=== PATIENT | male | born 1955 | race Caucasian/White ===

== ENCOUNTER 2025-01-10 00:39 | Emergency (ER) | payer MEDICARE, MEDICAID ==
[~2025-01-10] VITALS: Ht 162.6 cm; Wt 63.6 kg
[~2025-01-10 00:39] MED LIST: BACL10TA PO; FAMO-12 PO; FURO20TA4 PO; GABA-1250 PO; HYDR-4792 PO; LISI-275 PO; MIRT1TAB38 PO; MORP30TA5 PO; PANT40T PO
--- NOTE | 2025-01-10 00:47 | ED.PDOC ---
GI ASSESSMENT HPI Comments HPI: Poor Historian. 69-year-old male brought in by ambulance from home for evaluation of 4 hour history of intermittent epigastric pain nonradiating without any nausea or vomiting or diarrhea. Denies any particular alleviating or precipitating factors. Pre-hospital course vital signs were stable. Patient is on morphine Dilaudid and gabapentin. 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 EARS: Denies acute: tinnitus, hearing loss, ear discharge, ear pain, THROAT: Denies acute: sore throat, swelling, difficulty swallowing , pain with swallowing, change in voice. NECK: Denies acute: neck pain, neck swelling, stiff neck. HEART: Denies acute : chest pain, palpitations, LUNGS: Denies acute: SOB, wheezing, cough, hemoptysis ABDOMEN: Denies acute: abdominal pain, Nausea, Vomiting, diarrhea, melena , hematemesis, hematochezia SKIN: Denies acute: rash, redness, lesions, itchiness. EXTREMITIES: Denies acute: calf pain, numbness, tingling, weakness, denies pain in extremity. Denies acute: Low back pain. Neuro: Denies acute: focal neurological deficit, motor or sensory focal neurological deficit, tremors, seizure like activity, confusion, dizziness, change in mental status, loss of bowel or bladder function, cauda equina like symptoms. : Denies acute: dysuria, hematuria, flank pain, increase in urinary frequency. PSYCH: Denies acute: hallucination, suicidal ideation, homicidal ideation. PHYSICAL EXAM: General: no acute distress, awake and alert. Head: normocephalic, atraumatic. Neck: supple, trachea is midline, no swelling. Throat: Normal phonation. Eyes:, no erythema, no purulent discharge, no proptosis, no icterus. Heart: regular rate, regular rhythm, no significant murmur appreciated. Lungs: no apparent respiratory distress, Able to speak in full sentences. No wheezing, no rhonchi, no crackles. No stridors Clear to auscultation bilaterally. Abdomen: Epigastric tender to palpation, non distended, soft, no guarding, no rebound, + bowel sounds. Neuro: Awake, Alert, oriented to name, self, situation, follows commands GCS=15. Speech is normal. Skin: no petechia, no purpura, no cyanosis, non-pale, not jaundice. Lower extremities: --trace bilateral - Pitting edema no deformity, no focal swelling, no calf TTP. Makes eye contact. moves all four extremities. Face: no apparent facial droop. ED COURSE: Time Seen by MD: 00:42 Reviewed Notes: Nurses Notes, Allergies Allergies: Coded Allergies: NO KNOWN ALLERGIES (Unverified , 01/10/25) Information Source: Patient, Emergency Med Personnel Was a procedure done? Was a procedure done?: No GI differential Dx Differential Diagnosis: Other (DDX include but not limited to diverticulitis, colitis, gastroenteritis, acute abdomen, SBO, enteritis, constipation, volvulus, appendicitis, Gallbladder disease, choledocolithiasis, ascending cholangitis, pancreatitis, intraAbdominal mass/neoplasm, hepatitis, UTI, pylonephritis, kidney stone, aneurysm, dissection, Inflammatory bowel disease, gastroparesis, ischemic bowel.) X-Ray, Labs, Meds, VS Vital Signs Date Time Temp Pulse Resp B/P (MAP) Pulse Ox O2 Delivery O2 Flow Rate FiO2 01/10/25 02:57 20 100 Nasal Cannula* 3 32 01/10/25 01:24 81 18 99 Nasal Cannula* 2 28 01/10/25 01:24 98.6 81 18 167/74 (105) 99 98.6 01/10/25 00:54 72 01/10/25 00:47 98.6 74 16 177/60 (99) 97 Lab Test 01/10/25 02:05 01/10/25 01:15 Range/Units Troponin I High Sensitivity Pending 6 </=54 ng/L White Blood Count 10.3 4.4-10.8 10^3/uL Red Blood Count 4.51 4.5-5.90 10^6/uL Hemoglobin 13.2 L 13.5-17.5 g/dL Hematocrit 38.1 L 41.0-53.0 % Mean Corpuscular Volume 84.5 80.0-100.0 fL Mean Corpuscular Hemoglobin 29.1 28.0-32.0 pg Mean Corpuscular Hemoglobin Concent 34.5 32.0-36.0 g/dL Red Cell Distribution Width 13.8 11.8-14.3 % Platelet Count 309 140-450 10^3/uL Mean Platelet Volume 6.7 L 6.9-10.8 fL Neutrophils (%) (Auto) 78.2 37.0-80.0 % Lymphocytes (%) (Auto) 14.5 10.0-50.0 % Monocytes (%) (Auto) 5.8 0.0-12.0 % Eosinophils (%) (Auto) 0.9 0.0-7.0 % Basophils (%) (Auto) 0.6 0.0-2.0 % Neutrophils # (Auto) 8.0 1.6-8.6 10 ^3/uL Lymphocytes # (Auto) 1.5 0.4-5.4 10 ^3/uL Monocytes # (Auto) 0.6 0-1.3 10 ^3/uL Eosinophils # (Auto) 0.1 0-0.8 10 ^3/uL Basophils # (Auto) 0.1 0-0.2 10 ^3/uL Nucleated Red Blood Cells 0.0 % Sodium Level 135 L 136-145 mmol/L Potassium Level 4.3 3.5-5.1 mmol/L Chloride Level 99 98-107 mmol/L Carbon Dioxide Level 29 20-31 mmol/L Anion Gap 7 5-15 Blood Urea Nitrogen 11 9-23 mg/dL Creatinine 0.76 0.700-1.30 mg/dL Glomerular Filtration Rate Calc 96 >90 mL/min BUN/Creatinine Ratio 14.5 10.0-20.0 Serum Glucose 97 74-106 mg/dL Lactic Acid Level 0.7 0.4-2.0 mmol/L Calcium Level 11.0 H 8.7-10.4 mg/dL Total Bilirubin 0.5 0.2-1.0 mg/dL Aspartate Amino Transferase (AST) 10 L 13-40 U/L Alanine Aminotransferase (ALT) 10 7-40 U/L Alkaline Phosphatase 96 46-116 U/L B-Type Natriuretic Peptide 27.50 0-100 pg/mL Total Protein 7.2 5.7-8.2 g/dL Albumin 4.9 H 3.2-4.8 g/dL Lipase 37 12-53 U/L Current Medications Medications (Trade) Dose Ordered Sig/Kush Route Start Time Stop Time Status Last Admin Albuterol (Ventolin Medneb) 2.5 mg ONCE ONCE NEB 01/10/25 02:45 01/10/25 02:46 DC 01/10/25 02:57 Ipratropium [place] (Atrovent Medneb) 1 mg ONCE ONCE NEB 01/10/25 02:45 01/10/25 02:46 DC 01/10/25 02:57 [place] [id number] Ph: [phone] DIAGNOSTIC IMAGING Diagnostic Imaging Report : [id number] Signed PATIENT: LYNNE STERLING ACCT: [id number] UNIT: [id number] : 1955 LOC: ER ROOM / BED: / AGE / SEX: 69 / M ADM STATUS: REG ER SERVICE 0044 ORDERING PHYSICIAN: FLOYD ORTIZ DO PROCEDURE(s): ABPL - CT AB PEL WO CON-NO ORAL OR IV REASON: abd pain ORDER NUMBER(s): [id number], ACCESSION NUMBER(s): [id number] Exam: CT CT AB PEL WO CON-NO ORAL OR IV History: abd pain Comparison Study: None Technique: Multidetector spiral CT of the abdomen was performed from lung bases to pubic symphysis. Imaging was performed without IV contrast. Axial, coronal and sagittal multiplanar reformats were obtained from the axial data set by the technologist. Radiation Dose : 1. Abdomen/Pelvis: CTDIvol 15.3 mGy, DLP 900 mGy*cm. Findings: Evaluation of solid organs is limited due to lack of intravenous contrast use. Lung Bases: No acute or significant lung base finding. Normal heart size. No pleural or pericardial effusion. Liver: The liver is normal in size. No focal lesions. Gallbladder and Biliary Tree: Unremarkable Spleen: Unremarkable Pancreas: The pancreas is grossly normal in appearance. Adrenal Glands: Unremarkable Kidneys: Kidneys are grossly normal without calculi or hydronephrosis. Bladder: Collapsed with the suprapubic catheter.. Bowel: The stomach is grossly normal in appearance. Small bowel and colon are normal in caliber and distribution. The appendix is not visualized; however, no secondary findings of acute appendicitis identified. Ascites: Absent Lymphadenopathy: No mesenteric, retroperitoneal or periportal lymphadenopathy. Abdominal Wall and Mesentery: Unremarkable. Vasculature: Advanced atherosclerotic vascular calcifications in the abdominal aorta and its major branches. Pelvic Organs: Unremarkable Musculoskeletal: Posterior spinal fixation in the lower lumbar spine. Intact hardware. IMPRESSION: 1. No acute abdominal or pelvic findings. Radiation optimization: All CT scans at this facility use at least one of these dose optimization techniques: automated exposure control mA and/or kV adjustment per patient size (includes targeted exams where dose is matched to clinical indication) or iterative reconstruction. ATED BY: TAMIKA RIDLEY MD DICTATED DATE/TIME: 01/10/25225 SIGNED BY: TAMIKA RIDLEY MD SIGNED DATE/TIME: 01/10/25225 CC: Time of 1ST Reevaluation: 02:39 Reevaluation 1ST: Improved Time of 2ND Reevaluation: 03:14 (Patient no acute distress. Patient already has morphine and Dilaudid at home.) Patient Education/Counseling: Diagnosis, Treatment Family Education/Counseling: Other Comments Patient presented with the above HPI.---epigastric abdominal pain---workup was initiated. patient was found with the above mentioned diagnosis. the following medications were ordered: please refer to order lists of meds and tests obtained by myself Dr. Ortiz. Patient ED course and VS have been stabilized. Patient has been reassessed in the ED and remained in a stable condition. Pertinent incidental findings were discussed with the patient and/or family. Patient/family voices understanding and is agreeable with plan. Patient has been observed in the ED adequate length of time to insure improvement/stability. Escalation of care considered: Consideration of escalation to observation or admission Patient was DISCHARGED home in a stable condition. All the reports of any imaging studies that were ordered by myself were reviewed by myself. Departure 1 Departure Time of Disposition: 02:38 Impression: Primary Impression: Epigastric abdominal pain Disposition: 01 HOME / SELF CARE / HOMELESS Condition: Stable Additional Instructions: Additional discharge instructions: You MUST follow-up with your primary care/family doctor in 1 to 2 days. If you are unable to see your primary care/family doctor, please return to our emergency room for re-assessment and re-evaluation in 1 to 2 days. Return to the emergency room here in our facility or to the nearest ER [facility] if your symptoms change or worsen. CONSULTATIONS: you MUST Follow-up for consultation as soon as possible with: -gastroenterology in 1-2 days. Please call for appointment. You MUST call the consultants office yourself to make an appointment. You may need to arrange that through your insurance and/or your primary/family doctor. If you are unable to see the information services consultant in 1 to 2 days, you must return to our emergency room (or any other ER of your choice) for re-assessment and re- evaluation. Adequate fluid hydration. Avoid fatty greasy spicy food. Avoid caffeinated products. Avoid NSAIDs. Below is a copy of your radiological report for follow up: [place] [address] Ph: [phone] DIAGNOSTIC IMAGING Diagnostic Imaging Report : [id number] Signed PATIENT: LYNNE STERLING ACCT: [id number] UNIT: [id number] : 1955 LOC: ER ROOM / BED: / AGE / SEX: 69 / M ADM STATUS: REG ER SERVICE 0044 ORDERING PHYSICIAN: FLOYD ORTIZ DO PROCEDURE(s): ABPL - CT AB PEL WO CON-NO ORAL OR IV REASON: abd pain ORDER NUMBER(s): [id number], ACCESSION NUMBER(s): [id number] Exam: CT CT AB PEL WO CON-NO ORAL OR IV History: abd pain Comparison Study: None Technique: Multidetector spiral CT of the abdomen was performed from lung bases to pubic symphysis. Imaging was performed without IV contrast. Axial, coronal and sagittal multiplanar reformats were obtained from the axial data set by the technologist. Radiation Dose : 1. Abdomen/Pelvis: CTDIvol 15.3 mGy, DLP 900 mGy*cm. Findings: Evaluation of solid organs is limited due to lack of intravenous contrast use. Lung Bases: No acute or significant lung base finding. Normal heart size. No pleural or pericardial effusion. Liver: The liver is normal in size. No focal lesions. Gallbladder and Biliary Tree: Unremarkable Spleen: Unremarkable Pancreas: The pancreas is grossly normal in appearance. Adrenal Glands: Unremarkable Kidneys: Kidneys are grossly normal without calculi or hydronephrosis. Bladder: Collapsed with the suprapubic catheter.. Bowel: The stomach is grossly normal in appearance. Small bowel and colon are normal in caliber and distribution. The appendix is not visualized; however, no secondary findings of acute appendicitis identified. Ascites: Absent Lymphadenopathy: No mesenteric, retroperitoneal or periportal lymphadenopathy. Abdominal Wall and Mesentery: Unremarkable. Vasculature: Advanced atherosclerotic vascular calcifications in the abdominal aorta and its major branches. Pelvic Organs: Unremarkable Musculoskeletal: Posterior spinal fixation in the lower lumbar spine. Intact hardware. IMPRESSION: 1. No acute abdominal or pelvic findings. Radiation optimization: All CT scans at this facility use at least one of these dose optimization techniques: automated exposure control mA and/or kV adjustment per patient size (includes targeted exams where dose is matched to clinical indication) or iterative reconstruction. ATED BY: TAMIKA RIDLEY MD DICTATED DATE/TIME: 01/10/25225 SIGNED BY: TAMIKA RIDLEY MD SIGNED DATE/TIME: 01/10/25225 CC: Discharged With: Self Critical Care Note Critical Care Time?: No Heart Score Heart Score: Heart Score Response (Comments) Value History N/A 0 EKG N/A 0 Age N/A 0 Risk Factors N/A 0 Troponin N/A 0 Total 0 FLOYD ORTIZ DO Jan 10, 2025 00:47
[2025-01-10 01:24] VITALS: PULSE 81; RESP 18; TEMP 98.6; O2SAT 99
[2025-01-10 01:55] LABS: Basophils # (auto) 0.1 10 ^3/uL (0-0.2); Basophils % (auto) 0.6 % (0.0-2.0); Eosinophils # (auto) 0.1 10 ^3/uL (0-0.8); Eosinophils % (auto) 0.9 % (0.0-7.0); Hematocrit 38.1 % (41.0-53.0); Hemoglobin 13.2 g/dL (13.5-17.5); Lymphocytes # (auto) 1.5 10 ^3/uL (0.4-5.4); Lymphocytes % (auto) 14.5 % (10.0-50.0); Mean Corpuscular Hemoglobin 29.1 pg (28.0-32.0); Mean Corpuscular Hgb Conc. 34.5 g/dL (32.0-36.0); Mean Corpuscular Volume 84.5 fL (80.0-100.0); Monocytes # (auto) 0.6 10 ^3/uL (0-1.3); Monocytes % (auto) 5.8 % (0.0-12.0); Neutrophils % (auto) 78.2 % (37.0-80.0); Platelet Count (auto) 309 10^3/uL (140-450); Red Blood Cells 4.51 10^6/uL (4.5-5.90); Red Cell Distribution Width 13.8 % (11.8-14.3); White Blood Cell 10.3 10^3/uL (4.4-10.8)
[2025-01-10 02:00] LABS: Alanine Aminotransferase 10 U/L (7-40); Alkaline Phosphatase 96 U/L (46-116); Carbon Dioxide 29 mmol/L (20-31); Chloride 99 mmol/L (98-107); Glucose 97 mg/dL (74-106); Lipase 37 U/L (12-53); Potassium 4.3 mmol/L (3.5-5.1)
[2025-01-10 02:01] LABS: Anion Gap 7 (5-15); BUN/Creatinine Ratio 14.5 (10.0-20.0); Bilirubin, Total 0.5 mg/dL (0.2-1.0); Blood Urea Nitrogen 11 mg/dL (9-23); Total Protein 7.2 g/dL (5.7-8.2)
[2025-01-10 02:06] LABS: Albumin 4.9 g/dL (3.2-4.8); Aspartate Aminotransferase 10 U/L (13-40); Sodium 135 mmol/L (136-145)
--- NOTE | 2025-01-10 02:17 | DVH ---
CHEST RADIOGRAPH Indication: epig pain Technique: Single frontal view of the chest was obtained COMPARISON: None FINDINGS: Lines and Tubes: None Lungs: Fibrosis in upper lobe with background emphysematous changes. No acute airspace disease. Pleura: No effusion. No pneumothorax. Cardiomediastinal contours: Heart size is in the upper limit of normal. Bones: Left ribs chronic deformitites. IMPRESSION: 1. No acute disease.
--- NOTE | 2025-01-10 02:29 | DVH ---
Exam: CT CT AB PEL WO CON-NO ORAL OR IV History: abd pain Comparison Study: None Technique: Multidetector spiral CT of the abdomen was performed from lung bases to pubic symphysis. Imaging was performed without IV contrast. Axial, coronal and sagittal multiplanar reformats were ob tained from the axial data set by the technologist. Radiation Dose : 1. Abdomen/Pelvis: CTDIvol 15.3 mGy, DLP 900 mGy*cm. Findings: Evaluation of solid organs is limited due to lack of intravenous contrast use. Lung Bases: No acute or significant lung base finding. Normal heart size. No pleural or pericardial effusion. Liver: The liver is normal in size. No focal lesions. Gallbladder and Biliary Tree: Unremarkable Spleen: Unremarkable Pancreas: The pancreas is grossly normal in appearance. Adrenal Glands: Unremarkable Kidneys: Kidneys are grossly normal without calculi or hydronephrosis. Bladder: Collapsed with the suprapubic catheter.. Bowel: The stomach is grossly normal in appearance. Small bowel and colon are normal in caliber and d istribution. The appendix is not visualized; however, no secondary findings of acute appendicitis id entified. Ascites: Absent Lymphadenopathy: No mesenteric, retroperitoneal or periportal lymphadenopathy. Abdominal Wall and Mesentery: Unremarkable. Vasculature: Advanced atherosclerotic vascular calcifications in the abdominal aorta and its major br anches. Pelvic Organs: Unremarkable Musculoskeletal: Posterior spinal fixation in the lower lumbar spine. Intact hardware. IMPRESSION: 1. No acute abdominal or pelvic findings. Radiation optimization: All CT scans at this facility use at least one of these dose optimization vladimir hniques: automated exposure control mA and/or kV adjustment per patient size (includes targeted exam s where dose is matched to clinical indication) or iterative reconstruction.
[2025-01-10] MEDS: IPRATROPIUM BROM 0.5 MG/2.5ML INH SOL NEB ONE (02:57)
[2025-01-10] MEDS: ALBUTEROL SULF 2.5 MG/0.5ML(0.5%) NEB SOLN NEB ONE (02:57)
[2025-01-10 04:00] VITALS: BP 158/80; PULSE 18; RESP 85; O2SAT 99
--- NOTE | 2025-01-10 07:18 | ECG ---
[facility] Test Date: 2025-01-10 Test Time: 00:54:58 Pat Name: LYNNE STERLING Department: ED Room: Gender: M [employer]: : 1955 Requested By: FLOYD DOUGLAS Order Number: [id number] Reading MD: Ross Stephens Measurements Intervals [place] Rate: 72 P: 76 HI: 187 QRS: 52 QRSD: 88 T: 42 QT: 390 QTc: 427 Interpretive Statements Sinus rhythm Probable anteroseptal infarct, old Electronically Signed On 01-11-2025 18:45:01 PST by Ross Stephens Please click the below link to view image of tracing.
[2025-01-10] MEDS ORDERED: TAMS0.4C39 PO (08:46)
[2025-01-10] MEDS ORDERED: OXYB5TAB14 PO (08:46)
[2025-01-10] MEDS ORDERED: LACT10SO3 PO (08:46)
[2025-01-10] MEDS ORDERED: PHEN-1044 (08:46)
[2025-01-10] MEDS ORDERED: DICY10CA PO (08:46)
[2025-01-10] MEDS ORDERED: LORA-1121 PO (23:32)
[2025-01-11] MEDS ORDERED: LORA-1123 PO (03:07)
== END 2025-01-10 04:40 | disposition home or self-care (01) ==
LOC: ER 00:39 → EDBD 00:39 → ER 04:40
DX: R10.13 Epigastric pain (principal); I10 Essential (primary) hypertension; G89.29 Other chronic pain; M54.50 Low back pain, unspecified; J44.9 Chronic obstructive pulmonary disease, unspecified
CPT/HCPCS: 36415; 71045; 74176; 80053; 83605; 83690; 83880; 84484; 85025; 93005; 94640

== ENCOUNTER 2025-01-10 07:01 | Inpatient (IN) | payer MEDICARE, MEDICAID ==
[~2025-01-10] VITALS: Ht 160 cm; Wt 80.7 kg
--- NOTE | 2025-01-10 07:56 | ED.PDOC ---
GI ASSESSMENT HPI Comments 69-year-old male presents with a chief complaint of abdominal pain x onset last night. Patient was just discharged from this ER after being evaluated for the same chief complaint and his blood work/imaging studies were all unremarkable. Patient did not want to be discharged back to [facility] and decided to check back in immediately after being discharged this morning. Patient states that his abdomen pain is now worse and is burning. No other symptoms or modifying factors present at this time. Chief Complaint: Abdominal Pain Time Seen by MD: 07:31 Reviewed Notes: Medications, Allergies Allergies: Coded Allergies: Acetaminophen (Verified Allergy, Mild, RASH, 01/10/25) Home Meds Reported Medications Dicyclomine Hcl (BENTYL CAPSULE) 10 Mg Cp, 1 01/10/25 Oxybutynin Chloride (Oxybutynin Chloride) 5 Mg Tab, 1 DAILY 01/10/25 Tamsulosin Hcl (Tamsulosin Hcl) 0.4 Mg Cap 01/10/25 Lactulose (Lactulose) 10 Gm/15 Ml Becki, ML PO 01/10/25 Furosemide (Furosemide) 20 Mg Tab, 1 DAILY 01/10/25 Mirtazapine (Mirtazapine Oral Disintegrating Tablet) 15 Mg Tab, 1 01/10/25 Gabapentin (Gabapentin) 300 Mg Cap 01/10/25 Famotidine (Famotidine) 20 Mg Tab, 1 DAILY 01/10/25 Lisinopril (Lisinopril) 5 Mg Tab, 1 DAILY 01/10/25 Phenazopyridine HCl (Phenazopyridine Hydrochlo) 100 Mg Tab 01/10/25 Pantoprazole Sodium Sesquihydr (Pantoprazole Sodium) 40 Mg Tab, 1 DAILY 01/10/25 Baclofen (Baclofen) 10 Mg Tab, 1 01/10/25 Information Source: Patient Mode of Arrival: Ambulatory Timing: Hours Duration: Since onset Prehospital treatment: None Quality: Burning Vomitus: None Stool: Normal Severity: Moderate Recent: None Recent Hx of: None Pain Location: Epigastric Associated sign and symptoms: Abdominal Pain Past Medical History PAST MEDICAL HISTORY: Pt Confused Surgical History: Pt Confused Family History Family History: Reviewed,noncontributory to illness Social History Smoker: Non-Smoker Alcohol: Denies ETOH Use Drugs: Denies Drug Use Lives In: [facility] Constitutional: denies: chills, diaphoresis, fatigue, fever, malaise, sweats, weakness, others EENTM: denies: blurred vision, double vision, ear bleeding, ear discharge, ear drainage, ear pain, ear ringing, eye pain, eye redness, hearing loss, mouth pain, mouth swelling, nasal discharge, nose bleeding, nose congestion, nose pain, photophobia, tearing, throat pain, throat swelling, voice changes, others Respiratory: denies: cough, hemoptysis, orthopnea, SOB at rest, shortness of breath, SOB with excertion, stridor, wheezing, others Cardiovascular: denies: chest pain, dizzy spells, diaphoresis, Dyspnea on exertion, edema, irregular heart beat, left arm pain, lightheadedness, palpitations, PND, syncope, others Gastrointestinal: reports: abdominal pain; denies: abdomen distended, blood streaked bowels, constipated, diarrhea, dysphagia, difficulty swallowing, hematemesis, melena, nausea, poor appetite, poor fluid intake, rectal bleeding, rectal pain, vomiting, others Genitourinary: denies: burning, dysuria, flank pain, frequency, hematuria, incontinence, penile discharge, penile sore, pain, testicle pain, testicle swelling, urgency, others Neurological: denies: dizziness, fainting, headache, left sided numbness, left sided weakness, numbness, paresthesia, pre-existing deficit, right sided numbness, right sided weakness, seizure, speech problems, tingling, tremors, weakness, others Musculoskeletal: denies: back pain, gout, joint pain, joint swelling, muscle pain, muscle stiffness, neck pain, others Integumetry: denies: bruises, change in color, change in hair/nails, dryness, laceration, lesions, lumps, rash, wounds, others Allergic/Immunocompromised: denies: Difficulty Healing, Frequent Infections, Hives, Itching, others Hematologic/Lymphatic: denies: anemia, blood clots, easy bleeding, easy bruising, swollen glands, others Endocrine: denies: excessive hunger, excessive sweating, excessive thirst, excessive urination, flushing, intolerance to cold, intolerance to heat, unexplained weight gain, unexplained weight loss, others Psychiatric: denies: anxiety, bipolar disorder, depression, hopeless, panic disorder, schizophrenia, sleepless, suicidal, others All Other Systems: Reviewed and Negative Physical Exam General Appearance: No Apparent Distress, Normal HEENT: Normal ENT Inspection, Pharynx Normal, TMs Normal Neck: Full Range of Motion, Non-Tender, Normal, Normal Inspection Respiratory: Chest Non-Tender, Lungs Clear, No Accessory Muscle Use, No Respiratory Distress, Normal Breath Sounds, Other (ON NASAL CANNULA) Cardiovascular: No Edema, No JVD, No Murmur, No Gallop, Normal Peripheral Pulses, Regular Rate/Rhythm Breast Exam: Deferred Gastrointestinal: Diffuse, No Organomegaly, No Pulsatile Mass, Normal Bowel Sounds, Soft, Tenderness Genitalia: Other (PEMBERTON CATHETER IN PLACE) Pelvic: Deferred Rectal: Deferred Extremities: No calf tenderness, Normal capillary refill, Normal inspection, Normal range of motion, Non-tender, No pedal edema Musculoskeletal : Apperance: Normal Neurologic: Alert, psychological anthropologist II-XII nml as Tested, No Motor Deficits, Normal Affect, Normal Mood, No Sensory Deficits Cerebellar Function: Normal Reflexes: Normal Skin: Dry, Normal Color, Warm Lymphatic: No Adenopathy Was a procedure done? Was a procedure done?: No GI differential Dx Differential Diagnosis: Bowel Obstruction, Constipation, Gastritis/PUD, Pancreatitis, UTI X-Ray, Labs, Meds, VS Vital Signs Date Time Temp Pulse Resp B/P (MAP) Pulse Ox O2 Delivery O2 Flow Rate FiO2 01/10/25 08:05 98.6 88 22 144/59 (87) 95 98.6 01/10/25 07:52 62 01/10/25 07:20 98.1 76 20 167/84 (111) 92 Current Medications Medications (Trade) Dose Ordered Sig/Kush Route Start Time Stop Time Status Last Admin Lidocaine HCl (Xylocaine 2% Viscous) 5 ml ONCE ONCE MT 01/10/25 07:45 01/10/25 07:46 DC 01/10/25 08:18 Al Hydrox/Mg Hydrox/Simethicone (Maalox Plus) 30 ml ONCE ONCE PO 01/10/25 07:45 01/10/25 07:46 DC 01/10/25 08:18 Belladonna Alkaloids/ Phenobarbital ( Elixir) 5 ml ONCE ONCE PO 01/10/25 07:45 01/10/25 07:46 DC 01/10/25 08:19 69-year-old male presents here with continued abdominal pain. Patient was seen here yesterday by Dr. Ortiz discharged from the ER. However soon after being discharged, patient continued to not feel well and he readmitted himself into the emergency department. At this time I have evaluated the patient. He states he is having epigastric discomfort and diarrhea, and also dysphagia. I reviewed the labs that were done by Dr. Ortiz yesterday. Labs were within normal limits. CT scan of the abdomen and pelvis was also done with no evidence of acute pathology. At this time I have given him a GI cocktail in the ER. Chest x-ray has been done which is unremarkable. At this time hospitalist team has been contacted for further evaluation. Time of 1ST Reevaluation: 08:01 Reevaluation 1ST: Unchanged Patient Education/Counseling: Diagnosis, Treatment, Prognosis Family Education/Counseling: Diagnosis, Treatment, Prognosis Departure 1 Departure Time of Disposition: 09:31 Impression: Primary Impression: Epigastric abdominal pain Additional Impression: Dysphagia Qualified Codes: R13.10 - Dysphagia, unspecified Disposition: ADMITTED INPATIENT Admit to: Med Surg Condition: Fair Critical Care Note Critical Care Time?: No Stability Stability form required: No Heart Score Heart Score: Heart Score Response (Comments) Value History N/A 0 EKG N/A 0 Age N/A 0 Risk Factors N/A 0 Troponin N/A 0 Total 0 I personally scribed for ADARSH WOOD MD ([email or web address]) on 01/10/25 at 07:56. Electronically submitted by Marc Armendariz ([email or web address]). I personally scribed for ADARSH WOOD MD ([email or web address]) on 01/10/25 at 09:20. Electronically submitted by Marc Armendariz ([email or web address]). ADARSH WOOD MD Jan 10, 2025 07:56
[2025-01-10] MEDS: LIDOCAINE VISCOUS 2% 15ML UD MT ONE (08:18)
[2025-01-10] MEDS: MAALOX PLUS or MAALOX 30 ML PO ONE (08:18)
[2025-01-10] MEDS: DONNATAL 5ml ORAL Elix (BELLADONNA ALK-PHENOBARB) PO ONE (08:19)
--- NOTE | 2025-01-10 08:20 | DVH ---
EXAM: XY CHEST PORTABLE HISTORY: DYSPNEA COMPARISON: XY CHEST PORTABLE on DOS: 01/10/25 TECHNIQUE: Portable supine AP view of the chest was performed. FINDINGS: There is mild elevation of the right hemidiaphragm. There is biapical pleural thickening. No pneumoth orax, consolidative infiltrates, or pulmonary edema. There is improved interstitial infiltrate in the right lung compared with the earlier chest x-ray. The heart is borderline enlarged. IMPRESSION: 1. Improved right lung interstitial opacities. 2. Mildly elevated right hemidiaphragm and borderline cardiomegaly.
[2025-01-10 08:30] VITALS: PULSE 88; RESP 22; O2SAT 95
[2025-01-10] MEDS ORDERED: OXYB5TAB14 PO (08:46)
[2025-01-10] MEDS ORDERED: PHEN-1044 (08:46)
[2025-01-10] MEDS ORDERED: DICY10CA PO (08:46)
[2025-01-10] MEDS ORDERED: TAMS0.4C39 PO (08:46)
[2025-01-10] MEDS ORDERED: LACT10SO3 PO (08:46)
--- NOTE | 2025-01-10 09:09 | DVHHP2 ---
History of Present Illness Reason for Visit: abdominal pain History of Present Illness Refugio Holt is a 69-year-old male with past medical history of hypertension, COPD, [place]'s disease, emphysema, and multiple low back surgeries who presents to the ED with abdominal pain x1 day. Patient states the pain is 10/10 constant and sharp in nature. He states that there are no aggravating or relieving factors. He reports that he is from for most sniff. He was just here earlier this morning was discharged was in the lobby and stated that he had worsening abdominal pain. Patient reports that he is continuously on oxygen on 2 L nasal cannula. Patient uses a Rollator with ambulation. Patient denies any chest pain, shortness of breath, fever, chills, lightheadedness, weakness, dizziness, nausea, vomiting, and diarrhea. Cardiovascular: HTN Pulmonary: COPD, Other (Emphysema) Past Medical History Pal[place]'s disease Past Surgical History: Other (Multiple low back surgeries) Family History: Other (Dad with atherosclerosis) Smoke: Quit ALCOHOL: none (Quit drinking) Drugs: None Lives: Shelter Domestic Violence: Neg Review of Systems Gastrointestinal: Abdominal Pain Allergies: Coded Allergies: Acetaminophen (Verified Allergy, Mild, RASH, 01/10/25) Medications Current Medications Medications Dose Ordered Sig/Kush Route Start Time Stop Time Status Last Admin Dose Admin Ondansetron HCl 4 mg Q4HP PRN IV 01/10/25 08:45 UNV Morphine Sulfate 2 mg Q4HPRN PRN IV 01/10/25 08:45 UNV Ceftriaxone Sodium 50 ml @ 100 mls/hr DAILY@09 IV 01/10/25 09:00 UNV Azithromycin 250 ml @ 125 mls/hr DAILY IV 01/10/25 10:00 UNV Exam Vital Signs Vital Signs Date Time Temp Pulse Resp B/P (MAP) Pulse Ox O2 Delivery O2 Flow Rate FiO2 01/10/25 08:05 98.6 88 22 144/59 (87) 95 98.6 General Appearance: Alert, Oriented X3, Cooperative HEENT: Atraumatic, PERRLA, EOMI Respiratory: Normal air movement Cardiovascular: Normal S1, Normal S2, No murmurs Abdominal: Soft, No hepatospenomegaly, No masses Extremities: No clubbing, No cyanosis, Normal pulses Skin: No significant lesion Neuro: Normal speech, Sensation intact Psych/Mental Status: Mental status NL, Mood NL Labs/Xrays EXAM: XY CHEST PORTABLE HISTORY: DYSPNEA COMPARISON: XY CHEST PORTABLE on DOS: 01/10/25 TECHNIQUE: Portable supine AP view of the chest was performed. FINDINGS: There is mild elevation of the right hemidiaphragm. There is biapical pleural thickening. No pneumothorax, consolidative infiltrates, or pulmonary edema. There is improved interstitial infiltrate in the right lung compared with the earlier chest x-ray. The heart is borderline enlarged. IMPRESSION: 1. Improved right lung interstitial opacities. 2. Mildly elevated right hemidiaphragm and borderline cardiomegaly. Exam: CT CT AB PEL WO CON-NO ORAL OR IV History: abd pain Comparison Study: None Technique: Multidetector spiral CT of the abdomen was performed from lung bases to pubic symphysis. Imaging was performed without IV contrast. Axial, coronal and sagittal multiplanar reformats were obtained from the axial data set by the technologist. Radiation Dose : 1. Abdomen/Pelvis: CTDIvol 15.3 mGy, DLP 900 mGy*cm. Findings: Evaluation of solid organs is limited due to lack of intravenous contrast use. Lung Bases: No acute or significant lung base finding. Normal heart size. No pleural or pericardial effusion. Liver: The liver is normal in size. No focal lesions. Gallbladder and Biliary Tree: Unremarkable Spleen: Unremarkable Pancreas: The pancreas is grossly normal in appearance. Adrenal Glands: Unremarkable Kidneys: Kidneys are grossly normal without calculi or hydronephrosis. Bladder: Collapsed with the suprapubic catheter.. Bowel: The stomach is grossly normal in appearance. Small bowel and colon are normal in caliber and distribution. The appendix is not visualized; however, no secondary findings of acute appendicitis identified. Ascites: Absent Lymphadenopathy: No mesenteric, retroperitoneal or periportal lymphadenopathy. Abdominal Wall and Mesentery: Unremarkable. Vasculature: Advanced atherosclerotic vascular calcifications in the abdominal aorta and its major branches. Pelvic Organs: Unremarkable Musculoskeletal: Posterior spinal fixation in the lower lumbar spine. Intact hardware. IMPRESSION: 1. No acute abdominal or pelvic findings. Assessment/Plan Assessment/Plan Assessment Intractable abdominal pain Cardiomegaly Interstitial opacities probable pneumonia History of hypertension History of COPD History of [place]'s disease History of emphysema Oxygen dependence History of multiple low back surgeries Plan Admit to med surge Antiemetics Pain management IV antibiotics-ceftriaxone plus azithromycin Continue home medications P.r.n. respiratory treatments Supplementary oxygen Chest x-ray noted EKG Labs Lipase CT abdomen pelvis noted Diet Plan discussed with: Patient My Orders Orders - JUJU WOODARD Procedure Category Date Status Time Complete Blood Count LAB 01/10/25 Logged 08:31 Comprehensive LAB 01/10/25 Logged Metabolic Panel 08:31 Lipase LAB 01/10/25 Logged 08:31 Admit ADMIT 01/10/25 Transmitted 08:32 Allergies EVETTE 01/10/25 In Process 08:32 Code Status CODE 01/10/25 Transmitted 08:32 Ondansetron Hcl PHA 01/10/25 Logged (Zofran) 08:45 Complete Blood Count LAB 01/11/25 Verified 04:00 Comprehensive LAB 01/11/25 Verified Metabolic Panel 04:00 Clear Liq Diet DIET 01/10/25 Transmitted Breakfast Morphine Sulfate PHA 01/10/25 Logged Injection 08:45 Ceftriaxone 1gm/50ml PHA 01/10/25 Logged D5w (Rocephin) 09:00 Azithromycin 500mg/ PHA 01/10/25 Logged 250ml (Zithromax 50 10:00 Date of Service: Jan 10, 2025 Billing Provider: JUJU WOODARD Common Visit Codes: [id number] INP/OBS CARE (HIGH) JUJU WOODARD Jan 10, 2025 09:09
[2025-01-10] MEDS: ONDANSETRON HCL 4 MG/2 ML VIAL IV PRN (09:37)
[2025-01-10] MEDS: cefTRIAXone 1GM/50ML D5W 50 ML IV SCH (09:37)
[2025-01-10] MEDS: MORPHINE SULFATE INJ 2 MG/ml SYRG IV PRN (09:39)
[2025-01-10 09:47] LABS: Basophils # (auto) 0.1 10 ^3/uL (0-0.2); Basophils % (auto) 0.6 % (0.0-2.0); Eosinophils # (auto) 0 10 ^3/uL (0-0.8); Eosinophils % (auto) 0.6 % (0.0-7.0); Hematocrit 40.6 % (41.0-53.0); Hemoglobin 13.6 g/dL (13.5-17.5); Lymphocytes # (auto) 1.2 10 ^3/uL (0.4-5.4); Lymphocytes % (auto) 15.2 % (10.0-50.0); Mean Corpuscular Hemoglobin 28.3 pg (28.0-32.0); Mean Corpuscular Hgb Conc. 33.5 g/dL (32.0-36.0); Mean Corpuscular Volume 84.6 fL (80.0-100.0); Monocytes # (auto) 0.4 10 ^3/uL (0-1.3); Monocytes % (auto) 5.3 % (0.0-12.0); Neutrophils # (auto) 6.3 10 ^3/uL (1.6-8.6); Neutrophils % (auto) 78.3 % (37.0-80.0); Nucleated Red Blood Cells % 0.2 %; Platelet Count (auto) 336 10^3/uL (140-450); Red Cell Distribution Width 13.9 % (11.8-14.3)
[2025-01-10 09:50] LABS: Alkaline Phosphatase 102 U/L (46-116); Anion Gap 8 (5-15); BUN/Creatinine Ratio 12.5 (10.0-20.0); Bilirubin, Total 0.6 mg/dL (0.2-1.0); Blood Urea Nitrogen 10 mg/dL (9-23); Carbon Dioxide 28 mmol/L (20-31); Chloride 99 mmol/L (98-107); Glucose 92 mg/dL (74-106); Potassium 4.5 mmol/L (3.5-5.1); Total Protein 7.2 g/dL (5.7-8.2)
[2025-01-10 10:10] LABS: Alanine Aminotransferase < 9 U/L (7-40); Albumin 4.9 g/dL (3.2-4.8); Aspartate Aminotransferase 12 U/L (13-40); Calcium 10.7 mg/dL (8.7-10.4); Sodium 135 mmol/L (136-145)
[2025-01-10 10:29] LABS: Lipase 36 U/L (12-53)
[2025-01-10] MEDS: AZITHROMYCIN 500MG/ 250ML 250 ML IV SCH (11:19)
[2025-01-10] MEDS: HYDROMORPHONE HCL 1 MG/ML INJ IV PRN (15:55)
--- NOTE | 2025-01-10 18:20 | ECG ---
[facility] Test Date: 2025-01-10 Test Time: 07:52:34 Pat Name: LYNNE STERLIGN Department: ER Room: 0279 Gender: M [employer]: ER : [id number] Requested By: ADARSH WOOD Order Number: [id number] Reading MD: Ross Stephens Measurements Intervals [place] Rate: 62 P: 28 GA: 162 QRS: 24 QRSD: 78 T: 38 QT: 400 QTc: 407 Interpretive Statements Sinus rhythm Abnormal R-wave progression, early transition Electronically Signed On 01-11-2025 18:45:15 PST by Ross Stephens Please click the below link to view image of tracing.
[2025-01-10 19:52] VITALS: PULSE 98; RESP 20; O2SAT 99
[2025-01-10 21:00] VITALS: BP 158/70; PULSE 84; RESP 20; TEMP 97.7; O2SAT 99
[2025-01-10] MEDS ORDERED: LORA-1121 PO (23:32)
[2025-01-10 23:53] VITALS: BP 158/70; PULSE 84; RESP 20; TEMP 97.7; O2SAT 2; O2SAT 99
[2025-01-11] VITALS (10 sets, daily range): BP systolic 136–168; BP diastolic 56–78; PULSE 66–103; RESP 17–21; TEMP 97.2–98.8; O2SAT 2–100
[2025-01-11] MEDS: MELATONIN 5 MG TAB PO PRN (00:14)
[2025-01-11] MEDS: LORazepam 0.5 MG TAB PO PRN (02:21)
[2025-01-11] MEDS ORDERED: LORA-1123 PO (03:07)
[2025-01-11 08:01] LABS: Basophils # (auto) 0 10 ^3/uL (0-0.2); Basophils % (auto) 0.2 % (0.0-2.0); Eosinophils # (auto) 0 10 ^3/uL (0-0.8); Hematocrit 42.7 % (41.0-53.0); Mean Corpuscular Hemoglobin 27.8 pg (28.0-32.0); Mean Corpuscular Hgb Conc. 32.7 g/dL (32.0-36.0); Monocytes # (auto) 0.4 10 ^3/uL (0-1.3); Monocytes % (auto) 3.5 % (0.0-12.0); Neutrophils # (auto) 9.1 10 ^3/uL (1.6-8.6); Neutrophils % (auto) 86.3 % (37.0-80.0); Nucleated Red Blood Cells % 0.2 %; Platelet Count (auto) 370 10^3/uL (140-450); Red Blood Cells 5.02 10^6/uL (4.5-5.90); White Blood Cell 10.5 10^3/uL (4.4-10.8)
[2025-01-11 08:32] LABS: Alkaline Phosphatase 98 U/L (46-116); Anion Gap 11 (5-15); Aspartate Aminotransferase 13 U/L (13-40); BUN/Creatinine Ratio 11.3 (10.0-20.0); Blood Urea Nitrogen 9 mg/dL (9-23); Carbon Dioxide 24 mmol/L (20-31); Potassium 4.3 mmol/L (3.5-5.1)
[2025-01-11 08:33] LABS: Bilirubin, Total 0.6 mg/dL (0.2-1.0)
[2025-01-11 08:37] LABS: Alanine Aminotransferase < 9 U/L (7-40); Albumin 4.8 g/dL (3.2-4.8); Calcium 10.9 mg/dL (8.7-10.4); Chloride 97 mmol/L (98-107); Glucose 73 mg/dL (74-106); Sodium 132 mmol/L (136-145)
[2025-01-11] MEDS: LACTATED RINGER'S 1,000 ML IV SCH (12:30)
--- NOTE | 2025-01-11 12:38 | DVHPN2 ---
Reviewed: Care Plan, H&P, Labs, Medications, Previous Orders, Radiology Changes from previous H/P or p: No Changes Gastrointestinal: Abdominal Pain Objective Vitals Vital Signs Date Time Temp Pulse Resp B/P (MAP) Pulse Ox O2 Delivery O2 Flow Rate FiO2 01/11/25 12:16 98.5 68 17 143/56 (85) 99 98.5 01/10/25 23:53 Nasal Cannula* 1 24 Intake/Output Intake and Output 01/11/25 07:00 Intake Total 0 ml Output Total 400 ml Balance -400 ml Intake Oral 0 ml Output Urine Total 400 ml Medications Current Medications Medications Dose Ordered Sig/Kush Route Start Time Stop Time Status Last Admin Dose Admin Ondansetron HCl 4 mg Q4HP PRN IV 01/10/25 08:45 01/11/25 10:59 4 MG Ceftriaxone Sodium 50 ml @ 100 mls/hr DAILY@09 IV 01/10/25 09:00 01/11/25 10:59 100 MLS/HR Azithromycin 250 ml @ 125 mls/hr DAILY IV 01/10/25 10:00 01/10/25 11:19 125 MLS/HR Hydromorphone HCl 0.5 mg Q6HPRN PRN IV 01/10/25 15:30 01/11/25 10:58 0.5 MG Melatonin 5 mg HS PRN PO 01/10/25 23:45 01/11/25 00:14 5 MG Lorazepam 1 mg Q8HP PRN PO 01/11/25 02:15 01/11/25 02:21 1 MG Laboratory Results Laboratory Tests 01/11/25 05:42 Chemistry Test 01/11/25 05:42 Albumin 4.8 g/dL (3.2-4.8) Calcium Level 10.9 mg/dL (8.7-10.4) H Total Protein 7.0 g/dL (5.7-8.2) LFT Test 01/11/25 05:42 Alanine Aminotransferase (ALT) < 9 U/L (7-40) Alkaline Phosphatase 98 U/L (46-116) Aspartate Amino Transferase (AST) 13 U/L (13-40) Total Bilirubin 0.6 mg/dL (0.2-1.0) Labs and/or images reviewed: Labs reviewed by me, Image(s) reviewed by me Assessment/Plan Assessment/Plan Intractable abdominal pain : Lipase normal: CT abdomen pelvis without contrast ordered Cardiomegaly Interstitial opacities probable pneumonia Rocephin azithromycin History of hypertension History of COPD History of [place]'s disease : Resume home medications hydrocortisone 10 mg p.o. daily History of emphysema Acute dehydration: IV fluids LR 125 per hour Oxygen dependence History of multiple low back surgeries Narcotic addiction Ordered rapid flu test Kaila test [facility] Plan discussed with: Patient My Orders Orders - ELENA PALOMARES MD Procedure Category Date Status Time Ct Ab Pel Wo Con-No CT 01/11/25 Transmitted Oral Or Iv 12:27 Date of Service: Jan 11, 2025 Billing Provider: ELENA PALOMARES MD Common Visit Codes: [id number] CARE 30-74 MIN ELENA PALOMARES MD Jan 11, 2025 12:38
[2025-01-11] MEDS: HYDROCORTISONE 10 MG TAB PO ONE (15:40)
[2025-01-11] MEDS: TAMSULOSIN HYDROCHLORIDE 0.4 MG CAP PO SCH (15:40)
[2025-01-11] MEDS: MAALOX PLUS or MAALOX 30 ML PO ONE (17:37)
[2025-01-11] MEDS: PANTOPRAZOLE 40 MG/10 ML VIAL INJ IV SCH (20:58)
[2025-01-11] MEDS: MAALOX PLUS or MAALOX 30 ML PO PRN (20:58)
[2025-01-11] MEDS: OXYBUTYNIN CHL 5 MG TAB PO SCH (20:58)
[2025-01-11] MEDS: ALBUTEROL SULF 2.5 MG/0.5ML(0.5%) NEB SOLN NEB PRN (22:01)
[2025-01-11 22:11] LABS: Rapid Influenza A Negative (Negative); Rapid Influenza B Negative (Negative)
[2025-01-11 22:12] LABS: COVID19 ANTIGEN SOFIA FIA NEGATIVE (NEGATIVE)
[2025-01-12] VITALS (10 sets, daily range): BP systolic 107–172; BP diastolic 56–96; PULSE 61–81; RESP 18–19; TEMP 97.6–98.8; O2SAT 96–99
[2025-01-12] MEDS: HYDROCORTISONE 10 MG TAB PO SCH (11:06)
--- NOTE | 2025-01-12 11:56 | DVHPN2 ---
Reviewed: Care Plan, H&P, Labs, Medications, Previous Orders, Radiology Changes from previous H/P or p: No Changes Gastrointestinal: Abdominal Pain Objective Vitals Vital Signs Date Time Temp Pulse Resp B/P (MAP) Pulse Ox O2 Delivery O2 Flow Rate FiO2 01/12/25 09:35 97 Nasal Cannula* 2 28 01/12/25 09:00 98.1 81 18 107/56 (73) 98.1 Intake/Output Intake and Output 01/12/25 07:00 Intake Total 350 ml Output Total 1000 ml Balance -650 ml Intake Oral 350 ml Output Urine Total 1000 ml # Bowel Movements 7 Medications Current Medications Medications Dose Ordered Sig/Kush Route Start Time Stop Time Status Last Admin Dose Admin Ondansetron HCl 4 mg Q4HP PRN IV 01/10/25 08:45 01/11/25 10:59 4 MG Ceftriaxone Sodium 50 ml @ 100 mls/hr DAILY@09 IV 01/10/25 09:00 01/12/25 10:21 100 MLS/HR Azithromycin 250 ml @ 125 mls/hr DAILY IV 01/10/25 10:00 01/12/25 11:05 125 MLS/HR Hydromorphone HCl 0.5 mg Q6HPRN PRN IV 01/10/25 15:30 01/12/25 06:47 0.5 MG Melatonin 5 mg HS PRN PO 01/10/25 23:45 01/11/25 21:07 5 MG Lorazepam 1 mg Q8HP PRN PO 01/11/25 02:15 01/12/25 10:18 1 MG Lactated Ringer's 1,000 ml @ 125 mls/hr Q8H IV 01/11/25 12:30 01/11/25 20:30 125 MLS/HR Tamsulosin HCl 0.4 mg QPM PO 01/11/25 18:00 01/11/25 15:40 0.4 MG Oxybutynin Chloride 5 mg Q12HR PO 01/11/25 22:00 01/12/25 10:19 5 MG Pantoprazole Sodium 40 mg BID IV 01/11/25 22:00 01/12/25 10:21 40 MG Hydrocortisone 10 mg DAILY PO 01/12/25 10:00 01/12/25 11:06 10 MG Al Hydrox/Mg Hydrox/Simethicone 30 ml Q8HP PRN PO 01/11/25 15:30 01/11/25 20:58 30 ML Albuterol 2.5 mg Q6HPRN PRN NEB 01/11/25 21:45 01/11/25 22:01 2.5 MG Laboratory Results Laboratory Tests 01/11/25 05:42 Labs and/or images reviewed: Labs reviewed by me, Image(s) reviewed by me Assessment/Plan Assessment/Plan Intractable abdominal pain : Lipase normal: CT abdomen pelvis without contrast ordered Cardiomegaly Interstitial opacities probable pneumonia Rocephin azithromycin Acute diarrhea: C diff studies pending, Imodium p.r.n. History of hypertension History of COPD History of [place]'s disease : Resume home medications hydrocortisone 10 mg p.o. daily History of emphysema Acute dehydration: IV fluids LR 125 per hour Use of home oxygen Chronic back pain: Dilaudid 2 mg p.o. q.4 hours which is his home medication History of multiple low back surgeries Narcotic addiction Flu Test negative COVID test negative [facility] Plan discussed with: Patient My Orders Orders - ELENA PALOMARES MD Procedure Category Date Status Time Lactated Ringer's PHA 01/11/25 In Process 12:30 Tamsulosin PHA 01/11/25 In Process Hydrochloride (Flomax) 18:00 Blood Culture EVANGELINA 01/11/25 In Process 12:28 Urine Bacterial EVANGELINA 01/11/25 Logged Culture 12:28 Urinalysis LAB 01/11/25 Logged 12:35 Oxybutynin Chloride PHA 01/11/25 In Process Tablet (Ditropan Tab 22:00 Pantoprazole PHA 01/11/25 In Process (Protonix) 22:00 Hydrocortisone Tablet PHA 01/12/25 In Process (Cortef Tablet) 10:00 Alum & Mag PHA 01/11/25 In Process Hydrox-Simethicone 15:30 C-Diff: Collect Next EVETTE 01/12/25 In Process Specimen 04:30 Ct Ab Pel Wo Con-No CT 01/12/25 Taken Oral Or Iv 07:00 Clostridium Difficile EVANGELINA 01/12/25 In Process Toxin 09:59 Date of Service: Jan 12, 2025 Billing Provider: ELENA PALOMARES MD Common Visit Codes: [id number] INP/OBS CARE(HIGH) ELENA PALOMARES MD Jan 12, 2025 11:56
[2025-01-12] MEDS ORDERED: LOPERAMIDE HCL 2 MG CAP/TAB PO PRN (12:00)
--- NOTE | 2025-01-12 12:00 | DVH ---
Procedure: CT CT AB PEL WO CON-NO ORAL OR IV 01/12/2025 09:25 AM Indication: Abdominal pain Comparison Study: CT CT AB PEL WO CON-NO ORAL OR IV on DOS: 01/10/25 Technique: Axial images were obtained and reformatted in coronal and sagittal planes. All CT scans at this medical facility are performed using dose modulation techniques as appropriate to a performed e xam including the following: Automated exposure control was utilized; adjustment of the MA and/or KV according to patient size; and use of iterative reconstruction technique. CT Dose: CTDI volume is 12. 03 mGy. Dose-length product is 617.57 mGy*cm FINDINGS: Lower Chest: Severe bibasilar emphysematous changes are noted. The heart is normal in size. Coronar y artery calcification. Hepatobiliary: Unremarkable. Spleen: Unremarkable. Pancreas: Unremarkable. Adrenal Glands: Unremarkable. tract: The kidneys are normal in size bilaterally without hydronephrosis . Several subcentimeter nonobstructing calculi are seen in both kidneys. Bladder is decompressed by a suprapubic catheter and cannot be adequately assessed. GI tract: The stomach is grossly normal in appearance. No evidence of small bowel obstruction. The la rge bowel is unremarkable. The appendix is not visualized. No inflammatory change is noted in the rig ht lower quadrant. Lymphatics: No mesenteric, retroperitoneal or periportal lymphadenopathy. Vasculature: The abdominal aorta is normal in caliber. Diffuse calcified plaque formation is noted. Pelvic Organs: Prostate is moderately enlarged. Bones/soft tissues: Postoperative changes of the lumbar spine with laminectomy and bilateral transped icular screw fixation at L3- S1 levels. A neurostimulator device is seen in the right posterior abdom inal wall with a lead extending to thoracic spinal canal. Other: None. IMPRESSION: 1. No CT evidence of acute abnormality in the abdomen and pelvis. 2. A suprapubic catheter is in place. 3. Several subcentimeter nonobstructing bilateral renal calculi. 4. Extensive postoperative changes of the lumbar spine.Diffuse 5. Atherosclerotic disease. 6. Severe emphysema.
[2025-01-12] MEDS: LOPERAMIDE HCL 2 MG CAP/TAB PO ONE (13:22)
[2025-01-12] MEDS: HYDROmorphone HCL 2 MG TAB PO PRN (13:25)
[2025-01-13] VITALS (8 sets, daily range): BP systolic 150–160; BP diastolic 72–81; PULSE 61–86; RESP 16–18; TEMP 97.6–98.5; O2SAT 94–99
--- NOTE | 2025-01-13 09:07 | DVHPN2 ---
Reviewed: Care Plan, H&P, Labs, Medications, Previous Orders, Radiology Changes from previous H/P or p: No Changes Gastrointestinal: Abdominal Pain Objective Vitals Vital Signs Date Time Temp Pulse Resp B/P (MAP) Pulse Ox O2 Delivery O2 Flow Rate FiO2 01/13/25 08:43 98.0 67 16 154/81 (105) 97 98.0 01/12/25 20:00 Nasal Cannula* 2 28 Intake/Output Intake and Output 01/13/25 07:00 Intake Total 2602 ml Output Total 500 ml Balance 2102 ml Intake Oral 600 ml IV Total 2002 ml Output Urine Total 500 ml # Bowel Movements 3 Medications Current Medications Medications Dose Ordered Sig/Kush Route Start Time Stop Time Status Last Admin Dose Admin Ondansetron HCl 4 mg Q4HP PRN IV 01/10/25 08:45 01/11/25 10:59 4 MG Ceftriaxone Sodium 50 ml @ 100 mls/hr DAILY@09 IV 01/10/25 09:00 01/13/25 08:19 100 MLS/HR Azithromycin 250 ml @ 125 mls/hr DAILY IV 01/10/25 10:00 01/12/25 11:05 125 MLS/HR Melatonin 5 mg HS PRN PO 01/10/25 23:45 01/11/25 21:07 5 MG Lorazepam 1 mg Q8HP PRN PO 01/11/25 02:15 01/13/25 05:11 1 MG Lactated Ringer's 1,000 ml @ 125 mls/hr Q8H IV 01/11/25 12:30 01/11/25 20:30 125 MLS/HR Tamsulosin HCl 0.4 mg QPM PO 01/11/25 18:00 01/12/25 17:54 0.4 MG Oxybutynin Chloride 5 mg Q12HR PO 01/11/25 22:00 01/12/25 20:36 5 MG Pantoprazole Sodium 40 mg BID IV 01/11/25 22:00 01/12/25 22:26 40 MG Hydrocortisone 10 mg DAILY PO 01/12/25 10:00 01/12/25 11:06 10 MG Al Hydrox/Mg Hydrox/Simethicone 30 ml Q8HP PRN PO 01/11/25 15:30 01/11/25 20:58 30 ML Albuterol 2.5 mg Q6HPRN PRN NEB 01/11/25 21:45 01/11/25 22:01 2.5 MG Loperamide HCl 2 mg UD PRN PO 01/12/25 12:00 Hydromorphone HCl 2 mg Q4HP PRN PO 01/12/25 12:00 01/13/25 08:20 2 MG Lidocaine 1 patch DAILY TOP 01/13/25 10:00 Laboratory Results Laboratory Tests 01/11/25 05:42 Microbiology Microbiology Date/Time Source Procedure Growth Status 01/11/25 20:00 Nose MRSA Screen - Final Complete Labs and/or images reviewed: Labs reviewed by me, Image(s) reviewed by me Assessment/Plan Assessment/Plan Intractable abdominal pain : Lipase normal: CT abdomen pelvis without contrast negative for any acute pathology Cardiomegaly Bilateral nonobstructing renal calculi: Urology consult for Interstitial opacities probable pneumonia Rocephin azithromycin Acute diarrhea: C diff studies pending, Imodium p.r.n. History of hypertension History of COPD History of [place]'s disease : Resume home medications hydrocortisone 10 mg p.o. daily History of emphysema Acute dehydration: IV fluids LR 125 per hour Use of home oxygen Chronic back pain : Dilaudid 2 mg p.o. q.4 hours which is his home medication History of multiple low back surgeries Narcotic addiction Flu Test negative COVID test negative [facility] Plan discussed with: Patient My Orders Orders - ELENA PALOMARES MD Procedure Category Date Status Time Clostridium Difficile EVANGELINA 01/12/25 In Process Toxin 09:59 Loperamide Capsule PHA 01/12/25 In Process (Imodium Capsule) 12:00 Hydromorphone Tablet PHA 01/12/25 In Process (Dilaudid Tablet) 12:00 Apply Barrier Cream EVETTE 01/12/25 In Process 11:07 Lidocaine 5% Topical PHA 01/13/25 In Process Patch (Lidoderm 5% 10:00 Date of Service: Jan 13, 2025 Billing Provider: ELENA PALOMARES MD Common Visit Codes: [id number] INP/OBS CARE(HIGH) ELENA PALOMARES MD Jan 13, 2025 09:07
--- NOTE | 2025-01-13 09:34 | DVHINCON2 ---
Date of service: Jan 13, 2025 Referring Physician Heide Palomares Reason for Consultation Bilateral nephrolithiasis History of Present Illness 69-year-old male with urological history of having a suprapubic catheter placed over a year ago by [facility] urology service for enlarged prostate. He has also had multiple back surgery and may have neurogenic bladder component. He is admitted for abdominal pain and CT scan scan shows tiny punctate bilateral nephrolithiasis and intervention is not indicated at this time. His past medical history includes hypertension, COPD, [place]'s disease, emphysema, and multiple low back surgeries who presents to the ED with abdominal pain x1 day. Patient states the pain is 10/10 constant and sharp in nature. He states that there are no aggravating or relieving factors. He reports that he is from for most sniff. He was just here earlier this morning was discharged was in the lobby and stated that he had worsening abdominal pain. Patient reports that he is continuously on oxygen on 2 L nasal cannula. Patient uses a Rollator with ambulation. Patient denies any chest pain, shortness of breath, fever, chills, lightheadedness, weakness, dizziness, nausea, vomiting, and diarrhea. Past Medical History Cardiovascular: HTN Pulmonary: COPD, Other (Emphysema) Past Medical History [place]'s disease Past Surgical History Other (Multiple low back surgeries) Suprapubic catheter placement Family History: Vitor disease G8 MOTHER FH: back pain G8 FATHER Allergies: Coded Allergies: Acetaminophen (Verified Allergy, Mild, RASH, 01/10/25) Home Meds Reported Medications Hydrocortisone Base (Hydrocortisone) 10 Mg Tab, 1 TAB PO DAILY for 30 Days, #30 01/12/25 Morphine Sulfate (Morphine Sulfate Cr) 30 Mg Tab, 1 TAB PO TID for 30 Days, #90 01/12/25 Lorazepam (Lorazepam) 1 Mg Tab, 1 TAB PO QHSP PRN for FOR INSOMNIA, #90 TAB 01/11/25 Dicyclomine Hcl (BENTYL CAPSULE) 10 Mg Cp, 1 CAP PO Q6HR PRN for 14 Days, #56 01/10/25 Oxybutynin Chloride (Oxybutynin Chloride) 5 Mg Tab, 1 TAB PO DAILY for 14 Days, #14 01/10/25 Tamsulosin Hcl (Tamsulosin Hcl) 0.4 Mg Cap, 1 CAP PO DAILY for 30 Days, #30 01/10/25 Furosemide (Furosemide) 20 Mg Tab, 1 TAB PO DAILY for 30 Days, #30 01/10/25 Mirtazapine (Mirtazapine Oral Disintegrating Tablet) 15 Mg Tab, 1 TAB PO QPM for 30 Days, #30 01/10/25 Gabapentin (Gabapentin) 300 Mg Cap, 1 CAP PO BID for 30 Days, #60 01/10/25 Famotidine (Famotidine) 20 Mg Tab, 1 TAB PO DAILY for 30 Days, #30 01/10/25 Lisinopril (Lisinopril) 5 Mg Tab, 1 TAB PO DAILY for 30 Days, #30 01/10/25 Pantoprazole Sodium Sesquihydr (Pantoprazole Sodium) 40 Mg Tab, 1 TAB PO DAILY for 30 Days, #30 01/10/25 Baclofen (Baclofen) 10 Mg Tab, 1 TAB PO TID for 30 Days, #90 01/10/25 Discontinued Reported Medications Lorazepam (ATIVAN TABLET) 0.5 Mg Tb, 1 TAB PO QHSP PRN for ANXIETY, #30 TAB 01/10/25 Current Medications Current Medications Medications (Trade) Dose Ordered Sig/Kush Route PRN Reason Start Time Stop Time Status Last Admin Hydrocortisone (Cortef Tablet) 10 mg DAILY PO 01/12/25 10:00 01/12/25 11:06 Loperamide HCl (Imodium Capsule) 2 mg UD PRN PO FOR DIARRHEA 01/12/25 12:00 Hydromorphone HCl (Dilaudid Tablet) 2 mg Q4HP PRN PO SEVERE PAIN (7-10 PAIN SCALE) 01/12/25 12:00 01/13/25 08:20 Lidocaine (Lidoderm 5% Topical Patch) 1 patch DAILY TOP 01/13/25 10:00 Review of Systems Gastrointestinal: Abdominal Pain Allergies: Coded Allergies: Acetaminophen (Verified Allergy, Mild, RASH, 01/10/25) Medications Current Medications Medications Dose Ordered Sig/Kush Route Start Time Stop Time Status Last Admin Dose Admin Ondansetron HCl 4 mg Q4HP PRN IV 01/10/25 08:45 UNV Morphine Sulfate 2 mg Q4HPRN PRN IV 01/10/25 08:45 UNV Ceftriaxone Sodium 50 ml @ 100 mls/hr DAILY@09 IV 01/10/25 09:00 UNV Azithromycin 250 ml @ 125 mls/hr DAILY IV 01/10/25 10:00 UNV Vital Signs Vital Signs Date Time Temp Pulse Resp B/P (MAP) Pulse Ox O2 Delivery O2 Flow Rate FiO2 01/13/25 08:43 98.0 67 16 154/81 (105) 97 98.0 01/12/25 20:00 Nasal Cannula* 2 28 Physical Exam Date Time Temp Pulse Resp B/P (MAP) Pulse Ox O2 Delivery O2 Flow Rate FiO2 01/10/25 08:05 98.6 88 22 144/59 (87) 95 98.6 General Appearance: Alert, Oriented X3, Cooperative HEENT: Atraumatic, PERRLA, EOMI Respiratory: Normal air movement Cardiovascular: Normal S1, Normal S2, No murmurs Abdominal: Soft, No hepatospenomegaly, No masses Extremities: No clubbing, No cyanosis, Normal pulses Skin: No significant lesion Neuro: Normal speech, Sensation intact Psych/Mental Status: Mental status NL, Mood NL Labs/Diagnostic Data Labs Test 01/11/25 20:00 01/11/25 05:42 01/10/25 09:17 Range/Units Influenza Type A Antigen Negative Negative Influenza Type B Antigen Negative Negative SARS-CoV-2 Antigen (Rapid) Negative NEGATIVE White Blood Count 10.5 # 4.4-10.8 10^3/uL Red Blood Count 5.02 4.5-5.90 10^6/uL Hemoglobin 14.0 13.5-17.5 g/dL Hematocrit 42.7 41.0-53.0 % Mean Corpuscular Volume 85.0 80.0-100.0 fL Mean Corpuscular Hemoglobin 27.8 L 28.0-32.0 pg Mean Corpuscular Hemoglobin Concent 32.7 32.0-36.0 g/dL Red Cell Distribution Width 14.0 11.8-14.3 % Platelet Count 370 140-450 10^3/uL Mean Platelet Volume 7.1 6.9-10.8 fL Neutrophils (%) (Auto) 86.3 H 37.0-80.0 % Lymphocytes (%) (Auto) 10.0 10.0-50.0 % Monocytes (%) (Auto) 3.5 0.0-12.0 % Eosinophils (%) (Auto) 0.0 0.0-7.0 % Basophils (%) (Auto) 0.2 0.0-2.0 % Neutrophils # (Auto) 9.1 H 1.6-8.6 10 ^3/uL Lymphocytes # (Auto) 1.0 0.4-5.4 10 ^3/uL Monocytes # (Auto) 0.4 0-1.3 10 ^3/uL Eosinophils # (Auto) 0 0-0.8 10 ^3/uL Basophils # (Auto) 0 0-0.2 10 ^3/uL Nucleated Red Blood Cells 0.2 % Sodium Level 132 L 136-145 mmol/L Potassium Level 4.3 3.5-5.1 mmol/L Chloride Level 97 L 98-107 mmol/L Carbon Dioxide Level 24 20-31 mmol/L Anion Gap 11 5-15 Blood Urea Nitrogen 9 9-23 mg/dL Creatinine 0.80 0.700-1.30 mg/dL Glomerular Filtration Rate Calc 95 >90 mL/min BUN/Creatinine Ratio 11.3 10.0-20.0 Serum Glucose 73 L 74-106 mg/dL Calcium Level 10.9 H 8.7-10.4 mg/dL Total Bilirubin 0.6 0.2-1.0 mg/dL Aspartate Amino Transferase (AST) 13 13-40 U/L Alanine Aminotransferase (ALT) < 9 7-40 U/L Alkaline Phosphatase 98 46-116 U/L Total Protein 7.0 5.7-8.2 g/dL Albumin 4.8 3.2-4.8 g/dL Lipase 36 12-53 U/L Microbiology Date/Time Source Procedure Growth Status 01/11/25 20:00 PATIENT: LYNNE STERLING RACCT: [id number]: [id number] : 1955LOC: [facility] / BED: [address] [place] [address] AGE / SEX: 69 / MADM [facility] ORDERING PHYSICIAN: ELENA PALOMARES MD PROCEDURE(s): ABPL - CT AB PEL WO CON-NO ORAL OR IV REASON: Abdominal pain ORDER NUMBER(s): [id number], ACCESSION NUMBER(s): [id number] Procedure: CT CT AB PEL WO CON-NO ORAL OR IV 01/12/2025 09:25 AM Indication: Abdominal pain Comparison Study: CT CT AB PEL WO CON-NO ORAL OR IV on DOS: 01/10/25 Technique: Axial images were obtained and reformatted in coronal and sagittal planes. All CT scans at this medical facility are performed using dose modulation techniques as appropriate to a performed exam including the following: Automated exposure control was utilized; adjustment of the MA and/or KV according to patient size; and use of iterative reconstruction technique. CT Dose: CTDI volume is 12.03 mGy. Dose-length product is 617.57 mGy*cm FINDINGS: Lower Chest: Severe bibasilar emphysematous changes are noted. The heart is normal in size. Coronary artery calcification. Hepatobiliary: Unremarkable. Spleen: Unremarkable. Pancreas: Unremarkable. Adrenal Glands: Unremarkable. tract: The kidneys are normal in size bilaterally without hydronephrosis . Several subcentimeter nonobstructing calculi are seen in both kidneys. Bladder is decompressed by a suprapubic catheter and cannot be adequately assessed. GI tract: The stomach is grossly normal in appearance. No evidence of small bowel obstruction. The large bowel is unremarkable. The appendix is not visualized. No inflammatory change is noted in the right lower quadrant. Lymphatics: No mesenteric, retroperitoneal or periportal lymphadenopathy. Vasculature: The abdominal aorta is normal in caliber. Diffuse calcified plaque formation is noted. Pelvic Organs: Prostate is moderately enlarged. Bones/soft tissues: Postoperative changes of the lumbar spine with laminectomy and bilateral transpedicular screw fixation at L3- S1 levels. A neurostimulator device is seen in the right posterior abdominal wall with a lead extending to thoracic spinal canal. Other: None. IMPRESSION: 1. No CT evidence of acute abnormality in the abdomen and pelvis. 2. A suprapubic catheter is in place. 3. Several subcentimeter nonobstructing bilateral renal calculi. 4. Extensive postoperative changes of the lumbar spine.Diffuse 5. Atherosclerotic disease. 6. Severe emphysema. ATED BY: MAGDALENA ESTEVES MD DICTATED DATE/TIME: 01/12/25 1158 SIGNED BY: MAGDALENA ESTEVES MD SIGNED DATE/TIME: 01/12/25 115 CC: Nose MRSA Screen - Final Complete Assessment Bilateral nonobstructing renal stones SPT NGB versus BPH Plan/Recommendation Bilateral nephrolithiasis are tiny and does not need intervention with lithotripsy at this time Outpatient follow up with his urologist at [facility] recommended Plan discussed with: Patient, Other FRAN BILLINGS MD Jan 13, 2025 09:34
[2025-01-13] MEDS: LIDOCAINE 5% TOPICAL PATCH TOP SCH (11:08)
--- NOTE | 2025-01-13 12:55 | DVHOP2 ---
Operative Report - 2 Report Details Date: 01/13/25 Preop Diagnosis: BPH Urinary retention/NGB Suprapubic catheter, in situ Bilateral renal stones Postop Diagnosis: same Surgeon: Fran Billings Anesthesiologist: None Anesthesia: Local Consent: The patient was informed of the risks and benefits of the procedure. These include but are not limited to complications of anesthesia, postoperative infection, incomplete relief of symptoms, recurrence of symptoms, damage to blood vessels, nerves and tendons, deep venous thrombosis, pulmonary embolism and possible need for repeat surgery in the future. Findings: Cystoscopic findings c/w enlarged prostate with obstructive uropathy. He is a candidate for TURP in my opinion. Urodynamics should be done to confirm detrusor function Indications for Surgery: Patient has SPT placed by [facility] over one year ago. It is changed q 4-6 weeks at [facility]. It is due for exchange. He also wants to know if there are other options of management of his BPH so that he may be able to void normally per urethra. Name of Procedure Performed Cystoscopy Exchange of suprapubic catheter Procedure Details Procedure Details: Patient cosented for the procedure to be done at his bedside. With the patient placed in supine position, area of genitalia and suprapubic area were prepped with betadine solution. Flexible cystoscope was used to access the urethra and bladder. No urethral strictures were encountered. Prostatic urethra was obstructing from bilobar obstruction. No significant median lobe was noted. Bladder was evaluated. No stones or tumors seen. The current 16F SPT was removed and new 18F cathter was placed and confirmed on cystoscopy. Cystoscope was removed. Patient tolerated the procedure well. Specimen: None Condition Good Disposition FRAN BILLINGS MD Jan 13, 2025 12:55
[2025-01-14] VITALS (10 sets, daily range): BP systolic 93–143; BP diastolic 57–65; PULSE 61–96; RESP 17–20; TEMP 97.9–98.3; O2SAT 91–99
--- NOTE | 2025-01-14 09:23 | DVHPN2 ---
Reviewed: Care Plan, H&P, Labs, Medications, Previous Orders, Radiology Changes from previous H/P or p: No Changes Gastrointestinal: Abdominal Pain Objective Vitals Vital Signs Date Time Temp Pulse Resp B/P (MAP) Pulse Ox O2 Delivery O2 Flow Rate FiO2 01/14/25 06:27 98 Nasal Cannula 1.0 01/14/25 06:27 24 01/14/25 05:00 98.0 77 19 143/65 (91) 98.0 Intake/Output Intake and Output 01/14/25 07:00 Intake Total 1250 ml Output Total 700 ml Balance 550 ml Intake Oral 1200 ml IV Total 50 ml Output Urine Total 700 ml # Voids 2 # Bowel Movements 1 Medications Current Medications Medications Dose Ordered Sig/Kush Route Start Time Stop Time Status Last Admin Dose Admin Ondansetron HCl 4 mg Q4HP PRN IV 01/10/25 08:45 01/11/25 10:59 4 MG Ceftriaxone Sodium 50 ml @ 100 mls/hr DAILY@09 IV 01/10/25 09:00 01/13/25 08:19 100 MLS/HR Azithromycin 250 ml @ 125 mls/hr DAILY IV 01/10/25 10:00 01/12/25 11:05 125 MLS/HR Melatonin 5 mg HS PRN PO 01/10/25 23:45 01/14/25 00:11 5 MG Lorazepam 1 mg Q8HP PRN PO 01/11/25 02:15 01/13/25 20:15 1 MG Lactated Ringer's 1,000 ml @ 125 mls/hr Q8H IV 01/11/25 12:30 01/11/25 20:30 125 MLS/HR Tamsulosin HCl 0.4 mg QPM PO 01/11/25 18:00 01/13/25 17:39 0.4 MG Oxybutynin Chloride 5 mg Q12HR PO 01/11/25 22:00 01/13/25 21:01 5 MG Pantoprazole Sodium 40 mg BID IV 01/11/25 22:00 01/13/25 21:01 40 MG Hydrocortisone 10 mg DAILY PO 01/12/25 10:00 01/13/25 11:09 10 MG Al Hydrox/Mg Hydrox/Simethicone 30 ml Q8HP PRN PO 01/11/25 15:30 01/11/25 20:58 30 ML Albuterol 2.5 mg Q6HPRN PRN NEB 01/11/25 21:45 01/13/25 13:27 2.5 MG Loperamide HCl 2 mg UD PRN PO 01/12/25 12:00 Hydromorphone HCl 2 mg Q4HP PRN PO 01/12/25 12:00 01/14/25 06:01 2 MG Lidocaine 1 patch DAILY TOP 01/13/25 10:00 01/13/25 11:08 1 PATCH Laboratory Results Laboratory Tests 01/11/25 05:42 Microbiology Microbiology Date/Time Source Procedure Growth Status 01/12/25 10:47 Blood Blood Culture - Preliminary NO GROWTH AFTER 24 HOURS OF INCUBATION. Resulted 01/12/25 04:30 Stool Clostridium difficile Toxin Assay - Final Complete 01/11/25 20:00 Nose MRSA Screen - Final Complete Labs and/or images reviewed: Labs reviewed by me, Image(s) reviewed by me Assessment/Plan Assessment/Plan Intractable abdominal pain : Lipase normal: CT abdomen pelvis without contrast negative for any acute pathology Cardiomegaly Bilateral nonobstructing small renal calculi: Urology consult for , advised outpatient follow up Interstitial opacities probable pneumonia Rocephin azithromycin Acute diarrhea: C diff negative Imodium p.r.n. hypertension COPD Home oxygen use BPH Status post suprapubic catheter for last two years, exchanged by Dr. 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 daily History of emphysema Acute dehydration: IV fluids LR 125 per hour Use of home oxygen Chronic back pain : Dilaudid 2 mg p.o. q.4 hours which is his home medication History of multiple low back surgeries Narcotic addiction Flu Test negative COVID test negative [facility] therapy ordered Plan discussed with: Patient My Orders Orders - ELENA PALOMARES MD Procedure Category Date Status Time * Urology Consult CONS 01/13/25 Transmitted 09:07 Soft Diet DIET 01/13/25 Transmitted Breakfast * Fingerprint Expert CONS 01/13/25 Transmitted Consult Pt Request For Service PT 01/14/25 Verified 08:54 Date of Service: Jan 14, 2025 Billing Provider: ELENA PALOMARES MD Common Visit Codes: [id number] INP/OBS CARE(HIGH) ELENA PALOMARES MD Jan 14, 2025 09:23
--- NOTE | 2025-01-14 16:46 | DVHPN2 ---
Progress Note - Dictate Date Seen: Jan 14, 2025 Has the PT tested + for MRSA If YES, has PT been informed?: No Medical Necessity Reason Pt with a Central, PICC or Fol: No The following are medically ne: [place] Catheter Medical Necessity Reason Patient has a suprapubic catheter for urinary retention Bedside cystoscopy showed BPH Subjective Patient may be a candidate for UroLift prostate implant versus TURP. Discussion with the patient was performed. He is agreeable to proceed "as long as it is done early in the morning". vital signs Vital Sign Date Time Temp Pulse Resp B/P (MAP) Pulse Ox O2 Delivery O2 Flow Rate FiO2 01/14/25 13:00 97.9 74 18 120/64 (82) 91 97.9 01/14/25 10:18 Nasal Cannula 1.0 01/14/25 10:18 24 Total Intake and Output 01/13/25 01/13/25 01/14/25 15:00 23:00 07:00 Intake Total 50 ml 1000 ml 200 ml Output Total 100 ml 600 ml Balance 50 ml 900 ml -400 ml medications Current Medications Medications Dose Ordered Sig/Kush Route Start Time Stop Time Status Last Admin Dose Admin Ondansetron HCl 4 mg Q4HP PRN IV 01/10/25 08:45 01/14/25 09:34 4 MG Ceftriaxone Sodium 50 ml @ 100 mls/hr DAILY@09 IV 01/10/25 09:00 01/14/25 09:34 100 MLS/HR Azithromycin 250 ml @ 125 mls/hr DAILY IV 01/10/25 10:00 01/14/25 11:40 125 MLS/HR Melatonin 5 mg HS PRN PO 01/10/25 23:45 01/14/25 00:11 5 MG Lorazepam 1 mg Q8HP PRN PO 01/11/25 02:15 01/14/25 16:04 1 MG Lactated Ringer's 1,000 ml @ 125 mls/hr Q8H IV 01/11/25 12:30 01/11/25 20:30 125 MLS/HR Tamsulosin HCl 0.4 mg QPM PO 01/11/25 18:00 01/13/25 17:39 0.4 MG Oxybutynin Chloride 5 mg Q12HR PO 01/11/25 22:00 01/14/25 09:34 5 MG Pantoprazole Sodium 40 mg BID IV 01/11/25 22:00 01/14/25 09:34 40 MG Hydrocortisone 10 mg DAILY PO 01/12/25 10:00 01/14/25 09:34 10 MG Al Hydrox/Mg Hydrox/Simethicone 30 ml Q8HP PRN PO 01/11/25 15:30 01/11/25 20:58 30 ML Albuterol 2.5 mg Q6HPRN PRN NEB 01/11/25 21:45 01/14/25 10:18 2.5 MG Loperamide HCl 2 mg UD PRN PO 01/12/25 12:00 Hydromorphone HCl 2 mg Q4HP PRN PO 01/12/25 12:00 01/14/25 14:14 2 MG Lidocaine 1 patch DAILY TOP 01/13/25 10:00 01/14/25 09:34 1 PATCH objective No acute distress SP tube draining well laboratory and microbiology Laboratory Tests 01/11/25 05:42 Test 01/11/25 05:42 Range/Units Serum Glucose 73 L 74-106 mg/dL Problem List Urinary retention BPH Assessment/Plan Transurethral resection of the prostate gland versus UroLift prostatic implants placement Dietary Evaluation Review Comments: [place] likes and dislike when a mechnical soft diet is feasible. Expected Outcomes/Goals: Improved PO intake, meet 75% of his needs Plan discussed with: Patient, Other FRAN BILLINGS MD Jan 14, 2025 16:46
[2025-01-15] VITALS (12 sets, daily range): BP systolic 120–151; BP diastolic 61–87; PULSE 77–96; RESP 15–20; TEMP 98.3–98.6; O2SAT 94–97
[2025-01-15] MEDS ORDERED: PROPOFOL 10 MG/ML 20 ML IV ONE ×2 (07:15→09:17)
[2025-01-15] MEDS ORDERED: GLYCOPYRROLATE 0.2 MG/ML 1ML VIAL ONE (07:15)
[2025-01-15] MEDS ORDERED: LIDOCAINE 2% (LOCAL ANESTH.) PF 5ml SDV ONE (07:15)
[2025-01-15] MEDS ORDERED: ONDANSETRON HCL 4 MG/2 ML VIAL ONE (07:15)
[2025-01-15] MEDS ORDERED: DexAMETHasone SOD PHOS 10MG/1ML VIAL INJ ONE (07:15)
[2025-01-15] MEDS ORDERED: KETOROLAC TROMETH 30 MG/ML 1ML VIAL ONE (07:15)
[2025-01-15] MEDS ORDERED: MIDAZOLAM HCL 2MG/2ML 2ml VIAL (1mg/ml) ONE (08:22)
--- NOTE | 2025-01-15 09:43 | DVHNC2 ---
Procedure - 01/15/2025 Fran Varma M.D. OPERATIVE REPORT Pre-op. Diagnosis:1.BPH with Obstruction2.SPT in situPost-op. Diagnosis:1.Same as pre-op diagnosis Operation:1.Urolift - Prostate Implant Anesthesia:Desmond Arteaga CRNA Indications:Patient suffers from obstructive voiding dysfunction. Treatment options were discussed including ongoing therapy with pharmaceutical such as alpha blocking agents (Flomax/UroXatral/Rapaflow), or Prostate shrinking agents (proscar/Avodart); In-office prostate therapies (TUMT/Indigo Laser/TUNA); or Outpatient procedures such as Green light laser photovapor ization/Enucleation/TURP) as well urolift. Corresponding advantages and disadvantages were also discussed. Questions were addressed.Complication include but nt limited to infection, bleeding, damage to the surrounding structures, ejaculatory dysfunction, erectile dysfunction, need for secondary procedures were discussed. Informed consent was obtained. Details of Procedure:Patient was brought to the operating room. After administration of anesthesia, he was placed in the lithotomy position. The area of genitalia was prepped and draped in standard surgical and sterile fashion. The 20 F access sheath was introduced into the bladder under direct vision. Bladder was emptied and the Urolift device was introduced. Five implants were permanently placed at the 10 a& 2 O'clock positions near the bladder neck and apical tissue to lift the kissing lateral lobes out of the way and to create a channel in the prostatic urethra and the urethral bladder neck opening. The implants were delivered through a needle that comes out of the Urolift delivery device and into the prostate. There was an area of bleeding on bladder neck and using the Button electrode, cauterization and hemostasis was obtained. Temporary 18 F palafox catheter was placed since he underwent spinal anesthesia. SPT was plugged. Patient tolerated the procedure well. He was awaken and taken to RR in stable condition. All instrument counts were correct at the end of the procedure. Specimens:NoneComplications:NoneFindings:Notes: Procedure Codes:1.62875 CYSTOURETHRO W/IMPLANT.2.06704 CYSTOURETHRO W/ADDL IMPLANT. Units: 4.00. ign off status: FRAN Medina MD 6, 2025 09:43
[2025-01-15] MEDS ORDERED: ePHEDrine SULFATE 50 MG/ML AMP IV PRN (09:45)
[2025-01-15] MEDS ORDERED: fentaNYL CITRATE 100 MCG/2 ML VL IV PRN (09:45)
[2025-01-15] MEDS ORDERED: ONDANSETRON HCL 4 MG/2 ML VIAL IV PRN (09:45)
[2025-01-15] MEDS ORDERED: HYDROmorphone HCL 2 MG/ML VL/or syr IV PRN (09:45)
[2025-01-15] MEDS ORDERED: NALOXONE HCL 0.4 MG/ML VIAL IV PRN (09:45)
[2025-01-15] MEDS ORDERED: FLUMAZENIL 0.1 MG/ML INJ 10ML MDV IV PRN (09:45)
[2025-01-15] MEDS ORDERED: hydrALAZINE HCL 20 MG/ML VL IV PRN (09:45)
--- NOTE | 2025-01-15 09:59 | DVHPN2 ---
Reviewed: Care Plan, H&P, Labs, Medications, Previous Orders, Radiology Changes from previous H/P or p: No Changes Gastrointestinal: Abdominal Pain Objective Vitals Vital Signs Date Time Temp Pulse Resp B/P (MAP) Pulse Ox O2 Delivery O2 Flow Rate FiO2 01/15/25 09:00 98.3 77 20 127/72 (90) 94 98.3 01/15/25 08:05 Nasal Cannula* 2 28 Intake/Output Intake and Output 01/15/25 07:00 Intake Total 650 ml Output Total 1900 ml Balance -1250 ml Intake Oral 600 ml IV Total 50 ml Output Urine Total 1900 ml Medications Current Medications Medications Dose Ordered Sig/Kush Route Start Time Stop Time Status Last Admin Dose Admin Ondansetron HCl 4 mg Q4HP PRN IV 01/10/25 08:45 01/14/25 09:34 4 MG Ceftriaxone Sodium 50 ml @ 100 mls/hr DAILY@09 IV 01/10/25 09:00 01/14/25 09:34 100 MLS/HR Azithromycin 250 ml @ 125 mls/hr DAILY IV 01/10/25 10:00 01/14/25 11:40 125 MLS/HR Melatonin 5 mg HS PRN PO 01/10/25 23:45 01/14/25 22:39 5 MG Lorazepam 1 mg Q8HP PRN PO 01/11/25 02:15 01/15/25 00:42 1 MG Lactated Ringer's 1,000 ml @ 125 mls/hr Q8H IV 01/11/25 12:30 01/15/25 05:48 125 MLS/HR Tamsulosin HCl 0.4 mg QPM PO 01/11/25 18:00 01/14/25 18:36 0.4 MG Oxybutynin Chloride 5 mg Q12HR PO 01/11/25 22:00 01/14/25 22:28 5 MG Pantoprazole Sodium 40 mg BID IV 01/11/25 22:00 01/14/25 22:27 40 MG Hydrocortisone 10 mg DAILY PO 01/12/25 10:00 01/14/25 09:34 10 MG Al Hydrox/Mg Hydrox/Simethicone 30 ml Q8HP PRN PO 01/11/25 15:30 01/11/25 20:58 30 ML Albuterol 2.5 mg Q6HPRN PRN NEB 01/11/25 21:45 01/14/25 20:55 2.5 MG Loperamide HCl 2 mg UD PRN PO 01/12/25 12:00 Hydromorphone HCl 2 mg Q4HP PRN PO 01/12/25 12:00 01/15/25 05:38 2 MG Lidocaine 1 patch DAILY TOP 01/13/25 10:00 01/14/25 09:34 1 PATCH Ondansetron HCl 4 mg ONCE PRN IV 01/15/25 09:45 01/15/25 09:46 UNV Naloxone HCl 0.4 mg Q10M PRN IV 01/15/25 09:45 01/15/25 10:06 UNV Flumazenil 0.2 mg ONCE PRN IV 01/15/25 09:45 01/15/25 09:46 UNV Hydralazine HCl 5 mg Q10M PRN IV 01/15/25 09:45 01/15/25 10:36 UNV Ephedrine Sulfate 10 mg Q10M PRN IV 01/15/25 09:45 01/15/25 10:26 UNV Fentanyl Citrate 25 mcg Q1HP PRN IV 01/15/25 09:45 01/15/25 09:46 UNV Hydromorphone HCl 0.5 mg Q10M PRN IV 01/15/25 09:45 01/15/25 10:26 UNV Laboratory Results Laboratory Tests 01/11/25 05:42 Microbiology Microbiology Date/Time Source Procedure Growth Status 01/12/25 10:47 Blood Blood Culture - Preliminary NO GROWTH AFTER 48 HOURS OF INCUBATION. Resulted 01/12/25 04:30 Stool Clostridium difficile Toxin Assay - Final Complete 01/11/25 20:00 Nose MRSA Screen - Final Complete Labs and/or images reviewed: Labs reviewed by me, Image(s) reviewed by me Assessment/Plan Assessment/Plan Intractable abdominal pain : Lipase normal: CT abdomen pelvis without contrast negative for any acute pathology Cardiomegaly Bilateral nonobstructing small renal calculi: Urology consult for , advised outpatient follow up Interstitial opacities probable pneumonia Rocephin azithromycin Acute diarrhea: C diff negative Imodium p.r.n. hypertension COPD Home oxygen use BPH: Patient getting surgery today by Status post suprapubic catheter for last two years, exchanged by Dr. Varma for new one on 01-13-25 History of [place]'s disease : Resume home medications hydrocortisone 10 mg p.o. daily History of emphysema Acute dehydration: IV fluids LR 125 per hour Use of home oxygen Chronic back pain : Dilaudid 2 mg p.o. q.4 hours which is his home medication History of multiple low back surgeries Narcotic addiction Flu Test negative COVID test negative [facility] therapy ordered Plan discussed with: Patient Date of Service: Jan 15, 2025 Billing Provider: ELENA PALOMARES MD Common Visit Codes: [id number] INP/OBS CARE(HIGH) ELENA PALOMARES MD Jan 15, 2025 09:59
[2025-01-15] MEDS: CIPROFLOXACIN 400MG/200ML 200 ML IV ONE (11:11)
[2025-01-16] VITALS (10 sets, daily range): BP systolic 150–180; BP diastolic 58–95; PULSE 65–89; RESP 16–20; TEMP 97.8–99.2; O2SAT 93–98
--- NOTE | 2025-01-16 09:19 | DVHPN2 ---
Reviewed: Care Plan, H&P, Labs, Medications, Previous Orders, Radiology Changes from previous H/P or p: No Changes Gastrointestinal: Abdominal Pain Objective Vitals Vital Signs Date Time Temp Pulse Resp B/P (MAP) Pulse Ox O2 Delivery O2 Flow Rate FiO2 01/16/25 07:30 87 16 93 Nasal Cannula* 2 28 01/16/25 05:00 98.0 180/95 (123) 98.0 Intake/Output Intake and Output 01/16/25 07:00 Intake Total 3430 ml Output Total 2600 ml Balance 830 ml Intake Oral 2030 ml IV Total 1400 ml Output Urine Total 2600 ml # Bowel Movements 1 Medications Current Medications Medications Dose Ordered Sig/Kush Route Start Time Stop Time Status Last Admin Dose Admin Ondansetron HCl 4 mg Q4HP PRN IV 01/10/25 08:45 01/14/25 09:34 4 MG Ceftriaxone Sodium 50 ml @ 100 mls/hr DAILY@09 IV 01/10/25 09:00 01/16/25 08:33 100 MLS/HR Azithromycin 250 ml @ 125 mls/hr DAILY IV 01/10/25 10:00 01/15/25 12:52 125 MLS/HR Melatonin 5 mg HS PRN PO 01/10/25 23:45 01/14/25 22:39 5 MG Lorazepam 1 mg Q8HP PRN PO 01/11/25 02:15 01/15/25 19:51 1 MG Lactated Ringer's 1,000 ml @ 125 mls/hr Q8H IV 01/11/25 12:30 01/16/25 04:30 125 MLS/HR Tamsulosin HCl 0.4 mg QPM PO 01/11/25 18:00 01/15/25 17:40 0.4 MG Oxybutynin Chloride 5 mg Q12HR PO 01/11/25 22:00 01/15/25 22:06 5 MG Pantoprazole Sodium 40 mg BID IV 01/11/25 22:00 01/15/25 22:07 40 MG Hydrocortisone 10 mg DAILY PO 01/12/25 10:00 01/15/25 12:52 10 MG Al Hydrox/Mg Hydrox/Simethicone 30 ml Q8HP PRN PO 01/11/25 15:30 01/15/25 22:07 30 ML Albuterol 2.5 mg Q6HPRN PRN NEB 01/11/25 21:45 01/16/25 00:44 2.5 MG Loperamide HCl 2 mg UD PRN PO 01/12/25 12:00 Hydromorphone HCl 2 mg Q4HP PRN PO 01/12/25 12:00 01/16/25 06:44 2 MG Lidocaine 1 patch DAILY TOP 01/13/25 10:00 01/15/25 11:11 1 PATCH Laboratory Results Laboratory Tests 01/11/25 05:42 Microbiology Microbiology Date/Time Source Procedure Growth Status 01/12/25 10:47 Blood Blood Culture - Preliminary NO GROWTH AFTER 72 HOURS OF INCUBATION. Resulted 01/12/25 04:30 Stool Clostridium difficile Toxin Assay - Final Complete 01/11/25 20:00 Nose MRSA Screen - Final Complete Labs and/or images reviewed: Labs reviewed by me, Image(s) reviewed by me Assessment/Plan Assessment/Plan Intractable abdominal pain : Lipase normal: CT abdomen pelvis without contrast negative for any acute pathology Cardiomegaly Bilateral nonobstructing small renal calculi: Urology consult for , advised outpatient follow up Interstitial opacities probable pneumonia Rocephin azithromycin Acute diarrhea: C diff negative Imodium p.r.n. hypertension COPD Home oxygen use Status post Urolift - Prostate Implant by Dr Varma on 01-15-25 Status post suprapubic catheter for last two years, exchanged by Dr. Varma for new one on 01-13-25 History of [place]'s disease : Resume home medications hydrocortisone 10 mg p.o. daily History of emphysema Acute dehydration: IV fluids LR 125 per hour Use of home oxygen Chronic back pain : Dilaudid 2 mg p.o. q.4 hours which is his home medication History of multiple low back surgeries Narcotic addiction Flu Test negative COVID test negative [facility] ordered Plan discussed with: Patient Date of Service: Jan 16, 2025 Billing Provider: ELENA PALOMARES MD Common Visit Codes: [id number] INP/OBS CARE(HIGH) ELENA PALOMARES MD Jan 16, 2025 09:19
[2025-01-16] MEDS ORDERED: KETAMINE 50mg/ML 10ml Vial (500mg/10ml) IV ONE (14:03)
[2025-01-17] VITALS (16 sets, daily range): BP systolic 131–169; BP diastolic 58–89; PULSE 73–88; RESP 16–20; TEMP 97.7–98.6; O2SAT 91–99
--- NOTE | 2025-01-17 10:58 | DVHPN2 ---
Reviewed: Care Plan, H&P, Labs, Medications, Previous Orders, Radiology Changes from previous H/P or p: No Changes Gastrointestinal: Abdominal Pain Objective Vitals Vital Signs Date Time Temp Pulse Resp B/P (MAP) Pulse Ox O2 Delivery O2 Flow Rate FiO2 01/17/25 09:21 94 Nasal Cannula* 2 28 01/17/25 09:20 77 20 01/17/25 06:37 143/64 (90) 01/17/25 05:00 97.8 97.8 Intake/Output Intake and Output 01/17/25 07:00 Intake Total 2540 ml Output Total 525 ml Balance 2015 ml Intake Oral 1040 ml IV Total 1500 ml Output Urine Total 525 ml # Voids 3 Medications Current Medications Medications Dose Ordered Sig/Kush Route Start Time Stop Time Status Last Admin Dose Admin Ondansetron HCl 4 mg Q4HP PRN IV 01/10/25 08:45 01/14/25 09:34 4 MG Ceftriaxone Sodium 50 ml @ 100 mls/hr DAILY@09 IV 01/10/25 09:00 01/17/25 08:35 100 MLS/HR Azithromycin 250 ml @ 125 mls/hr DAILY IV 01/10/25 10:00 01/17/25 10:00 125 MLS/HR Melatonin 5 mg HS PRN PO 01/10/25 23:45 01/14/25 22:39 5 MG Lorazepam 1 mg Q8HP PRN PO 01/11/25 02:15 01/17/25 03:35 1 MG Lactated Ringer's 1,000 ml @ 125 mls/hr Q8H IV 01/11/25 12:30 01/16/25 12:16 125 MLS/HR Tamsulosin HCl 0.4 mg QPM PO 01/11/25 18:00 01/15/25 17:40 0.4 MG Oxybutynin Chloride 5 mg Q12HR PO 01/11/25 22:00 01/17/25 10:32 5 MG Pantoprazole Sodium 40 mg BID IV 01/11/25 22:00 01/17/25 10:00 40 MG Hydrocortisone 10 mg DAILY PO 01/12/25 10:00 01/17/25 10:32 10 MG Al Hydrox/Mg Hydrox/Simethicone 30 ml Q8HP PRN PO 01/11/25 15:30 01/17/25 06:43 30 ML Albuterol 2.5 mg Q6HPRN PRN NEB 01/11/25 21:45 01/17/25 09:19 2.5 MG Loperamide HCl 2 mg UD PRN PO 01/12/25 12:00 Hydromorphone HCl 2 mg Q4HP PRN PO 01/12/25 12:00 01/17/25 06:37 2 MG Lidocaine 1 patch DAILY TOP 01/13/25 10:00 01/17/25 10:32 1 PATCH Laboratory Results Laboratory Tests 01/11/25 05:42 Microbiology Microbiology Date/Time Source Procedure Growth Status 01/12/25 10:47 Blood Blood Culture - Preliminary NO GROWTH AFTER 72 HOURS OF INCUBATION. Resulted 01/12/25 04:30 Stool Clostridium difficile Toxin Assay - Final Complete 01/11/25 20:00 Nose MRSA Screen - Final Complete Labs and/or images reviewed: Labs reviewed by me, Image(s) reviewed by me Assessment/Plan Assessment/Plan Intractable abdominal pain : Lipase normal: CT abdomen pelvis without contrast negative for any acute pathology Cardiomegaly Bilateral nonobstructing small renal calculi: Urology consult for , advised outpatient follow up Interstitial opacities probable pneumonia Rocephin azithromycin Acute diarrhea: C diff negative Imodium p.r.n. hypertension COPD Home oxygen use Status post Urolift - Prostate Implant by Dr Varma on 01-15-25 Status post suprapubic catheter for last two years, exchanged by Dr. 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 daily History of emphysema Acute dehydration: IV fluids LR 125 per hour Use of home oxygen Chronic back pain : Dilaudid 2 mg p.o. q.4 hours which is his home medication History of multiple low back surgeries Narcotic addiction Flu Test negative COVID test negative [facility] therapy ordered [place] catheter was removed on 01/16/2025 by Urology Patient is complaining of incontinence of the urine and requesting Samay[place] to be put back, consult Dr. Varma/Dr. Sanders Plan discussed with: Patient Date of Service: Jan 17, 2025 Billing Provider: ELENA PALOMARES MD Common Visit Codes: [id number] INP/OBS CARE(HIGH) ELENA PALOMARES MD Jan 17, 2025 10:58
[2025-01-17] MEDS: cloNIDine HCL 0.1 MG TAB PO PRN (13:51)
[2025-01-18] VITALS (14 sets, daily range): BP systolic 104–140; BP diastolic 48–69; PULSE 60–106; RESP 16–19; TEMP 97.4–98.4; O2SAT 94–100
[2025-01-18] MEDS: DOCUSATE SOD 100 MG CAP PO ONE (03:41)
[2025-01-18] MEDS: LORazepam 2MG/ML-1ML VIAL IV ONE (04:53)
[2025-01-18 06:44] LABS: Basophils # (auto) 0.1 10 ^3/uL (0-0.2); Basophils % (auto) 0.8 % (0.0-2.0); Eosinophils # (auto) 0.2 10 ^3/uL (0-0.8); Eosinophils % (auto) 2.8 % (0.0-7.0); Hematocrit 36.5 % (41.0-53.0); Hemoglobin 12.9 g/dL (13.5-17.5); Lymphocytes # (auto) 2.9 10 ^3/uL (0.4-5.4); Lymphocytes % (auto) 34.2 % (10.0-50.0); Mean Corpuscular Hemoglobin 29.3 pg (28.0-32.0); Mean Corpuscular Hgb Conc. 35.4 g/dL (32.0-36.0); Mean Corpuscular Volume 82.9 fL (80.0-100.0); Monocytes # (auto) 0.9 10 ^3/uL (0-1.3); Monocytes % (auto) 10.1 % (0.0-12.0); Neutrophils # (auto) 4.4 10 ^3/uL (1.6-8.6); Neutrophils % (auto) 52.1 % (37.0-80.0); Platelet Count (auto) 333 10^3/uL (140-450); Red Blood Cells 4.41 10^6/uL (4.5-5.90); Red Cell Distribution Width 13.9 % (11.8-14.3); White Blood Cell 8.5 10^3/uL (4.4-10.8)
[2025-01-18 06:59] LABS: Calcium 10.2 mg/dL (8.7-10.4); Potassium 3.8 mmol/L (3.5-5.1)
[2025-01-18 07:00] LABS: Anion Gap 11 (5-15); Carbon Dioxide 27 mmol/L (20-31)
[2025-01-18 07:05] LABS: BUN/Creatinine Ratio 7.2 (10.0-20.0); Glucose 77 mg/dL (74-106)
[2025-01-18 07:13] LABS: Blood Urea Nitrogen 5 mg/dL (9-23); Chloride 94 mmol/L (98-107); Sodium 132 mmol/L (136-145)
[2025-01-18] MEDS: DOCUSATE SOD 100 MG CAP PO SCH (08:06)
[2025-01-18] MEDS ORDERED: DOCUSATE SOD 100 MG CAP PO SCH (10:00)
--- NOTE | 2025-01-18 11:38 | DVHINCON2 ---
Date of Service if different f: Jan 18, 2025 Consultation ([facility]) Consulting Physician: ROSALINA HU MD Progress: Somewhat better Labs Laboratory Tests Test 01/10/25 09:17 01/11/25 05:42 01/11/25 20:00 01/18/25 04:40 Lipase 36 U/L (12-53) Total Bilirubin 0.6 mg/dL (0.2-1.0) Aspartate Amino Transf (AST/SGOT) 13 U/L (13-40) Alanine Aminotransferase (ALT/SGPT) < 9 U/L (7-40) Alkaline Phosphatase 98 U/L (46-116) Total Protein 7.0 g/dL (5.7-8.2) Albumin 4.8 g/dL (3.2-4.8) Influenza Type A Antigen Negative (Negative) Influenza Type B Antigen Negative (Negative) SARS-CoV-2 Antigen (Rapid) Negative (NEGATIVE) White Blood Count 8.5 10^3/uL (4.4-10.8) Red Blood Count 4.41 10^6/uL (4.5-5.90) Hemoglobin 12.9 g/dL (13.5-17.5) Hematocrit 36.5 % (41.0-53.0) Mean Corpuscular Volume 82.9 fL (80.0-100.0) Mean Corpuscular Hemoglobin 29.3 pg (28.0-32.0) Mean Corpuscular Hemoglobin Concent 35.4 g/dL (32.0-36.0) Red Cell Distribution Width 13.9 % (11.8-14.3) Platelet Count 333 10^3/uL (140-450) Mean Platelet Volume 6.7 fL (6.9-10.8) Neutrophils (%) (Auto) 52.1 % (37.0-80.0) Lymphocytes (%) (Auto) 34.2 % (10.0-50.0) Monocytes (%) (Auto) 10.1 % (0.0-12.0) Eosinophils (%) (Auto) 2.8 % (0.0-7.0) Basophils (%) (Auto) 0.8 % (0.0-2.0) Neutrophils # (Auto) 4.4 10 ^3/uL (1.6-8.6) Lymphocytes # (Auto) 2.9 10 ^3/uL (0.4-5.4) Monocytes # (Auto) 0.9 10 ^3/uL (0-1.3) Eosinophils # (Auto) 0.2 10 ^3/uL (0-0.8) Basophils # (Auto) 0.1 10 ^3/uL (0-0.2) Nucleated Red Blood Cells 0.0 % Sodium Level 132 mmol/L (136-145) Potassium Level 3.8 mmol/L (3.5-5.1) Chloride Level 94 mmol/L (98-107) Carbon Dioxide Level 27 mmol/L (20-31) Anion Gap 11 (5-15) Blood Urea Nitrogen 5 mg/dL (9-23) Creatinine 0.69 mg/dL (0.700-1.30) Glomerular Filtration Rate Calc 99 mL/min (>90) BUN/Creatinine Ratio 7.2 (10.0-20.0) Serum Glucose 77 mg/dL (74-106) Calcium Level 10.2 mg/dL (8.7-10.4) Microbiology Date/Time Source Procedure Growth Status 01/12/25 10:47 Blood Blood Culture - Final NO GROWTH AFTER 5 DAYS OF INCUBATION. Complete 01/12/25 04:30 Stool Clostridium difficile Toxin Assay - Final Complete 01/11/25 20:00 Nose MRSA Screen - Final Complete Appetite: Fair Side effects of medications: No Appearance: Stated age Psychomotor activity: WNL Behavioral: Cooperative Eye contact: Appropriate Speech: WNL Affect: Mood Congruent Mood: Dysphoric, Anxious Thought processes: Linear/Goal-directed Thought content: WNL Suicidal ideations: Absent Homicidal ideations: Absent Orientation: Person, Place, Time, Situation Memory intact: Recent Intellect: Average Abstractability: WNL Concentration: Adequate Attention: Adequate Judgement: WNL Insight: Good Vitals Vital Signs Date Time Temp Pulse Resp B/P (MAP) Pulse Ox O2 Delivery O2 Flow Rate FiO2 01/18/25 10:33 82 18 97 01/18/25 10:24 Nasal Cannula 2.0 01/18/25 10:24 28 01/18/25 08:54 98.1 128/55 (79) 98.1 Current medications Current Medications Medications Dose Ordered Sig/Kush Route Start Time Stop Time Status Last Admin Dose Admin Ondansetron HCl 4 mg Q4HP PRN IV 01/10/25 08:45 01/18/25 03:41 4 MG Ceftriaxone Sodium 50 ml @ 100 mls/hr DAILY@09 IV 01/10/25 09:00 01/18/25 08:05 100 MLS/HR Azithromycin 250 ml @ 125 mls/hr DAILY IV 01/10/25 10:00 01/18/25 09:44 125 MLS/HR Melatonin 5 mg HS PRN PO 01/10/25 23:45 01/17/25 20:53 5 MG Lorazepam 1 mg Q8HP PRN PO 01/11/25 02:15 01/18/25 10:48 1 MG Lactated Ringer's 1,000 ml @ 125 mls/hr Q8H IV 01/11/25 12:30 01/17/25 20:54 125 MLS/HR Tamsulosin HCl 0.4 mg QPM PO 01/11/25 18:00 01/15/25 17:40 0.4 MG Oxybutynin Chloride 5 mg Q12HR PO 01/11/25 22:00 01/18/25 08:06 5 MG Pantoprazole Sodium 40 mg BID IV 01/11/25 22:00 01/18/25 08:06 40 MG Hydrocortisone 10 mg DAILY PO 01/12/25 10:00 01/18/25 08:06 10 MG Al Hydrox/Mg Hydrox/Simethicone 30 ml Q8HP PRN PO 01/11/25 15:30 01/17/25 06:43 30 ML Albuterol 2.5 mg Q6HPRN PRN NEB 01/11/25 21:45 01/18/25 10:23 2.5 MG Loperamide HCl 2 mg UD PRN PO 01/12/25 12:00 Hydromorphone HCl 2 mg Q4HP PRN PO 01/12/25 12:00 01/18/25 09:38 2 MG Lidocaine 1 patch DAILY TOP 01/13/25 10:00 01/18/25 09:39 1 PATCH Clonidine HCl 0.2 mg Q6HP PRN PO 01/17/25 11:30 01/17/25 13:51 0.2 MG Docusate Sodium 100 mg BID PO 01/18/25 10:00 01/18/25 08:06 100 MG Treatment plan discussed: With staff Medication adjusted: No Labs ordered: No Psychotherapy provided: No Type: Voluntary Diagnosis: MDD R Moderate. Plan : Case discussed in detail with Dr. Bliss who says he is aware that the pt is missing some home meds but these were non-essential when the pt admitted for other medical problems that took precedence for treatment so that pt could be stable enough to [facility] Dr. Bliss reviewed that the hydrocortisone was continued from the very beginning. It was suggested that there may be an opportunity for better communication to the patient about which meds are being given/held by nursing at the time meds are given. In this case Dr. Bliss agreed to resume the remeron 15 mg qhs with a single dose given now per patient request (pt feels anxious and notes that a single dose can help calm him down), and gabapentin 300 mg BID. The pt is not suicidal, he made a single statement alluding to feeling a certain way in the past when his depression and anxiety were getting worse which is not how he feels right now per se. He was trying to make a point. There appear to be no safety concerns related to harm to self or others in the case of this patient currently. History of Present Illness Reason for Consult : suicidal thoughts. HPI : Pt is admitted for multiple medical problems which are nearing resolution. Apparently the pt made a suicidal statement to a nurse in the morning which led to initiation of a psychiatry consult. Pt says that he hasn't been getting his mirtazipine, hydrocortisone, gabapentin and stool softener. Pt says he cannot sleep without the remeron, has been taking it for years. 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 Pt is upset that his home meds were stopped unceremoniously, without any warning or explanation and not restarted. Pt is upset because he has not been able to sleep and is afraid he is going to get sick without his meds. Pt says that sometimes when he feels depressed he wants to shoot himself. But he has never attempted suicide and doesn't want to. He is anabaptism and it's against his religious. He would never do that. Pt was admittedly making this statement for dramatic effect. Pt denies HI, or AVH. and Denies any SI either. Past Psychiatric History : Sees the doctor at the nursing facility who gives him the mirtazipine. Does now know her name. Denies any psychiatric hospitalization. Substance use: Denies. Past Medical History : Multiple complex medical issues, several back surgeries, gabby's disease, neuropathy so unable to live by himself. Social History : [facility]. Assessment/Diagnosis/Plan Reviewed: Consults, Care Plan, Labs, Medications ROSALINA HU MD Jan 18, 2025 11:38
--- NOTE | 2025-01-18 12:33 | DVHPN2 ---
Reviewed: Care Plan, H&P, Labs, Medications, Previous Orders, Radiology Changes from previous H/P or p: No Changes Gastrointestinal: Abdominal Pain Objective Vitals Vital Signs Date Time Temp Pulse Resp B/P (MAP) Pulse Ox O2 Delivery O2 Flow Rate FiO2 01/18/25 10:33 82 18 97 01/18/25 10:24 Nasal Cannula 2.0 01/18/25 10:24 28 01/18/25 08:54 98.1 128/55 (79) 98.1 Intake/Output Intake and Output 01/18/25 07:00 Intake Total 2350 ml Output Total 750 ml Balance 1600 ml Intake Oral 1400 ml IV Total 950 ml Output Urine Total 750 ml # Voids 4 # Bowel Movements 2 Medications Current Medications Medications Dose Ordered Sig/Kush Route Start Time Stop Time Status Last Admin Dose Admin Ondansetron HCl 4 mg Q4HP PRN IV 01/10/25 08:45 01/18/25 03:41 4 MG Ceftriaxone Sodium 50 ml @ 100 mls/hr DAILY@09 IV 01/10/25 09:00 01/18/25 08:05 100 MLS/HR Azithromycin 250 ml @ 125 mls/hr DAILY IV 01/10/25 10:00 01/18/25 09:44 125 MLS/HR Melatonin 5 mg HS PRN PO 01/10/25 23:45 01/17/25 20:53 5 MG Lorazepam 1 mg Q8HP PRN PO 01/11/25 02:15 01/18/25 10:48 1 MG Lactated Ringer's 1,000 ml @ 125 mls/hr Q8H IV 01/11/25 12:30 01/17/25 20:54 125 MLS/HR Tamsulosin HCl 0.4 mg QPM PO 01/11/25 18:00 01/15/25 17:40 0.4 MG Oxybutynin Chloride 5 mg Q12HR PO 01/11/25 22:00 01/18/25 08:06 5 MG Pantoprazole Sodium 40 mg BID IV 01/11/25 22:00 01/18/25 08:06 40 MG Hydrocortisone 10 mg DAILY PO 01/12/25 10:00 01/18/25 08:06 10 MG Al Hydrox/Mg Hydrox/Simethicone 30 ml Q8HP PRN PO 01/11/25 15:30 01/17/25 06:43 30 ML Albuterol 2.5 mg Q6HPRN PRN NEB 01/11/25 21:45 01/18/25 10:23 2.5 MG Loperamide HCl 2 mg UD PRN PO 01/12/25 12:00 Hydromorphone HCl 2 mg Q4HP PRN PO 01/12/25 12:00 01/18/25 09:38 2 MG Lidocaine 1 patch DAILY TOP 01/13/25 10:00 01/18/25 09:39 1 PATCH Clonidine HCl 0.2 mg Q6HP PRN PO 01/17/25 11:30 01/17/25 13:51 0.2 MG Docusate Sodium 100 mg BID PO 01/18/25 10:00 01/18/25 08:06 100 MG Mirtazapine 15 mg HS PO 01/19/25 22:00 Gabapentin 300 mg BID PO 01/18/25 22:00 Laboratory Results Laboratory Tests 01/18/25 04:40 Chemistry Test 01/18/25 04:40 Calcium Level 10.2 mg/dL (8.7-10.4) Microbiology Microbiology Date/Time Source Procedure Growth Status 01/12/25 10:47 Blood Blood Culture - Final NO GROWTH AFTER 5 DAYS OF INCUBATION. Complete 01/12/25 04:30 Stool Clostridium difficile Toxin Assay - Final Complete 01/11/25 20:00 Nose MRSA Screen - Final Complete Labs and/or images reviewed: Labs reviewed by me, Image(s) reviewed by me Assessment/Plan Assessment/Plan Intractable abdominal pain : Lipase normal: CT abdomen pelvis without contrast negative for any acute pathology Cardiomegaly Bilateral nonobstructing small renal calculi: Urology consult for , advised outpatient follow up Interstitial opacities probable pneumonia Rocephin azithromycin Acute diarrhea: C diff negative Imodium p.r.n. hypertension COPD Home oxygen use Possible suicide ideation: Tele psych consult by Dr. Parekh who advised the patient is not suicidal and advised to start back on Remeron and gabapentin Status post Urolift - Prostate Implant by Dr Varma on 01-15-25 Status post suprapubic catheter for last two years, exchanged by Dr. Varma for new one on 01-13-25 History of [place]'s disease : Resume home medications hydrocortisone 10 mg p.o. daily History of emphysema Acute dehydration: IV fluids LR 125 per hour Use of home oxygen Chronic back pain : Dilaudid 2 mg p.o. q.4 hours which is his home medication History of multiple low back surgeries Narcotic addiction Flu Test negative COVID test negative [facility] Physical therapy ordered [place] catheter was removed on 01/16/2025 by Urology Patient has [place]ay[place] back in place Plan discussed with: Patient My Orders Orders - ELENA PALOMARES MD Procedure Category Date Status Time Mirtazapine Tablet PHA 01/19/25 In Process (Remeron Tablet) 22:00 Gabapentin Capsule PHA 01/18/25 In Process (Neurontin Capsule) 22:00 Gabapentin Capsule PHA 01/18/25 In Process (Neurontin Capsule) 12:30 Date of Service: Jan 18, 2025 Billing Provider: ELENA PALOMARES MD Common Visit Codes: [id number] INP/OBS CARE(HIGH) ELENA PALOMARES MD Jan 18, 2025 12:33
[2025-01-18] MEDS: GABAPENTIN 300 MG CAP PO ONE (12:43)
[2025-01-18] MEDS: MIRTAZAPINE 30 MG TAB PO ONE (12:44)
[2025-01-18] MEDS: GABAPENTIN 300 MG CAP PO SCH (20:43)
[2025-01-19] VITALS (10 sets, daily range): BP systolic 121–141; BP diastolic 54–83; PULSE 73–103; RESP 17–20; TEMP 97.7–98.5; O2SAT 95–100
--- NOTE | 2025-01-19 11:58 | DVHPN2 ---
Reviewed: Care Plan, H&P, Labs, Medications, Previous Orders, Radiology Changes from previous H/P or p: No Changes Gastrointestinal: Abdominal Pain Objective Vitals Vital Signs Date Time Temp Pulse Resp B/P (MAP) Pulse Ox O2 Delivery O2 Flow Rate FiO2 01/19/25 10:00 96 Nasal Cannula 2.0 01/19/25 10:00 28 01/19/25 09:49 98.4 103 19 121/61 (81) 98.4 Intake/Output Intake and Output 01/19/25 07:00 Intake Total 2635 ml Output Total 1900 ml Balance 735 ml Intake Oral 1460 ml IV Total 1175 ml Output Urine Total 1900 ml Medications Current Medications Medications Dose Ordered Sig/Kush Route Start Time Stop Time Status Last Admin Dose Admin Ondansetron HCl 4 mg Q4HP PRN IV 01/10/25 08:45 01/19/25 10:38 4 MG Ceftriaxone Sodium 50 ml @ 100 mls/hr DAILY@09 IV 01/10/25 09:00 01/19/25 10:10 100 MLS/HR Azithromycin 250 ml @ 125 mls/hr DAILY IV 01/10/25 10:00 01/19/25 10:11 125 MLS/HR Melatonin 5 mg HS PRN PO 01/10/25 23:45 01/18/25 20:42 5 MG Lorazepam 1 mg Q8HP PRN PO 01/11/25 02:15 01/18/25 20:42 1 MG Lactated Ringer's 1,000 ml @ 125 mls/hr Q8H IV 01/11/25 12:30 01/18/25 19:01 125 MLS/HR Tamsulosin HCl 0.4 mg QPM PO 01/11/25 18:00 01/18/25 17:05 0.4 MG Oxybutynin Chloride 5 mg Q12HR PO 01/11/25 22:00 01/19/25 10:10 5 MG Pantoprazole Sodium 40 mg BID IV 01/11/25 22:00 01/19/25 10:10 40 MG Hydrocortisone 10 mg DAILY PO 01/12/25 10:00 01/19/25 10:10 10 MG Al Hydrox/Mg Hydrox/Simethicone 30 ml Q8HP PRN PO 01/11/25 15:30 01/19/25 06:28 30 ML Albuterol 2.5 mg Q6HPRN PRN NEB 01/11/25 21:45 01/18/25 18:50 2.5 MG Loperamide HCl 2 mg UD PRN PO 01/12/25 12:00 Hydromorphone HCl 2 mg Q4HP PRN PO 01/12/25 12:00 01/19/25 10:39 2 MG Lidocaine 1 patch DAILY TOP 01/13/25 10:00 01/19/25 10:11 1 PATCH Clonidine HCl 0.2 mg Q6HP PRN PO 01/17/25 11:30 01/17/25 13:51 0.2 MG Docusate Sodium 100 mg BID PO 01/18/25 10:00 01/19/25 10:10 100 MG Mirtazapine 15 mg HS PO 01/19/25 22:00 Gabapentin 300 mg BID PO 01/18/25 22:00 01/19/25 10:10 300 MG Laboratory Results Laboratory Tests 01/18/25 04:40 Microbiology Microbiology Date/Time Source Procedure Growth Status 01/12/25 10:47 Blood Blood Culture - Final NO GROWTH AFTER 5 DAYS OF INCUBATION. Complete 01/12/25 04:30 Stool Clostridium difficile Toxin Assay - Final Complete 01/11/25 20:00 Nose MRSA Screen - Final Complete Labs and/or images reviewed: Labs reviewed by me, Image(s) reviewed by me Assessment/Plan Assessment/Plan Intractable abdominal pain : Lipase normal: CT abdomen pelvis without contrast negative for any acute pathology Cardiomegaly Bilateral nonobstructing small renal calculi: Urology consult for , advised outpatient follow up Interstitial opacities probable pneumonia Rocephin azithromycin Acute diarrhea: C diff negative Imodium p.r.n. hypertension COPD Home oxygen use Possible suicide ideation: Tele psych consult by Dr. Parekh who advised the patient is not suicidal and advised to start back on Remeron and gabapentin Status post Urolift - Prostate Implant by Dr Varma on 01-15-25 Status post suprapubic catheter for last two years, exchanged by Dr. 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 daily History of emphysema Acute dehydration: IV fluids LR 125 per hour Use of home oxygen Chronic back pain : Dilaudid 2 mg p.o. q.4 hours which is his home medication History of multiple low back surgeries Narcotic addiction Flu Test negative COVID test negative [facility] Physical therapy ordered [place] catheter was removed on 01/16/2025 by Urology Patient has [place] back in place Plan discussed with: Patient My Orders Orders - ELENA PALOMAERS MD Procedure Category Date Status Time Gabapentin Capsule PHA 01/18/25 In Process (Neurontin Capsule) 22:00 Date of Service: Jan 19, 2025 Billing Provider: ELENA PALOMARES MD Common Visit Codes: [id number] INP/OBS CARE(HIGH) ELENA PALOMARES MD Jan 19, 2025 11:58
[2025-01-19] MEDS: MIRTAZAPINE 30 MG TAB PO SCH (21:37)
[2025-01-20] VITALS (13 sets, daily range): BP systolic 131–152; BP diastolic 55–86; PULSE 72–102; RESP 18–23; TEMP 97.7–98.1; O2SAT 94–99
--- NOTE | 2025-01-20 12:59 | DVHPN2 ---
Reviewed: Care Plan, H&P, Labs, Medications, Previous Orders, Radiology Changes from previous H/P or p: No Changes Gastrointestinal: Abdominal Pain Objective Vitals Vital Signs Date Time Temp Pulse Resp B/P (MAP) Pulse Ox O2 Delivery O2 Flow Rate FiO2 01/20/25 11:34 84 152/71 (98) 98 01/20/25 08:38 18 01/20/25 08:36 Nasal Cannula* 2 28 01/20/25 05:00 97.7 97.7 Intake/Output Intake and Output 01/20/25 07:00 Intake Total 2150 ml Output Total 2350 ml Balance -200 ml Intake Oral 1600 ml IV Total 550 ml Output Urine Total 2350 ml # Bowel Movements 2 Medications Current Medications Medications Dose Ordered Sig/Kush Route Start Time Stop Time Status Last Admin Dose Admin Ondansetron HCl 4 mg Q4HP PRN IV 01/10/25 08:45 01/20/25 05:33 4 MG Ceftriaxone Sodium 50 ml @ 100 mls/hr DAILY@09 IV 01/10/25 09:00 01/20/25 09:04 100 MLS/HR Azithromycin 250 ml @ 125 mls/hr DAILY IV 01/10/25 10:00 01/20/25 09:05 125 MLS/HR Melatonin 5 mg HS PRN PO 01/10/25 23:45 01/18/25 20:42 5 MG Lorazepam 1 mg Q8HP PRN PO 01/11/25 02:15 01/20/25 09:31 1 MG Lactated Ringer's 1,000 ml @ 125 mls/hr Q8H IV 01/11/25 12:30 01/20/25 09:09 125 MLS/HR Tamsulosin HCl 0.4 mg QPM PO 01/11/25 18:00 01/19/25 17:41 0.4 MG Oxybutynin Chloride 5 mg Q12HR PO 01/11/25 22:00 01/20/25 09:06 5 MG Pantoprazole Sodium 40 mg BID IV 01/11/25 22:00 01/20/25 09:05 40 MG Hydrocortisone 10 mg DAILY PO 01/12/25 10:00 01/20/25 09:06 10 MG Al Hydrox/Mg Hydrox/Simethicone 30 ml Q8HP PRN PO 01/11/25 15:30 01/19/25 06:28 30 ML Albuterol 2.5 mg Q6HPRN PRN NEB 01/11/25 21:45 01/20/25 08:31 2.5 MG Loperamide HCl 2 mg UD PRN PO 01/12/25 12:00 Hydromorphone HCl 2 mg Q4HP PRN PO 01/12/25 12:00 01/20/25 11:32 2 MG Lidocaine 1 patch DAILY TOP 01/13/25 10:00 01/20/25 09:08 1 PATCH Clonidine HCl 0.2 mg Q6HP PRN PO 01/17/25 11:30 01/17/25 13:51 0.2 MG Docusate Sodium 100 mg BID PO 01/18/25 10:00 01/20/25 09:06 100 MG Mirtazapine 15 mg HS PO 01/19/25 22:00 01/19/25 21:37 15 MG Gabapentin 300 mg BID PO 01/18/25 22:00 01/19/25 21:37 300 MG Laboratory Results Laboratory Tests 01/18/25 04:40 Microbiology Microbiology Date/Time Source Procedure Growth Status 01/12/25 10:47 Blood Blood Culture - Final NO GROWTH AFTER 5 DAYS OF INCUBATION. Complete 01/12/25 04:30 Stool Clostridium difficile Toxin Assay - Final Complete 01/11/25 20:00 Nose MRSA Screen - Final Complete Labs and/or images reviewed: Labs reviewed by me, Image(s) reviewed by me Assessment/Plan Assessment/Plan Intractable abdominal pain : Lipase normal: CT abdomen pelvis without contrast negative for any acute pathology Cardiomegaly Bilateral nonobstructing small renal calculi: Urology consult for , advised outpatient follow up Interstitial opacities probable pneumonia Rocephin azithromycin Acute diarrhea: C diff negative Imodium p.r.n. hypertension COPD Home oxygen use Possible suicide ideation: Tele psych consult by Dr. Parekh who advised the patient is not suicidal and advised to start back on Remeron and gabapentin Status post Urolift - Prostate Implant by Dr Varma on 01-15-25 continue [place] Status post suprapubic catheter for last two years, exchanged by Dr. Varma for new one on 01-13-25 History of [place]'s disease : Resume home medications hydrocortisone 10 mg p.o. daily History of emphysema Acute dehydration: IV fluids LR 125 per hour Use of home oxygen Chronic back pain : Dilaudid 2 mg p.o. q.4 hours which is his home medication History of multiple low back surgeries Narcotic addiction Flu Test negative COVID test negative [facility] Physical therapy ordered Patient has Samayoa back in place Discussed about the discharge plan with the patient in the presence of forensic social worker Stephanie Saleem at bedside We will order pulmonology consult for patient's pneumonia and urology consult for Dr. Varma to re-evaluate as the patient is complaining of incontinence after prostate surgery. Plan discussed with: Patient Date of Service: Jan 20, 2025 Billing Provider: ELENA PALOMARES MD Common Visit Codes: [id number] INP/OBS CARE(HIGH) ELENA PALOMARES MD Jan 20, 2025 12:59
--- NOTE | 2025-01-20 14:55 | DVHPN2 ---
Progress Note - Dictate Date Seen: Jan 20, 2025 Has the PT tested + for MRSA If YES, has PT been informed?: No Medical Necessity Reason Pt with a Central, PICC or Fol: No The following are medically ne: [place] Catheter Medical Necessity Reason Status post UroLift prostate implantation on 2024 Subjective Patient underwent UroLift prostatic implantation on 01/15/2025 with good surgical results. Postoperatively patient was experiencing significant urinary incontinence and requested a [place] catheter to be placed. Currently his suprapubic catheter is plugged. He is considering removal of the suprapubic tube and maintaining a [place] catheter instead. vital signs Vital Sign Date Time Temp Pulse Resp B/P (MAP) Pulse Ox O2 Delivery O2 Flow Rate FiO2 01/20/25 13:00 98.1 73 20 131/55 (80) 98.1 01/20/25 11:34 98 01/20/25 08:36 Nasal Cannula* 2 28 Total Intake and Output 01/19/25 01/19/25 01/20/25 15:00 23:00 07:00 Intake Total 300 ml 1175 ml 675 ml Output Total 700 ml 1650 ml Balance 300 ml 475 ml -975 ml medications Current Medications Medications Dose Ordered Sig/Kush Route Start Time Stop Time Status Last Admin Dose Admin Ondansetron HCl 4 mg Q4HP PRN IV 01/10/25 08:45 01/20/25 05:33 4 MG Ceftriaxone Sodium 50 ml @ 100 mls/hr DAILY@09 IV 01/10/25 09:00 01/20/25 09:04 100 MLS/HR Azithromycin 250 ml @ 125 mls/hr DAILY IV 01/10/25 10:00 01/20/25 09:05 125 MLS/HR Melatonin 5 mg HS PRN PO 01/10/25 23:45 01/18/25 20:42 5 MG Lorazepam 1 mg Q8HP PRN PO 01/11/25 02:15 01/20/25 09:31 1 MG Lactated Ringer's 1,000 ml @ 125 mls/hr Q8H IV 01/11/25 12:30 01/20/25 09:09 125 MLS/HR Tamsulosin HCl 0.4 mg QPM PO 01/11/25 18:00 01/19/25 17:41 0.4 MG Oxybutynin Chloride 5 mg Q12HR PO 01/11/25 22:00 01/20/25 09:06 5 MG Pantoprazole Sodium 40 mg BID IV 01/11/25 22:00 01/20/25 09:05 40 MG Hydrocortisone 10 mg DAILY PO 01/12/25 10:00 01/20/25 09:06 10 MG Al Hydrox/Mg Hydrox/Simethicone 30 ml Q8HP PRN PO 01/11/25 15:30 01/19/25 06:28 30 ML Albuterol 2.5 mg Q6HPRN PRN NEB 01/11/25 21:45 01/20/25 08:31 2.5 MG Loperamide HCl 2 mg UD PRN PO 01/12/25 12:00 Hydromorphone HCl 2 mg Q4HP PRN PO 01/12/25 12:00 01/20/25 11:32 2 MG Lidocaine 1 patch DAILY TOP 01/13/25 10:00 01/20/25 09:08 1 PATCH Clonidine HCl 0.2 mg Q6HP PRN PO 01/17/25 11:30 01/17/25 13:51 0.2 MG Docusate Sodium 100 mg BID PO 01/18/25 10:00 01/20/25 09:06 100 MG Mirtazapine 15 mg HS PO 01/19/25 22:00 01/19/25 21:37 15 MG Gabapentin 300 mg BID PO 01/18/25 22:00 01/19/25 21:37 300 MG objective No acute distress Samayoa catheter in place and draining well laboratory and microbiology Laboratory Tests 01/18/25 04:40 Test 01/18/25 04:40 Range/Units Serum Glucose 77 74-106 mg/dL Problem List Urinary retention-resolved BPH-treated with UroLift Assessment/Plan Patient wishes to have an indwelling Samay[place] catheter for now. The suprapubic catheter will be maintained by plug. He will follow up in Urology Clinic for further management as outpatient Dietary Evaluation Review Comments: [place] likes and dislike when a mechnical soft diet is feasible. Expected Outcomes/Goals: Improved PO intake, meet 75% of his needs Plan discussed with: Patient, Other Total Time (mins): 15 FRAN BILLINGS MD Jan 20, 2025 14:55
--- NOTE | 2025-01-20 22:11 | DVHINCON2 ---
Date of service: Jan 20, 2025 Referring Physician Joaquin Bliss MD Reason for Consultation Acute on chronic hypoxic respiratory failure, COPD, emphysema, interstitial pneumonia, CILD. History of Present Illness A 69-year-old man with past medical history of COPD, emphysema, hypertension, Vitor's disease, and multiple low back surgeries who presented to ED on 01/10/25 with c/o abdominal pain x1 day. Patient described pain as 10/10, constant, and sharp in nature with no aggravating or relieving factors. Patient was seen here earlier on the morning of presentation and was discharged, returned with worsening abdominal pain. Of note, pt had suprapubic catheter placed over a ye ar ago by [facility] for enlarged prostate. Patient reported being on continuous oxygen, 2 L nasal cannula. He denied chest pain, SOB, fever, chills, lightheadedness, weakness, N/V/D or other acute complaints. Pt uses a Rollator with ambulation. He was admitted for further care, underwent cystoscopy with exchange of suprapubic catheter and Urolift Implant during hospitalization. Pulmonary consultation is requested for evaluation and management of acute on chronic hypoxic respiratory failure, COPD, emphysema, interstitial pneumonia and CILD. Review of Systems: 14-point review of systems negative unless otherwise noted above. Past Medical History: Hypertension, COPD, [place]'s disease, emphysema. Past Surgical History: Multiple low back surgeries Suprapubic catheter placed over a year ago by [facility] for enlarged prostate. Medications: Reviewed. Allergies: Acetaminophen. Family History: Mother with Vitor disease. Dad with atherosclerosis. Social History: Former smoker, quit. Prior drinker, quit. No illicit drug use. Family History: [place] disease G8 MOTHER FH: back pain G8 FATHER Allergies: Coded Allergies: Acetaminophen (Verified Allergy, Mild, RASH, 01/10/25) Home Meds Reported Medications Hydrocortisone Base (Hydrocortisone) 10 Mg Tab, 1 TAB PO DAILY for 30 Days, #30 01/12/25 Morphine Sulfate (Morphine Sulfate Cr) 30 Mg Tab, 1 TAB PO TID for 30 Days, #90 01/12/25 Lorazepam (Lorazepam) 1 Mg Tab, 1 TAB PO QHSP PRN for FOR INSOMNIA, #90 TAB 01/11/25 Dicyclomine Hcl (BENTYL CAPSULE) 10 Mg Cp, 1 CAP PO Q6HR PRN for 14 Days, #56 01/10/25 Oxybutynin Chloride (Oxybutynin Chloride) 5 Mg Tab, 1 TAB PO DAILY for 14 Days, #14 01/10/25 Tamsulosin Hcl (Tamsulosin Hcl) 0.4 Mg Cap, 1 CAP PO DAILY for 30 Days, #30 01/10/25 Furosemide (Furosemide) 20 Mg Tab, 1 TAB PO DAILY for 30 Days, #30 01/10/25 Mirtazapine (Mirtazapine Oral Disintegrating Tablet) 15 Mg Tab, 1 TAB PO QPM for 30 Days, #30 01/10/25 Gabapentin (Gabapentin) 300 Mg Cap, 1 CAP PO BID for 30 Days, #60 01/10/25 Famotidine (Famotidine) 20 Mg Tab, 1 TAB PO DAILY for 30 Days, #30 01/10/25 Lisinopril (Lisinopril) 5 Mg Tab, 1 TAB PO DAILY for 30 Days, #30 01/10/25 Pantoprazole Sodium Sesquihydr (Pantoprazole Sodium) 40 Mg Tab, 1 TAB PO DAILY for 30 Days, #30 01/10/25 Baclofen (Baclofen) 10 Mg Tab, 1 TAB PO TID for 30 Days, #90 01/10/25 Vital Signs Vital Signs Date Time Temp Pulse Resp B/P (MAP) Pulse Ox O2 Delivery O2 Flow Rate FiO2 01/20/25 17:00 84 20 137/86 (103) 98 01/20/25 13:00 98.1 98.1 01/20/25 10:00 Nasal Cannula 2.0 01/20/25 10:00 28 Physical Exam Gen.: Patient lying in bed in no apparent distress. On supplemental oxygen. Head: Normocephalic, atraumatic. Eyes: EOMI/PERRLA. Ears: Normal hearing. Normal anatomy. Neck/trachea: Trachea midline, supple. Nose: Normal external anatomy. Mouth: Moist mucous membranes. Chest: Decreased air entry bilaterally. No wheezing or rhonchi. Cardiovascular: Positive S1, positive S2. Regular rate and rhythm. Abdomen: Positive bowel sounds in all 4 quadrants. Soft, non-tender, non- distended. : Deferred. Rectal: Deferred. Skin: Warm, dry. Intact. Extremities: 2+ radial pulses bilaterally. No lower extremity edema. Neuro: Awake, alert, oriented x3. No gross motor or sensory deficits. Cranial nerves II through XII intact. Gait not assessed. Labs/Diagnostic Data Labs Test 01/18/25 04:40 01/11/25 20:00 01/11/25 05:42 01/10/25 09:17 Range/Units White Blood Count 8.5 4.4-10.8 10^3/uL Red Blood Count 4.41 L 4.5-5.90 10^6/uL Hemoglobin 12.9 L 13.5-17.5 g/dL Hematocrit 36.5 #L 41.0-53.0 % Mean Corpuscular Volume 82.9 80.0-100.0 fL Mean Corpuscular Hemoglobin 29.3 28.0-32.0 pg Mean Corpuscular Hemoglobin Concent 35.4 32.0-36.0 g/dL Red Cell Distribution Width 13.9 11.8-14.3 % Platelet Count 333 140-450 10^3/uL Mean Platelet Volume 6.7 L 6.9-10.8 fL Neutrophils (%) (Auto) 52.1 37.0-80.0 % Lymphocytes (%) (Auto) 34.2 10.0-50.0 % Monocytes (%) (Auto) 10.1 0.0-12.0 % Eosinophils (%) (Auto) 2.8 0.0-7.0 % Basophils (%) (Auto) 0.8 0.0-2.0 % Neutrophils # (Auto) 4.4 1.6-8.6 10 ^3/uL Lymphocytes # (Auto) 2.9 0.4-5.4 10 ^3/uL Monocytes # (Auto) 0.9 0-1.3 10 ^3/uL Eosinophils # (Auto) 0.2 0-0.8 10 ^3/uL Basophils # (Auto) 0.1 0-0.2 10 ^3/uL Nucleated Red Blood Cells 0.0 % Sodium Level 132 L 136-145 mmol/L Potassium Level 3.8 3.5-5.1 mmol/L Chloride Level 94 L 98-107 mmol/L Carbon Dioxide Level 27 20-31 mmol/L Anion Gap 11 5-15 Blood Urea Nitrogen 5 L 9-23 mg/dL Creatinine 0.69 L 0.700-1.30 mg/dL Glomerular Filtration Rate Calc 99 >90 mL/min BUN/Creatinine Ratio 7.2 L 10.0-20.0 Serum Glucose 77 74-106 mg/dL Calcium Level 10.2 8.7-10.4 mg/dL Influenza Type A Antigen Negative Negative Influenza Type B Antigen Negative Negative SARS-CoV-2 Antigen (Rapid) Negative NEGATIVE Total Bilirubin 0.6 0.2-1.0 mg/dL Aspartate Amino Transferase (AST) 13 13-40 U/L Alanine Aminotransferase (ALT) < 9 7-40 U/L Alkaline Phosphatase 98 46-116 U/L Total Protein 7.0 5.7-8.2 g/dL Albumin 4.8 3.2-4.8 g/dL Lipase 36 12-53 U/L Microbiology Date/Time Source Procedure Growth Status 01/12/25 10:47 Blood Blood Culture - Final NO GROWTH AFTER 5 DAYS OF INCUBATION. Complete 01/12/25 04:30 Stool Clostridium difficile Toxin Assay - Final Complete 01/11/25 20:00 Nose MRSA Screen - Final Complete Assessment Impression: Acute on chronic hypoxic respiratory failure Dependence on supplemental oxygen Chronic obstructive pulmonary disease Emphysema, severe Interstitial pneumonia Chronic interstitial lung disease Hx of nicotine dependence Plan: Supplemental oxygen 2 LPM NC Titrate to keep O2 sats above 92%. Taper O2 as tolerated. Continue bronchodilators. Continue antibiotics Steroids - hydrocortisone PO. Incentive spirometry Anxiolytic medication Pain control Avoid oversedation IV fluids with LR at 125 ml/hr. Monitor renal function. Monitor electrolytes. Supplement as necessary. Monitor ins and outs. GI prophylaxis - Protonix BID DVT prophylaxis. Prognosis: Poor given patient's multiple co-morbidities. Rest of plan per hospitalist and other consultants. Thank you, Dr. Bliss, for allowing me to participate in this patient's care. Further recommendations will depend on the patient's clinical course. Please do not hesitate to contact me if you have any questions or concerns. This medical document was created using an electronic medical record system with [employer] dictation system. Although these documentations are being carefully reviewed, there may still be some phonetic and typographical changes. The errors are purely typographical, due to imperfection on the software program, and do not reflect any compromise in the patient's medical care. Plan discussed with: Patient, Other (ROSA Avery/Dr. Bliss) SYL JEAN BAPTISTE MD Jan 20, 2025 22:11
[2025-01-21] VITALS (12 sets, daily range): BP systolic 102–151; BP diastolic 46–64; PULSE 68–97; RESP 16–20; TEMP 97.5–98.8; O2SAT 93–97
--- NOTE | 2025-01-21 11:18 | DVHPN2 ---
Reviewed: Care Plan, H&P, Labs, Medications, Previous Orders, Radiology Changes from previous H/P or p: No Changes Gastrointestinal: Abdominal Pain Objective Vitals Vital Signs Date Time Temp Pulse Resp B/P (MAP) Pulse Ox O2 Delivery O2 Flow Rate FiO2 01/21/25 09:00 98.4 91 17 102/60 (74) 95 98.4 01/21/25 05:44 Nasal Cannula 2.0 01/21/25 05:44 28 Intake/Output Intake and Output 01/21/25 07:00 Intake Total 2700 ml Output Total 4225 ml Balance -1525 ml Intake Oral 1650 ml IV Total 1050 ml Output Urine Total 4225 ml # Bowel Movements 2 Medications Current Medications Medications Dose Ordered Sig/Kush Route Start Time Stop Time Status Last Admin Dose Admin Ondansetron HCl 4 mg Q4HP PRN IV 01/10/25 08:45 01/20/25 05:33 4 MG Ceftriaxone Sodium 50 ml @ 100 mls/hr DAILY@09 IV 01/10/25 09:00 01/20/25 09:04 100 MLS/HR Azithromycin 250 ml @ 125 mls/hr DAILY IV 01/10/25 10:00 01/20/25 09:05 125 MLS/HR Melatonin 5 mg HS PRN PO 01/10/25 23:45 01/20/25 23:22 5 MG Lorazepam 1 mg Q8HP PRN PO 01/11/25 02:15 01/20/25 23:22 1 MG Lactated Ringer's 1,000 ml @ 125 mls/hr Q8H IV 01/11/25 12:30 01/20/25 09:09 125 MLS/HR Tamsulosin HCl 0.4 mg QPM PO 01/11/25 18:00 01/20/25 18:04 0.4 MG Oxybutynin Chloride 5 mg Q12HR PO 01/11/25 22:00 01/21/25 10:19 5 MG Pantoprazole Sodium 40 mg BID IV 01/11/25 22:00 01/21/25 10:19 40 MG Hydrocortisone 10 mg DAILY PO 01/12/25 10:00 01/20/25 09:06 10 MG Al Hydrox/Mg Hydrox/Simethicone 30 ml Q8HP PRN PO 01/11/25 15:30 01/20/25 18:04 30 ML Albuterol 2.5 mg Q6HPRN PRN NEB 01/11/25 21:45 01/20/25 22:12 2.5 MG Loperamide HCl 2 mg UD PRN PO 01/12/25 12:00 Hydromorphone HCl 2 mg Q4HP PRN PO 01/12/25 12:00 01/21/25 10:35 2 MG Lidocaine 1 patch DAILY TOP 01/13/25 10:00 01/21/25 10:17 1 PATCH Clonidine HCl 0.2 mg Q6HP PRN PO 01/17/25 11:30 01/17/25 13:51 0.2 MG Docusate Sodium 100 mg BID PO 01/18/25 10:00 01/21/25 10:19 100 MG Mirtazapine 15 mg HS PO 01/19/25 22:00 01/20/25 21:14 15 MG Gabapentin 300 mg BID PO 01/18/25 22:00 01/21/25 10:19 300 MG Laboratory Results Laboratory Tests 01/18/25 04:40 Microbiology Microbiology Date/Time Source Procedure Growth Status 01/12/25 10:47 Blood Blood Culture - Final NO GROWTH AFTER 5 DAYS OF INCUBATION. Complete 01/12/25 04:30 Stool Clostridium difficile Toxin Assay - Final Complete 01/11/25 20:00 Nose MRSA Screen - Final Complete Labs and/or images reviewed: Labs reviewed by me, Image(s) reviewed by me Assessment/Plan Assessment/Plan Intractable abdominal pain : Lipase normal: CT abdomen pelvis without contrast negative for any acute pathology Cardiomegaly Bilateral nonobstructing small renal calculi: Urology consult for , advised outpatient follow up Interstitial opacities probable pneumonia Rocephin azithromycin Acute diarrhea: C diff negative Imodium p.r.n. hypertension COPD Home oxygen use Possible suicide ideation: Tele psych consult by Dr. Parekh who advised the patient is not suicidal and advised to start back on Remeron and gabapentin Status post Urolift - Prostate Implant by Dr Varma on 01-15-25 continue Samayoa, Dr. Varma reviewed the patient on 01/20/2025 advised to keep the Samay[place] and the suprapubic cath plugged. Status post suprapubic catheter for last two years, exchanged by Dr. Varma for new one on 01-13-25 History of [place]'s disease : Resume home medications hydrocortisone 10 mg p.o. daily History of emphysema Acute dehydration: IV fluids LR 125 per hour Use of home oxygen Chronic back pain : Dilaudid 2 mg p.o. q.4 hours which is his home medication History of multiple low back surgeries Narcotic addiction Flu Test negative COVID test negative Patient came from [facility] assisted living facility Physical therapy ordered Patient has Samayoa back in place Discussed about the discharge plan with the patient in the presence of social research assistant Stephanie Saleem at bedside Acute on chronic hypoxic respiratory failure: Consult by Dr. Art appreciated Plan discussed with: Patient My Orders Orders - ELENA PALOMARES MD Procedure Category Date Status Time * Urology Consult CONS 01/20/25 Transmitted 13:01 *Consult CONS 01/20/25 Transmitted / 13:01 Date of Service: Jan 21, 2025 Billing Provider: ELENA PALOMARSE MD Common Visit Codes: [id number] INP/OBS CARE(HIGH) ELENA PALOMARES MD Jan 21, 2025 11:18
[2025-01-21] MEDS: SALINE 0.65 % NASAL SPRAY 45ML BOTTLE EACHNOSTRI SCH (14:41)
[2025-01-21] MEDS: MILK OF MAGNESIA 30ML SUSP PO ONE (14:41)
--- NOTE | 2025-01-21 21:07 | DVHPN2 ---
Progress Note - Dictate Date Seen: Jan 21, 2025 Has the PT tested + for MRSA If YES, has PT been informed?: No Medical Necessity Reason Pt with a Central, PICC or Fol: Yes The following are medically ne: Palafox Catheter Reason for palafox catheter: Strict I&O Subjective Patient seen and examined at bedside. Remains on supplemental oxygen Overnight events reviewed. vital signs Vital Sign Date Time Temp Pulse Resp B/P (MAP) Pulse Ox O2 Delivery O2 Flow Rate FiO2 01/21/25 21:00 97.9 72 18 151/56 (87) 95 97.9 01/21/25 20:00 Nasal Cannula* 2 28 Total Intake and Output 01/20/25 01/20/25 01/21/25 15:00 23:00 07:00 Intake Total 300 ml 1500 ml 900 ml Output Total 2500 ml 1725 ml Balance 300 ml -1000 ml -825 ml medications Current Medications Medications Dose Ordered Sig/Kush Route Start Time Stop Time Status Last Admin Dose Admin Ondansetron HCl 4 mg Q4HP PRN IV 01/10/25 08:45 01/21/25 11:42 4 MG Melatonin 5 mg HS PRN PO 01/10/25 23:45 01/20/25 23:22 5 MG Lorazepam 1 mg Q8HP PRN PO 01/11/25 02:15 01/21/25 19:53 1 MG Lactated Ringer's 1,000 ml @ 125 mls/hr Q8H IV 01/11/25 12:30 01/21/25 13:00 125 MLS/HR Tamsulosin HCl 0.4 mg QPM PO 01/11/25 18:00 01/21/25 17:21 0.4 MG Oxybutynin Chloride 5 mg Q12HR PO 01/11/25 22:00 01/21/25 10:19 5 MG Pantoprazole Sodium 40 mg BID IV 01/11/25 22:00 01/21/25 10:19 40 MG Hydrocortisone 10 mg DAILY PO 01/12/25 10:00 01/21/25 11:42 10 MG Al Hydrox/Mg Hydrox/Simethicone 30 ml Q8HP PRN PO 01/11/25 15:30 01/20/25 18:04 30 ML Albuterol 2.5 mg Q6HPRN PRN NEB 01/11/25 21:45 01/21/25 19:17 2.5 MG Loperamide HCl 2 mg UD PRN PO 01/12/25 12:00 Lidocaine 1 patch DAILY TOP 01/13/25 10:00 01/21/25 10:17 1 PATCH Clonidine HCl 0.2 mg Q6HP PRN PO 01/17/25 11:30 01/17/25 13:51 0.2 MG Docusate Sodium 100 mg BID PO 01/18/25 10:00 01/21/25 10:19 100 MG Mirtazapine 15 mg HS PO 01/19/25 22:00 01/20/25 21:14 15 MG Gabapentin 300 mg BID PO 01/18/25 22:00 01/21/25 10:19 300 MG Sodium Chloride 1 spr QID EACHNOSTRI 01/21/25 12:00 01/21/25 17:21 1 SPR objective Gen.: Patient lying in bed in no apparent distress. On supplemental oxygen. Head: Normocephalic, atraumatic. Eyes: EOMI/PERRLA. Ears: Normal hearing. Normal anatomy. Neck/trachea: Trachea midline, supple. Nose: Normal external anatomy. Mouth: Moist mucous membranes. Chest: Decreased air entry bilaterally. No wheezing or rhonchi. Cardiovascular: Positive S1, positive S2. Regular rate and rhythm. Abdomen: Positive bowel sounds in all 4 quadrants. Soft, non-tender, non- distended. : Deferred. Rectal: Deferred. Skin: Warm, dry. Intact. Extremities: 2+ radial pulses bilaterally. No lower extremity edema. Neuro: Awake, alert, oriented x3. No gross motor or sensory deficits. Cranial nerves II through XII intact. Gait not assessed. laboratory and microbiology Laboratory Tests 01/18/25 04:40 Test 01/18/25 04:40 Range/Units Serum Glucose 77 74-106 mg/dL Assessment/Plan Impression: Acute on chronic hypoxic respiratory failure Dependence on supplemental oxygen Chronic obstructive pulmonary disease Emphysema, severe Interstitial pneumonia Chronic interstitial lung disease Hx of nicotine dependence Events: Remains on supplemental oxygen, 2 LPM NC Taper O2 as tolerated Continue bronchodilators [place] nasal spray Continue antibiotics Incentive spirometry Ativan for anxiety IV fluids with LR at 125 ml/hr. Labs and imaging reviewed. Rest of plan as noted below. Plan: Supplemental oxygen Titrate to keep O2 sats above 92%. Continue bronchodilators. Continue antibiotics Steroids - hydrocortisone PO. Incentive spirometry Anxiolytic medication Pain control Avoid oversedation IV fluids with LR at 125 ml/hr. Monitor renal function. Monitor electrolytes. Supplement as necessary. Monitor ins and outs. GI prophylaxis - Protonix BID DVT prophylaxis. Prognosis: Poor given patient's multiple co-morbidities. Rest of plan per hospitalist and other consultants. Thank you, Dr. Bliss, for allowing me to participate in this patient's care. Further recommendations will depend on the patient's clinical course. Please do not hesitate to contact me if you have any questions or concerns. This medical document was created using an electronic medical record system with [employer] dictation system. Although these documentations are being carefully reviewed, there may still be some phonetic and typographical changes. The errors are purely typographical, due to imperfection on the software program, and do not reflect any compromise in the patient's medical care. Dietary Evaluation Review Comments: [place] likes and dislike when a mechnical soft diet is feasible. Expected Outcomes/Goals: Improved PO intake, meet 75% of his needs Plan discussed with: Patient, Other (ROSA Walters) SYL JEAN BAPTISTE MD Jan 21, 2025 21:07
[2025-01-21] MEDS: MORPHINE SULFATE INJ 2 MG/ml SYRG IV PRN (23:29)
[2025-01-22] VITALS (11 sets, daily range): BP systolic 110–141; BP diastolic 40–61; PULSE 65–82; RESP 14–20; TEMP 97.6–98.2; O2SAT 94–97
[2025-01-22] MEDS ORDERED: GABA-1250 PO (11:00)
[2025-01-22] MEDS ORDERED: MIRT-93 PO (11:00)
[2025-01-22] MEDS ORDERED: TAMS-35 PO (11:03)
[2025-01-22] MEDS ORDERED: OXYB5TAB14 PO (11:03)
[2025-01-22] MEDS ORDERED: HYDR-4792 PO (11:03)
[2025-01-22] MEDS ORDERED: ALBUAER3 IN (11:04)
--- NOTE | 2025-01-22 11:10 | DVHDS2 ---
Discharge Summary Date of Admission Jan 10, 2025 at 08:32 Date of Discharge: Jan 22, 2025 Admitting Diagnosis Generalized weakness and urinary incontinence Wounds: Prostate implants Labs/Diagnostic Data: Laboratory Results Test 01/18/25 04:40 01/11/25 20:00 01/11/25 05:42 01/10/25 09:17 White Blood Count 8.5 10^3/uL (4.4-10.8) Red Blood Count 4.41 10^6/uL (4.5-5.90) Hemoglobin 12.9 g/dL (13.5-17.5) Hematocrit 36.5 % (41.0-53.0) Mean Corpuscular Volume 82.9 fL (80.0-100.0) Mean Corpuscular Hemoglobin 29.3 pg (28.0-32.0) Mean Corpuscular Hemoglobin Concent 35.4 g/dL (32.0-36.0) Red Cell Distribution Width 13.9 % (11.8-14.3) Platelet Count 333 10^3/uL (140-450) Mean Platelet Volume 6.7 fL (6.9-10.8) Neutrophils (%) (Auto) 52.1 % (37.0-80.0) Lymphocytes (%) (Auto) 34.2 % (10.0-50.0) Monocytes (%) (Auto) 10.1 % (0.0-12.0) Eosinophils (%) (Auto) 2.8 % (0.0-7.0) Basophils (%) (Auto) 0.8 % (0.0-2.0) Neutrophils # (Auto) 4.4 10 ^3/uL (1.6-8.6) Lymphocytes # (Auto) 2.9 10 ^3/uL (0.4-5.4) Monocytes # (Auto) 0.9 10 ^3/uL (0-1.3) Eosinophils # (Auto) 0.2 10 ^3/uL (0-0.8) Basophils # (Auto) 0.1 10 ^3/uL (0-0.2) Nucleated Red Blood Cells 0.0 % Sodium Level 132 mmol/L (136-145) Potassium Level 3.8 mmol/L (3.5-5.1) Chloride Level 94 mmol/L (98-107) Carbon Dioxide Level 27 mmol/L (20-31) Anion Gap 11 (5-15) Blood Urea Nitrogen 5 mg/dL (9-23) Creatinine 0.69 mg/dL (0.700-1.30) Glomerular Filtration Rate Calc 99 mL/min (>90) BUN/Creatinine Ratio 7.2 (10.0-20.0) Serum Glucose 77 mg/dL (74-106) Calcium Level 10.2 mg/dL (8.7-10.4) Influenza Type A Antigen Negative (Negative) Influenza Type B Antigen Negative (Negative) SARS-CoV-2 Antigen (Rapid) Negative (NEGATIVE) Total Bilirubin 0.6 mg/dL (0.2-1.0) Aspartate Amino Transferase (AST) 13 U/L (13-40) Alanine Aminotransferase (ALT) < 9 U/L (7-40) Alkaline Phosphatase 98 U/L (46-116) Total Protein 7.0 g/dL (5.7-8.2) Albumin 4.8 g/dL (3.2-4.8) Lipase 36 U/L (12-53) Other Laboratory Tests 01/18/25 04:40 Brief Hx & Hospital Course: 69-year-old male with multiple medical problems including BPH hypertension COPD home oxygen use 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 CT abdomen pelvis without contrast was negative for any acute pathology patient has had bilateral nonobstructing small renal calculi seen by Urology Dr. Dorsey. The patient underwent prostate implants for his enlarged prostate and also suprapubic catheter was replaced with a new one. Dr. Dorsey advised to keep the [place] in and cap the suprapubic cath. Patient expressed suicide ideation seen by tele psych DrJane Parekh advised that the patient is not suicidal and put him on gabapentin Remeron. Dehydration resolved with IV fluids patient has had shortness of breaths seen by pulmonology Dr. Art advised nebulizer medications. Patient is being [facility] Medications transmitted to the pharmacy. He will follow up with the Urology Dr. Dorsey regarding prostate. General condition poor but stable at the time of discharge Consults/Reason for consult Urology Dr. Varma Pulmonology Dr. Art Operations or Procedures Prostate implants Replacement of the suprapubic cath Condition at Discharge: Good Final Diagnosis/Problems List Intractable abdominal pain : Lipase normal: CT abdomen pelvis without contrast negative for any acute pathology Cardiomegaly Bilateral nonobstructing small renal calculi: Urology consult for , advised outpatient follow up Interstitial opacities probable pneumonia Rocephin azithromycin Acute diarrhea: C diff negative Imodium p.r.n. hypertension COPD Home oxygen use Possible suicide ideation: Tele psych consult by Dr. Parekh who advised the patient is not suicidal and advised to start back on Remeron and gabapentin Status post Urolift - Prostate Implant by Dr Varma on 01-15-25 continue Samay[place], Dr. Varma reviewed the patient on 01/20/2025 advised to keep the [place] and the suprapubic cath plugged. Status post suprapubic catheter for last two years, exchanged by Dr. 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 daily History of emphysema Acute dehydration: IV fluids LR 125 per hour Use of home oxygen Chronic back pain : Dilaudid 2 mg p.o. q.4 hours which is his home medication History of multiple low back surgeries Narcotic addiction Flu Test negative COVID test negative Discharge Disposition: Hospice - Home Discharge Instruct/Medications Diet: Cardiac 2g Na,low cholest Activity: Light activity Follow Up/Referral: Follow up with the hospice Dr Follow up with the Urology Dr. Varma in two weeks regarding prostate Continue all your previous home medications Medications: New medications transmitted to the pharmacy 35 (Time taken for discharge summary 35 minutes) Discharge Statement: "Patient was advised to return to the ER or call 911 if any headaches, dizziness, shortness of breath, chest pain, abdominal pain, bleeding, fevers, or worsening of medical condition. Patient was counseled about treatment plan, medications, possible side effects, patientverbalized understanding. All questions were answered to the best of my ability. This discharge took greater then 30 minutes in planning, reviewing documentation, counseling the patient, and discussing with other team members." ASSESSMENT ASSESSMENT Hospital Course Marginally improved Assessment Intractable abdominal pain : Lipase normal: CT abdomen pelvis without contrast negative for any acute pathology Cardiomegaly Bilateral nonobstructing small renal calculi: Urology consult for , advised outpatient follow up Interstitial opacities probable pneumonia Rocephin azithromycin Acute diarrhea: C diff negative Imodium p.r.n. hypertension COPD Home oxygen use Possible suicide ideation: Tele psych consult by Dr. Parekh who advised the patient is not suicidal and advised to start back on Remeron and gabapentin Status post Urolift - Prostate Implant by Dr Varma on 01-15-25 continue [place]ay[place], Dr. Varma reviewed the patient on 01/20/2025 advised to keep the [place] and the suprapubic cath plugged. Status post suprapubic catheter for last two years, exchanged by Dr. 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 daily History of emphysema Acute dehydration: IV fluids LR 125 per hour Use of home oxygen Chronic back pain : Dilaudid 2 mg p.o. q.4 hours which is his home medication History of multiple low back surgeries Narcotic addiction Flu Test negative COVID test negative Date of Service: Jan 22, 2025 Billing Provider: ELENA PALOMARES MD Common Visit Codes: 07869-XQS/OBS DISCH DAY >30min ELENA PALOMARES MD Jan 22, 2025 11:10
[2025-01-22] MEDS: MORPHINE SULFATE 4 MG/ML SYR/VIAL IV PRN (13:33)
--- NOTE | 2025-01-22 23:30 | DVHPN2 ---
Progress Note - Dictate Date Seen: Jan 22, 2025 Has the PT tested + for MRSA If YES, has PT been informed?: No Medical Necessity Reason Pt with a Central, PICC or Fol: Yes The following are medically ne: Palafox Catheter Reason for palafox catheter: Strict I&O Subjective Patient seen and examined at bedside. Remains on supplemental oxygen Overnight events reviewed. vital signs Vital Sign Date Time Temp Pulse Resp B/P (MAP) Pulse Ox O2 Delivery O2 Flow Rate FiO2 01/22/25 18:40 98.2 80 20 96 01/22/25 18:04 Nasal Cannula* 2 28 01/22/25 17:44 134/72 Total Intake and Output 01/21/25 01/21/25 01/22/25 15:00 23:00 07:00 Intake Total 1100 ml 800 ml Output Total 1100 ml 2600 ml Balance 0 ml -1800 ml objective Gen.: Patient lying in bed in no apparent distress. On supplemental oxygen. Head: Normocephalic, atraumatic. Eyes: EOMI/PERRLA. Ears: Normal hearing. Normal anatomy. Neck/trachea: Trachea midline, supple. Nose: Normal external anatomy. Mouth: Moist mucous membranes. Chest: Decreased air entry bilaterally. No wheezing or rhonchi. Cardiovascular: Positive S1, positive S2. Regular rate and rhythm. Abdomen: Positive bowel sounds in all 4 quadrants. Soft, non-tender, non- distended. : Deferred. Rectal: Deferred. Skin: Warm, dry. Intact. Extremities: 2+ radial pulses bilaterally. No lower extremity edema. Neuro: Awake, alert, oriented x3. No gross motor or sensory deficits. Cranial nerves II through XII intact. Gait not assessed. laboratory and microbiology Laboratory Tests 01/18/25 04:40 Test 01/18/25 04:40 Range/Units Serum Glucose 77 74-106 mg/dL Assessment/Plan Impression: Acute on chronic hypoxic respiratory failure Dependence on supplemental oxygen Chronic obstructive pulmonary disease Emphysema, severe Interstitial pneumonia Chronic interstitial lung disease Hx of nicotine dependence Events: Remains on supplemental oxygen, 2 LPM NC Taper O2 as tolerated Continue bronchodilators Mier nasal spray Continue antibiotics Incentive spirometry Head of bed elevation Aspiration precautions Ativan for anxiety Labs and imaging reviewed. Rest of plan as noted below. Plan: Supplemental oxygen Titrate to keep O2 sats above 92%. Continue bronchodilators. Continue antibiotics Steroids - hydrocortisone PO. Incentive spirometry Anxiolytic medication Pain control Avoid oversedation IV fluids with LR at 125 ml/hr. Monitor renal function. Monitor electrolytes. Supplement as necessary. Monitor ins and outs. GI prophylaxis - Protonix BID DVT prophylaxis. Prognosis: Poor given patient's multiple co-morbidities. Rest of plan per hospitalist and other consultants. Thank you, Dr. Bliss, for allowing me to participate in this patient's care. Further recommendations will depend on the patient's clinical course. Please do not hesitate to contact me if you have any questions or concerns. This medical document was created using an electronic medical record system with [employer] dictation system. Although these documentations are being carefully reviewed, there may still be some phonetic and typographical changes. The errors are purely typographical, due to imperfection on the software program, and do not reflect any compromise in the patient's medical care. Dietary Evaluation Review Comments: [place] likes and dislike when a mechnical soft diet is feasible. Expected Outcomes/Goals: Improved PO intake, meet 75% of his needs Plan discussed with: Patient, Other ([facility]) SYL JEAN BAPTISTE MD Jan 22, 2025 23:30
== END 2025-01-22 20:40 | disposition hospice, home (50) | DRG 725 ==
LOC: ER 07:01 → OVERFLOW 08:32 → WEST WING 22:39 → CENTRAL 01-12 23:59 → WEST WING 01-16 22:30
PROVIDERS: ADMIT Family Medicine; ATTEND Family Medicine
PROC: 0T2BX0Z Change Drainage Device in Bladder, External Approach (ICD-10-PCS; 2025-01-13)
PROC: 0TJB8ZZ Inspection of Bladder, Via Natural or Artificial Opening Endoscopic (ICD-10-PCS; 2025-01-13)
PROC: 0T7D8DZ Dilation of Urethra with Intraluminal Device, Via Natural or Artificial Opening Endoscopic (ICD-10-PCS; principal; 2025-01-15 08:29)
DX: N40.1 Benign prostatic hyperplasia with lower urinary tract symptoms (principal); J15.69 Pneumonia due to other Gram-negative bacteria; J96.21 Acute and chronic respiratory failure with hypoxia; J15.9 Unspecified bacterial pneumonia; E27.1 Primary adrenocortical insufficiency; N13.8 Other obstructive and reflux uropathy; R45.851 Suicidal ideations; F11.20 Opioid dependence, uncomplicated; J44.0 Chronic obstructive pulmonary disease with (acute) lower respiratory infection; Z20.822 Contact with and (suspected) exposure to COVID-19; Z51.5 Encounter for palliative care; E86.0 Dehydration; N20.0 Calculus of kidney; F32.9 Major depressive disorder, single episode, unspecified; G62.9 Polyneuropathy, unspecified; J43.9 Emphysema, unspecified; G89.29 Other chronic pain; F41.9 Anxiety disorder, unspecified; R32 Unspecified urinary incontinence; R13.10 Dysphagia, unspecified; I11.9 Hypertensive heart disease without heart failure; Z99.81 Dependence on supplemental oxygen; Z79.899 Other long term (current) drug therapy; Z88.6 Allergy status to analgesic agent; Z87.891 Personal history of nicotine dependence; Z86.0100 Personal history of colon polyps, unspecified
CPT/HCPCS: 36415; 51102; 71045; 74176; 80048; 80053; 83605; 83690; 83880; 84484; 85025; 87040; 87081; 87426; 87493; 87804; 93005; 94640; 96374; 97163; G0378; J1100; J1885; J2003; J2250; J2405; J2470; J2704

== ENCOUNTER 2025-01-24 15:36 | Inpatient (IN) | payer MEDICARE, MEDICAID ==
[~2025-01-24] VITALS: Ht 160 cm; Wt 84.7 kg
[~2025-01-24 15:36] MED LIST changes: +ALBUAER3 IN; +DICY10CA PO; +LORA-1123 PO; +MIRT-93 PO; +OXYB5TAB14 PO; +TAMS-35 PO; +TAMS0.4C39 PO
--- NOTE | 2025-01-24 15:58 | ED.PDOC ---
General HPI Comments 69 year old [facility] presents to the ED with chief complaint of penile pain. EMS reports patient is coming from [facility] for penile pain s/p Palafox catheter placement. EMS relays that the patient had some urinary incontinence after a TURP procedure, so a Palafox catheter was placed to stop the incontinence, however, penile pain soon after started to occur. EMS states patient had some exertional SOB on scene, however, patient has history of COPD and is currently on 2L of O2 via NC with normal O2 saturation. Patient notes he has chronic back pain and normally takes Morphine for pain at [facility]. Patient denies any dysuria, hematuria, abdominal pain, fever, or chills. Time Seen by MD: 15:52 Reviewed notes: Nurses Notes, Relay Tester Helper Notes, Medications, Allergies Allergies: Coded Allergies: Acetaminophen (Verified Allergy, Mild, RASH, 01/10/25) Home Meds Active Scripts Albuterol Sulfate (VENTOLIN MDI) 90 Mcg Ih, 90 MCG IN QID PRN, #1 INH Prov:ELENA PALOMARES MD 01/22/25 Tamsulosin Hcl (Flomax) 0.4 Mg Cap, 1 CAP PO DAILY, #30 CAP 11 Refills Prov:ELENA PALOMARES MD 01/22/25 Hydrocortisone Base (Hydrocortisone) 10 Mg Tab, 10 MG PO DAILY, #30 TAB Prov:ELENA PALOMARES MD 01/22/25 Oxybutynin Chloride (Oxybutynin Chloride) 5 Mg Tab, 5 MG PO DAILY, #30 TAB Prov:ELENA PALOMARES MD 01/22/25 Gabapentin (Gabapentin) 300 Mg Cap, 1 CAP PO TID, #90 CAP 5 Refills Prov:ELENA PALOMARES MD 01/22/25 Mirtazapine (Remeron) 15 Mg Tab, 1 TAB PO QPM, #30 TAB 1 Refill Prov:ELENA PALOMARES MD 01/22/25 Reported Medications Hydrocortisone Base (Hydrocortisone) 10 Mg Tab, 1 TAB PO DAILY for 30 Days, #30 01/12/25 Morphine Sulfate (Morphine Sulfate Cr) 30 Mg Tab, 1 TAB PO TID for 30 Days, #90 01/12/25 Lorazepam (Lorazepam) 1 Mg Tab, 1 TAB PO QHSP PRN for FOR INSOMNIA, #90 TAB 01/11/25 Dicyclomine Hcl (BENTYL CAPSULE) 10 Mg Cp, 1 CAP PO Q6HR PRN for 14 Days, #56 01/10/25 Oxybutynin Chloride (Oxybutynin Chloride) 5 Mg Tab, 1 TAB PO DAILY for 14 Days, #14 01/10/25 Tamsulosin Hcl (Tamsulosin Hcl) 0.4 Mg Cap, 1 CAP PO DAILY for 30 Days, #30 01/10/25 Furosemide (Furosemide) 20 Mg Tab, 1 TAB PO DAILY for 30 Days, #30 01/10/25 Mirtazapine (Mirtazapine Oral Disintegrating Tablet) 15 Mg Tab, 1 TAB PO QPM for 30 Days, #30 01/10/25 Gabapentin (Gabapentin) 300 Mg Cap, 1 CAP PO BID for 30 Days, #60 01/10/25 Famotidine (Famotidine) 20 Mg Tab, 1 TAB PO DAILY for 30 Days, #30 01/10/25 Lisinopril (Lisinopril) 5 Mg Tab, 1 TAB PO DAILY for 30 Days, #30 01/10/25 Pantoprazole Sodium Sesquihydr (Pantoprazole Sodium) 40 Mg Tab, 1 TAB PO DAILY for 30 Days, #30 01/10/25 Baclofen (Baclofen) 10 Mg Tab, 1 TAB PO TID for 30 Days, #90 01/10/25 Information Source: Patient, Emergency Med Personnel Mode of Arrival: EMS Severity: Moderate Inability to void: None Timing: Days Duration: Since onset Prehospital treatment: Oxygen Onset: Spontaneous Symptoms: Other (Penile pain and urinary incontinence) History of: Recent post-op, Chronic indwelling palafox Location: Other (Penis) Past Medical History PAST MEDICAL HISTORY: COPD Past Medical History (Other): Chronic back pain Surgical History (Other): Back surgeries, TURP Family History Family History: Reviewed,noncontributory to illness Social History Smoker: Non-Smoker Alcohol: Denies ETOH Use Drugs: Denies Drug Use 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 Constitutional: denies: chills, diaphoresis, fatigue, fever, malaise, sweats, weakness, others EENTM: denies: blurred vision, double vision, ear bleeding, ear discharge, ear drainage, ear pain, ear ringing, eye pain, eye redness, hearing loss, mouth pain, mouth swelling, nasal discharge, nose bleeding, nose congestion, nose pain, photophobia, tearing, throat pain, throat swelling, voice changes, others Respiratory: reports: SOB with excertion; denies: cough, hemoptysis, orthopnea, SOB at rest, shortness of breath, stridor, wheezing, others Cardiovascular: denies: chest pain, dizzy spells, diaphoresis, Dyspnea on exertion, edema, irregular heart beat, left arm pain, lightheadedness, palpitations, PND, syncope, others Gastrointestinal: denies: abdomen distended, abdominal pain, blood streaked bowels, constipated, diarrhea, dysphagia, difficulty swallowing, hematemesis, melena, nausea, poor appetite, poor fluid intake, rectal bleeding, rectal pain, vomiting, others Genitourinary: reports: incontinence, others (Penile pain); denies: burning, dysuria, flank pain, frequency, hematuria, penile discharge, penile sore, pain, testicle pain, testicle swelling, urgency Neurological: denies: dizziness, fainting, headache, left sided numbness, left sided weakness, numbness, paresthesia, pre-existing deficit, right sided numbness, right sided weakness, seizure, speech problems, tingling, tremors, weakness, others Musculoskeletal: denies: back pain, gout, joint pain, joint swelling, muscle pain, muscle stiffness, neck pain, others Integumetry: denies: bruises, change in color, change in hair/nails, dryness, laceration, lesions, lumps, rash, wounds, others Allergic/Immunocompromised: denies: Difficulty Healing, Frequent Infections, Hives, Itching, others Hematologic/Lymphatic: denies: anemia, blood clots, easy bleeding, easy bruising, swollen glands, others Endocrine: denies: excessive hunger, excessive sweating, excessive thirst, excessive urination, flushing, intolerance to cold, intolerance to heat, unexplained weight gain, unexplained weight loss, others Psychiatric: denies: anxiety, bipolar disorder, depression, hopeless, panic disorder, schizophrenia, sleepless, suicidal, others All Other Systems: Reviewed and Negative Physical Exam General Appearance: Moderate Distress ( due to penile pain concerns.), Normal HEENT: Normal ENT Inspection, Pharynx Normal, TMs Normal Neck: Full Range of Motion, Non-Tender, Normal, Normal Inspection Respiratory: Chest Non-Tender, Lungs Clear, No Accessory Muscle Use, No Respiratory Distress, Normal Breath Sounds Cardiovascular: No Edema, No JVD, No Murmur, No Gallop, Normal Peripheral Pulses, Regular Rate/Rhythm Breast Exam: Deferred Gastrointestinal: No Organomegaly, Non Tender, No Pulsatile Mass, Normal Bowel Sounds, Soft Genitalia: Other ( Patient has a functioning Palafox catheter in place. No erythema or edema noted. Patient states pain is internal. No blood noted.) Pelvic: Deferred Rectal: Deferred Extremities: NOT DONE Neurologic: NOT DONE Cerebellar Function: NOT DONE Reflexes: NOT DONE Skin: Dry, Normal Color, Warm Lymphatic: No Adenopathy Was a procedure done? Was a procedure done?: No Differential Diagnosis Kidney stone (Female): Other ( UTI, post procedural pain) X-Ray, Labs, Meds, VS Vital Signs Date Time Temp Pulse Resp B/P (MAP) Pulse Ox O2 Delivery O2 Flow Rate FiO2 01/24/25 21:10 159/64 01/24/25 19:30 97.6 90 21 161/74 (103) 95 97.6 01/24/25 18:00 88 15 167/88 (114) 100 01/24/25 16:49 76 16 96 Nasal Cannula* 2 28 01/24/25 16:45 75 16 155/82 01/24/25 16:25 98.9 72 15 150/87 (108) 96 98.9 01/24/25 16:15 86 17 155/82 01/24/25 15:59 98.3 91 14 135/60 (85) 98 98.3 Lab Test 01/24/25 16:00 Range/Units Urine Color Colorless Yellow Urine Clarity Turbid H Clear Urine pH 8.5 5.0-9.0 Urine Specific [place] 1.013 1.001-1.035 Urine Protein 1+ H Negative Urine Ketones Trace Negative Urine Blood 2+ H Negative /uL Urine Nitrite Negative Negative Urine Bilirubin Negative Negative Urine Urobilinogen Normal Negative mg/dL Urine Leukocyte Esterase 2+ Negative /uL Urine RBC 243 0 - 3 /hpf Urine Microscopic WBC 53 H 0-3 /HPF Urine Squamous Epithelial Cells None seen <5 /hpf Urine Bacteria None seen None Seen /hpf Urine Mucus Few None Seen Urine Glucose Normal Normal mg/dL Current Medications Medications (Trade) Dose Ordered Sig/Kush Route Start Time Stop Time Status Last Admin Hydromorphone HCl (Dilaudid Injection) 2 mg ONCE ONCE IV 01/24/25 16:00 01/24/25 16:01 DC 01/24/25 16:15 Clonidine HCl (Catapres Tablet) 0.2 mg ONCE ONCE PO 01/24/25 19:15 01/24/25 19:16 DC 01/24/25 21:10 Lorazepam (Ativan Inj) 1 mg ONCE ONCE IV 01/24/25 21:15 01/24/25 21:35 DC 01/24/25 21:44 X-Ray, Labs, Meds, VS Comment All studies performed the ED were evaluated by me personally. Urinalysis confirmed a UTI. Patient was given his 1st dose of Bactrim. Patient will be admitted for pain management until his antibiotics are effective. Patient appears to have anxiety issues to that required intervention tonight as well. Patient may require a urology consultation. Time of 1ST Reevaluation: 16:52 Reevaluation 1ST: Improved Consultation: PCP, Urology Patient Education/Counseling: Diagnosis, Treatment Family Education/Counseling: Diagnosis, Treatment, No Family Present Departure 1 Departure Time of Disposition: 23:05 Impression: Primary Impression: UTI (urinary tract infection) Additional Impressions: Postoperative pain Intractable pain Disposition: ADMITTED INPATIENT Condition: Stable Discharged With: Self Critical Care Note Critical Care Time?: No Stability Stability form required: No Heart Score Heart Score: Heart Score Response (Comments) Value History N/A 0 EKG N/A 0 Age N/A 0 Risk Factors N/A 0 Troponin N/A 0 Total 0 I personally scribed for LORRAINE GOODMAN PAC ([email or web address]) on 01/24/25 at 15:58. Electronically submitted by Jas Esquivel ([email or web address]). LORRAINE GOODMAN PAC Jan 24, 2025 15:58
[2025-01-24] MEDS: HYDROmorphone HCL 2 MG/ML VL/or syr IV ONE (16:15)
[2025-01-24 16:49] VITALS: PULSE 76; RESP 16; O2SAT 96
[2025-01-24 19:40] VITALS: PULSE 78; RESP 16; O2SAT 96
[2025-01-24] MEDS: cloNIDine HCL 0.1 MG TAB PO ONE (21:10)
[2025-01-24 21:32] LABS: Urine Bacteria None Seen /hpf (None Seen)
[2025-01-24 21:42] LABS: Urine Blood 2+ /uL (Negative); Urine Clarity Turbid (Clear); Urine Color Colorless (Yellow); Urine Mucus FEW (None Seen); Urine Protein, UAD 1+ (Negative); Urine Specific Gravity 1.013 (1.001-1.035); Urine Squamous Epithelial Cell None Seen /hpf (<5); Urine Urobilinogen Normal (Negative); Urine WBC 53 /HPF (0-3); Urine pH 8.5 (5.0-9.0)
[2025-01-24] MEDS: LORazepam 2MG/ML-1ML VIAL IV ONE (21:44)
[2025-01-24] MEDS ORDERED: HYDR-4902 PO (22:54)
[2025-01-24] MEDS ORDERED: IBUP-1455 PO (22:54)
[2025-01-24] MEDS: SULFAMETHOX W/TRIMETH(800/160MG) DS TAB PO ONE (23:00)
[2025-01-24] MEDS ORDERED: hydrALAZINE HCL 20 MG/ML VL IV PRN (23:30)
[2025-01-25] VITALS (12 sets, daily range): BP systolic 101–154; BP diastolic 48–64; PULSE 18–78; RESP 18–66; TEMP 97.3–98.9; O2SAT 92–98
[2025-01-25] MEDS: HYDROmorphone HCL 2 MG/ML VL/or syr IV PRN ×2 (00:10→01:25)
[2025-01-25] MEDS: ONDANSETRON HCL 4 MG/2 ML VIAL IV PRN (00:10)
[2025-01-25] MEDS: cefTRIAXone 1GM/50ML D5W 50 ML IV ONE (00:26)
[2025-01-25] MEDS: SODIUM CHLORIDE 0.9% 1,000 ML IV SCH (00:26)
[2025-01-25 00:28] LABS: Basophils # (auto) 0.1 10 ^3/uL (0-0.2); Eosinophils # (auto) 0.3 10 ^3/uL (0-0.8); Eosinophils % (auto) 3.9 % (0.0-7.0); Hematocrit 38.8 % (41.0-53.0); Hemoglobin 13.1 g/dL (13.5-17.5); Lymphocytes % (auto) 23.8 % (10.0-50.0); Mean Corpuscular Hemoglobin 28.5 pg (28.0-32.0); Mean Corpuscular Hgb Conc. 33.6 g/dL (32.0-36.0); Mean Corpuscular Volume 84.7 fL (80.0-100.0); Monocytes # (auto) 0.7 10 ^3/uL (0-1.3); Monocytes % (auto) 7.9 % (0.0-12.0); Neutrophils # (auto) 5.4 10 ^3/uL (1.6-8.6); Neutrophils % (auto) 63.4 % (37.0-80.0); Nucleated Red Blood Cells % 0.1 %; Platelet Count (auto) 357 10^3/uL (140-450); Red Blood Cells 4.59 10^6/uL (4.5-5.90); Red Cell Distribution Width 13.5 % (11.8-14.3); White Blood Cell 8.6 10^3/uL (4.4-10.8)
[2025-01-25] MEDS ORDERED: MORPHINE SULFATE INJ 2 MG/ml SYRG IV PRN (00:30)
[2025-01-25] MEDS ORDERED: NITROGLYCERIN 0.4 MG SL TAB SL PRN (00:30)
--- NOTE | 2025-01-25 00:50 | DVHHP2 ---
History of Present Illness Reason for Visit: UTI (urinary tract infection) History of Present Illness The patient is a 69-year-old male with past medical history of COPD and chronic back pain presented to [facility] ED with complaint of penile pain. As reported by EMS, patient had some urinary incontinence after a TURP procedure, so a [place] catheter was placed to stop the incontinence. However, patient developed penile pain with some exertional shortness of breaths, getting worse that prompted this visit. Patient was seen and evaluated in the ED, laboratory data shows urinalysis positive for urinary tract infection, CBC and chemistry results pending. Patient was started on IV antibiotic regimen Rocephin, please see medication orders section in the computer. On my assessment, patient denied chest pain, no headache, no dizziness, no diaphoresis, no abdominal pain, no nausea, no vomiting, no fever, no chills. Patient was admitted for further evaluation and medical management. Past Medical History COPD, Chronic back pain Past Surgical History Back surgeries, TURP Family History Reviewed, noncontributory to the management of this case. Past Social History [facility], denies smoking, no alcohol or illicit drugs abuse. Review of Systems Constitutional: Yes: Weakness; No: Fever, Chills, Sweats, Malaise, Other Eyes: No: Pain, Vision change, Conjunctivae inflammation, Eyelid inflammation, Other, Redness ENT: No: Ear pain, Ear discharge, Nose pain, Nose discharge, Nose congestion, Mouth pain, Mouth swelling, Throat pain, Throat swelling, Other Respiratory: SOB with excertion; No: Cough, Dry, Shortness of breath, Wheezing, Hemoptysis, Pleuritic Pain, Sputum, Wheezing, Other Cardiovascular: No: Chest Pain, Palpitations, Orthopnea, Paroxysmal Noc. Dyspnea, Edema, Lt Headedness, Other Gastrointestinal: Other (Penile pain); No: Nausea, Vomiting, Abdominal Pain, Diarrhea, Constipation, Melena, Hematochezia Genitourinary: No Dysuria, No Frequency, No Incontinence, No Hematuria, No Retention, No Other Musculoskeletal: No: other, neck pain, shoulder pain, arm pain, back pain, hand pain, leg pain, foot pain Skin: No: Rash, Lesions, Jaundice, Bruising, Other Neurological: No: Weakness, Numbness, Incoordination, Change in speech, Confusion, Seizures, Other Allergies: Coded Allergies: Acetaminophen (Verified Allergy, Mild, RASH, 01/10/25) Medications Current Medications Medications Dose Ordered Sig/Kush Route Start Time Stop Time Status Last Admin Dose Admin Gabapentin 300 mg TID PO 01/25/25 06:00 Tamsulosin HCl 0.4 mg QPM PO 01/25/25 18:00 Hydromorphone HCl 0.5 mg Q4HPRN PRN IV 01/24/25 23:30 01/25/25 00:10 0.5 MG Hydralazine HCl 10 mg Q6HP PRN IV 01/24/25 23:30 Amlodipine Besylate 5 mg DAILY PO 01/25/25 10:00 Ceftriaxone Sodium 50 ml @ 100 mls/hr DAILY@2100 IV 01/25/25 21:00 Famotidine 20 mg DAILY IV 01/25/25 10:00 Sodium Chloride 1,000 ml @ 60 mls/hr [id number] IV 01/24/25 23:30 01/25/25 00:26 60 MLS/HR Ondansetron HCl 4 mg Q4HP PRN IV 01/24/25 23:30 01/25/25 00:10 4 MG Docusate Sodium 100 mg BIDPRN PRN PO 01/24/25 23:30 Albuterol 2.5 mg Q4HPRN PRN NEB 01/24/25 23:45 Exam Vital Signs Vital Signs Date Time Temp Pulse Resp B/P (MAP) Pulse Ox O2 Delivery O2 Flow Rate FiO2 01/25/25 00:10 73 14 160/74 01/24/25 19:30 97.6 95 97.6 01/24/25 16:49 Nasal Cannula* 2 28 General Appearance: Alert, Oriented X3, Cooperative, No acute distress HEENT: Atraumatic, PERRLA, EOMI, Mucous membr. moist/pink Respiratory: Clear to auscultation, Normal air movement Cardiovascular: Regular rate, Normal S1, Normal S2, No murmurs Abdominal: Normal bowel sounds, Soft, No tenderness, No hepatospenomegaly, No masses Extremities: No clubbing, No cyanosis, No edema, Normal pulses, No tenderness/swelling Skin: No rashes, No breakdown, No significant lesion Neuro: Normal speech, Normal tone, Sensation intact, Cranial nerves 3-12 NL, Reflexes 2+, Other (Generalized weakness) Psych/Mental Status: Mental status NL, Mood NL Labs/Xrays Labs Test 01/24/25 23:58 01/24/25 16:00 Range/Units Urine Color Colorless Yellow Urine Clarity Turbid H Clear Urine pH 8.5 5.0-9.0 Urine Specific [place] 1.013 1.001-1.035 Urine Protein 1+ H Negative Urine Ketones Trace Negative Urine Blood 2+ H Negative /uL Urine Nitrite Negative Negative Urine Bilirubin Negative Negative Urine Urobilinogen Normal Negative mg/dL Urine Leukocyte Esterase 2+ Negative /uL Urine RBC 243 0 - 3 /hpf Urine Microscopic WBC 53 H 0-3 /HPF Urine Squamous Epithelial Cells None seen <5 /hpf Urine Bacteria None seen None Seen /hpf Urine Mucus Few None Seen Urine Glucose Normal Normal mg/dL Assessment/Plan Assessment/Plan UTI (urinary tract infection) Postoperative pain Intractable pain Generalized weakness Plan 1. Admit to med surge unit 2. Breathing treatment 3. Pain control management 4. IV antibiotic management 5. Management of fluids and electrolytes 6. Consultation for hospitalist 7. Diagnostic test chest x-ray 8. DVT prophylaxis-on SCDs 9. Repeat labs CBC, CMP in a.m. 10. Home medication reviewed and reconciled 11. Continue with current medical management 12. Treatment plan discussed with patient and RN. Patient verbalized understanding. Plan discussed with: Patient, Other (RN) My Orders Orders - CARMEN ISLAS DNP Procedure Category Date Status Time Complete Blood Count LAB 01/24/25 In Process 23:21 Comprehensive LAB 01/24/25 In Process Metabolic Panel 23:21 Gabapentin Capsule PHA 01/25/25 In Process (Neurontin Capsule) 06:00 Tamsulosin PHA 01/25/25 In Process Hydrochloride (Flomax) 18:00 Hydromorphone PHA 01/24/25 In Process Injection (Dilaudid 23:30 Hydralazine Injection PHA 01/24/25 In Process (Apresoline Inject 23:30 Amlodipine Tablet PHA 01/25/25 In Process (Norvasc Tablet) 10:00 Ceftriaxone 1gm/50ml PHA 01/25/25 In Process D5w (Rocephin) 21:00 Urine Bacterial EVANGELINA 01/24/25 In Process Culture 23:21 Famotidine Injection PHA 01/25/25 In Process (Pepcid Injection) 10:00 Allergies EVETTE 01/24/25 In Process 23:21 Code Status CODE 01/24/25 Transmitted 23:21 Sodium Chloride 0.9% PHA 01/24/25 In Process 23:30 Oxygen Per Hour RT 01/24/25 Transmitted 23:21 Ondansetron Hcl PHA 01/24/25 In Process (Zofran) 23:30 Docusate Sodium PHA 01/24/25 In Process Capsule (Colace 23:30 Complete Blood Count LAB 01/25/25 Logged 04:00 Comprehensive LAB 01/25/25 Logged Metabolic Panel 04:00 Cardiac DIET 01/25/25 Transmitted Diet-2gna,Lofat,Lochol Breakfast Condition: Serious EVETTE 01/24/25 In Process 23:21 Bedrest With Bathroom EVETTE 01/24/25 In Process Privileg 23:21 Sequential EVETTE 01/24/25 In Process Compression Device Albuterol Medneb PHA 01/24/25 In Process (Ventolin Medneb) 23:45 Problem List: (1) UTI (urinary tract infection) (2) Intractable pain (3) Postoperative pain (4) Generalized weakness Date of Service: Jan 25, 2025 Billing Provider: CARMEN ISLAS DNP Common Visit Codes: [id number] INP/OBS CARE (HIGH) CARMEN ISLAS DNP Jan 25, 2025 00:50
[2025-01-25] MEDS ORDERED: IBUPROFEN 600 MG TAB PO PRN ×2 (01:00)
[2025-01-25 01:15] LABS: Albumin 4.3 g/dL (3.2-4.8); Alkaline Phosphatase 82 U/L (46-116); Anion Gap 6 (5-15); BUN/Creatinine Ratio 9.5 (10.0-20.0); Bilirubin, Total 0.4 mg/dL (0.2-1.0); Chloride 100 mmol/L (98-107); Glucose 87 mg/dL (74-106); Potassium 4.4 mmol/L (3.5-5.1); Sodium 138 mmol/L (136-145); Total Protein 6.4 g/dL (5.7-8.2)
[2025-01-25 01:21] LABS: Aspartate Aminotransferase 13 U/L (13-40); Blood Urea Nitrogen 6 mg/dL (9-23); Carbon Dioxide 32 mmol/L (20-31)
[2025-01-25 01:22] LABS: Alanine Aminotransferase < 9 U/L (7-40); Calcium 10.5 mg/dL (8.7-10.4)
[2025-01-25] MEDS ORDERED: IPRA0.00 IN (04:01)
[2025-01-25] MEDS ORDERED: ONDA-155 PO (04:01)
[2025-01-25] MEDS ORDERED: HYDR2TAB58 PO (04:01)
[2025-01-25 06:58] LABS: Basophils # (auto) 0.1 10 ^3/uL (0-0.2); Basophils % (auto) 1.3 % (0.0-2.0); Eosinophils # (auto) 0.3 10 ^3/uL (0-0.8); Eosinophils % (auto) 4.6 % (0.0-7.0); Hematocrit 37.1 % (41.0-53.0); Hemoglobin 12.5 g/dL (13.5-17.5); Lymphocytes # (auto) 1.8 10 ^3/uL (0.4-5.4); Lymphocytes % (auto) 25.3 % (10.0-50.0); Mean Corpuscular Hemoglobin 28.4 pg (28.0-32.0); Mean Corpuscular Hgb Conc. 33.7 g/dL (32.0-36.0); Mean Corpuscular Volume 84.5 fL (80.0-100.0); Monocytes # (auto) 0.6 10 ^3/uL (0-1.3); Monocytes % (auto) 8.7 % (0.0-12.0); Neutrophils # (auto) 4.3 10 ^3/uL (1.6-8.6); Neutrophils % (auto) 60.1 % (37.0-80.0); Platelet Count (auto) 320 10^3/uL (140-450); Red Cell Distribution Width 13.4 % (11.8-14.3); White Blood Cell 7.2 10^3/uL (4.4-10.8)
[2025-01-25] MEDS: ALBUTEROL SULF 2.5 MG/0.5ML(0.5%) NEB SOLN NEB PRN (07:01)
[2025-01-25] MEDS: GABAPENTIN 300 MG CAP PO SCH ×2 (07:12→22:11)
[2025-01-25 07:14] LABS: Alanine Aminotransferase 10 U/L (7-40); Albumin 4.1 g/dL (3.2-4.8); Alkaline Phosphatase 81 U/L (46-116); Anion Gap 6 (5-15); BUN/Creatinine Ratio 7.8 (10.0-20.0); Bilirubin, Total 0.4 mg/dL (0.2-1.0); Calcium 10.2 mg/dL (8.7-10.4); Carbon Dioxide 31 mmol/L (20-31); Chloride 99 mmol/L (98-107); Glucose 80 mg/dL (74-106); Potassium 4.5 mmol/L (3.5-5.1); Sodium 136 mmol/L (136-145); Total Protein 6.1 g/dL (5.7-8.2)
[2025-01-25 07:15] LABS: Aspartate Aminotransferase 10 U/L (13-40); Blood Urea Nitrogen 6 mg/dL (9-23)
[2025-01-25] MEDS: amLODIPine BESYLATE 5 MG TAB PO SCH (10:12)
[2025-01-25] MEDS: FAMOTIDINE (10MG/ML) 2ML VL IV SCH (10:12)
--- NOTE | 2025-01-25 11:38 | DVHPNRES ---
Progress Note Date Seen: Jan 25, 2025 Resident Creating Document: AUSTIN ESCOBEDO RESIDENT Medical Necessity Reason Pt with a Central, PICC or Fol: No Subjective Review of Systems This is a 69-year-old male with past medical history of COPD on home oxygen 2 L, chronic back pain,, BPH status post cystoscopy, status post suprapubic catheter presented to the ED with a complaint of penile pain. state that he complaining of severe pain during micturition and shortness of breath getting worse that prompted this visit. Patient was recently discharged from [facility] on January 22 and was treated for intractable abdominal pain. Patient was seen and examined on the bedside. He is alert oriented x3 and on 2 L oxygen with saturation 98%. Complaint of back pain and dysuria and wants scheduled pain medication that he used to take in assisted living facility. No other active complaint. Constitutional: No: Fever, Chills, Sweats, Weakness, Malaise, Other Eyes: No: Pain, Vision change, Conjunctivae inflammation, Eyelid inflammation, Other, Redness ENT: No: Ear pain, Ear discharge, Nose pain, Nose discharge, Nose congestion, Mouth pain, Mouth swelling, Throat pain, Throat swelling, Other Respiratory: Shortness of breath, improving No: Cough, Dry,Wheezing, Hemoptysis, Pleuritic Pain, Sputum, Wheezing, Other Cardiovascular: No: Chest Pain, Palpitations, Orthopnea, Paroxysmal Noc. Dyspnea, Edema, Lt Headedness, Other Gastrointestinal: No: Nausea, Vomiting, Abdominal Pain, Diarrhea, Constipation, Melena, Hematochezia, Other Musculoskeletal: Back pain, No: other, neck pain, shoulder pain, arm pain, hand pain, leg pain, foot pain Neurological:; No: Weakness, Numbness, Incoordination, Change in speech, Confusion, Seizures Objective vital signs Vital Sign Date Time Temp Pulse Resp B/P (MAP) Pulse Ox O2 Delivery O2 Flow Rate FiO2 01/25/25 10:12 141/61 01/25/25 09:23 62 16 01/25/25 09:01 97.3 93 97.3 01/25/25 07:01 Nasal Cannula* 2 28 Total Intake and Output 01/24/25 01/24/25 01/25/25 15:00 23:00 07:00 Intake Total 280 ml Output Total 300 ml 0 ml Balance -300 ml 280 ml medications Current Medications Medications Dose Ordered Sig/Kush Route Start Time Stop Time Status Last Admin Dose Admin Tamsulosin HCl 0.4 mg QPM PO 01/25/25 18:00 Hydralazine HCl 10 mg Q6HP PRN IV 01/24/25 23:30 Amlodipine Besylate 5 mg DAILY PO 01/25/25 10:00 01/25/25 10:12 5 MG Ceftriaxone Sodium 50 ml @ 100 mls/hr DAILY@2100 IV 01/25/25 21:00 Famotidine 20 mg DAILY IV 01/25/25 10:00 01/25/25 10:12 20 MG Sodium Chloride 1,000 ml @ 60 mls/hr [id number] IV 01/24/25 23:30 01/25/25 00:26 60 MLS/HR Ondansetron HCl 4 mg Q4HP PRN IV 01/24/25 23:30 01/25/25 04:42 4 MG Docusate Sodium 100 mg BIDPRN PRN PO 01/24/25 23:30 Albuterol 2.5 mg Q4HPRN PRN NEB 01/24/25 23:45 01/25/25 07:01 2.5 MG Nitroglycerin 0.4 mg Q5MINP PRN SL 01/25/25 00:30 Morphine Sulfate 2 mg Q30M PRN IV 01/25/25 00:30 Hydromorphone HCl 1 mg Q4HPRN PRN IV 01/25/25 01:15 01/25/25 09:23 1 MG Baclofen 10 mg TID PO 01/25/25 14:00 Gabapentin 100 mg BID PO 01/25/25 22:00 Hydrocortisone 10 mg DAILY PO 01/26/25 10:00 Lisinopril 5 mg DAILY PO 01/26/25 10:00 Morphine Sulfate 30 mg Q8HR PO 01/25/25 14:00 Pantoprazole Sodium 40 mg DAILY PO 01/26/25 10:00 Mirtazapine 15 mg QPM PO 01/25/25 18:00 Examination Physical examination: General Appearance: Alert, Oriented X3, Cooperative, No acute distress HEENT: Atraumatic, PERRLA, EOMI, Mucous membrane moist/pink Respiratory: Clear to auscultation, Normal air movement Cardiovascular: Regular rate, Normal S1, Normal S2, No murmurs, no chest wall tenderness Abdominal: Normal bowel sounds, Soft, No tenderness, No hepatospenomegaly, No masses Extremities: No clubbing, No cyanosis, No edema, Normal pulses, No tenderness/swelling Skin: No rashes, No breakdown, No significant lesion Neuro: Normal speech, Strength at 5/5 X4 ext, Normal tone, Sensation intact, Cranial nerves 3-12 NL, Reflexes 2+ Psych/Mental Status: Mental status NL, Mood NL laboratory and microbiology Laboratory Tests 01/25/25 06:07 Test 01/25/25 06:07 Range/Units Serum Glucose 80 74-106 mg/dL Labs and/or images reviewed: Labs reviewed by me, Image(s) reviewed by me Problem List/Assessment/Plan Problem List/Assessment/Plan Assessment and plan: # Acute complicated cystitis - UA was consistent with possible UTI - pending urine bacterial culture - Ciprofloxacin 500 mg po daily. # chronic back pain, status post multiple back surgery - continue home medications # BPH, status post cystoscopy - continue Flomax 0.4 mg at q.p.m. # Chronic hypoxic respiratory failure due to COPD - Patient is on 2 L oxygen with saturation 98% - Medneb with albuterol and ipratropium q.4 p.r.n. # Hypertensive heart disease with possible chronic diastolic heart failure - Continue Lisinopril 5 mg and amlodipine 5 mg daily. # History of addisons disease - Continue hydrocortisone 10 mg p.o. daily PUD prophylaxis : Protonix DVT prophylaxis : Lovenox Code status : Full code Plan discussed with Dr. Degroot Plan discussed with: Patient, Other My Orders My Orders Orders - AUSTIN ESCOBEDO RESIDENT Procedure Category Date Status Time Baclofen Tablet PHA 01/25/25 In Process (Liorisal Tablet) 14:00 Gabapentin Capsule PHA 01/25/25 In Process (Neurontin Capsule) 22:00 Hydrocortisone Tablet PHA 01/26/25 In Process (Cortef Tablet) 10:00 Lisinopril Tablet PHA 01/26/25 In Process (Zestril Tablet) 10:00 Morphine Extended PHA 01/25/25 In Process Release Tab (Oramorph 14:00 Pantoprazole Tablet PHA 01/26/25 In Process (Protonix Tablet) 10:00 Mirtazapine Tablet PHA 01/25/25 In Process (Remeron Tablet) 18:00 Date of Service: Jan 25, 2025 Billing Provider: DA DEGROOT MD Common Visit Codes: [id number] INP/OBS CARE(HIGH) Secondary Visit Codes: [id number] CARE PLAN 30 MINUTES AUSTIN ESCOBEDO RESIDENT Jan 25, 2025 11:38 DA DEGROOT MD Jan 25, 2025 14:53
[2025-01-25] MEDS: HYDROCORTISONE 10 MG TAB PO ONE (13:12)
[2025-01-25] MEDS: LORazepam 2MG/ML-1ML VIAL IV ONE (13:12)
[2025-01-25] MEDS ORDERED: MORPHINE SULF 30 mg ER tab PO SCH (14:00)
[2025-01-25] MEDS: BACLOFEN 10 MG TAB PO SCH (15:20)
[2025-01-25] MEDS: CIPROFLOXACIN HCL 500 MG TAB PO ONE (15:20)
[2025-01-25] MEDS: TAMSULOSIN HYDROCHLORIDE 0.4 MG CAP PO SCH (17:21)
[2025-01-25] MEDS: LIDOCAINE 5% TOPICAL PATCH TOP SCH (17:21)
[2025-01-25] MEDS ORDERED: MIRTAZAPINE 30 MG TAB PO SCH (18:00)
[2025-01-25] MEDS: IPRATROPIUM BROM 0.5 MG/2.5ML INH SOL NEB PRN (20:22)
[2025-01-25] MEDS ORDERED: cefTRIAXone 1GM/50ML D5W 50 ML IV SCH (21:00)
[2025-01-25] MEDS: MIRTAZAPINE 30 MG TAB PO SCH (22:14)
[2025-01-26] VITALS (12 sets, daily range): BP systolic 101–122; BP diastolic 46–59; PULSE 58–88; RESP 17–19; TEMP 97.6–98.8; O2SAT 92–98
[2025-01-26] MEDS: PANTOPRAZOLE 40 MG TAB PO SCH (10:46)
[2025-01-26] MEDS: LISINOPRIL 5 MG TAB PO SCH (10:47)
[2025-01-26] MEDS: HYDROCORTISONE 10 MG TAB PO SCH (11:46)
[2025-01-26] MEDS: ENOXAPARIN SOD 40 MG/0.4 ML SYRINGE SC SCH (11:48)
[2025-01-26] MEDS: LORazepam 0.5 MG TAB PO PRN (12:36)
--- NOTE | 2025-01-26 14:23 | DVHPNRES ---
Progress Note Date Seen: Jan 26, 2025 Resident Creating Document: AUSTIN ESCOBEDO RESIDENT Medical Necessity Reason Pt with a Central, PICC or Fol: No Subjective Review of Systems Patient was seen examined on the bedside. He is alert oriented x3 . Complaint of penile pain during urination. No other active complaints Objective vital signs Vital Sign Date Time Temp Pulse Resp B/P (MAP) Pulse Ox O2 Delivery O2 Flow Rate FiO2 01/26/25 13:20 65 17 112/75 01/26/25 12:55 98.2 97 98.2 01/26/25 07:07 Nasal Cannula 4.0 01/26/25 07:07 36 Total Intake and Output 01/25/25 01/25/25 01/26/25 15:00 23:00 07:00 Intake Total 325 ml 800 ml Balance 325 ml 800 ml medications Current Medications Medications Dose Ordered Sig/Kush Route Start Time Stop Time Status Last Admin Dose Admin Tamsulosin HCl 0.4 mg QPM PO 01/25/25 18:00 Hydralazine HCl 10 mg Q6HP PRN IV 01/24/25 23:30 Amlodipine Besylate 5 mg DAILY PO 01/25/25 10:00 01/26/25 11:46 5 MG Famotidine 20 mg DAILY IV 01/25/25 10:00 01/26/25 10:45 20 MG Sodium Chloride 1,000 ml @ 60 mls/hr [id number] IV 01/24/25 23:30 01/25/25 00:26 60 MLS/HR Ondansetron HCl 4 mg Q4HP PRN IV 01/24/25 23:30 01/25/25 04:42 4 MG Docusate Sodium 100 mg BIDPRN PRN PO 01/24/25 23:30 Albuterol 2.5 mg Q4HPRN PRN NEB 01/24/25 23:45 01/25/25 20:22 2.5 MG Nitroglycerin 0.4 mg Q5MINP PRN SL 01/25/25 00:30 Morphine Sulfate 2 mg Q30M PRN IV 01/25/25 00:30 Hydromorphone HCl 1 mg Q4HPRN PRN IV 01/25/25 01:15 01/26/25 13:20 1 MG Baclofen 10 mg TID PO 01/25/25 14:00 01/26/25 05:19 10 MG Gabapentin 100 mg BID PO 01/25/25 22:00 01/26/25 10:46 100 MG Hydrocortisone 10 mg DAILY PO 01/26/25 10:00 01/26/25 11:46 10 MG Lisinopril 5 mg DAILY PO 01/26/25 10:00 01/26/25 10:47 5 MG Pantoprazole Sodium 40 mg DAILY PO 01/26/25 10:00 01/26/25 10:46 40 MG Ciprofloxacin 500 mg Q12HR PO 01/26/25 22:00 Enoxaparin Sodium 40 mg DAILY SC 01/26/25 10:00 01/26/25 11:48 40 MG Ipratropium [place] 0.5 mg Q4HPRN PRN NEB 01/25/25 14:30 01/25/25 20:22 0.5 MG Lidocaine 1 patch DAILY TOP 01/25/25 17:00 01/26/25 10:00 1 PATCH Mirtazapine 15 mg HS PO 01/25/25 22:00 01/25/25 22:14 15 MG Lorazepam 1 mg Q6HP PRN PO 01/26/25 11:45 01/26/25 12:36 1 MG Al Hydrox/Mg Hydrox/Simethicone 30 ml Q6HP PRN PO 01/26/25 11:45 Examination Physical examination: General Appearance: Alert, Oriented X3, Cooperative, No acute distress HEENT: Atraumatic, PERRLA, EOMI, Mucous membrane moist/pink Respiratory: Clear to auscultation, Normal air movement Cardiovascular: Regular rate, Normal S1, Normal S2, No murmurs, no chest wall tenderness Abdominal: Normal bowel sounds, Soft, No tenderness, No hepatospenomegaly, No masses Extremities: No clubbing, No cyanosis, No edema, Normal pulses, No tenderness/swelling Skin: No rashes, No breakdown, No significant lesion Neuro: Normal speech, Strength at 5/5 X4 ext, Normal tone, Sensation intact, grossly intact cranial nerves. Psych/Mental Status: Mental status NL, Mood NL laboratory and microbiology Laboratory Tests 01/25/25 06:07 Test 01/25/25 06:07 Range/Units Serum Glucose 80 74-106 mg/dL Microbiology Date/Time Source Procedure Growth Status 01/25/25 02:30 Nose MRSA Screen - Final Complete 01/24/25 16:00 Voided Urine Urine Culture - Preliminary Resulted Labs and/or images reviewed: Labs reviewed by me, Image(s) reviewed by me Problem List/Assessment/Plan Problem List/Assessment/Plan Assessment and plan: # Acute complicated cystitis - UA was consistent with possible UTI - Urine culture preliminary report revealed enterococcus. - Ciprofloxacin 500 mg po daily. # chronic back pain, status post multiple back surgery - continue home medications # BPH, status post cystoscopy - continue Flomax 0.4 mg at q.p.m. # Chronic hypoxic respiratory failure due to COPD - Patient is on 2 L oxygen with saturation 98% - Medneb with albuterol and ipratropium q.4 p.r.n. # Hypertensive heart disease with possible chronic diastolic heart failure - Continue Lisinopril 5 mg and amlodipine 5 mg daily. # History of addisons disease - Continue hydrocortisone 10 mg p.o. daily PUD prophylaxis : Protonix DVT prophylaxis : Lovenox Code status : Full code Plan discussed with Dr. Colvin Plan discussed with: Patient, Other My Orders My Orders Orders - AUSTIN ESCOBEDO RESIDENT Procedure Category Date Status Time Clear Liq Diet DIET 01/25/25 Transmitted Dinner Mirtazapine Tablet PHA 01/25/25 In Process (Remeron Tablet) 22:00 Bladder US 01/26/25 Logged 13:26 AUSTIN ESCOBEDO RESIDENT Jan 26, 2025 14:23
--- NOTE | 2025-01-26 15:27 | MEDREC ---
[facility] Intervention Section I [facility] Intervention: Review courses of therapy (PLEASE CONSIDER REVIEWING COURSE OF THERAPY ACCORDING TO URINE PRELIMINARY CULTURE RESULTS ) ABEL OLSON PHARMACIST Jan 26, 2025 15:27
--- NOTE | 2025-01-26 15:31 | DVH ---
History: BPH Comparison: None Technique: Grayscale and color Doppler ultrasound of the pelvis was obtained. Pre-and postvoid images of the bladder were obtained. FINDINGS/IMPRESSION: Prevoid bladder volume is 83 cc. Postvoid bladder volume is 0 cc. Suprapubic catheter is in place. Prostate measures 4.2 x 4.2 x 3.8 cm (34 cc).
[2025-01-26] MEDS: CIPROFLOXACIN HCL 500 MG TAB PO SCH (21:51)
[2025-01-26] MEDS: DOCUSATE SOD 100 MG CAP PO PRN (22:02)
--- NOTE | 2025-01-26 23:48 | DVHINCON2 ---
Date of service: Jan 26, 2025 Referring Physician Austin Loera MD Reason for Consultation Chronic hypoxic respiratory failure History of Present Illness A 69-year-old man with past medical history of COPD (on 2 L home oxygen) BPH, and chronic back pain who presented to ED on 01/24/25 with complaint of penile pain. As reported by EMS, patient had some urinary incontinence after a TURP procedure, so a [place] catheter was placed to stop the incontinence. However, patient developed penile pain, dysuria with some exertional shortness of breath, getting worse that prompted this visit. ED workup showed urinalysis positive for urinary tract infection. Patient was admitted for further evaluation and medical management and pulmonary consultation was called d/t chronic hypoxic respiratory failure. Of note, pt was recently discharged from [facility] on 01/22/25 after being treated for intractable abdominal pain. Review of Systems: 14-point review of systems negative unless otherwise noted above. Past Medical History: COPD, Chronic back pain, BPH Past Surgical History: Back surgeries, TURP Medications: Reviewed. Allergies: Acetaminophen and ibuprofen Family History: [place] disease Social History: Nonsmoker. No alcohol or illicit drug use. Family History: Vitor disease G8 MOTHER FH: back pain G8 FATHER Allergies: Coded Allergies: Acetaminophen (Verified Allergy, Mild, RASH, 01/10/25) Ibuprofen (Verified Allergy, Unknown, 01/25/25) RASH Home Meds Active Scripts Tamsulosin Hcl (Flomax) 0.4 Mg Cap, 1 CAP PO DAILY for 30 Days, #30 CAP 11 Refi lls Prov:AUSTIN LOERA RESIDENT 01/27/25 Cranberry-Vitamin C (Azo Cranberry Urinary Tra 250-60 mg) 1 Cap Cap, 1 CAP PO BID for 5 Days, #10 CAP Prov:AUSTIN LOERA RESIDENT 01/27/25 Linezolid (Zyvox) 600 Mg Tab, 600 MG PO BID for 14 Days, #28 TAB Prov:AUSTIN LOERA RESIDENT 01/27/25 Hydrocortisone Base (Hydrocortisone) 10 Mg Tab, 10 MG PO DAILY, #30 TAB Prov:ELENA PALOMARES MD 01/22/25 Mirtazapine (Remeron) 15 Mg Tab, 1 TAB PO QPM, #30 TAB 1 Refill Prov:ELENA PALOMARES MD 01/22/25 Reported Medications Ondansetron HCl (Ondansetron) 4 Mg Tab, 8 MG PO Q8HPRN PRN for NAUSEA / VOMITING, TAB 01/25/25 Ipratropium-Albuterol (Ipratropium [place]/Albut) 1 [place]ilo, 1 CHILO IN Q6HPRN PRN for SHORTNESS OF BREATH, ML 01/25/25 Hydromorphone Hcl (Dilaudid) 2 Mg Tab, 2 MG PO Q4HPRN PRN for PAIN SCALE 7 THRU 10, TAB 01/25/25 Gabapentin (Gabapentin) 300 Mg Cap, 1 CAP PO BID for 30 Days, #60 01/10/25 Famotidine (Famotidine) 20 Mg Tab, 1 TAB PO DAILY for 30 Days, #30 01/10/25 Lisinopril (Lisinopril) 5 Mg Tab, 1 TAB PO DAILY for 30 Days, #30 01/10/25 Pantoprazole Sodium Sesquihydr (Pantoprazole Sodium) 40 Mg Tab, 1 TAB PO DAILY for 30 Days, #30 01/10/25 Baclofen (Baclofen) 10 Mg Tab, 1 TAB PO TID for 30 Days, #90 01/10/25 Current Medications Current Medications Medications (Trade) Dose Ordered Sig/Kush Route PRN Reason Start Time Stop Time Status Last Admin Hydrocortisone (Cortef Tablet) 10 mg DAILY PO 01/26/25 10:00 01/26/25 11:46 Lisinopril (Zestril Tablet) 5 mg DAILY PO 01/26/25 10:00 01/26/25 10:47 Pantoprazole Sodium (Protonix Tablet) 40 mg DAILY PO 01/26/25 10:00 01/26/25 10:46 Ciprofloxacin (Cipro Tablet) 500 mg Q12HR PO 01/26/25 22:00 Enoxaparin Sodium (Lovenox) 40 mg DAILY SC 01/26/25 10:00 01/26/25 11:48 Lorazepam (Ativan Tablet) 1 mg Q6HP PRN PO ANXIETY 01/26/25 11:45 01/26/25 22:03 Al Hydrox/Mg Hydrox/Simethicone (Maalox Plus) 30 ml Q6HP PRN PO FOR STOMACH DISTRESS 01/26/25 11:45 Vital Signs Vital Signs Date Time Temp Pulse Resp B/P (MAP) Pulse Ox O2 Delivery O2 Flow Rate FiO2 01/26/25 21:50 78 18 105/58 01/26/25 21:03 98 01/26/25 21:00 98.6 98.6 01/26/25 20:57 Nasal Cannula* 2 28 Physical Exam Gen.: Patient lying in bed in no apparent distress. On supplemental oxygen. Head: Normocephalic, atraumatic. Eyes: EOMI/PERRLA. Ears: Normal hearing. Normal anatomy. Neck/trachea: Trachea midline, supple. Nose: Normal external anatomy. Mouth: Moist mucous membranes. Chest: Decreased air entry bilaterally. No wheezing or rhonchi. Cardiovascular: Positive S1, positive S2. Regular rate and rhythm. Abdomen: Positive bowel sounds in all 4 quadrants. Soft, non-tender, non- distended. : Deferred. Rectal: Deferred. Skin: Warm, dry. Intact. Extremities: 2+ radial pulses bilaterally. No lower extremity edema. Neuro: Awake, alert, oriented x3. No gross motor or sensory deficits. Cranial nerves II through XII intact. Gait not assessed. Labs/Diagnostic Data Labs Test 01/25/25 14:22 01/25/25 06:07 01/24/25 16:00 Range/Units White Blood Count 7.2 4.4-10.8 10^3/uL Red Blood Count 4.40 L 4.5-5.90 10^6/uL Hemoglobin 12.5 L 13.5-17.5 g/dL Hematocrit 37.1 L 41.0-53.0 % Mean Corpuscular Volume 84.5 80.0-100.0 fL Mean Corpuscular Hemoglobin 28.4 28.0-32.0 pg Mean Corpuscular Hemoglobin Concent 33.7 32.0-36.0 g/dL Red Cell Distribution Width 13.4 11.8-14.3 % Platelet Count 320 140-450 10^3/uL Mean Platelet Volume 6.3 L 6.9-10.8 fL Neutrophils (%) (Auto) 60.1 37.0-80.0 % Lymphocytes (%) (Auto) 25.3 10.0-50.0 % Monocytes (%) (Auto) 8.7 0.0-12.0 % Eosinophils (%) (Auto) 4.6 0.0-7.0 % Basophils (%) (Auto) 1.3 0.0-2.0 % Neutrophils # (Auto) 4.3 1.6-8.6 10 ^3/uL Lymphocytes # (Auto) 1.8 0.4-5.4 10 ^3/uL Monocytes # (Auto) 0.6 0-1.3 10 ^3/uL Eosinophils # (Auto) 0.3 0-0.8 10 ^3/uL Basophils # (Auto) 0.1 0-0.2 10 ^3/uL Nucleated Red Blood Cells 0.0 % Sodium Level 136 136-145 mmol/L Potassium Level 4.5 3.5-5.1 mmol/L Chloride Level 99 98-107 mmol/L Carbon Dioxide Level 31 20-31 mmol/L Anion Gap 6 5-15 Blood Urea Nitrogen 6 L 9-23 mg/dL Creatinine 0.77 0.700-1.30 mg/dL Glomerular Filtration Rate Calc 96 >90 mL/min BUN/Creatinine Ratio 7.8 L 10.0-20.0 Serum Glucose 80 74-106 mg/dL Calcium Level 10.2 8.7-10.4 mg/dL Total Bilirubin 0.4 0.2-1.0 mg/dL Aspartate Amino Transferase (AST) 10 L 13-40 U/L Alanine Aminotransferase (ALT) 10 7-40 U/L Alkaline Phosphatase 81 46-116 U/L Total Protein 6.1 5.7-8.2 g/dL Albumin 4.1 3.2-4.8 g/dL Urine Color Colorless Yellow Urine Clarity Turbid H Clear Urine pH 8.5 5.0-9.0 Urine Specific [place] 1.013 1.001-1.035 Urine Protein 1+ H Negative Urine Ketones Trace Negative Urine Blood 2+ H Negative /uL Urine Nitrite Negative Negative Urine Bilirubin Negative Negative Urine Urobilinogen Normal Negative mg/dL Urine Leukocyte Esterase 2+ Negative /uL Urine RBC 243 0 - 3 /hpf Urine Microscopic WBC 53 H 0-3 /HPF Urine Squamous Epithelial Cells None seen <5 /hpf Urine Bacteria None seen None Seen /hpf Urine Mucus Few None Seen Urine Glucose Normal Normal mg/dL Microbiology Date/Time Source Procedure Growth Status 01/25/25 02:30 Nose MRSA Screen - Final Complete 01/24/25 16:00 Voided Urine Urine Culture - Preliminary Resulted Assessment Impression: Dyspnea on exertion Chronic hypoxic respiratory failure 2/2 COPD Dependence on supplemental oxygen Acute complicated cystitis Hypertensive heart disease with possible chronic diastolic heart failure BPH, status post TURP History of Vitor's disease Plan: Supplemental oxygen 6 LPM NC Titrate to keep O2 sats above 92%. Taper O2 as tolerated. S/p TURP. Follow up Urology recommendations. Pain control Avoid oversedation Anxiolytic PRN. Continue bronchodilators. Continue steroids - hydrocortisone 10 mg p.o. daily Continue antibiotics F/u cultures Urine culture preliminary report revealed Enterococcus. Monitor renal function. Monitor electrolytes. Supplement as necessary. Monitor ins and outs. DVT prophylaxis. Prognosis: Poor given patient's multiple co-morbidities. Rest of plan per hospitalist and other consultants. Thank you, Dr. Loera, for allowing me to participate in this patient's care. Further recommendations will depend on the patient's clinical course. Please do not hesitate to contact me if you have any questions or concerns. This medical document was created using an electronic medical record system with [employer] dictation system. Although these documentations are being carefully reviewed, there may still be some phonetic and typographical changes. The errors are purely typographical, due to imperfection on the software program, and do not reflect any compromise in the patient's medical care. Plan discussed with: Patient, Other (ROSA Spaulding/Dr. Loera) SYL JEAN BAPTISTE MD Jan 26, 2025 23:48
[2025-01-27] VITALS (18 sets, daily range): BP systolic 94–149; BP diastolic 39–64; PULSE 56–94; RESP 18–22; TEMP 36.6; O2SAT 90–99
[2025-01-27 08:07] LABS: PSA Free 0.46 ng/mL; Prostate Specific Antigen 4.1 ng/mL (0.0-4.0)
[2025-01-27] MEDS: cefTRIAXone 1GM/50ML D5W 50 ML IV ONE (09:57)
[2025-01-27] MEDS: MAALOX PLUS or MAALOX 30 ML PO PRN (11:23)
[2025-01-27] MEDS: GABAPENTIN 300 MG CAP PO SCH (11:24)
[2025-01-27] MEDS ORDERED: CRAN1CAP11 PO (15:46)
[2025-01-27] MEDS ORDERED: LINE1TAB6 PO (15:46)
[2025-01-27] MEDS ORDERED: TAMS-35 PO (15:51)
--- NOTE | 2025-01-27 16:53 | DVHDSRES ---
Discharge Summary Date of Admission Resident Creating Document: AUSTIN ESCOBEDO RESIDENT Jan 25, 2025 at 00:30 Date of Discharge: Jan 27, 2025 Admitting Diagnosis Acute complicated cystitis Wounds: No wound was present Labs/Diagnostic Data: Laboratory Results Test 01/25/25 14:22 01/25/25 06:07 01/24/25 16:00 Free Prostate Specific Antigen 0.46 ng/mL (N/A) Percent Free Prostate Specific Ag 11.2 % (.) Prostate Specific Antigen Total 4.1 ng/mL (0.0-4.0) White Blood Count 7.2 10^3/uL (4.4-10.8) Red Blood Count 4.40 10^6/uL (4.5-5.90) Hemoglobin 12.5 g/dL (13.5-17.5) Hematocrit 37.1 % (41.0-53.0) Mean Corpuscular Volume 84.5 fL (80.0-100.0) Mean Corpuscular Hemoglobin 28.4 pg (28.0-32.0) Mean Corpuscular Hemoglobin Concent 33.7 g/dL (32.0-36.0) Red Cell Distribution Width 13.4 % (11.8-14.3) Platelet Count 320 10^3/uL (140-450) Mean Platelet Volume 6.3 fL (6.9-10.8) Neutrophils (%) (Auto) 60.1 % (37.0-80.0) Lymphocytes (%) (Auto) 25.3 % (10.0-50.0) Monocytes (%) (Auto) 8.7 % (0.0-12.0) Eosinophils (%) (Auto) 4.6 % (0.0-7.0) Basophils (%) (Auto) 1.3 % (0.0-2.0) Neutrophils # (Auto) 4.3 10 ^3/uL (1.6-8.6) Lymphocytes # (Auto) 1.8 10 ^3/uL (0.4-5.4) Monocytes # (Auto) 0.6 10 ^3/uL (0-1.3) Eosinophils # (Auto) 0.3 10 ^3/uL (0-0.8) Basophils # (Auto) 0.1 10 ^3/uL (0-0.2) Nucleated Red Blood Cells 0.0 % Sodium Level 136 mmol/L (136-145) Potassium Level 4.5 mmol/L (3.5-5.1) Chloride Level 99 mmol/L (98-107) Carbon Dioxide Level 31 mmol/L (20-31) Anion Gap 6 (5-15) Blood Urea Nitrogen 6 mg/dL (9-23) Creatinine 0.77 mg/dL (0.700-1.30) Glomerular Filtration Rate Calc 96 mL/min (>90) BUN/Creatinine Ratio 7.8 (10.0-20.0) Serum Glucose 80 mg/dL (74-106) Calcium Level 10.2 mg/dL (8.7-10.4) Total Bilirubin 0.4 mg/dL (0.2-1.0) Aspartate Amino Transferase (AST) 10 U/L (13-40) Alanine Aminotransferase (ALT) 10 U/L (7-40) Alkaline Phosphatase 81 U/L (46-116) Total Protein 6.1 g/dL (5.7-8.2) Albumin 4.1 g/dL (3.2-4.8) Urine Color Colorless (Yellow) Urine Clarity Turbid (Clear) Urine pH 8.5 (5.0-9.0) Urine Specific [place] 1.013 (1.001-1.035) Urine Protein 1+ (Negative) Urine Ketones Trace (Negative) Urine Blood 2+ /uL (Negative) Urine Nitrite Negative (Negative) Urine Bilirubin Negative (Negative) Urine Urobilinogen Normal mg/dL (Negative) Urine Leukocyte Esterase 2+ /uL (Negative) Urine RBC 243 /hpf (0 - 3) Urine Microscopic WBC 53 /HPF (0-3) Urine Squamous Epithelial Cells None seen /hpf (<5) Urine Bacteria None seen /hpf (None Seen) Urine Mucus Few (None Seen) Urine Glucose Normal mg/dL (Normal) Other Laboratory Tests 01/25/25 06:07 Brief Hx & Hospital Course: This is a 69-year-old male with past medical history of COPD on home oxygen 2 L, chronic back pain,, BPH status post cystoscopy, status post suprapubic catheter presented to the ED with a complaint of penile pain. state that he complaining of severe pain during micturition and shortness of breath getting worse that prompted this visit. Patient was recently discharged from [facility] on January 22 and was treated for intractable abdominal pain. Hospital course: Initial UA was consistent with possible UTI and we started empiric antibiotic with IV ceftriaxone 1 g daily and continued patient scheduled pain medications. patient was also treated with med neb albuterol and ipratropium q.4 p.r.n. for chronic hypoxic respiratory failure due to COPD and patient was on 2 L oxygen with saturation 98%. BP was controlled with continuation of home medications lisinopril 5 mg and amlodipine 5 mg daily and we also continued hydrochlorothiazide cortisone 10 mg p.o. daily for Vitor's disease. Urine bacterial culture revealed Enterococcus faecium VRE which was sensitive to linezolid. Discharge plan was discussed with the patient and all questions were answered. Patient is being discharged to assisted living facility with linezolid 600 mg b.i.d. for 14 days, Pyridium 250/60 mg b.i.d. for 5 days and advised to continue home medications. He was also advised to follow up with PCP in 1 week and also outpatient Infectious Disease specialist in 1-2 weeks. Physical examination: General Appearance: Alert, Oriented X3, Cooperative, No acute distress HEENT: Atraumatic, PERRLA, EOMI, Mucous membrane moist/pink Respiratory: Clear to auscultation, Normal air movement Cardiovascular: Regular rate, Normal S1, Normal S2, No murmurs, no chest wall tenderness Abdominal: Normal bowel sounds, Soft, No tenderness, No hepatospenomegaly, No masses Extremities: No clubbing, No cyanosis, No edema, Normal pulses, No tenderness/swelling Skin: No rashes, No breakdown, No significant lesion Neuro: Use walker, Normal speech, Strength at 5/5 X4 ext, Normal tone, Sensation intact, grossly intact cranial nerves Psych/Mental Status: Mental status NL, Mood NL Discharge diagnosis: # Acute complicated cystitis # chronic back pain, status post multiple back surgery # BPH, status post cystoscopy # Chronic hypoxic respiratory failure due to COPD # Hypertensive heart disease with possible chronic diastolic heart failure # History of addisons disease Consults/Reason for consult Pulmonology was consulted Operations or Procedures History: BPH Comparison: None Technique: Grayscale and color Doppler ultrasound of the pelvis was obtained. Pre-and postvoid images of the bladder were obtained. FINDINGS/IMPRESSION: Prevoid bladder volume is 83 cc. Postvoid bladder volume is 0 cc. Suprapubic catheter is in place. Prostate measures 4.2 x 4.2 x 3.8 cm (34 cc). Condition at Discharge: Guarded Final Diagnosis/Problems List # Acute complicated cystitis # chronic back pain, status post multiple back surgery # BPH, status post cystoscopy # Chronic hypoxic respiratory failure due to COPD # Hypertensive heart disease with possible chronic diastolic heart failure # History of addisons disease Discharge Disposition: Assisted Living Facility Discharge Instruct/Medications Diet: Cardiac 2g Na,low cholest Activity: No Restrictions, As Tolerated Follow Up/Referral: Follow up with PCP in 1 week. Medications: As per EMR Discharge Statement: "Patient was advised to return to the ER or call 911 if any headaches, dizziness, shortness of breath, chest pain, abdominal pain, bleeding, fevers, or worsening of medical condition. Patient was counseled about treatment plan, medications, possible side effects, patientverbalized understanding. All questions were answered to the best of my ability. This discharge took greater then 30 minutes in planning, reviewing documentation, counseling the patient, and discussing with other team members." ASSESSMENT ASSESSMENT Assessment # Acute complicated cystitis # chronic back pain, status post multiple back surgery # BPH, status post cystoscopy # Chronic hypoxic respiratory failure due to COPD # Hypertensive heart disease with possible chronic diastolic heart failure # History of addisons disease AUSTIN ESCOBEDO RESIDENT Jan 27, 2025 16:53
--- NOTE | 2025-01-27 23:24 | DVHPN2 ---
Progress Note - Dictate Date Seen: Jan 27, 2025 Medical Necessity Reason Pt with a Central, PICC or Fol: No Subjective Patient seen and examined at bedside. Remains on supplemental oxygen Overnight events reviewed. vital signs Vital Sign Date Time Temp Pulse Resp B/P (MAP) Pulse Ox O2 Delivery O2 Flow Rate FiO2 01/27/25 21:00 98.0 94 18 139/50 (79) 91 98.0 01/27/25 20:30 Nasal Cannula* 2 28 Total Intake and Output 01/26/25 01/26/25 01/27/25 15:00 23:00 07:00 Intake Total 500 ml 800 ml Balance 500 ml 800 ml medications Current Medications Medications Dose Ordered Sig/Kush Route Start Time Stop Time Status Last Admin Dose Admin Tamsulosin HCl 0.4 mg QPM PO 01/25/25 18:00 01/27/25 18:15 0.4 MG Hydralazine HCl 10 mg Q6HP PRN IV 01/24/25 23:30 Amlodipine Besylate 5 mg DAILY PO 01/25/25 10:00 01/27/25 11:24 5 MG Famotidine 20 mg DAILY IV 01/25/25 10:00 01/27/25 09:57 20 MG Sodium Chloride 1,000 ml @ 60 mls/hr [id number] IV 01/24/25 23:30 01/27/25 18:16 60 MLS/HR Ondansetron HCl 4 mg Q4HP PRN IV 01/24/25 23:30 01/25/25 04:42 4 MG Docusate Sodium 100 mg BIDPRN PRN PO 01/24/25 23:30 01/26/25 22:02 100 MG Albuterol 2.5 mg Q4HPRN PRN NEB 01/24/25 23:45 01/27/25 08:55 2.5 MG Nitroglycerin 0.4 mg Q5MINP PRN SL 01/25/25 00:30 Morphine Sulfate 2 mg Q30M PRN IV 01/25/25 00:30 Hydromorphone HCl 1 mg Q4HPRN PRN IV 01/25/25 01:15 01/27/25 20:32 1 MG Baclofen 10 mg TID PO 01/25/25 14:00 01/27/25 21:34 10 MG Hydrocortisone 10 mg DAILY PO 01/26/25 10:00 01/27/25 10:15 10 MG Lisinopril 5 mg DAILY PO 01/26/25 10:00 01/27/25 11:23 5 MG Pantoprazole Sodium 40 mg DAILY PO 01/26/25 10:00 01/27/25 09:58 40 MG Enoxaparin Sodium 40 mg DAILY SC 01/26/25 10:00 01/27/25 09:58 40 MG Ipratropium [place] 0.5 mg Q4HPRN PRN NEB 01/25/25 14:30 01/27/25 08:55 0.5 MG Lidocaine 1 patch DAILY TOP 01/25/25 17:00 01/27/25 09:57 1 PATCH Mirtazapine 15 mg HS PO 01/25/25 22:00 01/27/25 21:34 15 MG Lorazepam 1 mg Q6HP PRN PO 01/26/25 11:45 01/27/25 21:34 1 MG Al Hydrox/Mg Hydrox/Simethicone 30 ml Q6HP PRN PO 01/26/25 11:45 01/27/25 11:23 30 ML Ceftriaxone Sodium 50 ml @ 100 mls/hr DAILY@09 IV 01/28/25 09:00 Gabapentin 300 mg BID PO 01/27/25 10:45 01/27/25 21:34 300 MG objective Gen.: Patient lying in bed in no apparent distress. On supplemental oxygen. Head: Normocephalic, atraumatic. Eyes: EOMI/PERRLA. Ears: Normal hearing. Normal anatomy. Neck/trachea: Trachea midline, supple. Nose: Normal external anatomy. Mouth: Moist mucous membranes. Chest: Decreased air entry bilaterally. No wheezing or rhonchi. Cardiovascular: Positive S1, positive S2. Regular rate and rhythm. Abdomen: Positive bowel sounds in all 4 quadrants. Soft, non-tender, non- distended. : Deferred. Rectal: Deferred. Skin: Warm, dry. Intact. Extremities: 2+ radial pulses bilaterally. No lower extremity edema. Neuro: Awake, alert, oriented x3. No gross motor or sensory deficits. Cranial nerves II through XII intact. Gait not assessed. laboratory and microbiology Laboratory Tests 01/25/25 06:07 Test 01/25/25 06:07 Range/Units Serum Glucose 80 74-106 mg/dL Assessment/Plan Impression: Chronic hypoxic respiratory failure 2/2 COPD Dependence on supplemental oxygen Acute complicated cystitis Hypertensive heart disease with possible chronic diastolic heart failure BPH, status post TURP History of [place]'s disease Events: Remains on supplemental oxygen, 2 LPM NC Taper O2 as tolerated Continue bronchodilators PRN. Continue antibiotics recommendations appreciated. Patient is stable for discharge from the pulmonary standpoint. Disposition per hospitalist. Labs and imaging reviewed. Rest of plan as noted below. Plan: Supplemental oxygen Titrate to keep O2 sats above 92%. S/p TURP. recommendations appreciated. Pain control Avoid oversedation Anxiolytic PRN. Continue bronchodilators PRN. Continue steroids - hydrocortisone 10 mg p.o. daily Continue antibiotics Urine culture revealed Enterococcus faecium-VRE. Monitor renal function. Monitor electrolytes. Supplement as necessary. Monitor ins and outs. DVT prophylaxis. Prognosis: Guarded given patient's multiple co-morbidities. Rest of plan per hospitalist and other consultants. Thank you, Dr. Loera, for allowing me to participate in this patient's care. Further recommendations will depend on the patient's clinical course. Please do not hesitate to contact me if you have any questions or concerns. This medical document was created using an electronic medical record system with [employer] dictation system. Although these documentations are being carefully reviewed, there may still be some phonetic and typographical changes. The errors are purely typographical, due to imperfection on the software program, and do not reflect any compromise in the patient's medical care. Plan discussed with: Patient, Other (ROSA Chung) SYL JEAN BAPTISTE MD Jan 27, 2025 23:24
[2025-01-28] VITALS (13 sets, daily range): BP systolic 123–136; BP diastolic 53–73; PULSE 76–89; RESP 14–20; TEMP 97.6–98.2; O2SAT 92–100
[2025-01-28] MEDS ORDERED: cefTRIAXone 1GM/50ML D5W 50 ML IV SCH (09:00)
[2025-01-28] MEDS ORDERED: LINEZOLID 600MG/300ML 300 ML IV SCH (10:00)
[2025-01-28] MEDS: PHENAZOPYRIDINE HCL 100 MG TAB PO SCH (10:08)
[2025-01-28] MEDS: LINEZOLID 600MG TABLET PO SCH (12:13)
[2025-01-28] MEDS: traMADol HCL 50 MG TAB PO PRN ×2 (12:13→18:07)
[2025-01-28] MEDS ORDERED: ONDANSETRON ODT 4 MG TAB PO PRN (13:30)
[2025-01-28] MEDS ORDERED: MORPHINE SULF 15mg ER tab PO SCH (22:00)
--- NOTE | 2025-01-28 23:04 | DVHPN2 ---
Progress Note - Dictate Date Seen: Jan 28, 2025 Medical Necessity Reason Pt with a Central, PICC or Fol: No Subjective Patient seen and examined at bedside. Remains on supplemental oxygen Overnight events reviewed. vital signs Vital Sign Date Time Temp Pulse Resp B/P (MAP) Pulse Ox O2 Delivery O2 Flow Rate FiO2 01/28/25 21:00 97.8 76 20 123/57 (79) 94 97.8 01/28/25 10:29 Nasal Cannula 2.0 01/28/25 10:29 28 Total Intake and Output 01/27/25 01/27/25 01/28/25 15:00 23:00 07:00 Intake Total 240 ml 500 ml 1110 ml Balance 240 ml 500 ml 1110 ml medications Current Medications Medications Dose Ordered Sig/Kush Route Start Time Stop Time Status Last Admin Dose Admin Tamsulosin HCl 0.4 mg QPM PO 01/25/25 18:00 01/28/25 17:19 0.4 MG Amlodipine Besylate 5 mg DAILY PO 01/25/25 10:00 01/28/25 10:08 5 MG Docusate Sodium 100 mg BIDPRN PRN PO 01/24/25 23:30 01/28/25 06:42 100 MG Albuterol 2.5 mg Q4HPRN PRN NEB 01/24/25 23:45 01/28/25 06:54 2.5 MG Nitroglycerin 0.4 mg Q5MINP PRN SL 01/25/25 00:30 Baclofen 10 mg TID PO 01/25/25 14:00 01/28/25 21:49 10 MG Hydrocortisone 10 mg DAILY PO 01/26/25 10:00 01/28/25 10:07 10 MG Lisinopril 5 mg DAILY PO 01/26/25 10:00 01/28/25 10:08 5 MG Pantoprazole Sodium 40 mg DAILY PO 01/26/25 10:00 01/28/25 10:08 40 MG Enoxaparin Sodium 40 mg DAILY SC 01/26/25 10:00 01/27/25 09:58 40 MG Ipratropium [place] 0.5 mg Q4HPRN PRN NEB 01/25/25 14:30 01/28/25 06:54 0.5 MG Lidocaine 1 patch DAILY TOP 01/25/25 17:00 01/27/25 09:57 1 PATCH Mirtazapine 15 mg HS PO 01/25/25 22:00 01/28/25 21:51 15 MG Lorazepam 1 mg Q6HP PRN PO 01/26/25 11:45 01/28/25 17:19 1 MG Al Hydrox/Mg Hydrox/Simethicone 30 ml Q6HP PRN PO 01/26/25 11:45 01/27/25 11:23 30 ML Gabapentin 300 mg BID PO 01/27/25 10:45 01/28/25 21:48 300 MG Phenazopyridine HCl 100 mg BID PO 01/28/25 10:00 01/28/25 21:49 100 MG Linezolid 600 mg BID PO 01/28/25 10:00 01/28/25 21:52 600 MG Ondansetron HCl 4 mg Q8HP PRN PO 01/28/25 13:30 Tramadol HCl 50 mg Q6HP PRN PO 01/28/25 17:30 01/28/25 18:07 50 MG objective Gen.: Patient lying in bed in no apparent distress. On supplemental oxygen. Head: Normocephalic, atraumatic. Eyes: EOMI/PERRLA. Ears: Normal hearing. Normal anatomy. Neck/trachea: Trachea midline, supple. Nose: Normal external anatomy. Mouth: Moist mucous membranes. Chest: Decreased air entry bilaterally. No wheezing or rhonchi. Cardiovascular: Positive S1, positive S2. Regular rate and rhythm. Abdomen: Positive bowel sounds in all 4 quadrants. Soft, non-tender, non- distended. : Deferred. Rectal: Deferred. Skin: Warm, dry. Intact. Extremities: 2+ radial pulses bilaterally. No lower extremity edema. Neuro: Awake, alert, oriented x3. No gross motor or sensory deficits. Cranial nerves II through XII intact. Gait not assessed. laboratory and microbiology Laboratory Tests 01/25/25 06:07 Test 01/25/25 06:07 Range/Units Serum Glucose 80 74-106 mg/dL Assessment/Plan Impression: Chronic hypoxic respiratory failure 2/2 COPD Dependence on supplemental oxygen Acute complicated cystitis Hypertensive heart disease with possible chronic diastolic heart failure BPH, status post TURP History of Vitor's disease Events: Remains on supplemental oxygen, 2 LPM NC Taper O2 as tolerated Continue bronchodilators Continue antibiotics Pain control Avoid oversedation S/p suprapubic catheter recommendations appreciated. Patient is stable for discharge from the pulmonary standpoint. Disposition per hospitalist. Labs and imaging reviewed. Rest of plan as noted below. Plan: Supplemental oxygen Titrate to keep O2 sats above 92%. S/p TURP. recommendations appreciated. Pain control Avoid oversedation Continue bronchodilators Continue steroids - hydrocortisone 10 mg p.o. daily Continue antibiotics Urine culture revealed Enterococcus faecium-VRE. Monitor renal function. Monitor electrolytes. Supplement as necessary. Monitor ins and outs. DVT prophylaxis. Prognosis: Guarded given patient's multiple co-morbidities. Rest of plan per hospitalist and other consultants. Thank you, Dr. Loera, for allowing me to participate in this patient's care. Further recommendations will depend on the patient's clinical course. Please do not hesitate to contact me if you have any questions or concerns. This medical document was created using an electronic medical record system with [employer] dictation system. Although these documentations are being carefully reviewed, there may still be some phonetic and typographical changes. The errors are purely typographical, due to imperfection on the software program, and do not reflect any compromise in the patient's medical care. Plan discussed with: Patient, Other (ROSA López) SYL JEAN BAPTISTE MD Jan 28, 2025 23:04
[2025-01-29] VITALS (15 sets, daily range): BP systolic 103–137; BP diastolic 49–68; PULSE 67–92; RESP 1–22; TEMP 97.4–98.6; O2SAT 79–100
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
[2025-01-29] MEDS: HYDROmorphone HCL 2 MG TAB PO PRN (20:03)
--- NOTE | 2025-01-29 22:47 | DVHPN2 ---
Progress Note - Dictate Date Seen: Jan 29, 2025 Medical Necessity Reason Pt with a Central, PICC or Fol: No Subjective Patient seen and examined at bedside. Remains on supplemental oxygen Overnight events reviewed. vital signs Vital Sign Date Time Temp Pulse Resp B/P (MAP) Pulse Ox O2 Delivery O2 Flow Rate FiO2 01/29/25 21:00 98.6 80 18 116/57 (76) 94 98.6 01/29/25 20:00 Nasal Cannula* 2 28 Total Intake and Output 01/28/25 01/28/25 01/29/25 14:59 22:59 06:59 Intake Total 1100 ml 480 ml Output Total 5 ml Balance 1095 ml 480 ml medications Current Medications Medications Dose Ordered Sig/Kush Route Start Time Stop Time Status Last Admin Dose Admin Tamsulosin HCl 0.4 mg QPM PO 01/25/25 18:00 01/29/25 17:41 0.4 MG Amlodipine Besylate 5 mg DAILY PO 01/25/25 10:00 01/29/25 10:44 5 MG Docusate Sodium 100 mg BIDPRN PRN PO 01/24/25 23:30 01/28/25 06:42 100 MG Albuterol 2.5 mg Q4HPRN PRN NEB 01/24/25 23:45 01/29/25 18:04 2.5 MG Nitroglycerin 0.4 mg Q5MINP PRN SL 01/25/25 00:30 Baclofen 10 mg TID PO 01/25/25 14:00 01/29/25 22:04 10 MG Hydrocortisone 10 mg DAILY PO 01/26/25 10:00 01/29/25 10:34 10 MG Lisinopril 5 mg DAILY PO 01/26/25 10:00 01/29/25 10:45 5 MG Pantoprazole Sodium 40 mg DAILY PO 01/26/25 10:00 01/29/25 10:33 40 MG Enoxaparin Sodium 40 mg DAILY SC 01/26/25 10:00 01/29/25 10:00 40 MG Ipratropium [place] 0.5 mg Q4HPRN PRN NEB 01/25/25 14:30 01/29/25 18:04 0.5 MG Lidocaine 1 patch DAILY TOP 01/25/25 17:00 01/29/25 13:47 1 PATCH Mirtazapine 15 mg HS PO 01/25/25 22:00 01/29/25 22:04 15 MG Lorazepam 1 mg Q6HP PRN PO 01/26/25 11:45 01/29/25 17:17 0.5 MG Al Hydrox/Mg Hydrox/Simethicone 30 ml Q6HP PRN PO 01/26/25 11:45 01/27/25 11:23 30 ML Gabapentin 300 mg BID PO 01/27/25 10:45 01/29/25 22:04 300 MG Phenazopyridine HCl 100 mg BID PO 01/28/25 10:00 01/29/25 22:04 100 MG Linezolid 600 mg BID PO 01/28/25 10:00 01/29/25 22:05 600 MG Ondansetron HCl 4 mg Q8HP PRN PO 01/28/25 13:30 Tramadol HCl 50 mg Q6HP PRN PO 01/28/25 17:30 01/29/25 17:17 50 MG Hydromorphone HCl 2 mg Q4HP PRN PO 01/29/25 10:30 01/29/25 20:03 2 MG objective Gen.: Patient lying in bed in no apparent distress. On supplemental oxygen. Head: Normocephalic, atraumatic. Eyes: EOMI/PERRLA. Ears: Normal hearing. Normal anatomy. Neck/trachea: Trachea midline, supple. Nose: Normal external anatomy. Mouth: Moist mucous membranes. Chest: Decreased air entry bilaterally. No wheezing or rhonchi. Cardiovascular: Positive S1, positive S2. Regular rate and rhythm. Abdomen: Positive bowel sounds in all 4 quadrants. Soft, non-tender, non- distended. : Deferred. Rectal: Deferred. Skin: Warm, dry. Intact. Extremities: 2+ radial pulses bilaterally. No lower extremity edema. Neuro: Awake, alert, oriented x3. No gross motor or sensory deficits. Cranial nerves II through XII intact. Gait not assessed. laboratory and microbiology Laboratory Tests 01/25/25 06:07 Test 01/25/25 06:07 Range/Units Serum Glucose 80 74-106 mg/dL Assessment/Plan Impression: Chronic hypoxic respiratory failure 2/2 COPD Dependence on supplemental oxygen Acute complicated cystitis Hypertensive heart disease with possible chronic diastolic heart failure BPH, status post TURP History of Izard's disease Events: Remains on supplemental oxygen, 4 LPM NC Taper O2 as tolerated Continue bronchodilators Continue antibiotics Pain control Avoid oversedation Wound care S/p suprapubic catheter recommendations appreciated. Patient is stable for discharge from the pulmonary standpoint. Disposition per hospitalist. Labs and imaging reviewed. Rest of plan as noted below. Plan: Supplemental oxygen Titrate to keep O2 sats above 92%. S/p TURP. recommendations appreciated. Pain control Avoid oversedation Continue bronchodilators Continue steroids - hydrocortisone 10 mg p.o. daily Continue antibiotics Urine culture revealed Enterococcus faecium-VRE. Monitor renal function. Monitor electrolytes. Supplement as necessary. Monitor ins and outs. DVT prophylaxis. Prognosis: Guarded given patient's multiple co-morbidities. Rest of plan per hospitalist and other consultants. Thank you, Dr. Loera, for allowing me to participate in this patient's care. Further recommendations will depend on the patient's clinical course. Please do not hesitate to contact me if you have any questions or concerns. This medical document was created using an electronic medical record system with [employer] dictation system. Although these documentations are being carefully reviewed, there may still be some phonetic and typographical changes. The errors are purely typographical, due to imperfection on the software program, and do not reflect any compromise in the patient's medical care. Dietary Evaluation Review Comments: 1. On Mechanical Soft diet; may benefit from [employer] cx due to texture-modified diet order 2. Suggest Ensure Enlive 1x/day to ehance oral intakes given fair PO 3. Encourage pt to consume >75% of meals 4. Monitor weight trends Expected Outcomes/Goals: Weight maintenance, adequate nutritional intake. Plan discussed with: Patient, Other (RN) SYL JEAN BAPTISTE MD Jan 29, 2025 22:47
[2025-01-30 01:00] VITALS: BP 137/65; PULSE 79; RESP 18; TEMP 98.1; O2SAT 96
[2025-01-30 05:00] VITALS: BP 146/63; PULSE 73; RESP 20; TEMP 97.7; O2SAT 94
== END 2025-01-30 08:21 | disposition home or self-care (01) | DRG 690 ==
LOC: EDBD 15:36 → EDUNIT# 15:36 → ER 15:39 → OVERFLOW 01-25 00:30 → CENTRAL 01-25 02:10 → EAST 01-27 15:48
PROVIDERS: ADMIT Student in an Organized Health Care Education/Training Program; ATTEND Student in an Organized Health Care Education/Training Program
DX: N30.00 Acute cystitis without hematuria (principal); I50.32 Chronic diastolic (congestive) heart failure; J96.11 Chronic respiratory failure with hypoxia; E27.1 Primary adrenocortical insufficiency; M54.9 Dorsalgia, unspecified; N40.0 Benign prostatic hyperplasia without lower urinary tract symptoms; J44.9 Chronic obstructive pulmonary disease, unspecified; G89.29 Other chronic pain; I11.0 Hypertensive heart disease with heart failure; B95.2 Enterococcus as the cause of diseases classified elsewhere; Z88.6 Allergy status to analgesic agent; Z79.899 Other long term (current) drug therapy; Z88.8 Allergy status to other drugs, medicaments and biological substances; Z79.891 Long term (current) use of opiate analgesic; Z99.81 Dependence on supplemental oxygen; Z90.79 Acquired absence of other genital organ(s)
CPT/HCPCS: 36415; 76857; 80053; 81001; 84154; 85025; 87081; 87086; 87088; 87186; 94640; 96374; 96375; G0378; J2405; J3490; Q0162

== ENCOUNTER 2025-05-25 19:45 | Inpatient (IN) | payer MEDICARE, MEDICAID ==
[~2025-05-25] VITALS: Ht 172.7 cm; Wt 81.5 kg
[~2025-05-25 19:45] MED LIST changes: -ALBUAER3 IN; +CRAN1CAP11 PO; -DICY10CA PO; -FURO20TA4 PO; +HYDR2TAB58 PO; +IPRA0.00 IN; +LINE1TAB6 PO; -LORA-1123 PO; -MIRT1TAB38 PO; -MORP30TA5 PO; +ONDA-155 PO; -OXYB5TAB14 PO; -TAMS0.4C39 PO
[2025-05-25] MEDS: SODIUM CHLORIDE 0.9% 1,000 ML IV ONE ×2 (20:00)
[2025-05-25] MEDS: MORPHINE SULFATE INJ 2 MG/ml SYRG IV ONE ×2 (20:00→21:30)
--- NOTE | 2025-05-25 20:01 | ED.PDOC ---
History of Present Illness HPI Comments 69-year-old male who is brought in by ambulance from [facility] for chief complaint of shortness of breath, wheezing, and nonradiating and sternal chest pain. Significant history for Cimarron's disease, BPH status post cystoscopic, chronic hypoxic respiratory failure due to COPD (on 2 L home O2), chronic back pain status post multiple back surgeries, UTI's, and indwelling suprapubic catheter. Per EMS report, symptoms are stated to be chronic in nature but have worsened, suddenly, since this morning. Patient was noted to have been found on scene tachycardic with a rate in the 110s and a O2 sat of 90% on his 2 L home O2. All remaining vitals were noted to have been stable within normal limits. Lung sounds were comments of been diminished with some wheezing, bilaterally. At time of initial assessment, patient denies having any, congestion, nausea, vomiting, symptoms, fever, chills, or further associated symptoms. Chief Complaint: Shortness of Breath Time Seen by MD: 19:50 Reviewed Notes: Nurses Notes, Supervisor Boiler Repair Notes, Medications, Allergies Allergies: Coded Allergies: Acetaminophen (Verified Allergy, Mild, RASH, 01/10/25) Aspirin (Verified Allergy, Unknown, 05/25/25) Ibuprofen (Verified Allergy, Unknown, 01/25/25) RASH Home Meds Active Scripts Tamsulosin Hcl (Flomax) 0.4 Mg Cap, 1 CAP PO DAILY for 30 Days, #30 CAP 11 Refills Prov:BECKYAUSTIN RESIDENT 01/27/25 Cranberry-Vitamin C (Azo Cranberry Urinary Tra 250-60 mg) 1 Cap Cap, 1 CAP PO BID for 5 Days, #10 CAP Prov:AUSTIN ESCOBEDO RESIDENT 01/27/25 Linezolid (Zyvox) 600 Mg Tab, 600 MG PO BID for 14 Days, #28 TAB Prov:AUSTIN ESCOBEDO RESIDENT 01/27/25 Hydrocortisone Base (Hydrocortisone) 10 Mg Tab, 10 MG PO DAILY, #30 TAB Prov:ELENA PALOMARES MD 01/22/25 Mirtazapine (Remeron) 15 Mg Tab, 1 TAB PO QPM, #30 TAB 1 Refill Prov:ELENA PALOMARES MD 01/22/25 Reported Medications Ondansetron HCl (Ondansetron) 4 Mg Tab, 8 MG PO Q8HPRN PRN for NAUSEA / VOMITING, TAB 01/25/25 Ipratropium-Albuterol (Ipratropium Alvin/Albut) 1 Chilo Chilo, 1 CHILO IN Q6HPRN PRN for SHORTNESS OF BREATH, ML 01/25/25 Hydromorphone Hcl (Dilaudid) 2 Mg Tab, 2 MG PO Q4HPRN PRN for PAIN SCALE 7 THRU 10, TAB 01/25/25 Gabapentin (Gabapentin) 300 Mg Cap, 1 CAP PO BID for 30 Days, #60 01/10/25 Famotidine (Famotidine) 20 Mg Tab, 1 TAB PO DAILY for 30 Days, #30 01/10/25 Lisinopril (Lisinopril) 5 Mg Tab, 1 TAB PO DAILY for 30 Days, #30 01/10/25 Pantoprazole Sodium Sesquihydr (Pantoprazole Sodium) 40 Mg Tab, 1 TAB PO DAILY for 30 Days, #30 01/10/25 Baclofen (Baclofen) 10 Mg Tab, 1 TAB PO TID for 30 Days, #90 01/10/25 Information Source: Patient, Emergency Med Personnel Mode of Arrival: EMS Severity: Moderate Timing: Hours Duration: Since onset Prehospital treatment: 12 Lead EKG, Breathing Tx, Daycare Director Review of Systems: REVIEW OF SYSTEMS: General: No fever, no chills, or fatigue HEENT: No sore throat, no earache, no congestion, no neck pain. Cardiac: Chest pain. No palpitations. Lungs: Shortness of breath, wheezing, no cough. GI: No nausea, no vomiting, no diarrhea, no constipation, no abdominal pain : No dysuria, frequency, or urgency. No hematuria. Musculoskeletal: No joint pain , no joint swelling, no extremity edema. Skin: No rash, no itching. Neuro: No headache, no dizziness, no weakness Vital Signs Vital Signs Date Time Temp Pulse Resp B/P (MAP) Pulse Ox O2 Delivery O2 Flow Rate FiO2 05/25/25 22:00 127/80 05/25/25 21:30 85 19 05/25/25 20:42 95 Nasal Cannula* 3 32 05/25/25 19:58 98.9 98.9 Physical Exam PHYSICAL EXAM: General: Awake, alert and oriented. No acute distress. Skin: Skin in warm, dry and intact. Appropriate color for ethnicity. HEENT: The head is normocephalic and atraumatic. Conjunctivae are clear without exudates or hemorrhage. Sclera is non-icteric. EOM are intact. No signs of nystagmus. Eyelids are normal in appearance without swelling or lesions. Oral mucosa is pink and moist Neck: The neck is supple with normal range of motion. No JVD. Cardiac: Tachycardic heart rate but normal rhythm. No murmurs, gallops, or rubs are auscultated. Respiratory: Diminished breath sounds, bilaterally. Signs of respiratory distress. Tachypneic. Otherwise, lung sounds are without rales or rhonchi. Abdominal: Abdomen is soft, non-tender without distention, guarding or rigidity. Bowel sounds are present and normoactive in all four quadrants. Indwelling suprapubic catheter. Extremities: Upper and lower extremities are atraumatic in appearance without deformity or edema. Neurological: The patient is awake, alert and oriented to person, place, and time with normal speech. Speech is clear. There is no facial asymmetry. Psychiatric: Appropriate mood and affect. Good judgement and insight. Past Medical History PAST MEDICAL HISTORY: COPD (On home oxygen 2 L), HTN, UTI'S Past Medical History (Other): Vitor's disease Chronic hypoxic respiratory failure due to COPD Chronic back pain BPH status post cystoscopy Surgical History (Other): Back surgery, multiple Suprapubic catheter Family History Family History: Reviewed,noncontributory to illness Social History Smoker: Non-Smoker Alcohol: Denies ETOH Use Drugs: Denies Drug Use Lives In: [facility] Was a procedure done? Was a procedure done?: No EKG EKG : Pulse Rate (adult): 111 [place]: Normal Cardiac Rhythm: ST Block: None Hypertrophy: None Comments No STEMI Differential Dx Considerations may include: Differential diagnoses considered includebut arenot limited to acute Bronchitis, Asthma, COPD, Pneumothorax, PE, CHF, Pulmonary HTN, Anemia, CO Poisoning, Methemoglobinemia, Hyperventilation, Metabolic Acidosis, Pulmonary Edema, Pneumonia, ACS, Pericardial Tamponade, Anxiety, other X-Ray, Labs, Meds, VS Vital Signs Date Time Temp Pulse Resp B/P (MAP) Pulse Ox O2 Delivery O2 Flow Rate FiO2 05/25/25 22:00 127/80 05/25/25 21:30 85 19 127/76 05/25/25 20:42 95 Nasal Cannula* 3 32 05/25/25 20:37 111 05/25/25 20:00 92 16 112/66 05/25/25 19:58 98.9 116 32 123/63 (83) 96 98.9 05/25/25 19:55 111 Lab Test 05/25/25 23:12 05/25/25 21:27 05/25/25 20:30 05/25/25 20:25 Range/Units Troponin I High Sensitivity 1153 *H 1210 *H 1224 *H </=54 ng/L Blood Gas Specimen Type Arterial Blood Gas Sample Site Left radial Blood Gas Patient Temperature 37.0 Arterial Blood Date Drawn [id number] Arterial Blood pH 7.339 L 7.350-7.450 Arterial Blood Partial Pressure CO2 52.6 H 35.0-48.0 mmHg Arterial Blood Partial Pressure O2 55.2 L 83.0-108.0 mmHg Arterial Blood HCO3 27.7 21.0-28.0 mmol/L Arterial Blood Oxygen Saturation 89.8 L 94.0-98.0 % Arterial Blood Base Excess 1.0 -2.0-3.0 mmol/L Arterial Blood Oxyhemoglobin 88.5 L 94.0-98.0 % Arterial Blood Carboxyhemoglobin 1.0 0.5-1.5 % Arterial Blood Methemoglobin 0.5 0.0-1.5 % Williams Test Modified Blood Gas Total Hemoglobin 13.70 13.5-17.5 g/dL Blood Gas Liter Flow 2.00 Blood Gas Modality Nasal cannula Blood Gas Spontaneous Rate 20 FiO2 % 28.0 Specimen Drawn By meghann pina rt White Blood Count 15.7 H 4.4-10.8 10^3/uL Red Blood Count 4.81 4.5-5.90 10^6/uL Hemoglobin 13.2 L 13.5-17.5 g/dL Hematocrit 40.5 L 41.0-53.0 % Mean Corpuscular Volume 84.1 80.0-100.0 fL Mean Corpuscular Hemoglobin 27.4 L 28.0-32.0 pg Mean Corpuscular Hemoglobin Concent 32.6 32.0-36.0 g/dL Red Cell Distribution Width 15.2 H 11.8-14.3 % Platelet Count 314 140-450 10^3/uL Mean Platelet Volume 6.7 L 6.9-10.8 fL Neutrophils (%) (Auto) 85.5 H 37.0-80.0 % Lymphocytes (%) (Auto) 7.2 L 10.0-50.0 % Monocytes (%) (Auto) 7.2 0.0-12.0 % Eosinophils (%) (Auto) 0.0 0.0-7.0 % Basophils (%) (Auto) 0.1 0.0-2.0 % Neutrophils # (Auto) 13.5 H 1.6-8.6 10 ^3/uL Lymphocytes # (Auto) 1.1 0.4-5.4 10 ^3/uL Monocytes # (Auto) 1.1 0-1.3 10 ^3/uL Eosinophils # (Auto) 0 0-0.8 10 ^3/uL Basophils # (Auto) 0 0-0.2 10 ^3/uL Nucleated Red Blood Cells 0.0 % Prothrombin Time 10.9 9.3-11.8 sec Prothrombin Time INR 1.03 0.9-1.15 D-Dimer, Quantitative 3.48 H 0.0-0.49 mg/L FEU Sodium Level 142 136-145 mmol/L Potassium Level 5.1 3.5-5.1 mmol/L Chloride Level 106 98-107 mmol/L Carbon Dioxide Level 30 20-31 mmol/L Anion Gap 6 5-15 Blood Urea Nitrogen 17 9-23 mg/dL Creatinine 1.17 0.700-1.30 mg/dL Glomerular Filtration Rate Calc 67 >90 mL/min BUN/Creatinine Ratio 14.5 10.0-20.0 Serum Glucose 96 74-106 mg/dL Lactic Acid Level 1.2 0.4-2.0 mmol/L Calcium Level 10.3 8.7-10.4 mg/dL Total Bilirubin 0.3 0.2-1.0 mg/dL Aspartate Amino Transferase (AST) 30 13-40 U/L Alanine Aminotransferase (ALT) 13 7-40 U/L Alkaline Phosphatase 79 46-116 U/L B-Type Natriuretic Peptide 1480.92 0-100 pg/mL Total Protein 6.6 5.7-8.2 g/dL Albumin 4.3 3.2-4.8 g/dL Current Medications Medications (Trade) Dose Ordered Sig/Kush Route Start Time Stop Time Status Last Admin Albuterol (Ventolin Medneb) 2.5 mg ONCE ONCE NEB 05/25/25 20:00 05/25/25 20:01 DC 05/25/25 20:39 Morphine Sulfate 2 mg ONCE ONCE IV 05/25/25 20:00 05/25/25 20:01 DC 05/25/25 20:00 Methylprednisolone Sodium Succinate (Solu Medrol) 80 mg ONCE ONCE IV 05/25/25 20:00 05/25/25 20:01 DC 05/25/25 20:15 Albuterol (Ventolin Medneb) 2.5 mg ONCE ONCE NEB 05/25/25 20:00 05/25/25 20:01 DC 05/25/25 20:39 Ipratropium Alvin (Atrovent Medneb) 0.5 mg ONCE ONCE NEB 05/25/25 20:00 05/25/25 20:01 DC 05/25/25 20:39 Sodium Chloride 1,000 ml @ 130 mls/hr Q7H42M ONCE IV 05/25/25 20:00 05/26/25 03:41 05/25/25 20:00 Sodium Chloride 1,000 ml @ 1,000 mls/hr Q1H ONCE IV 05/25/25 20:00 05/25/25 20:59 DC 05/25/25 20:00 Ondansetron HCl (Zofran) 4 mg ONCE ONCE IV 05/25/25 20:45 05/25/25 20:46 DC 05/25/25 20:45 Furosemide (Lasix Injection) 20 mg ONCE ONCE IV 05/25/25 21:30 05/25/25 21:31 DC 05/25/25 22:00 Ceftriaxone Sodium 50 ml @ 100 mls/hr ONCE ONCE IV 05/25/25 21:30 05/25/25 21:59 DC 05/25/25 21:45 Vancomycin HCl 200 ml @ 200 mls/hr ONCE ONCE IV 05/25/25 22:00 05/25/25 22:59 DC 05/25/25 22:50 Morphine Sulfate 2 mg ONCE ONCE IV 05/25/25 21:30 05/25/25 21:31 DC 05/25/25 21:30 Time of 1ST Reevaluation: 20:20 Reevaluation 1ST: Unchanged Patient Education/Counseling: Other (Need for admission) Family Education/Counseling: No Family Present SEPSIS Sepsis Screen Physician Orders Abg W/ Co-Ox (05/25/25 19:54) Covid19 Antigen An (05/25/25 ) Rapid Influenza A&B (05/25/25 19:54) Chest Xray 1 View (05/25/25 19:54) Electrocardigram (05/25/25 19:54) Electrocardigram (05/25/25 20:54) Electrocardigram (05/25/25 22:54) BIPAP (05/25/25 19:54) Sodium Chloride 0.9% (05/25/25 20:00) Vital Signs Q1HR (05/25/25 19:57) Saline Lock (05/25/25 19:57) Daycare Director (05/25/25 ) Rectal/Core Temps Only (05/25/25 19:57) Notify Md If Abnormal Vs (05/25/25 19:57) Blood Culture (05/25/25 19:57) Urinalysis (05/25/25 19:57) Ct Chest/Ab/Pl W Con- Iv Only (05/25/25 21:22) Heparin Sodium (Porcine) (05/25/25 22:30) Heparin Drip/D5w 100units/Ml (05/25/25 22:30) Vital Signs Date Time Temp Pulse Resp B/P (MAP) Pulse Ox O2 Delivery O2 Flow Rate FiO2 05/25/25 22:00 127/80 05/25/25 21:30 85 19 127/76 05/25/25 20:42 95 Nasal Cannula* 3 32 05/25/25 20:37 111 05/25/25 20:00 92 16 112/66 05/25/25 19:58 98.9 116 32 123/63 (83) 96 98.9 05/25/25 19:55 111 Laboratory Tests Test 05/25/25 20:25 Lactic Acid Level 1.2 mmol/L (0.4-2.0) White Blood Count 15.7 10^3/uL (4.4-10.8) H Medications Medications Dose Ordered Sig/Kush Route Start Time Stop Time Status Last Admin Dose Admin Albuterol 2.5 mg ONCE ONCE NEB 05/25/25 20:00 05/25/25 20:01 W[place] 05/25/25 20:39 Albuterol 2.5 mg ONCE ONCE NEB 05/25/25 20:00 05/25/25 20:01 WV 05/25/25 20:39 Ceftriaxone Sodium 50 ml @ 100 mls/hr ONCE ONCE IV 05/25/25 21:30 05/25/25 21:59 WV 05/25/25 21:45 Furosemide 20 mg ONCE ONCE IV 05/25/25 21:30 05/25/25 21:31 WV 05/25/25 22:00 Ipratropium Alvin 0.5 mg ONCE ONCE NEB 05/25/25 20:00 05/25/25 20:01 WV 05/25/25 20:39 Methylprednisolone Sodium Succinate 80 mg ONCE ONCE IV 05/25/25 20:00 05/25/25 20:01 WV 05/25/25 20:15 Morphine Sulfate 2 mg ONCE ONCE IV 05/25/25 20:00 05/25/25 20:01 WV 05/25/25 20:00 Morphine Sulfate 2 mg ONCE ONCE IV 05/25/25 21:30 05/25/25 21:31 WV 05/25/25 21:30 Ondansetron HCl 4 mg ONCE ONCE IV 05/25/25 20:45 05/25/25 20:46 WV 05/25/25 20:45 Sodium Chloride 1,000 ml @ 130 mls/hr Q7H42M ONCE IV 05/25/25 20:00 05/26/25 03:41 05/25/25 20:00 Sodium Chloride 1,000 ml @ 1,000 mls/hr Q1H ONCE IV 05/25/25 20:00 05/25/25 20:59 WV 05/25/25 20:00 Vancomycin HCl 200 ml @ 200 mls/hr ONCE ONCE IV 05/25/25 22:00 05/25/25 22:59 WV 05/25/25 22:50 Departure 1 Departure Time of Disposition: 22:27 Impression: Primary Impression: NSTEMI (non-ST elevated myocardial infarction) Disposition: 09 ADMITTED INPATIENT Condition: Guarded Comments 69-year-old male presents with a chest pain shortness of breath Suspected NSTEMI Heparin initiated in the ED Antibiotics and IV fluids initiated for suspected sepsis Patient is stabilized Patient admitted to hospitalist service for further treatment, evaluation and monitoring. Extensive evaluation was performed in attempt to identify or rule out: (See differential diagnosis section) The following tests were ordered, and results were reviewed by me and discussed with patient: (See diagnostic results section) The following test were independently interpreted by me: N/A I reviewed and agreed with the following test results read by other providers: Chest x-ray I reviewed the following notes from the pt's past medical encounters: January 10, 2025, January 10, 2025, and January 25, 2025 encounters for epigastric abdominal pain, intractable abdominal pain, and UTI, respectively. Additional information was gathered from interviewing the following independent historians: EMS personnel. Discussion of management or test interpretation with external physician/other qualified health patient care director: N/A Addressed an acute or chronic illness that poses a threat to life or bodily function: Sepsis, NSTEMI Decision regarding hospitalization or escalation of hospital level of care: Risk and benefits of admission for further treatment of patient's condition was considered. Due to patient's current clinical condition, high risk of decline and poor outcome if discharged and need for further inpatient management and monitoring, patient will be admitted to the hospital. Drug therapy requiring intensive monitoring for toxicity: IV Lasix, IV heparin Parenteral controlled substances: IV morphine Decision regarding elective major surgery with identified patient or procedure risk factors: N/A Decision regarding emergency major surgery: N/A Decision not to resuscitate or to de-escalate care because of poor prognosis: N/A Diagnosis or treatment significantly limited by social determinants of health: N/A Critical Care Note Critical Care Time?: Yes (35 min-critical care time only) Critical care comment: Due to a high probability of clinically significant, life threatening deterioration, the patient required my highest level of preparedness to intervene emergently and I personally spent this critical care time directly and personally managing the patient. This critical care time included obtaining a hi story; examining the patient; pulse oximetry; ordering and review of studies; arranging urgent treatment with development of a management plan; evaluation of patient's response to treatment; frequent reassessment; and, discussions with other providers. This critical care time was performed to assess and manage the high probability of imminent, life-threatening deterioration that could result in multi-organ failure. It was exclusive of separately billable procedures and treating other patients and teaching time. Please see my other sections and the rest of the note for further information on patient assessment and treatment. Stability Stability form required: No Heart Score Heart Score: Heart Score Response (Comments) Value History Moderate Suspicious 1 EKG Normal 0 Age >65 2 Risk Factors >3 or Hx ASHD 2 Troponin >3 x's Normal limit 2 Total 7 I personally scribed for STEFFANY GAFFNEY MD ([email or web address]) on 05/25/25 at 20:01. Electronically submitted by Isra Gallardo ([email or web address]). I personally scribed for STEFFANY GAFFNEY MD ([email or web address]) on 05/25/25 at 20:37. Electronically submitted by Isra Gallardo ([email or web address]). STEFFANY GAFFNEY MD May 25, 2025 20:01
[2025-05-25] MEDS: methylPREDNISolone SOD SUCC 125 MG/2 ML VL IV ONE (20:15)
[2025-05-25 20:35] LABS: Base Excess 1.0 mmol/L (-2.0-3.0)
[2025-05-25] MEDS: ALBUTEROL SULF 2.5 MG/0.5ML(0.5%) NEB SOLN NEB ONE ×2 (20:39)
[2025-05-25] MEDS: IPRATROPIUM BROM 0.5 MG/2.5ML INH SOL NEB ONE (20:39)
[2025-05-25 20:45] VITALS: PULSE 82; RESP 28; O2SAT 93
[2025-05-25 20:45] LABS: Hematocrit 40.5 % (41.0-53.0); Hemoglobin 13.2 g/dL (13.5-17.5); Mean Corpuscular Hemoglobin 27.4 pg (28.0-32.0); Mean Corpuscular Volume 84.1 fL (80.0-100.0); Nucleated Red Blood Cells % 0.0 %
[2025-05-25] MEDS: ONDANSETRON HCL 4 MG/2 ML VIAL IV ONE (20:45)
[2025-05-25 21:10] LABS: Alanine Aminotransferase 13 U/L (7-40); Albumin 4.3 g/dL (3.2-4.8); Alkaline Phosphatase 79 U/L (46-116); Anion Gap 6 (5-15); BUN/Creatinine Ratio 14.5 (10.0-20.0); Bilirubin, Total 0.3 mg/dL (0.2-1.0); Blood Urea Nitrogen 17 mg/dL (9-23); Calcium 10.3 mg/dL (8.7-10.4); Carbon Dioxide 30 mmol/L (20-31); Chloride 106 mmol/L (98-107); Glucose 96 mg/dL (74-106); Potassium 5.1 mmol/L (3.5-5.1); Sodium 142 mmol/L (136-145); Total Protein 6.6 g/dL (5.7-8.2)
[2025-05-25] MEDS: IOHEXOL 350 MG/ML 100ML IJ ONE (21:30)
[2025-05-25] MEDS: cefTRIAXone 1GM/50ML D5W 50 ML IV ONE (21:45)
[2025-05-25 21:55] LABS: INR 1.03 (0.9-1.15); Prothrombin Time 10.9 sec (9.3-11.8)
[2025-05-25] MEDS: FUROSEMIDE 40 MG/4 ML VIAL IV ONE (22:00)
--- NOTE | 2025-05-25 22:21 | DVH ---
Exam: CT CT CHEST/AB/PL W CON- IV ONLY History: r/o PE ANGIO CHEST/AB/PEL Comparison Study: None Technique: Multidetector spiral CT of the chest, abdomen and pelvis was performed from lower neck to pubic symphysis. Intravenous contrast was administered during this examination. Portal venous imagi ng was obtained. Axial, coronal and sagittal multiplanar reformats were performed by the technologist on a separate workstation. Radiation Dose : 1. Chest/Abdomen/Pelvis: CTDIvol 17.76 mGy, DLP 1194.06 mGy*cm. Findings: Lower neck: Normal thyroid. Lungs: Severe centrilobular emphysema and COPD. Bibasilar consolidations may reflect pneumonia or asp iration. Masslike biapical scarring is seen measuring up to 3 cm in the right lung apex. Heart/Vascular Structures: Normal heart size. No pericardial effusion. Lymph Nodes: No adenopathy Pleura: No pleural effusion or significant pneumothorax. Liver: The liver is normal in size. Normal hepatic vascular enhancement. Subcentimeter hyperdensity in the right hepatic lobe may reflect hemangioma Gallbladder and Biliary Tree: Unremarkable Spleen: Unremarkable Pancreas: The pancreas is normal in appearance without focal lesions or abnormal enhancement. Adrenal Glands: Unremarkable Kidneys: Kidneys demonstrate normal symmetric enhancement without focal lesions, calculi or hydroneph rosis. Bladder: Suprapubic tube in place. Bowel: The stomach is grossly normal in appearance. No evidence of bowel obstruction. Concentric wal l thickening of the distal colon suggestive of mild colitis. The appendix is not visualized; however , no secondary findings of acute appendicitis identified. Ascites: Absent Lymphadenopathy: No mesenteric, retroperitoneal or periportal lymphadenopathy. Abdominal Wall and Mesentery: Unremarkable. Vasculature: The visualized abdominal aorta is normal in size and caliber. Abdominal and pelvic vess els demonstrate normal enhancement. No pulmonary embolism. Pelvic Organs: Unremarkable Musculoskeletal: No aggressive focal bony lesions, acute fractures or dislocation. Surgical fixation hardware seen in the lower lumbar spine IMPRESSION: 1. Concentric wall thickening of the distal colon suggestive of mild colitis. 2. Severe centrilobular emphysema and COPD. 3. Bibasilar consolidations may reflect pneumonia or aspiration. 4. Masslike biapical scarring is seen measuring up to 3 cm in the right lung apex. Recommend correlat ion with PET-CT. 5. No pulmonary embolism.
--- NOTE | 2025-05-25 22:24 | DVH ---
CHEST RADIOGRAPH REASON FOR EXAM: Shortness of breath COMPARISON: XY CHEST PORTABLE on DOS: 01/10/25, XY CHEST PORTABLE on DOS: 01/10/25 TECHNIQUE: One view of the chest is provided FINDINGS: The cardiomediastinal silhouette is stable. There is bilateral interstitial and airspace op acity, greatest at the periphery, increased compared with prior studies. There is no significant pleu ral effusion. There is no pneumothorax. No acute osseous abnormality is identified. IMPRESSION: Interstitial and airspace opacities, greatest in the periphery, increased compared with prior. Infect ious and inflammatory processes are considerations.
[2025-05-25] MEDS ORDERED: HEPARIN SODIUM (PORCINE) 5000 UNITS/ML 1ML VIAL IV ONE (22:30)
[2025-05-25] MEDS: VANCOMYCIN 1GM/200ML PM 200 ML IV ONE (22:50)
--- NOTE | 2025-05-25 23:55 | DVHHP2 ---
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 As per patient, EMS found her oxygen saturation low around 89% and give nebulization treatment which is increased 93-95%. Patient also have retrosternal chest pain, 7 to 8/10 intensity, localized, aggravated during walking with walker and mildly relieved on rest associated with nausea and fatigue. Patient using walker with wheels for his ambulation. As per ED physician, initial assessment by EMS, Lung sounds were comments of been diminished with some wheezing, bilaterally. Currently denies congestion, nausea, vomiting, fever, chills, or further associated symptoms. Patient indwelling suprapubic catheter and last change week ago, no hematuria noted on urine bag. PAST MEDICAL HISTORY: COPD (On home oxygen 2 L), HTN, UTI'S Bay's disease Chronic hypoxic respiratory failure due to COPD Chronic back pain BPH status post cystoscopy Surgical History : Back surgery-multiple, Suprapubic catheter Family History: noncontributory Social History: ex-Smoker Alcohol: Denies ETOH Use Allergy: Acetaminophen (Verified Allergy, Mild, RASH, 01/10/25), Aspirin (Verified Allergy, Unknown, 05/25/25), Ibuprofen (Verified Allergy, Unknown, 01/25/25)RASH Review of Systems Constitutional: Yes: Weakness, Malaise; No: Fever, Chills, Sweats, Other Eyes: No: Pain, Vision change, Conjunctivae inflammation, Eyelid inflammation, Other, Redness ENT: No: Ear pain, Ear discharge, Nose pain, Nose discharge, Nose congestion, Mouth pain, Mouth swelling, Throat pain, Throat swelling, Other Respiratory: Shortness of breath, SOB with excertion, Wheezing; No: Cough, Dry, Wheezing, Hemoptysis, Pleuritic Pain, Sputum, Other Cardiovascular: Chest Pain, Palpitations; No: Orthopnea, Paroxysmal Noc. Dyspnea, Edema, Lt Headedness, Other Gastrointestinal: Nausea; No: Vomiting, Abdominal Pain, Diarrhea, Constipation, Melena, Hematochezia, Other Genitourinary: No Dysuria, No Frequency, No Incontinence, No Hematuria, No Retention; Other (Suprapubic catheter in place) Musculoskeletal: No: other, neck pain, shoulder pain, arm pain, back pain, hand pain, leg pain, foot pain Skin: No: Rash, Lesions, Jaundice, Bruising, Other Neurological: No: Weakness, Numbness, Incoordination, Change in speech, Confusion, Seizures, Other Allergies: Coded Allergies: Acetaminophen (Verified Allergy, Mild, RASH, 01/10/25) Aspirin (Verified Allergy, Unknown, 05/25/25) Ibuprofen (Verified Allergy, Unknown, 01/25/25) RASH Medications Current Medications Medications Dose Ordered Sig/Kush Route Start Time Stop Time Status Last Admin Dose Admin Heparin Sodium/ Dextrose 250 ml @ 0 mls/hr Q0M IV 05/25/25 22:30 UNV Exam Vital Signs Vital Signs Date Time Temp Pulse Resp B/P (MAP) Pulse Ox O2 Delivery O2 Flow Rate FiO2 05/25/25 22:00 127/80 05/25/25 21:30 85 19 05/25/25 20:42 95 Nasal Cannula* 3 32 05/25/25 19:58 98.9 98.9 General Appearance: Alert, Oriented X3, Cooperative HEENT: Atraumatic, PERRLA, EOMI Respiratory: Normal air movement, Other (Mild Expiratory wheeze, bibasilar 1+ crackles present) Cardiovascular: Regular rate, Normal S1, Normal S2 Abdominal: Normal bowel sounds, Soft, No tenderness Extremities: No clubbing, No cyanosis, No edema, Other (Chronic skin changes) Skin: No rashes, No breakdown Neuro: Normal speech, Other (Gait instability, use walker for walking) Labs/Xrays Labs Test 05/25/25 23:12 05/25/25 20:30 05/25/25 20:25 Range/Units Blood Gas Specimen Type Arterial Blood Gas Sample Site Left radial Blood Gas Patient Temperature 37.0 Arterial Blood Date Drawn [id number] Arterial Blood pH 7.339 L 7.350-7.450 Arterial Blood Partial Pressure CO2 52.6 H 35.0-48.0 mmHg Arterial Blood Partial Pressure O2 55.2 L 83.0-108.0 mmHg Arterial Blood HCO3 27.7 21.0-28.0 mmol/L Arterial Blood Oxygen Saturation 89.8 L 94.0-98.0 % Arterial Blood Base Excess 1.0 -2.0-3.0 mmol/L Arterial Blood Oxyhemoglobin 88.5 L 94.0-98.0 % Arterial Blood Carboxyhemoglobin 1.0 0.5-1.5 % Arterial Blood Methemoglobin 0.5 0.0-1.5 % Williams Test Modified Blood Gas Total Hemoglobin 13.70 13.5-17.5 g/dL Blood Gas Liter Flow 2.00 Blood Gas Modality Nasal cannula Blood Gas Spontaneous Rate 20 FiO2 % 28.0 Specimen Drawn By meghann pina rt White Blood Count 15.7 H 4.4-10.8 10^3/uL Red Blood Count 4.81 4.5-5.90 10^6/uL Hemoglobin 13.2 L 13.5-17.5 g/dL Hematocrit 40.5 L 41.0-53.0 % Mean Corpuscular Volume 84.1 80.0-100.0 fL Mean Corpuscular Hemoglobin 27.4 L 28.0-32.0 pg Mean Corpuscular Hemoglobin Concent 32.6 32.0-36.0 g/dL Red Cell Distribution Width 15.2 H 11.8-14.3 % Platelet Count 314 140-450 10^3/uL Mean Platelet Volume 6.7 L 6.9-10.8 fL Neutrophils (%) (Auto) 85.5 H 37.0-80.0 % Lymphocytes (%) (Auto) 7.2 L 10.0-50.0 % Monocytes (%) (Auto) 7.2 0.0-12.0 % Eosinophils (%) (Auto) 0.0 0.0-7.0 % Basophils (%) (Auto) 0.1 0.0-2.0 % Neutrophils # (Auto) 13.5 H 1.6-8.6 10 ^3/uL Lymphocytes # (Auto) 1.1 0.4-5.4 10 ^3/uL Monocytes # (Auto) 1.1 0-1.3 10 ^3/uL Eosinophils # (Auto) 0 0-0.8 10 ^3/uL Basophils # (Auto) 0 0-0.2 10 ^3/uL Nucleated Red Blood Cells 0.0 % Prothrombin Time 10.9 9.3-11.8 sec Prothrombin Time INR 1.03 0.9-1.15 D-Dimer, Quantitative 3.48 H 0.0-0.49 mg/L FEU Sodium Level 142 136-145 mmol/L Potassium Level 5.1 3.5-5.1 mmol/L Chloride Level 106 98-107 mmol/L Carbon Dioxide Level 30 20-31 mmol/L Anion Gap 6 5-15 Blood Urea Nitrogen 17 9-23 mg/dL Creatinine 1.17 0.700-1.30 mg/dL Glomerular Filtration Rate Calc 67 >90 mL/min BUN/Creatinine Ratio 14.5 10.0-20.0 Serum Glucose 96 74-106 mg/dL Lactic Acid Level 1.2 0.4-2.0 mmol/L Calcium Level 10.3 8.7-10.4 mg/dL Total Bilirubin 0.3 0.2-1.0 mg/dL Aspartate Amino Transferase (AST) 30 13-40 U/L Alanine Aminotransferase (ALT) 13 7-40 U/L Alkaline Phosphatase 79 46-116 U/L B-Type Natriuretic Peptide 1480.92 0-100 pg/mL Total Protein 6.6 5.7-8.2 g/dL Albumin 4.3 3.2-4.8 g/dL SEPSIS Sepsis Screen Date sepsis recognized/suspect: May 25, 2025 Time Sepsis recognized/suspect: 1949 Recent Procedure: No On Antibiotic Therapy: No Respiratory Rate >20: Yes Heart Rate >90: Yes Temp<36 C (96.8 F) or >38.3 C: No SBP <90 or MAP <65 mmHG: No New Acute Mental Status Change: No Is the patient on CPAP, BIPAP,: No Physician Orders Abg W/ Co-Ox (05/25/25 19:54) Covid19 Antigen An (05/25/25 ) Rapid Influenza A&B (05/25/25 19:54) Chest Xray 1 View (05/25/25 19:54) Electrocardigram (05/25/25 19:54) Troponin-I Hs (05/25/25 22:54) Electrocardigram (05/25/25 20:54) Electrocardigram (05/25/25 22:54) BIPAP (05/25/25 19:54) Sodium Chloride 0.9% (05/25/25 20:00) Vital Signs Q1HR (05/25/25 19:57) Saline Lock (05/25/25 19:57) Shed Workers Supervisor (05/25/25 ) Rectal/Core Temps Only (05/25/25 19:57) Notify Md If Abnormal Vs (05/25/25 19:57) Blood Culture (05/25/25 19:57) Urinalysis (05/25/25 19:57) Ct Chest/Ab/Pl W Con- Iv Only (05/25/25 21:22) Heparin Sodium (Porcine) (05/25/25 22:30) Heparin Drip/D5w 100units/Ml (05/25/25 22:30) Vital Signs Date Time Temp Pulse Resp B/P (MAP) Pulse Ox O2 Delivery O2 Flow Rate FiO2 05/25/25 22:00 127/80 05/25/25 21:30 85 19 127/76 05/25/25 20:42 95 Nasal Cannula* 3 32 05/25/25 20:37 111 05/25/25 20:00 92 16 112/66 05/25/25 19:58 98.9 116 32 123/63 (83) 96 98.9 05/25/25 19:55 111 Laboratory Tests Test 05/25/25 20:25 Lactic Acid Level 1.2 mmol/L (0.4-2.0) White Blood Count 15.7 10^3/uL (4.4-10.8) H Medications Medications Dose Ordered Sig/Kush Route Start Time Stop Time Status Last Admin Dose Admin Albuterol 2.5 mg ONCE ONCE NEB 05/25/25 20:00 05/25/25 20:01 DC 05/25/25 20:39 2.5 MG Albuterol 2.5 mg ONCE ONCE NEB 05/25/25 20:00 05/25/25 20:01 DC 05/25/25 20:39 2.5 MG Ceftriaxone Sodium 50 ml @ 100 mls/hr ONCE ONCE IV 05/25/25 21:30 05/25/25 21:59 DC 05/25/25 21:45 100 MLS/HR Furosemide 20 mg ONCE ONCE IV 05/25/25 21:30 05/25/25 21:31 DC 05/25/25 22:00 20 MG Ipratropium [place] 0.5 mg ONCE ONCE NEB 05/25/25 20:00 05/25/25 20:01 DC 05/25/25 20:39 0.5 MG Methylprednisolone Sodium Succinate 80 mg ONCE ONCE IV 05/25/25 20:00 05/25/25 20:01 DC 05/25/25 20:15 80 MG Morphine Sulfate 2 mg ONCE ONCE IV 05/25/25 20:00 05/25/25 20:01 DC 05/25/25 20:00 2 MG Morphine Sulfate 2 mg ONCE ONCE IV 05/25/25 21:30 05/25/25 21:31 DC 05/25/25 21:30 2 MG Ondansetron HCl 4 mg ONCE ONCE IV 05/25/25 20:45 05/25/25 20:46 DC 05/25/25 20:45 4 MG Sodium Chloride 1,000 ml @ 130 mls/hr Q7H42M ONCE IV 05/25/25 20:00 05/26/25 03:41 05/25/25 20:00 130 MLS/HR Sodium Chloride 1,000 ml @ 1,000 mls/hr Q1H ONCE IV 05/25/25 20:00 05/25/25 20:59 DC 05/25/25 20:00 1,000 MLS/HR Vancomycin HCl 200 ml @ 200 mls/hr ONCE ONCE IV 05/25/25 22:00 05/25/25 22:59 DC 05/25/25 22:50 200 MLS/HR Assessment/Plan Assessment/Plan # Acute hypercapnic hypoxic respiratory failure due to pneumonia likely Gm positive/Gm negative organism -Patient came with chest pain, shortness of breaths with wheezing -Received breathing treatment and saturation around 95% -In ER patient received morphine, nitroglycerin, vancomycin, ceftriaxone, furosemide, NSS bolus, albuterol-ipratropium, methylprednisolone, aspirin 325 mg -CT Chest /abdomen / pelvis- Concentric wall thickening of the distal colon suggestive of mild colitis. Severe centri lobular emphysema and COPD. Bibasilar consolidations may reflect pneumonia or aspiration. Mass like bi-apical scarring is seen measuring up to 3 cm in the right lung apex. No pulmonary embolism. -CXR- Interstitial and airspace opacities, greatest in the periphery, increased compared with prior. Infectious and inflammatory processes are considerations. -Patient become tachycardic and tachypneic during admission(HR 111, RR 32) -ABG-PH 7.339, PCO2 52.6, HC03 27.7 -Neutrophilic leukocytosis WBC 15.7, neutrophil 85.5 -PT 10.09, INR 1.03, D-dimer 3.48 -Lactic acid 1.2 -Ceftriaxone 1 g IV daily -Metronidazole 500 mg IV daily -Azithromycin 500 mg p.o. daily to cover atypical microorganism -Continues oxygen 3 L via nasal cannula, titrate accordingly -Incentive spirometry -Sputum culture, blood culture -MRSA test, if positive start ABX accordingly. #Sepsis due to Pneumonia likely Gm positive/Gm negative organism -CT Chest - Bibasilar consolidations may reflect pneumonia or aspiration. -Patient become tachycardic and tachypneic during admission(HR 111, RR 32) -Neutrophilic leukocytosis WBC 15.7, neutrophil 85.5 -Ceftriaxone 1 g IV daily -Metronidazole 500 mg IV daily -Azithromycin 500 mg p.o. daily to cover atypical microorganism # Chest pain due to NSTEMI type I vs type II -Patient came with chest pain, SOB -EKG: Tachycardia, HR 111, possible anteroseptal old infarct, QTC 389 -Troponin 1224 >1210>1153 -Started heparin drip -Cardiology consult #COPD exacerbation with emphysematous changes and possible bilateral pleural effusion -Ex -smoker -Received Lasix IV 20 mg in ED -Albuterol nebulization q.6 H -Ipratropium nebulization q.6 H p.r.n. -Lasix 20 mg p.o. daily -COVID-19 and influenza A and B- negative #Bilateral apical lung mass -CT chest -Mass like bi-apical scarring is seen measuring up to 3 cm in the right lung apex. -Follow up out patient. #Colitis CT abdomen -Concentric wall thickening of the distal colon suggestive of mild colitis. -Ceftriaxone 1 g IV daily -Metronidazole 500 mg IV daily # Essential hypertension -Continue lisinopril 5 mg p.o. daily -Monitor blood pressure # Chronic low-back pain -History of multiple back surgery -Gabapentin 300 mg p.o. b.i.d., baclofen 10 mg p.o. t.i.d., # Bay's disease -Started methylprednisolone 40 mg IV b.i.d. # Depression -Mirtazapine 15 mg p.o. daily # Benign prostatic hyperplasia -Tamsulosin 0.4 mg p.o. daily # indwelling suprapubic catheter -Last change catheter x 1 week back # Chronic gastritis -Pantoprazole 40 mg p.o. daily # Gait instability -Use walker for ambulation DIET: SOFT DIET GI prophylaxis: Pantoprazole 40 mg daily DVT prophylaxis: Patient currently on heparin drip. Goals of care discussions, more than 29 minute spent with patient. code status: DNR. Case discussed with Dr. Degroot Plan discussed with: Patient, Other (Nurse) Date of Service: May 25, 2025 Billing Provider: DA DEGROOT MD Common Visit Codes: 59612-SXUWARM INP/OBS CARE (HIGH) Secondary Visit Codes: 38105-[id number] CARE PLAN 30 MINUTES NATHANAEL GARCIA RESIDENT May 25, 2025 23:55
[2025-05-26] VITALS (9 sets, daily range): BP systolic 109–131; BP diastolic 62–68; PULSE 73–86; RESP 17–22; TEMP 98.9–99.7; O2SAT 93–99
[2025-05-26] MEDS ORDERED: NITROGLYCERIN 0.4 MG SL TAB SL PRN
[2025-05-26] MEDS: MORPHINE SULFATE INJ 2 MG/ml SYRG IV PRN (00:52)
[2025-05-26] MEDS: BACLOFEN 10 MG TAB PO ONE (02:12)
[2025-05-26] MEDS: MIRTAZAPINE 30 MG TAB PO ONE (02:12)
[2025-05-26] MEDS: PANTOPRAZOLE 40 MG/10 ML VIAL INJ IV ONE (02:36)
[2025-05-26 04:31] LABS: COVID19 ANTIGEN SOFIA FIA NEGATIVE (NEGATIVE)
--- NOTE | 2025-05-26 05:11 | ECG ---
[facility] Test Date: 2025-05-25 Test Time: 19:55:39 Pat Name: LYNNE STERLING Department: ED Room: [address] [place] [address] Gender: M Supervisor Payroll: MELIZA : 1955 Requested By: STEFFANY GAFFNEY Order Number: [id number] Reading MD: Measurements Intervals [place] Rate: 111 P: 77 NE: 160 QRS: 22 QRSD: 79 T: 91 QT: 286 QTc: 389 Interpretive Statements Sinus tachycardia Low voltage, precordial leads Anteroseptal infarct, old Nonspecific T abnormalities, lateral leads Please click the below link to view image of tracing.
[2025-05-26] MEDS: PANTOPRAZOLE 40 MG TAB PO SCH (06:00)
[2025-05-26] MEDS: IPRATROPIUM BROM 0.5 MG/2.5ML INH SOL NEB SCH (07:43)
[2025-05-26] MEDS: ALBUTEROL SULF 2.5 MG/0.5ML(0.5%) NEB SOLN NEB SCH (07:43)
[2025-05-26 08:45] LABS: Urine Protein, UAD Negative (Negative)
[2025-05-26 09:08] LABS: Hematocrit 37.8 % (41.0-53.0); Hemoglobin 12.4 g/dL (13.5-17.5); Mean Corpuscular Hemoglobin 27.4 pg (28.0-32.0); Mean Corpuscular Volume 83.6 fL (80.0-100.0); Nucleated Red Blood Cells % 0.0 %
--- NOTE | 2025-05-26 09:09 | CONS ---
Pharmacy Clinical Information: INITIATE HEPARIN DRIP AT RATE 1000 UNITS/HR (ACS PROTOCOL FOR PATIENT WEIGHT 79 KG) CONFIRMED WITH ROSA CISNEROS NEXT APTT DRAW SCHEDULED FOR 1500 PER RX PROTOCOL CATRINA HAMLIN PHARMACIST May 26, 2025 09:09
[2025-05-26 09:18] LABS: INR 1.08 (0.9-1.15); Partial Thromboplastin Time 27.8 SEC (24.5-34.5); Prothrombin Time 11.4 sec (9.3-11.8)
[2025-05-26 09:19] LABS: Alanine Aminotransferase 13 U/L (7-40); Albumin 4.1 g/dL (3.2-4.8); Alkaline Phosphatase 74 U/L (46-116); Anion Gap 9 (5-15); BUN/Creatinine Ratio 16.7 (10.0-20.0); Blood Urea Nitrogen 18 mg/dL (9-23); Calcium 9.9 mg/dL (8.7-10.4); Carbon Dioxide 28 mmol/L (20-31); Chloride 104 mmol/L (98-107); Potassium 4.1 mmol/L (3.5-5.1); Sodium 141 mmol/L (136-145); Total Protein 6.3 g/dL (5.7-8.2)
[2025-05-26 09:20] LABS: Bilirubin, Total 0.5 mg/dL (0.2-1.0); Glucose 110 mg/dL (74-106)
[2025-05-26] MEDS: HEPARIN DRIP/D5W 100UNITS/ML 250 ML IV SCH ×2 (09:38→16:30)
[2025-05-26] MEDS: LORazepam 0.5 MG TAB PO ONE (09:52)
--- NOTE | 2025-05-26 09:54 | ECG ---
[facility] Test Date: 2025-05-26 Test Time: 09:52:59 Pat Name: LYNNE STERLING Department: ER Room: [address] [place] [address] Gender: M [employer] Supervisor: [place] : 1955 Requested By: RUSS YAP Order Number: [id number] Reading MD: Measurements Intervals [place] Rate: 87 P: 84 TX: 166 QRS: 51 QRSD: 76 T: -82 QT: 449 QTc: 541 Interpretive Statements Sinus rhythm Anteroseptal infarct, old Nonspecific T abnormalities, inferior leads Prolonged QT interval Please click the below link to view image of tracing.
[2025-05-26] MEDS ORDERED: AZITHROMYCIN 250 MG TAB PO SCH (10:00)
[2025-05-26] MEDS: methylPREDNISolone SOD SUCC 40 MG/ML VL IV SCH (10:00)
[2025-05-26] MEDS: AZITHROMYCIN 250 MG TAB PO SCH (10:08)
[2025-05-26] MEDS: LISINOPRIL 5 MG TAB PO SCH (10:10)
[2025-05-26] MEDS: HYDROCORTISONE 10 MG TAB PO SCH (10:10)
[2025-05-26] MEDS: GABAPENTIN 300 MG CAP PO SCH (10:11)
[2025-05-26] MEDS: FUROSEMIDE 40 MG TAB PO SCH (10:12)
--- NOTE | 2025-05-26 11:25 | DVHCONRES ---
Date Seen: May 26, 2025 Resident Creating Document: RUSS YAP RESDIENT History of Present Illness This is a 69-year-old male with past medical history of hypertension, COPD on 2 L of oxygen at home, medicine disease and chronic back pain brought to the hospital due to shortness of breaths. Per patient, he has chronic shortness of breaths but since 2 week has progressively worsened which prompted this visit. He also reports a dry cough, back pain and chest pain. He describes the pain a substernal heaviness, 7/10 in intensity, does not radiate, worsened with cough and mobility. He denies fever, palpitation, nausea, and vomiting. PMHx: hypertension, COPD on 2 L of oxygen at home, medicine disease and chronic back pain Social history: Ex-smoker, [facility], mostly bed-bound and uses a wheelchair for mobility Home medication: Lisinopril, hydrocortisone, mirtazapine, Lasix, gabapentin, tamsulosin and inhaler Allergic history: Acetaminophen, aspirin and ibuprofen Patient seen and examined at the bedside. Patient is still complaining of back pain, and mild chest pain. Family History: Minor Hill disease G8 MOTHER FH: back pain G8 FATHER Allergies: Coded Allergies: Acetaminophen (Verified Allergy, Mild, RASH, 01/10/25) Aspirin (Verified Allergy, Unknown, 05/25/25) Ibuprofen (Verified Allergy, Unknown, 01/25/25) RASH Home Meds Active Scripts Tamsulosin Hcl (Flomax) 0.4 Mg Cap, 1 CAP PO DAILY for 30 Days, #30 CAP 11 Refills Prov:AUSTIN ESCOBEDO RESIDENT 01/27/25 Cranberry-Vitamin C (Azo Cranberry Urinary Tra 250-60 mg) 1 Cap Cap, 1 CAP PO BID for 5 Days, #10 CAP Prov:BECKYAUSTIN CARRANZA RESIDENT 01/27/25 Linezolid (Zyvox) 600 Mg Tab, 600 MG PO BID for 14 Days, #28 TAB Prov:AUSTIN ESCOBEDO RESIDENT 01/27/25 Hydrocortisone Base (Hydrocortisone) 10 Mg Tab, 10 MG PO DAILY, #30 TAB Prov:ELENA PALOMARES MD 01/22/25 Mirtazapine (Remeron) 15 Mg Tab, 1 TAB PO QPM, #30 TAB 1 Refill Prov:ELENA PALOMARES MD 01/22/25 Reported Medications Ondansetron HCl (Ondansetron) 4 Mg Tab, 8 MG PO Q8HPRN PRN for NAUSEA / VOMITING, TAB 01/25/25 Ipratropium-Albuterol (Ipratropium [place]/Albut) 1 [place], 1 CHILO IN Q6HPRN PRN for SHORTNESS OF BREATH, ML 01/25/25 Hydromorphone Hcl (Dilaudid) 2 Mg Tab, 2 MG PO Q4HPRN PRN for PAIN SCALE 7 THRU 10, TAB 01/25/25 Gabapentin (Gabapentin) 300 Mg Cap, 1 CAP PO BID for 30 Days, #60 01/10/25 Famotidine (Famotidine) 20 Mg Tab, 1 TAB PO DAILY for 30 Days, #30 01/10/25 Lisinopril (Lisinopril) 5 Mg Tab, 1 TAB PO DAILY for 30 Days, #30 01/10/25 Pantoprazole Sodium Sesquihydr (Pantoprazole Sodium) 40 Mg Tab, 1 TAB PO DAILY for 30 Days, #30 01/10/25 Baclofen (Baclofen) 10 Mg Tab, 1 TAB PO TID for 30 Days, #90 01/10/25 Current Medications Current Medications Medications (Trade) Dose Ordered Sig/Kush Route PRN Reason Start Time Stop Time Status Last Admin Heparin Sodium/ Dextrose 250 ml @ 10 mls/hr Q24H IV 05/26/25 08:57 05/26/25 09:38 Nitroglycerin (Ntrostat Sublingual) 0.4 mg Q5MINP PRN SL FOR CHEST PAIN 05/26/25 00:00 Morphine Sulfate 2 mg Q30M PRN IV FOR CHEST PAIN 05/26/25 00:00 05/26/25 00:52 Pantoprazole Sodium (Protonix Tablet) 40 mg DAILY@0600 PO 05/26/25 06:00 05/26/25 06:00 Methylprednisolone Sodium Succinate (Solu Medrol) 40 mg BID IV 05/26/25 10:00 Ceftriaxone Sodium 50 ml @ 100 mls/hr DAILY@2100 IV 05/26/25 21:00 Metronidazole 100 ml @ 100 mls/hr Q8HR IV 05/26/25 06:00 05/26/25 06:00 Azithromycin (Zithromax Tablet) 250 mg DAILY PO 05/26/25 10:00 05/26/25 06:19 DC Baclofen (Liorisal Tablet) 10 mg Q8HP PRN PO FOR MUSCLE SPASM 05/26/25 01:15 Gabapentin (Neurontin Capsule) 300 mg BID PO 05/26/25 10:00 05/26/25 10:11 Ipratropium [place] (Atrovent Medneb) 0.5 mg Q6HWA [facility] 05/26/25 06:00 05/26/25 07:43 Albuterol (Ventolin Medneb) 2.5 mg Q6HWA NEB 05/26/25 06:00 05/26/25 07:43 Lisinopril (Zestril Tablet) 5 mg DAILY PO 05/26/25 10:00 05/26/25 10:10 Mirtazapine (Remeron Tablet) 15 mg HS PO 05/26/25 22:00 Ondansetron HCl (Zofran Po) 4 mg Q6HP PRN PO NAUSEA / VOMITING 05/26/25 01:15 Tamsulosin HCl (Flomax) 0.4 mg QPM PO 05/26/25 18:00 Azithromycin (Zithromax Tablet) 500 mg DAILY PO 05/26/25 10:00 05/26/25 10:08 Furosemide (Lasix Tablet) 20 mg DAILY PO 05/26/25 10:00 05/26/25 10:12 Hydromorphone HCl (Dilaudid Tablet) 2 mg Q4HP PRN PO SEVERE PAIN (7-10 PAIN SCALE) 05/26/25 09:30 05/26/25 10:13 Hydrocortisone (Cortef Tablet) 10 mg DAILY PO 05/26/25 10:00 05/26/25 10:10 Vital Signs Vital Signs Date Time Temp Pulse Resp B/P (MAP) Pulse Ox O2 Delivery O2 Flow Rate FiO2 05/26/25 10:12 106/48 05/26/25 09:52 87 05/26/25 07:49 20 95 05/26/25 07:43 Nasal Cannula* 3 32 05/26/25 07:30 98.3 98.3 Physical Exam General Appearance: Alert, Oriented X3, Cooperative, No acute distress HEENT: Atraumatic, PERRLA, EOMI, Mucous membrane moist/pink Respiratory: Bilateral crackles Cardiovascular: Regular rate, Normal S1, Normal S2, No murmurs, no chest wall tenderness Abdominal: Normal bowel sounds, Soft, No tenderness, No hepatospenomegaly, No masses Extremities: No clubbing, No cyanosis, No edema, Normal pulses, No tenderness/swelling Skin: No rashes, No breakdown, No significant lesion Neuro: Normal gait, Normal speech, Strength at 5/5 X4 ext, Normal tone, Sensation intact, Cranial nerves 3-12 NL, Reflexes 2+ Psych/Mental Status: Mental status NL, Mood NL Labs/Diagnostic Data Labs Test 05/26/25 08:52 05/26/25 08:10 05/25/25 23:12 05/25/25 20:30 Range/Units White Blood Count 13.7 H 4.4-10.8 10^3/uL Red Blood Count 4.53 4.5-5.90 10^6/uL Hemoglobin 12.4 L 13.5-17.5 g/dL Hematocrit 37.8 L 41.0-53.0 % Mean Corpuscular Volume 83.6 80.0-100.0 fL Mean Corpuscular Hemoglobin 27.4 L 28.0-32.0 pg Mean Corpuscular Hemoglobin Concent 32.7 32.0-36.0 g/dL Red Cell Distribution Width 14.9 H 11.8-14.3 % Platelet Count 299 140-450 10^3/uL Mean Platelet Volume 6.7 L 6.9-10.8 fL Neutrophils (%) (Auto) 87.5 H 37.0-80.0 % Lymphocytes (%) (Auto) 8.1 L 10.0-50.0 % Monocytes (%) (Auto) 4.2 0.0-12.0 % Eosinophils (%) (Auto) 0.0 0.0-7.0 % Basophils (%) (Auto) 0.2 0.0-2.0 % Neutrophils # (Auto) 12.0 H 1.6-8.6 10 ^3/uL Lymphocytes # (Auto) 1.1 0.4-5.4 10 ^3/uL Monocytes # (Auto) 0.6 0-1.3 10 ^3/uL Eosinophils # (Auto) 0 0-0.8 10 ^3/uL Basophils # (Auto) 0 0-0.2 10 ^3/uL Nucleated Red Blood Cells 0.0 % Prothrombin Time 11.4 9.3-11.8 sec Prothrombin Time INR 1.08 0.9-1.15 Activated Partial Thromboplast Time 27.8 24.5-34.5 SEC Sodium Level 141 136-145 mmol/L Potassium Level 4.1 3.5-5.1 mmol/L Chloride Level 104 98-107 mmol/L Carbon Dioxide Level 28 20-31 mmol/L Anion Gap 9 5-15 Blood Urea Nitrogen 18 9-23 mg/dL Creatinine 1.08 0.700-1.30 mg/dL Glomerular Filtration Rate Calc 73 >90 mL/min BUN/Creatinine Ratio 16.7 10.0-20.0 Serum Glucose 110 H 74-106 mg/dL Calcium Level 9.9 8.7-10.4 mg/dL Magnesium Level 1.8 1.6-2.6 mg/dL Total Bilirubin 0.5 0.2-1.0 mg/dL Aspartate Amino Transferase (AST) 26 13-40 U/L Alanine Aminotransferase (ALT) 13 7-40 U/L Alkaline Phosphatase 74 46-116 U/L Total Protein 6.3 5.7-8.2 g/dL Albumin 4.1 3.2-4.8 g/dL Urine Color Colorless Yellow Urine Clarity Clear Clear Urine pH 6.5 5.0-9.0 Urine Specific [place] 1.019 1.001-1.035 Urine Protein Negative Negative Urine Ketones Negative Negative Urine Blood Negative Negative /uL Urine Nitrite 1+ H Negative Urine Bilirubin Negative Negative Urine Urobilinogen Normal Negative mg/dL Urine Leukocyte Esterase Trace Negative /uL Urine RBC 1 0 - 3 /hpf Urine Microscopic WBC 2 0-3 /HPF Urine Squamous Epithelial Cells Few <5 /hpf Urine Bacteria Few H None Seen /hpf Urine Glucose Normal Normal mg/dL Troponin I High Sensitivity 1153 *H </=54 ng/L Blood Gas Specimen Type Arterial Blood Gas Sample Site Left radial Blood Gas Patient Temperature 37.0 Arterial Blood Date Drawn [id number] Arterial Blood pH 7.339 L 7.350-7.450 Arterial Blood Partial Pressure CO2 52.6 H 35.0-48.0 mmHg Arterial Blood Partial Pressure O2 55.2 L 83.0-108.0 mmHg Arterial Blood HCO3 27.7 21.0-28.0 mmol/L Arterial Blood Oxygen Saturation 89.8 L 94.0-98.0 % Arterial Blood Base Excess 1.0 -2.0-3.0 mmol/L Arterial Blood Oxyhemoglobin 88.5 L 94.0-98.0 % Arterial Blood Carboxyhemoglobin 1.0 0.5-1.5 % Arterial Blood Methemoglobin 0.5 0.0-1.5 % Williams Test Modified Blood Gas Total Hemoglobin 13.70 13.5-17.5 g/dL Blood Gas Liter Flow 2.00 Blood Gas Modality Nasal cannula Blood Gas Spontaneous Rate 20 FiO2 % 28.0 Specimen Drawn By meghann pina rt Test 05/25/25 20:25 05/25/25 03:23 Range/Units D-Dimer, Quantitative 3.48 H 0.0-0.49 mg/L FEU Lactic Acid Level 1.2 0.4-2.0 mmol/L B-Type Natriuretic Peptide 1480.92 0-100 pg/mL Influenza Type A Antigen Negative Negative Influenza Type B Antigen Negative Negative SARS-CoV-2 Antigen (Rapid) Negative NEGATIVE Assessment Chest pain, likely noncardiac Acute on chronic hypoxic respiratory failure, likely due to COPD exacerbation/pneumonia Sepsis, due to above NSTEMI, likely type 2 due to above Hypertension [place] isn't Chronic back pain * EKGs shows sinus rhythm with no significant ST or T-wave changes * Trop I is raised at 1200s, downtrending * Chest CT shows, severe centrilobular emphysema and COPD and bibasilar consolidations may reflect pneumonia or aspiration Plan/recommendation (Case discussed with Dr. Negro) * Aspirin and atorvastatin * Discontinue heparin drip * Check echocardiogram * We may consider ischemic workup, if patients chest pain persisted after treatment of pulmonary condition (pneumonia) * Rest of plan per primary team Thank you for giving us the opportunity to take care of your patient. Please call back if you have any question/concerns. Plan discussed with: Patient, Other (RN) RUSS YAP May 26, 2025 11:25
[2025-05-26] MEDS: ONDANSETRON ODT 4 MG TAB PO PRN (12:22)
[2025-05-26] MEDS: ATORVASTATIN 20 MG TAB PO ONE (12:22)
[2025-05-26] MEDS: PIPERACILLIN-TAZOB 3.375GM 100 ML IV SCH (14:00)
--- NOTE | 2025-05-26 15:04 | DVHPNRES ---
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 As per patient, EMS found her oxygen saturation low around 89% and give nebulization treatment which is increased 93-95%. Patient also have retrosternal chest pain, 7 to 8/10 intensity, localized, aggravated during walking with walker and mildly relieved on rest associated with nausea and fatigue. Patient using walker with wheels for his ambulation. As per ED physician, initial assessment by EMS, Lung sounds were comments of been diminished with some wheezing, bilaterally. Currently denies congestion, nausea, vomiting, fever, chills, or further associated symptoms. Patient indwelling suprapubic catheter and last change week ago, no hematuria noted on urine bag. PAST MEDICAL HISTORY: COPD (On home oxygen 2 L), HTN, UTI'S Vitor's disease Chronic hypoxic respiratory failure due to COPD Chronic back pain BPH status post cystoscopy Surgical History : Back surgery-multiple, Suprapubic catheter Family History: noncontributory Social History: ex-Smoker Alcohol: Denies ETOH Use Allergy: Acetaminophen (Verified Allergy, Mild, RASH, 01/10/25), Aspirin (Verified Allergy, Unknown, 05/25/25), Ibuprofen (Verified Allergy, Unknown, 01/25/25)RASH 05/26 interval events: Patient reports shortness of breath with using the walker. He complaints of back pain and anxiety, he requested his Ativan and pain medicine. Complains of chest pain as well, but improved since yesterday. He takes Zofran for nausea at home, currently does not have any nausea. He denies any fever, chills, abdominal pain or any other complaints at this time. Review of systems: The patient was seen and examined at bedside. Overnight events were reviewed. During the review of systems as per above. Rest of the ROS is negative. Objective vital signs Vital Sign Date Time Temp Pulse Resp B/P (MAP) Pulse Ox O2 Delivery O2 Flow Rate FiO2 05/26/25 12:00 80 05/26/25 10:15 13 106/48 (67) 94 05/26/25 07:43 Nasal Cannula* 3 32 05/26/25 07:30 98.3 98.3 medications Current Medications Medications Dose Ordered Sig/Kush Route Start Time Stop Time Status Last Admin Dose Admin Heparin Sodium/ Dextrose 250 ml @ 10 mls/hr Q24H IV 05/26/25 08:57 05/26/25 09:38 10 MLS/HR Nitroglycerin 0.4 mg Q5MINP PRN SL 05/26/25 00:00 Morphine Sulfate 2 mg Q30M PRN IV 05/26/25 00:00 05/26/25 00:52 2 MG Pantoprazole Sodium 40 mg DAILY@0600 PO 05/26/25 06:00 05/26/25 06:00 40 MG Methylprednisolone Sodium Succinate 40 mg BID IV 05/26/25 10:00 Baclofen 10 mg Q8HP PRN PO 05/26/25 01:15 Gabapentin 300 mg BID PO 05/26/25 10:00 05/26/25 10:11 300 MG Ipratropium [place] 0.5 mg Q6HWA NEB 05/26/25 06:00 05/26/25 07:43 0.5 MG Albuterol 2.5 mg Q6HWA NEB 05/26/25 06:00 05/26/25 07:43 2.5 MG Lisinopril 5 mg DAILY PO 05/26/25 10:00 05/26/25 10:10 5 MG Mirtazapine 15 mg HS PO 05/26/25 22:00 Ondansetron HCl 4 mg Q6HP PRN PO 05/26/25 01:15 05/26/25 12:22 4 MG Tamsulosin HCl 0.4 mg QPM PO 05/26/25 18:00 Azithromycin 500 mg DAILY PO 05/26/25 10:00 05/26/25 10:08 500 MG Furosemide 20 mg DAILY PO 05/26/25 10:00 05/26/25 10:12 20 MG Hydromorphone HCl 2 mg Q4HP PRN PO 05/26/25 09:30 05/26/25 10:13 2 MG Hydrocortisone 10 mg DAILY PO 05/26/25 10:00 05/26/25 10:10 10 MG Atorvastatin Calcium 40 mg HS PO 05/26/25 22:00 Piperacillin Sod/ Tazobactam Sod 100 ml @ 25 mls/hr Q8HR IV 05/26/25 14:00 UNV Examination Pt is lying on bed General Appearance: Alert, Oriented X3, Cooperative, Mild distress HEENT: Atraumatic, Mucous membranes moist/pink Respiratory: Hyperinflated barrel-shaped chest, mild wheezing during expiration, Normal air movement, No added sounds Cardiovascular: Regular rate, Normal S1, Normal S2, No murmurs Abdominal/ : Active bowel sounds, Soft, no distention, no tenderness Extremities: No edema, Normal pulses, No tenderness/swelling Skin: No Significant rash, except past surgical scars Neuro: Normal speech, sensorimotor deficits none Psych/Mental Status: Mental status NL, Mood NL Nurse was there as screed operator during examination laboratory and microbiology Laboratory Tests 05/26/25 08:52 Test 05/26/25 08:52 Range/Units Serum Glucose 110 H 74-106 mg/dL Labs and/or images reviewed: Labs reviewed by me, Image(s) reviewed by me (RN) Problem List/Assessment/Plan Problem List/Assessment/Plan #Sepsis due to Pneumonia # Acute hypercapnic hypoxic respiratory failure due to pneumonia likely Gm positive/Gm negative organism # Acute Pneumonia likely Gm positive/Gm negative organism # COPD exacerbation with emphysematous changes and possible bilateral pleural effusion -In ER patient received morphine, nitroglycerin, vancomycin, ceftriaxone, furosemide, NSS bolus, albuterol-ipratropium, methylprednisolone, aspirin 325 mg -CT Chest /abdomen / pelvis- Concentric wall thickening of the distal colon suggestive of mild colitis. Severe centri lobular emphysema and COPD. Bibasilar consolidations may reflect pneumonia or aspiration. Mass like bi-apical scarring is seen measuring up to 3 cm in the right lung apex. No pulmonary embolism. -CXR- Interstitial and airspace opacities, greatest in the periphery, increased compared with prior. Infectious and inflammatory processes are considerations. -ABG-PH 7.339, PCO2 52.6, HC03 27.7 -Ceftriaxone 1 g IV daily discontinued and then switched to Zosyn -Azithromycin 500 mg p.o. daily to cover atypical microorganism -Continues oxygen 3 L via nasal cannula, titrate accordingly -Incentive spirometry -Sputum culture, blood culture -MRSA test, if positive start ABX accordingly. -Albuterol & Ipratropium nebulization q.6 H -Lasix 20 mg p.o. daily -COVID-19 and influenza A and B- negative -Solu-Medrol 40 mg b.i.d. continue # Chest pain due to NSTEMI type I vs type II -EKG: Tachycardia, HR 111, possible anteroseptal old infarct, QTC 389 -Troponin 1224 >1210>1153 -Started heparin drip -Cardiology consult #Bilateral apical lung mass -CT chest -Mass like bi-apical scarring is seen measuring up to 3 cm in the right lung apex. -Follow up out patient. # Colitis CT abdomen -Concentric wall thickening of the distal colon suggestive of mild colitis. -Zosyn # Essential hypertension -Continue lisinopril 5 mg p.o. daily -Monitor blood pressure # Chronic low-back pain -History of multiple back surgery -Gabapentin 300 mg p.o. b.i.d., baclofen 10 mg p.o. t.i.d., # Hx of Gray's disease -continue home medication hydrocortisone 10 mg # Depression -Mirtazapine 15 mg p.o. daily # Benign prostatic hyperplasia -Tamsulosin 0.4 mg p.o. daily # indwelling suprapubic catheter -Last change catheter x 1 week back # Chronic gastritis -Pantoprazole 40 mg p.o. daily # Gait instability -Use walker for ambulation DIET: SOFT DIET GI prophylaxis: Pantoprazole 40 mg daily DVT prophylaxis: Patient currently on heparin drip. Case discussed with Dr. Srinivasan. Plan discussed with: Patient, Other (RN) My Orders My Orders Orders - ORTIZ TINSLEY Procedure Category Date Status Time Piperacillin-Tazob PHA 05/26/25 Logged 3.375gm (Zosyn 3.375g 14:00 Date of Service: May 26, 2025 Billing Provider: WELLINGTON SRINIVASAN MD Common Visit Codes: [id number] INP/OBS CARE(HIGH) ORTIZ TINSLEY May 26, 2025 15:04 WELLINGTON SRINIVASAN MD May 26, 2025 18:14
[2025-05-26 16:04] LABS: INR 1.06 (0.9-1.15); Partial Thromboplastin Time 39.9 SEC (24.5-34.5); Prothrombin Time 11.2 sec (9.3-11.8)
--- NOTE | 2025-05-26 16:25 | CONS ---
Pharmacy Clinical Information: HEPARIN DRIP RATE INCREASED TO 1200 UNITS/HR PER APTT OF 39.9 (SUBTHERAPEUTIC) NEXT APTT DRAW SCHEDULED FOR 2200 PER RX PROTOCOL CATRINA HAMLIN PHARMACIST May 26, 2025 16:25
--- NOTE | 2025-05-26 17:19 | DVH ---
Bilateral lower extremity venous duplex Clinical History: elevated ddimer Comparison: None Technique: Duplex Doppler evaluation of the deep venous systems of both lower extremities from the common femora l veins to the popliteal veins including color Doppler and spectral/pulsed waveform analysis was perf ormed. Findings: RIGHT SIDE: The common femoral vein demonstrates appropriate compressibility and waveform variability. There is compressibility/patency of the great saphenous vein at the proximal thigh. The femoral vein demonstrates appropriate compressibility and waveform variability. The deep femoral vein demonstrates appropriate compressibility and waveform variability. The popliteal vein demonstrates appropriate compressibility and waveform variability. There is normal compressibility at the tibioperoneal trunk. LEFT SIDE: The common femoral vein demonstrates appropriate compressibility and waveform variability. There is compressibility/patency of the great saphenous vein at the proximal thigh. The femoral vein demonstrates appropriate compressibility and waveform variability. The deep femoral vein demonstrates appropriate compressibility and waveform variability. The popliteal vein demonstrates appropriate compressibility and waveform variability. There is normal compressibility at the tibioperoneal trunk. Impression: 1. No right or left femoropopliteal venous thrombosis.
[2025-05-26] MEDS: TAMSULOSIN HYDROCHLORIDE 0.4 MG CAP PO SCH (18:00)
[2025-05-26] MEDS: diphenhdrAMINE HCL 25 MG CAP PO ONE (20:44)
[2025-05-26] MEDS ORDERED: cefTRIAXone 1GM/50ML D5W 50 ML IV SCH (21:00)
[2025-05-26] MEDS: ATORVASTATIN 20 MG TAB PO SCH (21:57)
[2025-05-26] MEDS: MIRTAZAPINE 30 MG TAB PO SCH (21:58)
[2025-05-26] MEDS: MAALOX PLUS or MAALOX 30 ML PO PRN (22:01)
[2025-05-26] MEDS: BACLOFEN 10 MG TAB PO PRN (23:25)
--- NOTE | 2025-05-26 23:50 | DVHINCON2 ---
Date of service: May 26, 2025 Referring Physician Reason for Consultation NSTEMI History of Present Illness This is a 69-year-old male with a past medical history of hypertension, COPD on 2 L of oxygen at home, medicine disease and chronic back pain who was brought to the ED with complaints of shortness of breaths. Per patient, he has chronic shortness of breaths but since 2 week has progressively worsened which prompted this visit. He also reports a dry cough, back pain and chest pain. He describes the pain a substernal heaviness, 7/10 in intensity, does not radiate, worsened with cough and mobility. He denies fever, palpitation, nausea, and vomiting. EKGs shows sinus rhythm with no significant ST or T-wave changes. Trop I is raised at 1200s, downtrending. Chest CT shows, severe centrilobular emphysema and COPD and bibasilar consolidations may reflect pneumonia or aspiration. Patient was admitted to the hospital. I am asked to consult on this patient. Family History: [place] disease G8 MOTHER FH: back pain G8 FATHER Allergies: Coded Allergies: Acetaminophen (Verified Allergy, Mild, RASH, 01/10/25) Aspirin (Verified Allergy, Unknown, 05/25/25) Ibuprofen (Verified Allergy, Unknown, 01/25/25) RASH Home Meds Active Scripts Tamsulosin Hcl (Flomax) 0.4 Mg Cap, 1 CAP PO DAILY for 30 Days, #30 CAP 11 Refills Prov:AUSTIN ESCOBEDO RESIDENT 01/27/25 Cranberry-Vitamin C (Azo Cranberry Urinary Tra 250-60 mg) 1 Cap Cap, 1 CAP PO BID for 5 Days, #10 CAP Prov:AUSTIN ESCOBEDO RESIDENT 01/27/25 Linezolid (Zyvox) 600 Mg Tab, 600 MG PO BID for 14 Days, #28 TAB Prov:AUSTIN ESCOBEDO [facility] 01/27/25 Hydrocortisone Base (Hydrocortisone) 10 Mg Tab, 10 MG PO DAILY, #30 TAB Prov:ELENA PALOMARES MD 01/22/25 Mirtazapine (Remeron) 15 Mg Tab, 1 TAB PO QPM, #30 TAB 1 Refill Prov:ELENA PALOMARES MD 01/22/25 Reported Medications Ondansetron HCl (Ondansetron) 4 Mg Tab, 8 MG PO Q8HPRN PRN for NAUSEA / VOMITING, TAB 01/25/25 Ipratropium-Albuterol (Ipratropium [place]/Albut) 1 [place], 1 CHILO IN Q6HPRN PRN for SHORTNESS OF BREATH, ML 01/25/25 Hydromorphone Hcl (Dilaudid) 2 Mg Tab, 2 MG PO Q4HPRN PRN for PAIN SCALE 7 THRU 10, TAB 01/25/25 Gabapentin (Gabapentin) 300 Mg Cap, 1 CAP PO BID for 30 Days, #60 01/10/25 Famotidine (Famotidine) 20 Mg Tab, 1 TAB PO DAILY for 30 Days, #30 01/10/25 Lisinopril (Lisinopril) 5 Mg Tab, 1 TAB PO DAILY for 30 Days, #30 01/10/25 Pantoprazole Sodium Sesquihydr (Pantoprazole Sodium) 40 Mg Tab, 1 TAB PO DAILY for 30 Days, #30 01/10/25 Baclofen (Baclofen) 10 Mg Tab, 1 TAB PO TID for 30 Days, #90 01/10/25 Current Medications Current Medications Medications (Trade) Dose Ordered Sig/Kush Route PRN Reason Start Time Stop Time Status Last Admin Heparin Sodium/ Dextrose 250 ml @ 10 mls/hr Q24H IV 05/26/25 08:57 05/26/25 16:10 DC 05/26/25 09:38 Nitroglycerin (Ntrostat Sublingual) 0.4 mg Q5MINP PRN SL FOR CHEST PAIN 05/26/25 00:00 Morphine Sulfate 2 mg Q30M PRN IV FOR CHEST PAIN 05/26/25 00:00 05/26/25 00:52 Pantoprazole Sodium (Protonix Tablet) 40 mg DAILY@0600 PO 05/26/25 06:00 05/26/25 06:00 Methylprednisolone Sodium Succinate (Solu Medrol) 40 mg BID IV 05/26/25 10:00 05/26/25 21:57 Ceftriaxone Sodium 50 ml @ 100 mls/hr DAILY@2100 IV 05/26/25 21:00 05/26/25 14:00 DC Metronidazole 100 ml @ 100 mls/hr Q8HR IV 05/26/25 06:00 05/26/25 14:00 DC 05/26/25 06:00 Azithromycin (Zithromax Tablet) 250 mg DAILY PO 05/26/25 10:00 05/26/25 06:19 DC Baclofen (Liorisal Tablet) 10 mg Q8HP PRN PO FOR MUSCLE SPASM 05/26/25 01:15 05/26/25 23:25 Gabapentin (Neurontin Capsule) 300 mg BID PO 05/26/25 10:00 05/26/25 21:58 Ipratropium [place] (Atrovent Medneb) 0.5 mg Q6HWA NEB 05/26/25 06:00 05/26/25 19:00 Albuterol (Ventolin Medneb) 2.5 mg Q6HWA NEB 05/26/25 06:00 05/26/25 19:00 Lisinopril (Zestril Tablet) 5 mg DAILY PO 05/26/25 10:00 05/26/25 10:10 Mirtazapine (Remeron Tablet) 15 mg HS PO 05/26/25 22:00 05/26/25 21:58 Ondansetron HCl (Zofran Po) 4 mg Q6HP PRN PO NAUSEA / VOMITING 05/26/25 01:15 05/26/25 12:22 Tamsulosin HCl (Flomax) 0.4 mg QPM PO 05/26/25 18:00 Azithromycin (Zithromax Tablet) 500 mg DAILY PO 05/26/25 10:00 05/26/25 10:08 Furosemide (Lasix Tablet) 20 mg DAILY PO 05/26/25 10:00 05/26/25 10:12 Hydromorphone HCl (Dilaudid Tablet) 2 mg Q4HP PRN PO SEVERE PAIN (7-10 PAIN SCALE) 05/26/25 09:30 05/26/25 17:42 Hydrocortisone (Cortef Tablet) 10 mg DAILY PO 05/26/25 10:00 05/26/25 10:10 Atorvastatin Calcium (Lipitor) 40 mg HS PO 05/26/25 22:00 05/26/25 21:57 Piperacillin Sod/ Tazobactam Sod 100 ml @ 25 mls/hr Q8HR IV 05/26/25 14:00 05/26/25 22:00 Heparin Sodium/ Dextrose 250 ml @ 12 mls/hr [id number] IV 05/26/25 16:10 05/26/25 20:26 DC 05/26/25 16:30 Al Hydrox/Mg Hydrox/Simethicone (Maalox Plus) 15 ml Q8HP PRN PO FOR STOMACH DISTRESS 05/26/25 20:30 05/26/25 22:01 Review of Systems Constitutional: Yes: Weakness, Malaise; No: Fever, Chills, Sweats, Other Eyes: No: Pain, Vision change, Conjunctivae inflammation, Eyelid inflammation, Other, Redness ENT: No: Ear pain, Ear discharge, Nose pain, Nose discharge, Nose congestion, Mouth pain, Mouth swelling, Throat pain, Throat swelling, Other Respiratory: Shortness of breath, SOB with excertion, Wheezing; No: Cough, Dry, Wheezing, Hemoptysis, Pleuritic Pain, Sputum, Other Cardiovascular: Chest Pain, Palpitations; No: Orthopnea, Paroxysmal Noc. Dyspnea, Edema, Lt Headedness, Other Gastrointestinal: Nausea; No: Vomiting, Abdominal Pain, Diarrhea, Constipation, Melena, Hematochezia, Other Genitourinary: No Dysuria, No Frequency, No Incontinence, No Hematuria, No Retention; Other (Suprapubic catheter in place) Musculoskeletal: No: other, neck pain, shoulder pain, arm pain, back pain, hand pain, leg pain, foot pain Skin: No: Rash, Lesions, Jaundice, Bruising, Other Neurological: No: Weakness, Numbness, Incoordination, Change in speech, Confusion, Seizures, Other Vital Signs Vital Signs Date Time Temp Pulse Resp B/P (MAP) Pulse Ox O2 Delivery O2 Flow Rate FiO2 05/26/25 20:02 95 Nasal Cannula* 4 36 05/26/25 19:06 79 20 05/26/25 17:30 99.7 131/68 (89) 99.7 Physical Exam GENERAL: Alert and oriented x 3. No acute distress. EYES: PERRL, EOMI. Anicteric. HENT: Moist mucous membranes. LUNGS: Diminished breath sounds. CARDIOVASCULAR: Regular rate and rhythm. ABDOMEN: Soft, non-tender and non-distended. EXTREMITIES: No edema. NEUROLOGIC: No focal neurological deficits. SKIN: Warm, dry. Labs/Diagnostic Data Labs Test 05/26/25 15:09 05/26/25 08:52 05/26/25 08:10 05/25/25 20:30 Range/Units Prothrombin Time 11.2 9.3-11.8 sec Prothrombin Time INR 1.06 0.9-1.15 Activated Partial Thromboplast Time 39.9 H 24.5-34.5 SEC White Blood Count 13.7 H 4.4-10.8 10^3/uL Red Blood Count 4.53 4.5-5.90 10^6/uL Hemoglobin 12.4 L 13.5-17.5 g/dL Hematocrit 37.8 L 41.0-53.0 % Mean Corpuscular Volume 83.6 80.0-100.0 fL Mean Corpuscular Hemoglobin 27.4 L 28.0-32.0 pg Mean Corpuscular Hemoglobin Concent 32.7 32.0-36.0 g/dL Red Cell Distribution Width 14.9 H 11.8-14.3 % Platelet Count 299 140-450 10^3/uL Mean Platelet Volume 6.7 L 6.9-10.8 fL Neutrophils (%) (Auto) 87.5 H 37.0-80.0 % Lymphocytes (%) (Auto) 8.1 L 10.0-50.0 % Monocytes (%) (Auto) 4.2 0.0-12.0 % Eosinophils (%) (Auto) 0.0 0.0-7.0 % Basophils (%) (Auto) 0.2 0.0-2.0 % Neutrophils # (Auto) 12.0 H 1.6-8.6 10 ^3/uL Lymphocytes # (Auto) 1.1 0.4-5.4 10 ^3/uL Monocytes # (Auto) 0.6 0-1.3 10 ^3/uL Eosinophils # (Auto) 0 0-0.8 10 ^3/uL Basophils # (Auto) 0 0-0.2 10 ^3/uL Nucleated Red Blood Cells 0.0 % Sodium Level 141 136-145 mmol/L Potassium Level 4.1 3.5-5.1 mmol/L Chloride Level 104 98-107 mmol/L Carbon Dioxide Level 28 20-31 mmol/L Anion Gap 9 5-15 Blood Urea Nitrogen 18 9-23 mg/dL Creatinine 1.08 0.700-1.30 mg/dL Glomerular Filtration Rate Calc 73 >90 mL/min BUN/Creatinine Ratio 16.7 10.0-20.0 Serum Glucose 110 H 74-106 mg/dL Calcium Level 9.9 8.7-10.4 mg/dL Magnesium Level 1.8 1.6-2.6 mg/dL Total Bilirubin 0.5 0.2-1.0 mg/dL Aspartate Amino Transferase (AST) 26 13-40 U/L Alanine Aminotransferase (ALT) 13 7-40 U/L Alkaline Phosphatase 74 46-116 U/L Troponin I High Sensitivity 574 *H </=54 ng/L Total Protein 6.3 5.7-8.2 g/dL Albumin 4.1 3.2-4.8 g/dL Urine Color Colorless Yellow Urine Clarity Clear Clear Urine pH 6.5 5.0-9.0 Urine Specific [place] 1.019 1.001-1.035 Urine Protein Negative Negative Urine Ketones Negative Negative Urine Blood Negative Negative /uL Urine Nitrite 1+ H Negative Urine Bilirubin Negative Negative Urine Urobilinogen Normal Negative mg/dL Urine Leukocyte Esterase Trace Negative /uL Urine RBC 1 0 - 3 /hpf Urine Microscopic WBC 2 0-3 /HPF Urine Squamous Epithelial Cells Few <5 /hpf Urine Bacteria Few H None Seen /hpf Urine Glucose Normal Normal mg/dL Blood Gas Specimen Type Arterial Blood Gas Sample Site Left radial Blood Gas Patient Temperature 37.0 Arterial Blood Date Drawn [id number] Arterial Blood pH 7.339 L 7.350-7.450 Arterial Blood Partial Pressure CO2 52.6 H 35.0-48.0 mmHg Arterial Blood Partial Pressure O2 55.2 L 83.0-108.0 mmHg Arterial Blood HCO3 27.7 21.0-28.0 mmol/L Arterial Blood Oxygen Saturation 89.8 L 94.0-98.0 % Arterial Blood Base Excess 1.0 -2.0-3.0 mmol/L Arterial Blood Oxyhemoglobin 88.5 L 94.0-98.0 % Arterial Blood Carboxyhemoglobin 1.0 0.5-1.5 % Arterial Blood Methemoglobin 0.5 0.0-1.5 % Williams Test Modified Blood Gas Total Hemoglobin 13.70 13.5-17.5 g/dL Blood Gas Liter Flow 2.00 Blood Gas Modality Nasal cannula Blood Gas Spontaneous Rate 20 FiO2 % 28.0 Specimen Drawn By meghann pina rt Test 05/25/25 20:25 05/25/25 03:23 Range/Units D-Dimer, Quantitative 3.48 H 0.0-0.49 mg/L FEU Lactic Acid Level 1.2 0.4-2.0 mmol/L B-Type Natriuretic Peptide 1480.92 0-100 pg/mL Influenza Type A Antigen Negative Negative Influenza Type B Antigen Negative Negative SARS-CoV-2 Antigen (Rapid) Negative NEGATIVE Microbiology Date/Time Source Procedure Growth Status 05/26/25 08:00 Nose MRSA Screen - Final Methicillin Resistant S.aureus Complete 05/25/25 20:30 Blood Blood Culture - Preliminary NO GROWTH AFTER 24 HOURS OF INCUBATION. Resulted Assessment Chest pain, likely noncardiac. Acute on chronic hypoxic respiratory failure, likely due to COPD exacerbation/pneumonia. Sepsis, due to above. NSTEMI, likely type 2 due to above. Hypertension. Addisons. Chronic back pain. Plan/Recommendation I agree with your ongoing assessment and care of plan. Patient has been seen by Chris Dunn, resident on my behalf. We have discussed the plan with the patient. Aspirin and atorvastatin. Discontinue heparin drip. Check echocardiogram. We may consider ischemic workup, if patients chest pain persisted after treatment of pulmonary condition (pneumonia). Rest of plan per primary team. Additional plan as per the hospital course. A total of 45 minutes was spent reviewing the patient record, examining the patient, making a diagnostic and therapeutic plan, discussing this plan with medical personnel, following up on diagnostic studies and following the patient for clinical stability excluding any and all procedures. At least 50% of this time was spent in direct, [id number] contact. Plan discussed with: Patient MARVIN MADRID MD May 26, 2025 23:50
[2025-05-27] VITALS (13 sets, daily range): BP systolic 114–133; BP diastolic 63–78; PULSE 67–94; RESP 16–20; TEMP 97.9–98.5; O2SAT 96–100
--- NOTE | 2025-05-27 01:07 | DVHSR ---
APPROVED REPORT EXAM: LIMITED Two-dimensional and M-mode echocardiogram with Doppler and color Doppler. Blood Pressure: 112/53 mmHg INDICATION Chest Pain RISK FACTORS Obesity: Height: 5'8, Weight: 160 DIMENSIONS LVDd4.4 (3.8-5.7cm)LA (2D)3.7 (1.9-4.0cm)Aortic Root3.9 (2.0-3.7cm) LVDs3.2 (2.5-4.0cm)LA (MM) (1.9-4.0cm)Aortic Cusp Exc2.3 (1.5-2.0cm) EF (%) 50.0 (55-70%)Rt. Atrium4.1 (1.9-4.0cm)Asc. Aorta cm IVSd1.4 (0.7-1.1cm)RV (D) (1.8-2.4cm) PWd1.1 (0.7-1.1cm) Mitral Valve MitralMitral Stenosis E wave0.70m/sMV Mean GR.mmHg A wave0.86m/sMV Peak GR.mmHg E/A ratio0.82D MVAcm2 DECEL [id number] 1/2 Timems Aortic Valve Aortic ValveAortic Stenosis V11.09m/Mary Mean GR.mmHg V21.02m/Mary Peak GR.4mmHg LVOT Diameter2.3 (1.8-2.4cm)Doppler AVA4.44cm2 Tricuspid Valve TR Velocity3.23m/s [id number] Other Information Quality : Technically LimitedRhythm : Technically limited study due to pt moving talking and c/o pain in back Conclusion MILD LVH AND MILD LV DIASTOLIC DYSFUNCTION LV EF IS 60% AND IS NORMAL MODERATELY DILATED RV AND RA MODERATE DEGREE PULMONARY HYPERTENSION RVSP IS 56 MM OF HG AND IS MODERATELY HIGH GROSSLY NORMAL VALVES NO EFFUSION
[2025-05-27] MEDS: MELATONIN 5 MG TAB PO ONE (03:24)
[2025-05-27] MEDS: LACTULOSE 20Gm/30ML SOLN PO ONE (03:33)
[2025-05-27 11:01] LABS: Hematocrit 40.4 % (41.0-53.0); Hemoglobin 13.1 g/dL (13.5-17.5); Mean Corpuscular Hemoglobin 27.4 pg (28.0-32.0); Mean Corpuscular Volume 84.6 fL (80.0-100.0); Nucleated Red Blood Cells % 0.1 %
[2025-05-27 11:12] LABS: Anion Gap 7 (5-15); Carbon Dioxide 29 mmol/L (20-31); Chloride 104 mmol/L (98-107); Potassium 4.7 mmol/L (3.5-5.1); Sodium 140 mmol/L (136-145)
[2025-05-27 11:15] LABS: Calcium 10.6 mg/dL (8.7-10.4)
[2025-05-27 11:18] LABS: BUN/Creatinine Ratio 21.4 (10.0-20.0)
[2025-05-27 11:19] LABS: Blood Urea Nitrogen 22 mg/dL (9-23); Glucose 107 mg/dL (74-106)
[2025-05-27] MEDS: LORazepam 0.5 MG TAB PO ONE (12:08)
[2025-05-27] MEDS: diphenhdrAMINE HCL 25 MG CAP PO PRN (12:22)
[2025-05-27] MEDS: MORPHINE SULF 30 mg ER tab PO SCH (13:54)
--- NOTE | 2025-05-27 18:27 | DVHPNRES ---
Progress Note Date Seen: May 27, 2025 Resident Creating Document: ORTIZ TINSLEY RESIDENT Medical Necessity Reason Pt with a Central, PICC or Fol: No (RN) Subjective Review of Systems This is a 69-year-old male with past medical history of hypertension, COPD with 2 L home oxygen, Burnet's disease, emphysema, low-back pain with multiple surgeries, indwelling suprapubic catheter BIBEMS from longterm facility due to shortness of breath for 1 week which worsen day by day. As per patient, EMS found her oxygen saturation low around 89% and give nebulization treatment which is increased 93-95%. Patient also have retrosternal chest pain, 7 to 8/10 intensity, localized, aggravated during walking with walker and mildly relieved on rest associated with nausea and fatigue. Patient using walker with wheels for his ambulation. As per ED physician, initial assessment by EMS, Lung sounds were comments of been diminished with some wheezing, bilaterally. Currently denies congestion, nausea, vomiting, fever, chills, or further associated symptoms. Patient indwelling suprapubic catheter and last change week ago, no hematuria noted on urine bag. PMH: COPD (On home oxygen 2 L), HTN, UTI'S Burnet's disease Chronic hypoxic respiratory failure due to COPD Chronic back pain BPH status post cystoscopy Surgical History : Back surgery-multiple, Suprapubic catheter Family History: noncontributory Social History: ex-Smoker Alcohol: Denies ETOH Use Allergy: Acetaminophen, Aspirin, Ibuprofen RASH 05/27 interval events: Patient reports back pain and anxiety, he requested his Ativan and pain medicine. Patient reports having runny nose. His shortness of breath and chest pain improved since yesterday. He denies any fever, chills, abdominal pain or any other complaints at this time. Review of systems: The patient was seen and examined at bedside. Overnight events were reviewed. Review of systems as per above. Rest of the ROS is negative. Objective vital signs Vital Sign Date Time Temp Pulse Resp B/P (MAP) Pulse Ox O2 Delivery O2 Flow Rate FiO2 05/27/25 16:44 98.5 73 17 120/65 (83) 100 98.5 05/27/25 11:25 Nasal Cannula* 2 28 Total Intake and Output 05/26/25 05/26/25 05/27/25 15:00 23:00 07:00 Intake Total 150 ml 20 ml 300 ml Balance 150 ml 20 ml 300 ml medications Current Medications Medications Dose Ordered Sig/Kush Route Start Time Stop Time Status Last Admin Dose Admin Nitroglycerin 0.4 mg Q5MINP PRN SL 05/26/25 00:00 Morphine Sulfate 2 mg Q30M PRN IV 05/26/25 00:00 05/26/25 00:52 2 MG Pantoprazole Sodium 40 mg DAILY@0600 PO 05/26/25 06:00 05/27/25 06:10 40 MG Methylprednisolone Sodium Succinate 40 mg BID IV 05/26/25 10:00 05/27/25 09:02 40 MG Baclofen 10 mg Q8HP PRN PO 05/26/25 01:15 05/27/25 08:59 10 MG Gabapentin 300 mg BID PO 05/26/25 10:00 05/27/25 09:00 300 MG Ipratropium [place] 0.5 mg Q6HWA NEB 05/26/25 06:00 05/26/25 19:00 0.5 MG Albuterol 2.5 mg Q6HWA NEB 05/26/25 06:00 05/26/25 19:00 2.5 MG Lisinopril 5 mg DAILY PO 05/26/25 10:00 05/26/25 10:10 5 MG Mirtazapine 15 mg HS PO 05/26/25 22:00 05/26/25 21:58 15 MG Ondansetron HCl 4 mg Q6HP PRN PO 05/26/25 01:15 05/26/25 12:22 4 MG Tamsulosin HCl 0.4 mg QPM PO 05/26/25 18:00 Azithromycin 500 mg DAILY PO 05/26/25 10:00 05/27/25 09:04 500 MG Hydromorphone HCl 2 mg Q4HP PRN PO 05/26/25 09:30 05/27/25 17:02 2 MG Hydrocortisone 10 mg DAILY PO 05/26/25 10:00 05/27/25 09:00 10 MG Atorvastatin Calcium 40 mg HS PO 05/26/25 22:00 05/26/25 21:57 40 MG Piperacillin Sod/ Tazobactam Sod 100 ml @ 25 mls/hr Q8HR IV 05/26/25 14:00 05/27/25 13:59 25 MLS/HR Al Hydrox/Mg Hydrox/Simethicone 15 ml Q8HP PRN PO 05/26/25 20:30 05/27/25 14:34 15 ML Morphine Sulfate 30 mg Q12HR PO 05/27/25 10:30 05/27/25 13:54 30 MG Lorazepam 1 mg Q12HP PRN PO 05/27/25 20:00 Diphenhydramine HCl 25 mg Q8HP PRN PO 05/27/25 10:45 05/27/25 12:22 25 MG Furosemide 20 mg DAILY PO 05/28/25 10:00 Mupirocin 1 applic BID EACHNOSTRI 05/27/25 22:00 06/01/25 21:59 Examination Pt is lying on bed General Appearance: Alert, Oriented X3, Cooperative, Mild distress HEENT: Atraumatic, Mucous membranes moist/pink Respiratory: Hyperinflated barrel-shaped chest, mild wheezing during expiration, Normal air movement, No added sounds Cardiovascular: Regular rate, Normal S1, Normal S2, No murmurs Abdominal/ : Suprapubic catheter in place, Active bowel sounds, Soft, no distention, no tenderness Extremities: No edema, Normal pulses, No tenderness/swelling Skin: No Significant rash, except past surgical scars Neuro: Normal speech, sensorimotor deficits none Psych/Mental Status: Mental status NL, Mood NL Nurse was there as church worker during examination laboratory and microbiology Laboratory Tests 05/27/25 10:40 Test 05/27/25 10:40 Range/Units Serum Glucose 107 H 74-106 mg/dL Microbiology Date/Time Source Procedure Growth Status 05/26/25 08:00 Nose MRSA Screen - Final Methicillin Resistant S.aureus Complete 05/25/25 20:30 Blood Blood Culture - Preliminary NO GROWTH AFTER 24 HOURS OF INCUBATION. Resulted Labs and/or images reviewed: Labs reviewed by me, Image(s) reviewed by me Problem List/Assessment/Plan Problem List/Assessment/Plan #Sepsis due to Pneumonia # Acute hypercapnic hypoxic respiratory failure due to pneumonia likely Gm positive/Gm negative organism # Acute Pneumonia likely Gm positive/Gm negative organism # COPD exacerbation with emphysematous changes and possible bilateral pleural effusion # MRSA positive -In ER patient received morphine, nitroglycerin, vancomycin, ceftriaxone, furosemide, NSS bolus, albuterol-ipratropium, methylprednisolone, aspirin 325 mg -CT Chest /abdomen / pelvis- Concentric wall thickening of the distal colon suggestive of mild colitis. Severe centri lobular emphysema and COPD. Bibasilar consolidations may reflect pneumonia or aspiration. Mass like bi-apical scarring is seen measuring up to 3 cm in the right lung apex. No PE -CXR- Interstitial and airspace opacities, greatest in the periphery, increased compared with prior. Infectious and inflammatory processes are considerations. -ABG-PH 7.339, PCO2 52.6, HC03 27.7 -Ceftriaxone 1 g IV daily discontinued and then switched to Zosyn and Azithromycin 500 mg p.o. daily -Continues oxygen 3 L via nasal cannula, titrate accordingly -Incentive spirometry -Sputum culture, blood culture -Albuterol & Ipratropium nebulization q.6 H -Lasix 20 mg p.o. daily -COVID-19 and influenza A and B- negative -Solu-Medrol 40 mg b.i.d. continue # Chest pain due to NSTEMI type I vs type II -EKG: Tachycardia, HR 111, possible anteroseptal old infarct, QTC 389 -Troponin 1224 >1210>1153 -Cardiology consult: Discontinued heparin. Continue Aspirin and atorvastatin. Check echocardiogram. -We may consider ischemic workup, if patients chest pain persisted after treatment of pulmonary condition (pneumonia). - ECHO showed LVEF 60% with diastolic dysfunction # Bilateral apical lung mass -CT chest -Mass like bi-apical scarring is seen measuring up to 3 cm in the right lung apex. -Follow up out patient. # Acute Colitis CT abdomen -Concentric wall thickening of the distal colon suggestive of mild colitis. -Zosyn # Essential hypertension -Continue lisinopril 5 mg p.o. daily -Monitor blood pressure # Chronic low-back pain -History of multiple back surgery -Gabapentin 300 mg p.o. b.i.d., baclofen 10 mg p.o. t.i.d., # Hx of Vitor's disease -continue home medication hydrocortisone 10 mg # Depression -Mirtazapine 15 mg p.o. daily # Benign prostatic hyperplasia -Tamsulosin 0.4 mg p.o. daily # Indwelling suprapubic catheter -Last change catheter x 1 week back # Chronic gastritis -Pantoprazole 40 mg p.o. daily # Gait instability -Use walker for ambulation DIET: soft diet GI prophylaxis: Pantoprazole 40 mg daily DVT prophylaxis: Lovenox 40 Mg Goals of care discussed with the patient for 20 minutes: Full code status Case discussed with , Patient and RN Plan discussed with: Patient, Other (RN) My Orders My Orders Orders - ORTIZ TINSLEY RESIDENT Procedure Category Date Status Time Diphenhdramine PHA 05/27/25 In Process Capsule (Benadryl 10:45 Addendum Addendum Addendum I was physically present for the [place] portions of the service provided to patient by THE RESIDENT. I have reviewed the documentation, discussed the case with resident and agree with the resident's documentation except as noted. Also the patient's clinical case was discussed with the patient's nurse. This medical document was created using an electronic medical record system with computerized dictation system. Although this document has been carefully reviewed, there might still be some phonetic and typographical errors. These areas are purely typographical due to imperfections of the software programs, and do not reflect any compromise in the patient's medical care. Late signature. Date of Service: May 27, 2025 Billing Provider: GARCIA GARCIA MD Common Visit Codes: 71259-OACQJVAHUL INP/OBS CARE(HIGH) Secondary Visit Codes: 78787-[id number] CARE PLAN 30 MINUTES (20 minutes) ORTIZ TINSLEY RESIDENT May 27, 2025 18:27 JILL PRADHAN RESIDENT May 27, 2025 18:59 GARCIA GARCIA MD May 30, 2025 04:39
--- NOTE | 2025-05-27 21:37 | DVHPN2 ---
Progress Note - Dictate Date Seen: May 27, 2025 Medical Necessity Reason Pt with a Central, PICC or Fol: No (RN) Subjective Patient was seen and evaluated in follow up. Overnight, the patient refused multiple medications. Patient reports feeling constipated. Patient also endorses feeling anxious. Echocardiogram showed an EF of 60%. WBC 13.9, CA 10.6. Telemetry reviewed. vital signs Vital Sign Date Time Temp Pulse Resp B/P (MAP) Pulse Ox O2 Delivery O2 Flow Rate FiO2 05/27/25 16:44 98.5 73 17 120/65 (83) 100 98.5 05/27/25 11:25 Nasal Cannula* 2 28 Total Intake and Output 05/26/25 05/26/25 05/27/25 15:00 23:00 07:00 Intake Total 150 ml 20 ml 300 ml Balance 150 ml 20 ml 300 ml medications Current Medications Medications Dose Ordered Sig/Kush Route Start Time Stop Time Status Last Admin Dose Admin Nitroglycerin 0.4 mg Q5MINP PRN SL 05/26/25 00:00 Morphine Sulfate 2 mg Q30M PRN IV 05/26/25 00:00 05/26/25 00:52 2 MG Pantoprazole Sodium 40 mg DAILY@0600 PO 05/26/25 06:00 05/27/25 06:10 40 MG Methylprednisolone Sodium Succinate 40 mg BID IV 05/26/25 10:00 05/27/25 09:02 40 MG Baclofen 10 mg Q8HP PRN PO 05/26/25 01:15 05/27/25 08:59 10 MG Gabapentin 300 mg BID PO 05/26/25 10:00 05/27/25 09:00 300 MG Ipratropium [place] 0.5 mg Q6HWA [facility] 05/26/25 06:00 05/26/25 19:00 0.5 MG Albuterol 2.5 mg Q6HWA NEB 05/26/25 06:00 05/26/25 19:00 2.5 MG Lisinopril 5 mg DAILY PO 05/26/25 10:00 05/26/25 10:10 5 MG Mirtazapine 15 mg HS PO 05/26/25 22:00 05/26/25 21:58 15 MG Ondansetron HCl 4 mg Q6HP PRN PO 05/26/25 01:15 05/26/25 12:22 4 MG Tamsulosin HCl 0.4 mg QPM PO 05/26/25 18:00 Azithromycin 500 mg DAILY PO 05/26/25 10:00 05/27/25 09:04 500 MG Hydromorphone HCl 2 mg Q4HP PRN PO 05/26/25 09:30 05/27/25 17:02 2 MG Hydrocortisone 10 mg DAILY PO 05/26/25 10:00 05/27/25 09:00 10 MG Atorvastatin Calcium 40 mg HS PO 05/26/25 22:00 05/26/25 21:57 40 MG Piperacillin Sod/ Tazobactam Sod 100 ml @ 25 mls/hr Q8HR IV 05/26/25 14:00 05/27/25 13:59 25 MLS/HR Al Hydrox/Mg Hydrox/Simethicone 15 ml Q8HP PRN PO 05/26/25 20:30 05/27/25 14:34 15 ML Morphine Sulfate 30 mg Q12HR PO 05/27/25 10:30 05/27/25 13:54 30 MG Lorazepam 1 mg Q12HP PRN PO 05/27/25 20:00 Diphenhydramine HCl 25 mg Q8HP PRN PO 05/27/25 10:45 05/27/25 12:22 25 MG Furosemide 20 mg DAILY PO 05/28/25 10:00 Mupirocin 1 applic BID EACHNOSTRI 05/27/25 22:00 06/01/25 21:59 objective GENERAL: Alert and oriented x 3. No acute distress. EYES: PERRL, EOMI. Anicteric. HENT: Moist mucous membranes. LUNGS: Diminished breath sounds. CARDIOVASCULAR: Regular rate and rhythm. ABDOMEN: Soft, non-tender and non-distended. EXTREMITIES: No edema. NEUROLOGIC: No focal neurological deficits. SKIN: Warm, dry. laboratory and microbiology Laboratory Tests 05/27/25 10:40 Test 05/27/25 10:40 Range/Units Serum Glucose 107 H 74-106 mg/dL Problem List Chest pain, likely noncardiac. Acute on chronic hypoxic respiratory failure, likely due to COPD exacerbation/pneumonia. Sepsis, due to above. NSTEMI, likely type 2 due to above. Hypertension. Addisons. Chronic back pain. Assessment/Plan Continued all current supportive medical care. GI prophylactics. Diuretics with Lasix. IV antibiotics as ordered. Morphine and Dilaudid for pain management. Additional plan as per the hospital course. Plan discussed with: Patient MARVIN MADRID MD May 27, 2025 17:44
[2025-05-27] MEDS: LORazepam 0.5 MG TAB PO PRN (21:57)
[2025-05-27] MEDS ORDERED: MELATONIN 5 MG TAB PO SCH (22:00)
[2025-05-27] MEDS: MUPIROCIN 2% OINT 15gm or 22gm FOR MRSA NARES EACHNOSTRI SCH (23:34)
[2025-05-28] VITALS (10 sets, daily range): BP systolic 114–155; BP diastolic 54–82; PULSE 58–74; RESP 18–22; TEMP 97.6–98.8; O2SAT 91–99
[2025-05-28 08:15] LABS: Anion Gap 6 (5-15); Carbon Dioxide 29 mmol/L (20-31); Chloride 104 mmol/L (98-107); Potassium 4.7 mmol/L (3.5-5.1); Sodium 139 mmol/L (136-145)
[2025-05-28 08:19] LABS: Calcium 10.8 mg/dL (8.7-10.4)
[2025-05-28 08:20] LABS: BUN/Creatinine Ratio 22.0 (10.0-20.0); Blood Urea Nitrogen 20 mg/dL (9-23)
[2025-05-28 08:22] LABS: Glucose 120 mg/dL (74-106)
[2025-05-28 08:24] LABS: Hematocrit 39.8 % (41.0-53.0); Hemoglobin 13.0 g/dL (13.5-17.5); Mean Corpuscular Hemoglobin 27.6 pg (28.0-32.0); Mean Corpuscular Volume 84.4 fL (80.0-100.0); Nucleated Red Blood Cells % 0.1 %
[2025-05-28] MEDS: ENOXAPARIN SOD 40 MG/0.4 ML SYRINGE SC SCH (09:10)
--- NOTE | 2025-05-28 09:22 | DVHPNRES ---
Progress Note Date Seen: May 28, 2025 Resident Creating Document: ORTIZ TINSLEY RESIDENT Medical Necessity Reason Pt with a Central, PICC or Fol: No (RN) Objective vital signs Vital Sign Date Time Temp Pulse Resp B/P (MAP) Pulse Ox O2 Delivery O2 Flow Rate FiO2 05/28/25 07:19 58 18 98 05/28/25 07:13 Nasal Cannula* 2 28 05/28/25 05:00 98.8 120/57 (78) 98.8 Total Intake and Output 05/27/25 05/27/25 05/28/25 15:00 23:00 07:00 Intake Total 890 ml 450 ml Output Total 400 ml 700 ml Balance 490 ml -250 ml medications Current Medications Medications Dose Ordered Sig/Kush Route Start Time Stop Time Status Last Admin Dose Admin Nitroglycerin 0.4 mg Q5MINP PRN SL 05/26/25 00:00 Morphine Sulfate 2 mg Q30M PRN IV 05/26/25 00:00 05/26/25 00:52 2 MG Pantoprazole Sodium 40 mg DAILY@0600 PO 05/26/25 06:00 05/28/25 05:10 40 MG Methylprednisolone Sodium Succinate 40 mg BID IV 05/26/25 10:00 05/27/25 21:48 40 MG Baclofen 10 mg Q8HP PRN PO 05/26/25 01:15 05/27/25 08:59 10 MG Gabapentin 300 mg BID PO 05/26/25 10:00 05/27/25 21:47 300 MG Ipratropium [place] 0.5 mg Q6HWA NEB 05/26/25 06:00 05/28/25 07:13 0.5 MG Albuterol 2.5 mg Q6HWA [facility] 05/26/25 06:00 05/28/25 07:13 2.5 MG Lisinopril 5 mg DAILY PO 05/26/25 10:00 05/26/25 10:10 5 MG Mirtazapine 15 mg HS PO 05/26/25 22:00 05/27/25 21:47 15 MG Ondansetron HCl 4 mg Q6HP PRN PO 05/26/25 01:15 05/26/25 12:22 4 MG Tamsulosin HCl 0.4 mg QPM PO 05/26/25 18:00 Azithromycin 500 mg DAILY PO 05/26/25 10:00 05/27/25 09:04 500 MG Hydromorphone HCl 2 mg Q4HP PRN PO 05/26/25 09:30 05/28/25 05:10 2 MG Hydrocortisone 10 mg DAILY PO 05/26/25 10:00 05/27/25 09:00 10 MG Atorvastatin Calcium 40 mg HS PO 05/26/25 22:00 05/27/25 21:47 40 MG Piperacillin Sod/ Tazobactam Sod 100 ml @ 25 mls/hr Q8HR IV 05/26/25 14:00 05/27/25 13:59 25 MLS/HR Al Hydrox/Mg Hydrox/Simethicone 15 ml Q8HP PRN PO 05/26/25 20:30 05/27/25 14:34 15 ML Morphine Sulfate 30 mg Q12HR PO 05/27/25 10:30 05/27/25 21:47 30 MG Lorazepam 1 mg Q12HP PRN PO 05/27/25 20:00 05/27/25 21:57 1 MG Diphenhydramine HCl 25 mg Q8HP PRN PO 05/27/25 10:45 05/27/25 12:22 25 MG Furosemide 20 mg DAILY PO 05/28/25 10:00 Mupirocin 1 applic BID EACHNOSTRI 05/27/25 22:00 06/01/25 21:59 05/27/25 23:34 1 APPLIC Enoxaparin Sodium 40 mg DAILY SC 05/28/25 10:00 Examination This is a 69-year-old male with past medical history of hypertension, COPD with 2 L home oxygen, Vitor's disease, emphysema, low-back pain with multiple surgeries, indwelling suprapubic catheter BIBEMS from [place] [facility] facility due to shortness of breath for 1 week which worsen day by day. As per patient, EMS found her oxygen saturation low around 89% and give nebulization treatment which is increased 93-95%. Patient also have retrosternal chest pain, 7 to 8/10 intensity, localized, aggravated during walking with walker and mildly relieved on rest associated with nausea and fatigue. Patient using walker with wheels for his ambulation. As per ED physician, initial assessment by EMS, Lung sounds were comments of been diminished with some wheezing, bilaterally. Currently denies congestion, nausea, vomiting, fever, chills, or further associated symptoms. Patient indwelling suprapubic catheter and last change week ago, no hematuria noted on urine bag. CT chest abdomen pelvis showed severe centrilobular emphysema and COPD. LR consolidations may reflect pneumonia or aspiration. X-ray showed interstitial and airspace opacities. Zosyn and azithromycin was given. Oxygen 3 L was given with nasal cannula. Solu-Medrol 40 mg b.i.d. was given. Albuterol and ipratropium nebulization was continued q.6h. Lasix 20 mg per oral daily was given. Spine chest pain most likely due to NSTEMI type 1 versus type 2 was managed with EKG showing tachycardia but no acute ischemic changes. Was elevated and then down trending. Cardiology was consulted. Heparin drip was continued for 24 hours and was discontinued upon further evaluation. Aspirin and atorvastatin 10 continued echo showed LV ejection fraction 60% with diastolic dysfunction PMH: COPD (On home oxygen 2 L), HTN, UTI'S Vitor's disease Chronic hypoxic respiratory failure due to COPD Chronic back pain BPH status post cystoscopy Surgical History : Back surgery-multiple, Suprapubic catheter Family History: noncontributory Social History: ex-Smoker Alcohol: Denies ETOH Use Allergy: Acetaminophen, Aspirin, Ibuprofen RASH laboratory and microbiology Laboratory Tests 05/28/25 07:31 Test 05/28/25 07:31 Range/Units Serum Glucose 120 H 74-106 mg/dL Microbiology Date/Time Source Procedure Growth Status 05/26/25 08:00 Nose MRSA Screen - Final Methicillin Resistant S.aureus Complete 05/25/25 20:30 Blood Blood Culture - Preliminary NO GROWTH AFTER 48 HOURS OF INCUBATION. Resulted Labs and/or images reviewed: Labs reviewed by me, Image(s) reviewed by me Problem List/Assessment/Plan Problem List/Assessment/Plan #Sepsis due to Pneumonia # Acute hypercapnic hypoxic respiratory failure due to pneumonia likely Gm positive/Gm negative organism # Acute Pneumonia likely Gm positive/Gm negative organism # COPD exacerbation with emphysematous changes and possible bilateral pleural effusion -In ER patient received morphine, nitroglycerin, vancomycin, ceftriaxone, furosemide, NSS bolus, albuterol-ipratropium, methylprednisolone, aspirin 325 mg -CT Chest /abdomen / pelvis- Concentric wall thickening of the distal colon suggestive of mild colitis. Severe centri lobular emphysema and COPD. Bibasilar consolidations may reflect pneumonia or aspiration. Mass like bi-apical scarring is seen measuring up to 3 cm in the right lung apex. No pulmonary embolism. -CXR- Interstitial and airspace opacities, greatest in the periphery, increased compared with prior. Infectious and inflammatory processes are considerations. -ABG-PH 7.339, PCO2 52.6, HC03 27.7 -Ceftriaxone 1 g IV daily discontinued and then switched to Zosyn -Azithromycin 500 mg p.o. daily to cover atypical microorganism -Continues oxygen 3 L via nasal cannula, titrate accordingly -Incentive spirometry -Sputum culture, blood culture -MRSA test, if positive start ABX accordingly. -Albuterol & Ipratropium nebulization q.6 H -Lasix 20 mg p.o. daily -COVID-19 and influenza A and B- negative -Solu-Medrol 40 mg b.i.d. continue # Chest pain due to NSTEMI type I vs type II -EKG: Tachycardia, HR 111, possible anteroseptal old infarct, QTC 389 -Troponin 1224 >1210>1153 -Cardiology consult: Discontinued heparin. Continue Aspirin and atorvastatin. Check echocardiogram. -We may consider ischemic workup, if patients chest pain persisted after treatment of pulmonary condition (pneumonia). #Bilateral apical lung mass -CT chest -Mass like bi-apical scarring is seen measuring up to 3 cm in the right lung apex. -Follow up out patient. # Colitis CT abdomen -Concentric wall thickening of the distal colon suggestive of mild colitis. -Zosyn # Essential hypertension -Continue lisinopril 5 mg p.o. daily -Monitor blood pressure # Chronic low-back pain -History of multiple back surgery -Gabapentin 300 mg p.o. b.i.d., baclofen 10 mg p.o. t.i.d., # Hx of Vitor's disease -continue home medication hydrocortisone 10 mg # Depression -Mirtazapine 15 mg p.o. daily # Benign prostatic hyperplasia -Tamsulosin 0.4 mg p.o. daily # indwelling suprapubic catheter -Last change catheter x 1 week back # Chronic gastritis -Pantoprazole 40 mg p.o. daily # Gait instability -Use walker for ambulation DIET: SOFT DIET GI prophylaxis: Pantoprazole 40 mg daily DVT prophylaxis: Lovenox 40 Mg Case discussed with . Plan discussed with: Patient, Other (RN) My Orders My Orders Orders - ORTIZ TINSLEY Procedure Category Date Status Time Diphenhdramine PHA 05/27/25 In Process Capsule (Benadryl 10:45 Enoxaparin Sodium PHA 05/28/25 In Process (Lovenox) 10:00 ORTIZ TINSLEY May 28, 2025 09:22
[2025-05-28] MEDS: FUROSEMIDE 20 MG TAB PO SCH (10:00)
[2025-05-28] MEDS ORDERED: ATOR20TA50 PO (11:34)
[2025-05-28] MEDS ORDERED: AUG875T PO (11:34)
[2025-05-28] MEDS ORDERED: PRED20TA2 PO (11:34)
[2025-05-28] MEDS ORDERED: DOXY1CAP57 PO (11:34)
--- NOTE | 2025-05-28 16:37 | DVHDSRES ---
Discharge Summary Date of Admission Resident Creating Document: ORTIZ TINSLEY May 25, 2025 at 23:54 Date of Discharge: May 28, 2025 Admitting Diagnosis Chest pain SOB Labs/Diagnostic Data: Laboratory Results Test 05/28/25 07:31 05/26/25 15:09 05/26/25 08:52 05/26/25 08:10 White Blood Count 13.4 10^3/uL (4.4-10.8) Red Blood Count 4.72 10^6/uL (4.5-5.90) Hemoglobin 13.0 g/dL (13.5-17.5) Hematocrit 39.8 % (41.0-53.0) Mean Corpuscular Volume 84.4 fL (80.0-100.0) Mean Corpuscular Hemoglobin 27.6 pg (28.0-32.0) Mean Corpuscular Hemoglobin Concent 32.7 g/dL (32.0-36.0) Red Cell Distribution Width 15.1 % (11.8-14.3) Platelet Count 347 10^3/uL (140-450) Mean Platelet Volume 7.0 fL (6.9-10.8) Neutrophils (%) (Auto) 86.2 % (37.0-80.0) Lymphocytes (%) (Auto) 7.0 % (10.0-50.0) Monocytes (%) (Auto) 6.7 % (0.0-12.0) Eosinophils (%) (Auto) 0.0 % (0.0-7.0) Basophils (%) (Auto) 0.1 % (0.0-2.0) Neutrophils # (Auto) 11.5 10 ^3/uL (1.6-8.6) Lymphocytes # (Auto) 0.9 10 ^3/uL (0.4-5.4) Monocytes # (Auto) 0.9 10 ^3/uL (0-1.3) Eosinophils # (Auto) 0 10 ^3/uL (0-0.8) Basophils # (Auto) 0 10 ^3/uL (0-0.2) Nucleated Red Blood Cells 0.1 % Sodium Level 139 mmol/L (136-145) Potassium Level 4.7 mmol/L (3.5-5.1) Chloride Level 104 mmol/L (98-107) Carbon Dioxide Level 29 mmol/L (20-31) Anion Gap 6 (5-15) Blood Urea Nitrogen 20 mg/dL (9-23) Creatinine 0.91 mg/dL (0.700-1.30) Glomerular Filtration Rate Calc 90 mL/min (>90) BUN/Creatinine Ratio 22.0 (10.0-20.0) Serum Glucose 120 mg/dL (74-106) Calcium Level 10.8 mg/dL (8.7-10.4) Prothrombin Time 11.2 sec (9.3-11.8) Prothrombin Time INR 1.06 (0.9-1.15) Activated Partial Thromboplast Time 39.9 SEC (24.5-34.5) Magnesium Level 1.8 mg/dL (1.6-2.6) Total Bilirubin 0.5 mg/dL (0.2-1.0) Aspartate Amino Transferase (AST) 26 U/L (13-40) Alanine Aminotransferase (ALT) 13 U/L (7-40) Alkaline Phosphatase 74 U/L (46-116) Troponin I High Sensitivity 574 ng/L (</=54) Total Protein 6.3 g/dL (5.7-8.2) Albumin 4.1 g/dL (3.2-4.8) Urine Color Colorless (Yellow) Urine Clarity Clear (Clear) Urine pH 6.5 (5.0-9.0) Urine Specific [place] 1.019 (1.001-1.035) Urine Protein Negative (Negative) Urine Ketones Negative (Negative) Urine Blood Negative /uL (Negative) Urine Nitrite 1+ (Negative) Urine Bilirubin Negative (Negative) Urine Urobilinogen Normal mg/dL (Negative) Urine Leukocyte Esterase Trace /uL (Negative) Urine RBC 1 /hpf (0 - 3) Urine Microscopic WBC 2 /HPF (0-3) Urine Squamous Epithelial Cells Few /hpf (<5) Urine Bacteria Few /hpf (None Seen) Urine Glucose Normal mg/dL (Normal) Test 05/25/25 20:30 05/25/25 20:25 05/25/25 03:23 Blood Gas Specimen Type Arterial Blood Gas Sample Site Left radial Blood Gas Patient Temperature 37.0 Arterial Blood Date Drawn [id number] Arterial Blood pH 7.339 (7.350-7.450) Arterial Blood Partial Pressure CO2 52.6 mmHg (35.0-48.0) Arterial Blood Partial Pressure O2 55.2 mmHg (83.0-108.0) Arterial Blood HCO3 27.7 mmol/L (21.0-28.0) Arterial Blood Oxygen Saturation 89.8 % (94.0-98.0) Arterial Blood Base Excess 1.0 mmol/L (-2.0-3.0) Arterial Blood Oxyhemoglobin 88.5 % (94.0-98.0) Arterial Blood Carboxyhemoglobin 1.0 % (0.5-1.5) Arterial Blood Methemoglobin 0.5 % (0.0-1.5) Williams Test Modified Blood Gas Total Hemoglobin 13.70 g/dL (13.5-17.5) Blood Gas Liter Flow 2.00 Blood Gas Modality Nasal cannula Blood Gas Spontaneous Rate 20 FiO2 % 28.0 Specimen Drawn By meghann murray D-Dimer, Quantitative 3.48 mg/L FEU (0.0-0.49) Lactic Acid Level 1.2 mmol/L (0.4-2.0) B-Type Natriuretic Peptide 1480.92 pg/mL (0-100) Influenza Type A Antigen Negative (Negative) Influenza Type B Antigen Negative (Negative) SARS-CoV-2 Antigen (Rapid) Negative (NEGATIVE) Other Laboratory Tests 05/28/25 07:31 Brief Hx & Hospital Course: This is a 69-year-old male with past medical history of hypertension, COPD with 2 L/min home oxygen, Vitor's disease, emphysema, low-back pain with multiple surgeries, indwelling suprapubic catheter; BIBEMS from longterm facility due to shortness of breath for 1 week which worsen day by day. As per patient, EMS found her oxygen saturation low around 89% and give nebulization treatment which is increased 93-95%. Patient also have retrosternal chest pain, 7 to 8/10 intensity, localized, aggravated during walking with walker and mildly relieved on rest associated with nausea and fatigue. Patient using walker with wheels for his ambulation. As per ED physician, initial assessment by EMS, Lung sounds were comments of been diminished with some wheezing, bilaterally. Currently denies congestion, nausea, vomiting, fever, chills, or further associated symptoms. Patient indwelling suprapubic catheter and last change week ago, no hematuria noted on urine bag. Patient required hospital admission for further evaluation and management of respiratory failure, sepsis from pneumonia and chest pain. Pts chest pain most likely due to NSTEMI type 2 was managed with EKG showing tachycardia but no acute ischemic changes, trops elevated and then down trending. Cardiology was consulted. Initially heparin drip was continued for 24 hours and was discontinued upon further evaluation and ruled out ACS. Aspirin and atorvastatin 10 continued echo showed LV ejection fraction 60% with diastolic dysfunction. Patient diagnosed as acute gram-positive/negative bacterial pneumonia, and COPD exacerbation, CT chest abdomen pelvis showed severe centrilobular emphysema and COPD. LR consolidations may reflect pneumonia or aspiration. X-ray showed interstitial and airspace opacities. Zosyn and azithromycin was given. Oxygen 3 L was given with nasal cannula. Solu-Medrol 40 mg b.i.d. was given. Albuterol and ipratropium nebulization was continued q.6h. Lasix 20 mg per oral daily was given. His anxiety was managed with his home medication Ativan. COVID-19, influenza a and B was negative. Global back pain was managed with the gabapentin. His I have essential hypertension was controlled with lisinopril 5 mg per oral daily blood pressure was closely monitored. During the time of discharge the patient was hemodynamically stable and was able to tolerate oral medications and food. Discharge plan was discussed with the patient and verbalized understanding. The patient was advised to follow up with Cardiology and PCP within 1 week. Patient is going back to assisted living facility. Patient was discharged with Augmentin and doxycycline. Physical exam on the day of discharge: General Appearance: Alert, Oriented X3, Cooperative, Mild distress HEENT: Atraumatic, Mucous membranes moist/pink Respiratory: Hyperinflated barrel-shaped chest, mild wheezing during expiration, Normal air movement, No added sounds Cardiovascular: Regular rate, Normal S1, Normal S2, No murmurs Abdominal/ : Suprapubic catheter in place, Active bowel sounds, Soft, no distention, no tenderness Extremities: No edema, Normal pulses, No tenderness/swelling Skin: No Significant rash, except past surgical scars Neuro: Normal speech, sensorimotor deficits none Psych/Mental Status: Mental status NL, Mood NL Nurse was there as apparel merchandiser during examination Discussed with Dr. Garcia Operations or Procedures CT Chest /abdomen / pelvis- Concentric wall thickening of the distal colon suggestive of mild colitis. Severe centri lobular emphysema and COPD. Bibasilar consolidations may reflect pneumonia or aspiration. Mass like bi-apical scarring is seen measuring up to 3 cm in the right lung apex. No PE Concentric wall thickening of the distal colon suggestive of mild colitis. CXR- Interstitial and airspace opacities, greatest in the periphery, increased compared with prior. Infectious and inflammatory processes are considerations. EKG: Tachycardia, HR 111, possible anteroseptal old infarct, QTC 389 ECHO showed LVEF 60% with diastolic dysfunction Condition at Discharge: Stable Final Diagnosis/Problems List # Sepsis due to Pneumonia # Acute hypercapnic hypoxic respiratory failure due to pneumonia likely Gm positive/Gm negative organism; resolved back to baseline 2L/min # Acute Pneumonia likely Gm positive/Gm negative organism # COPD exacerbation with emphysematous changes and possible bilateral pleural effusion # MRSA positive # Chest pain due to NSTEMI type II, ruled out ACS # Bilateral apical lung mass # Acute Colitis # Essential hypertension # 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 # Depression # Benign prostatic hyperplasia # Indwelling suprapubic catheter # Chronic gastritis # Gait instability Discharge Disposition: Assisted Living Facility Discharge Instruct/Medications Diet: Consistent carbohydrate, Cardiac 2g Na,low cholest Diet comment: CARDIAC 2g NA, LOW CHOLESTEROL CONSISTENT CARBOHYDRATE Activity: No Restrictions, As Tolerated Follow Up/Referral: PCP and cardio Medications: per EMR Scheduled Amoxicillin & Pot Clavulanate (Augmentin Tablet), 875 MG PO BID Atorvastatin Calcium (Atorvastatin Calcium), 40 MG PO HS Baclofen (Baclofen), 1 TAB PO TID, (Reported) Cranberry-Vitamin C (Azo Cranberry Urinary Tra 250-60 mg), 1 CAP PO BID Doxycycline Monohydrate (Doxycycline Monohydrate), 1 CAP PO BID Famotidine (Famotidine), 1 TAB PO DAILY, (Reported) Gabapentin (Gabapentin), 1 CAP PO BID, (Reported) Hydrocortisone Base (Hydrocortisone), 10 MG PO DAILY Lisinopril (Lisinopril), 1 TAB PO DAILY, (Reported) Mirtazapine (Remeron), 1 TAB PO QPM Pantoprazole Sodium Sesquihydr (Pantoprazole Sodium), 1 TAB PO DAILY, (Reported) Prednisone (Prednisone), 40 MG PO DAILY Tamsulosin Hcl (Flomax), 1 CAP PO DAILY Scheduled PRN Hydromorphone Hcl (Dilaudid), 2 MG PO Q4HPRN PRN for PAIN SCALE 7 THRU 10, (Reported) Ipratropium-Albuterol (Ipratropium [place]/Albut), 1 CHILO IN Q6HPRN PRN for SHORTNESS OF BREATH, (Reported) Ondansetron HCl (Ondansetron), 8 MG PO Q8HPRN PRN for NAUSEA / VOMITING, (Reported) Discontinued Medications Linezolid (Zyvox), 600 MG PO BID Discharge Statement: "Patient was advised to return to the ER or call 911 if any headaches, dizziness, shortness of breath, chest pain, abdominal pain, bleeding, fevers, or worsening of medical condition. Patient was counseled about treatment plan, medications, possible side effects, patientverbalized understanding. All questions were answered to the best of my ability. 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 I have reviewed the documentation, discussed the case with resident and agree with the resident's documentation except as noted. Also the patient's clinical case was discussed with the patient's nurse. This medical document was created using an electronic medical record system with computerized dictation system. Although this document has been carefully reviewed, there might still be some phonetic and typographical errors. These areas are purely typographical due to imperfections of the software programs, and do not reflect any compromise in the patient's medical care. Late signature. Date of Service: May 28, 2025 Billing Provider: GARCIA GARCIA MD Common Visit Codes: 89027-AEX/OBS DISCH DAY >30min ALVINA,ORTIZ RESIDENT May 28, 2025 16:37 CAROLYNNJILL RABAGO RESIDENT May 28, 2025 17:13 GARCIA GARCIA MD May 30, 2025 04:42
--- NOTE | 2025-05-28 21:47 | DVHPN2 ---
Progress Note - Dictate Date Seen: May 28, 2025 Medical Necessity Reason Pt with a Central, PICC or Fol: No (RN) Subjective Patient was seen and evaluated in follow up. Patient is refusing antibiotics, states it causes him to have diarrhea. WBC 13.4, CA 10.8. Telemetry reviewed. vital signs Vital Sign Date Time Temp Pulse Resp B/P (MAP) Pulse Ox O2 Delivery O2 Flow Rate FiO2 05/28/25 12:45 98.0 74 22 155/82 (106) 91 98.0 05/28/25 11:22 Nasal Cannula 2.0 05/28/25 11:22 28 Total Intake and Output 05/27/25 05/27/25 05/28/25 15:00 23:00 07:00 Intake Total 890 ml 450 ml Output Total 400 ml 700 ml Balance 490 ml -250 ml medications Current Medications Medications Dose Ordered Sig/Kush Route Start Time Stop Time Status Last Admin Dose Admin Nitroglycerin 0.4 mg Q5MINP PRN SL 05/26/25 00:00 Morphine Sulfate 2 mg Q30M PRN IV 05/26/25 00:00 05/26/25 00:52 2 MG Pantoprazole Sodium 40 mg DAILY@0600 PO 05/26/25 06:00 05/28/25 05:10 40 MG Methylprednisolone Sodium Succinate 40 mg BID IV 05/26/25 10:00 05/28/25 09:12 40 MG Baclofen 10 mg Q8HP PRN PO 05/26/25 01:15 05/27/25 08:59 10 MG Gabapentin 300 mg BID PO 05/26/25 10:00 05/28/25 09:13 300 MG Ipratropium [place] 0.5 mg Q6HWA NEB 05/26/25 06:00 05/28/25 11:22 0.5 MG Albuterol 2.5 mg Q6HWA NEB 05/26/25 06:00 05/28/25 11:22 2.5 MG Lisinopril 5 mg DAILY PO 05/26/25 10:00 05/28/25 09:08 5 MG Mirtazapine 15 mg HS PO 05/26/25 22:00 05/27/25 21:47 15 MG Ondansetron HCl 4 mg Q6HP PRN PO 05/26/25 01:15 05/26/25 12:22 4 MG Tamsulosin HCl 0.4 mg QPM PO 05/26/25 18:00 Azithromycin 500 mg DAILY PO 05/26/25 10:00 05/28/25 09:24 500 MG Hydromorphone HCl 2 mg Q4HP PRN PO 05/26/25 09:30 05/28/25 12:00 2 MG Hydrocortisone 10 mg DAILY PO 05/26/25 10:00 05/28/25 09:08 10 MG Atorvastatin Calcium 40 mg HS PO 05/26/25 22:00 05/27/25 21:47 40 MG Al Hydrox/Mg Hydrox/Simethicone 15 ml Q8HP PRN PO 05/26/25 20:30 05/27/25 14:34 15 ML Morphine Sulfate 30 mg Q12HR PO 05/27/25 10:30 05/28/25 09:29 30 MG Lorazepam 1 mg Q12HP PRN PO 05/27/25 20:00 05/28/25 11:00 1 MG Diphenhydramine HCl 25 mg Q8HP PRN PO 05/27/25 10:45 05/27/25 12:22 25 MG Furosemide 20 mg DAILY PO 05/28/25 10:00 Mupirocin 1 applic BID EACHNOSTRI 05/27/25 22:00 06/01/25 21:59 05/28/25 09:22 1 APPLIC Enoxaparin Sodium 40 mg DAILY SC 05/28/25 10:00 05/28/25 09:10 40 MG Cefpodoxime Proxetil 200 mg BID PO 05/28/25 22:00 UNV objective GENERAL: Alert and oriented x 3. No acute distress. EYES: PERRL, EOMI. Anicteric. HENT: Moist mucous membranes. LUNGS: Diminished breath sounds. CARDIOVASCULAR: Regular rate and rhythm. ABDOMEN: Soft, non-tender and non-distended. EXTREMITIES: No edema. NEUROLOGIC: No focal neurological deficits. SKIN: Warm, dry. laboratory and microbiology Laboratory Tests 05/28/25 07:31 Test 05/28/25 07:31 Range/Units Serum Glucose 120 H 74-106 mg/dL Problem List Chest pain, likely noncardiac. Acute on chronic hypoxic respiratory failure, likely due to COPD exacerbation/pneumonia. Sepsis, due to above. NSTEMI, likely type 2 due to above. Hypertension. Addisons. Chronic back pain. Assessment/Plan Continued all current supportive medical care. Nitro SL. Lisinopril. GI and DVT prophylactics. IV antibiotics as ordered. Dilaudid for pain management. Additional plan as per the hospital course. Plan discussed with: Patient MARVIN MADRID MD May 28, 2025 13:36
[2025-05-28] MEDS ORDERED: CEFPODOXIME PROXETIL 200 MG TAB PO SCH (22:00)
== END 2025-05-28 21:30 | disposition home or self-care (01) | DRG 871 ==
LOC: EDBD 19:45 → ER 19:45 → OVERFLOW 23:54 → TELE-EAST 05-26 17:09 → TELE-WESTW 05-27 00:45
PROVIDERS: ADMIT Student in an Organized Health Care Education/Training Program; ATTEND Emergency Medicine
DX: A41.59 Other Gram-negative sepsis (principal); I21.A1 Myocardial infarction type 2; J96.22 Acute and chronic respiratory failure with hypercapnia; J96.21 Acute and chronic respiratory failure with hypoxia; J15.69 Pneumonia due to other Gram-negative bacteria; J15.9 Unspecified bacterial pneumonia; J44.1 Chronic obstructive pulmonary disease with (acute) exacerbation; E27.1 Primary adrenocortical insufficiency; J44.0 Chronic obstructive pulmonary disease with (acute) lower respiratory infection; Z66 Do not resuscitate; Z20.822 Contact with and (suspected) exposure to COVID-19; Z99.81 Dependence on supplemental oxygen; J43.2 Centrilobular emphysema; I10 Essential (primary) hypertension; F32.A Depression, unspecified; N40.0 Benign prostatic hyperplasia without lower urinary tract symptoms; K59.00 Constipation, unspecified; F17.200 Nicotine dependence, unspecified, uncomplicated; K52.9 Noninfective gastroenteritis and colitis, unspecified; M54.50 Low back pain, unspecified; B95.62 Methicillin resistant Staphylococcus aureus infection as the cause of diseases classified elsewhere; K29.50 Unspecified chronic gastritis without bleeding; G89.29 Other chronic pain; Z79.899 Other long term (current) drug therapy; Z88.6 Allergy status to analgesic agent
CPT/HCPCS: 36415; 36600; 71045; 71260; 74177; 80048; 80053; 81001; 82805; 83605; 83735; 83880; 84484; 85025; 85379; 85610; 85730; 87040; 87081; 87426; 87804; 93005; 93306; 93970; 94640; 96365; 96375; 99291; G0378; J2405; J2470; J2543; J3490; Q0162

== ENCOUNTER 2025-08-26 18:25 | Inpatient (IN) | payer OTHER, MEDICARE, MEDICAID ==
[2025-08-26] VITALS (19 sets, daily range): BP systolic 93–203; BP diastolic 57–87; PULSE 87–120; RESP 10–28; TEMP 97.2; O2SAT 97–100
[~2025-08-26] VITALS: Ht 172.7 cm; Wt 91.1 kg
[~2025-08-26 18:25] MED LIST changes: +ATOR20TA50 PO; +AUG875T PO; +DOXY1CAP57 PO; -LINE1TAB6 PO; +PRED20TA2 PO
[2025-08-26] MEDS: ROCURONIUM 10MG/ML 10ML VIAL IV ONE ×2 (18:34→18:45)
[2025-08-26] MEDS: ETOMIDATE (2MG/ML) 20ML VIAL IV ONE ×2 (18:34→18:45)
--- NOTE | 2025-08-26 18:44 | ED.PDOC ---
Altered Mental Status HPI Comments 69 year old male with PMHx COPD, HTN presents to the ED via EMS with a chief compliant of ALOC onset today (08/26/25). Per EMS, patient is from [facility], was found unresponsive outside of facility near a scooter. Downtime is unknown, unknown if patient hit his head on the ground. Upon EMS arrival patient was tachycardiac, BP was 148/70, O2 sat was 60% RA, cyanotic, pupils were fixed and dilated. Upon ED arrival, patient was unresponsive, tachycardiac, BP was 210/75. Patient was intubated with 8.0 ett tube. Chief Complaint: Shortness of Breath Time Seen by MD: 18:25 Reviewed Notes: Medications, Allergies Allergies: Coded Allergies: Acetaminophen (Verified Allergy, Mild, RASH, 01/10/25) Aspirin (Verified Allergy, Unknown, 05/25/25) Ibuprofen (Verified Allergy, Unknown, 01/25/25) RASH Home Meds Active Scripts Atorvastatin Calcium (ATORVASTATIN CALCIUM) 20 Mg Tab, 40 MG PO HS for 30 Days, #60 TAB Prov:CHAR CARLIN RESIDENT 05/28/25 Prednisone (Prednisone) 20 Mg Tab, 40 MG PO DAILY for 5 Days, #8 MG Prov:CHAR CARLIN RESIDENT 05/28/25 Doxycycline Monohydrate (Doxycycline Monohydrate) 100 Mg Cap, 1 CAP PO BID for 10 Days, #28 CAP Prov:CHAR CARLIN RESIDENT 05/28/25 Amoxicillin & Pot Clavulanate (AUGMENTIN TABLET) 875 Mg Tb, 875 MG PO BID for 10 Days, #20 TAB Prov:CHAR CARLIN RESIDENT 05/28/25 Tamsulosin Hcl (Flomax) 0.4 Mg Cap, 1 CAP PO DAILY for 30 Days, #30 CAP 11 Refills Prov:AUSTIN ESCOBEDO RESIDENT 01/27/25 Cranberry-Vitamin C (Azo Cranberry Urinary Tra 250-60 mg) 1 Cap Cap, 1 CAP PO BID for 5 Days, #10 CAP Prov:AUSTIN ESCOBEDO RESIDENT 01/27/25 Hydrocortisone Base (Hydrocortisone) 10 Mg Tab, 10 MG PO DAILY, #30 TAB Prov:ELENA PALOMARES MD 01/22/25 Mirtazapine (Remeron) 15 Mg Tab, 1 TAB PO QPM, #30 TAB 1 Refill Prov:ELENA PALOMARES MD 01/22/25 Reported Medications Ondansetron HCl (Ondansetron) 4 Mg Tab, 8 MG PO Q8HPRN PRN for NAUSEA / VOMITING, TAB 01/25/25 Ipratropium-Albuterol (Ipratropium Solway/Albut) 1 Chilo Chilo, 1 CHILO IN Q6HPRN PRN for SHORTNESS OF BREATH, ML 01/25/25 Hydromorphone Hcl (Dilaudid) 2 Mg Tab, 2 MG PO Q4HPRN PRN for PAIN SCALE 7 THRU 10, TAB 01/25/25 Gabapentin (Gabapentin) 300 Mg Cap, 1 CAP PO BID for 30 Days, #60 01/10/25 Famotidine (Famotidine) 20 Mg Tab, 1 TAB PO DAILY for 30 Days, #30 01/10/25 Lisinopril (Lisinopril) 5 Mg Tab, 1 TAB PO DAILY for 30 Days, #30 01/10/25 Pantoprazole Sodium Sesquihydr (Pantoprazole Sodium) 40 Mg Tab, 1 TAB PO DAILY for 30 Days, #30 01/10/25 Baclofen (Baclofen) 10 Mg Tab, 1 TAB PO TID for 30 Days, #90 01/10/25 Information Source: Emergency Med Personnel Mode of Arrival: EMS Severity: Moderate Timing: Other Duration: Since onset Prehospital treatment: Oxygen Quality: Other Past Medical History PAST MEDICAL HISTORY: COPD, HTN, UTI'S Family History Family History: Reviewed,noncontributory to illness Social History Smoker: Non-Smoker Alcohol: Denies ETOH Use Drugs: Denies Drug Use Lives In: Detention Unable to Obtain due to: Medical Urgency Physical Exam General Appearance: Moderate Distress HEENT: Normal ENT Inspection, Pharynx Normal, TMs Normal Neck: Full Range of Motion, Non-Tender, Normal, Normal Inspection Respiratory: Accessory Muscle Use, Decreased Breath Sounds, Respiratory Distress Cardiovascular: No Edema, No JVD, No Murmur, No Gallop, Normal Peripheral Pulses, Regular Rate/Rhythm Breast Exam: Deferred Gastrointestinal: No Organomegaly, Non Tender, No Pulsatile Mass, Normal Bowel Sounds, Soft Genitalia: Deferred Pelvic: Deferred Rectal: Deferred Extremities: No calf tenderness, Normal capillary refill, Normal inspection, Normal range of motion, Non-tender, No pedal edema Musculoskeletal : Apperance: Normal Neurologic: Disoriented, Other (Nonverbal) Cerebellar Function: Normal Reflexes: Normal Skin: Dry, Normal Color, Warm Lymphatic: No Adenopathy Was a procedure done? Was a procedure done?: Yes Sedation Sedation?: Yes Informed consent obtained: Yes Sedation start time: 18:34 Sedation end time: 18:54 Sedation total time: currently under sedation Intubation Indication: Respiratory Insufficiency Prep: Preoxygenation Pretreated with: Sedation Medicated with: Other (propofol) Intubation Approach: Orotracheal (8.0 ett) Informed consent obtained: Yes Risks/benefits/alt described: Yes Differential Diagnosis (ALOC) Differential Diagnosis: Dehydration, Hypoglycemia, DKA, Encephalopathy, Meningitis, Sepsis, Hypoxemia, Seizure, Closed Head Injury, CVA, Mass Lesion, SAH, Drug Overdose, ETOH Intoxication, Renal Failure, Other X-Ray, Labs, Meds, VS Vital Signs Date Time Temp Pulse Resp B/P (MAP) Pulse Ox O2 Delivery O2 Flow Rate FiO2 08/26/25 19:27 119 18 99 50 08/26/25 18:47 08/26/25 18:34 08/26/25 18:31 123 08/26/25 18:25 120 28 99 Non-Rebreather 15 N/A 08/26/25 18:25 120 28 210/75 (120) 99 Lab Test 08/26/25 20:50 08/26/25 19:42 08/26/25 19:41 08/26/25 18:51 Range/Units Lactic Acid Level Pending 8.0 *H 0.4-2.0 mmol/L Troponin I High Sensitivity 32 17 </=54 ng/L Blood Gas Specimen Type Arterial Blood Gas Sample Site Right radial Blood Gas Patient Temperature 37.0 Arterial Blood Date Drawn [id number] Arterial Blood pH 7.124 *L 7.350-7.450 Arterial Blood Partial Pressure CO2 88.8 *H 35.0-48.0 mmHg Arterial Blood Partial Pressure O2 89.8 83.0-108.0 mmHg Arterial Blood HCO3 28.5 H 21.0-28.0 mmol/L Arterial Blood Oxygen Saturation 94.6 94.0-98.0 % Arterial Blood Base Excess -3.1 L -2.0-3.0 mmol/L Arterial Blood Oxyhemoglobin 92.3 L 94.0-98.0 % Arterial Blood Carboxyhemoglobin 1.5 0.5-1.5 % Arterial Blood Methemoglobin 0.9 0.0-1.5 % Williams Test Modified Blood Gas Total Hemoglobin 13.80 13.5-17.5 g/dL Blood Gas Set Respiration Rate 18.0 Blood Gas Modality Vent - ac FiO2 % 50.0 Blood Gas Tidal Volume 500.0 Blood Gas PEEP or CPAP 5.0 Blood Gas Critical Value Read Back Yes Blood Gas Notified Whom ashley Lu md Blood Gas Notified Time [id number] Blood Gas Notified By pippa Cherry rrt White Blood Count 12.8 H 4.4-10.8 10^3/uL Red Blood Count 4.53 4.5-5.90 10^6/uL Hemoglobin 12.5 L 13.5-17.5 g/dL Hematocrit 40.0 L 41.0-53.0 % Mean Corpuscular Volume 88.2 80.0-100.0 fL Mean Corpuscular Hemoglobin 27.5 L 28.0-32.0 pg Mean Corpuscular Hemoglobin Concent 31.2 L 32.0-36.0 g/dL Red Cell Distribution Width 15.3 H 11.8-14.3 % Platelet Count 395 140-450 10^3/uL Mean Platelet Volume 6.9 6.9-10.8 fL Neutrophils (%) (Auto) 58.2 37.0-80.0 % Lymphocytes (%) (Auto) 35.0 10.0-50.0 % Monocytes (%) (Auto) 4.3 0.0-12.0 % Eosinophils (%) (Auto) 1.6 0.0-7.0 % Basophils (%) (Auto) 0.9 0.0-2.0 % Neutrophils # (Auto) 7.4 1.6-8.6 10 ^3/uL Lymphocytes # (Auto) 4.5 0.4-5.4 10 ^3/uL Monocytes # (Auto) 0.5 0-1.3 10 ^3/uL Eosinophils # (Auto) 0.2 0-0.8 10 ^3/uL Basophils # (Auto) 0.1 0-0.2 10 ^3/uL Nucleated Red Blood Cells 0.0 % Prothrombin Time 10.6 9.3-11.8 sec Prothrombin Time INR 1.00 0.9-1.15 Activated Partial Thromboplast Time 23.6 L 24.5-34.5 SEC D-Dimer, Quantitative 3.83 H 0.0-0.49 mg/L FEU Sodium Level 141 136-145 mmol/L Potassium Level 5.2 H 3.5-5.1 mmol/L Chloride Level 104 98-107 mmol/L Carbon Dioxide Level 23 20-31 mmol/L Anion Gap 14 5-15 Blood Urea Nitrogen 18 9-23 mg/dL Creatinine 1.20 0.700-1.30 mg/dL Glomerular Filtration Rate Calc 65 >90 mL/min BUN/Creatinine Ratio 15.0 10.0-20.0 Serum Glucose 228 H 74-106 mg/dL Calcium Level 9.8 8.7-10.4 mg/dL Magnesium Level 2.4 1.6-2.6 mg/dL Total Bilirubin 0.2 0.2-1.0 mg/dL Aspartate Amino Transferase (AST) 24 13-40 U/L Alanine Aminotransferase (ALT) 17 7-40 U/L Alkaline Phosphatase 107 46-116 U/L B-Type Natriuretic Peptide 42.80 0-100 pg/mL Total Protein 6.8 5.7-8.2 g/dL Albumin 4.5 3.2-4.8 g/dL Plasma/Serum Blood Alcohol < 3.0 <10 mg/dL Current Medications Medications (Trade) Dose Ordered Sig/Kush Route Start Time Stop Time Status Last Admin Etomidate 10 mg ONCE ONCE IV 08/26/25 18:45 08/26/25 18:46 DC 08/26/25 18:34 Rocuronium Solway 80 mg ONCE ONCE IV 08/26/25 18:45 08/26/25 18:46 DC 08/26/25 18:34 Propofol 100 ml @ 2.445 mls/ hr Q24H IV 08/26/25 18:45 08/26/25 18:[address] [address] Ph: [phone] DIAGNOSTIC IMAGING Diagnostic Imaging Report : [id number] Signed PATIENT: LYNNE STERLING ACCT: [id number] UNIT: [id number] : 1955 LOC: ER ROOM / BED: / AGE / SEX: 69 / M ADM STATUS: REG ER SERVICE 37 ORDERING PHYSICIAN: ESPERANZA LU MD PROCEDURE(s): HWOCT - HEAD WITHOUT CONTRAST REASON: ALOC ORDER NUMBER(s): [id number], ACCESSION NUMBER(s): [id number] EXAM: CT HEAD WITHOUT CONTRAST INDICATION: ALOC TECHNIQUE: CT of the head without intravenous contrast. Radiation Dose Information: CT Dose: CTDI volume is 58.81 mGy. Dose-length product is 1293.83 mGy*cm The dose indicators for CT are the volume Computed Tomography (CT) Dose Index (CTDIvol) and the Dose Length Product (DLP), and are measured in units of mGy and mGy-cm, respectively. These indicators are not patient dose, but values generated from the CT scanner acquisition factors. The report includes radiation exposure data for exposures received during this examination. COMPARISON: CT BRAIN WO CONTRAST on DOS: 10/15/23, CT NECK WO CONTRAST on DOS: 10/15/23 FINDINGS: There is no evidence of acute intracranial hemorrhage, extra-axial collection, mass effect, midline shift, herniation or hydrocephalus. The ventricles, sulci and cisterns are age appropriate. The ugalde-white differentiation is intact. Patchy periventricular and subcortical white matter hypoattenuation is nonspecific but may be related to small vessel ischemic disease. The visualized paranasal sinuses and mastoid air cells are clear. The surrounding soft tissues and osseous structures are unremarkable. IMPRESSION: No acute intracranial abnormality. ATED BY: ANCA GUPTA MD DICTATED DATE/TIME: 08/26/251943 SIGNED BY: ANCA GUPTA MD SIGNED DATE/TIME: 08/26/251943 CC: [place] [id number] Ph: [phone] DIAGNOSTIC IMAGING Diagnostic Imaging Report : [id number] Signed PATIENT: LYNNE STERLING ACCT: [id number] UNIT: [id number] : 1955 LOC: ER ROOM / BED: / AGE / SEX: 69 / M ADM STATUS: REG ER SERVICE 37 ORDERING PHYSICIAN: ESPERANZA LU MD PROCEDURE(s): CXRP - CHEST PORTABLE REASON: SOB ORDER NUMBER(s): [id number], ACCESSION NUMBER(s): [id number] CHEST RADIOGRAPH Indication: SOB Technique: Single frontal view of the chest was obtained Comparison: XY CHEST XRAY 1 VIEW on DOS: 05/25/25, XR CHEST 1 VIEW on DOS: 01/11 12/06, XY CHEST PORTABLE on DOS: 01/10/25 FINDINGS: Lines and Tubes: Endotracheal tube 7.2 cm above the king. Lungs: Bilateral interstitial prominence right worse than left. Pleura: No effusion. No pneumothorax. Cardiomediastinal contours: Unremarkable Bones: No acute osseous abnormality. IMPRESSION: 1. Endotracheal tube 7.2 cm above the king. 2. Prominent interstitial markings bilaterally right worse than left. Unimproved findings when compared to 05/25/2025. Most likely secondary to chronic disease. ATED BY: PERLA PLASCENCIA Jr., DO DICTATED DATE/TIME: 08/26/251930 SIGNED BY: PERLA PLASCENCIA Jr., SIGNED DATE/TIME: 08/26/251930 CC: Time of 1ST Reevaluation: 18:55 Reevaluation 1ST: Unchanged Patient Education/Counseling: Pt Unresponsive Family Education/Counseling: No Family Present SEPSIS Sepsis Screen Date sepsis recognized/suspect: Aug 26, 2025 Time Sepsis recognized/suspect: 1829 Recent Procedure: No On Antibiotic Therapy: No Respiratory Rate >20: No Heart Rate >90: Yes Temp<36 C (96.8 F) or >38.3 C: No SBP <90 or MAP <65 mmHG: No New Acute Mental Status Change: Yes Is the patient on CPAP, BIPAP,: No Physician Orders Urinalysis (08/26/25 18:38) Chest Portable (08/26/25 18:38) Head Without Contrast (08/26/25 18:38) Drug Screen (08/26/25 18:38) Silk Screen Etcher (08/26/25 18:38) Blood Culture (08/26/25 18:38) Troponin-I Hs (08/26/25 21:38) Insert/Manage Urinary Catheter QSHIFT (08/26/25 18:39) [place] Catheters (08/26/25 ) Propofol (Diprivan) (08/26/25 18:45) Rass Sedation Scale Q1HR (08/26/25 18:40) Electrocardigram (08/26/25 18:45) Abg W/ Co-Ox (08/26/25 19:45) Respiratory Culture W/ Gs (08/26/25 19:01) Ventilator Orders (08/26/25 18:35) Vital Signs Date Time Temp Pulse Resp B/P (MAP) Pulse Ox O2 Delivery O2 Flow Rate FiO2 08/26/25 19:27 119 18 99 50 08/26/25 18:47 08/26/25 18:34 08/26/25 18:31 123 08/26/25 18:25 120 28 99 Non-Rebreather 15 N/A 08/26/25 18:25 120 28 210/75 (120) 99 Laboratory Tests Test 08/26/25 18:51 08/26/25 20:50 Lactic Acid Level 8.0 mmol/L (0.4-2.0) *H Pending White Blood Count 12.8 10^3/uL (4.4-10.8) H Medications Medications Dose Ordered Sig/Kush Route Start Time Stop Time Status Last Admin Dose Admin Etomidate 10 mg ONCE ONCE IV 08/26/25 18:45 08/26/25 18:46 DC 08/26/25 18:34 Propofol 100 ml @ 2.445 mls/ hr Q24H IV 08/26/25 18:45 08/26/25 18:47 Rocuronium Solway 80 mg ONCE ONCE IV 08/26/25 18:45 08/26/25 18:46 DC 08/26/25 18:34 Departure 1 Departure Time of Disposition: 21:24 Impression: Primary Impression: Respiratory failure with hypoxia Additional Impression: Metabolic encephalopathy Disposition: 09 ADMITTED INPATIENT Admit to: ICU Condition: Critical Comments 69-year-old male found down at his board and [facility] working hard to breathe. Patient noted to be hypoxic. Patient was intubated upon arrival to the emergency department. Labs reviewed. White blood cell count elevated 12.8. D- dimer elevated at 3.83. Lactic acid elevated 8. Sodium 141. Potassium 5.2. Hyperglycemia 228. Patient was given IV fluids and IV antibiotics. I discussed the case with patient's primary physician Dr. Walls who states he plans to admit the patient. Critical Care Note Critical Care Time?: Yes (35 min-critical care time only) Critical care comment: Total critical care time: Approximately 36 minutes Due to a high probability of clinically significant, life threatening deterioration, the patient required my highest level of preparedness to intervene emergently and I personally spent this critical care time directly and personally managing the patient. This critical care time included obtaining a history; examining the patient; pulse oximetry; ordering and review of studies; arranging urgent treatment with development of a management plan; evaluation of patient's response to treatment; frequent reassessment; and, discussions with other providers. This critical care time was performed to assess and manage the high probability of imminent, life-threatening deterioration that could result in multi-organ failure. It was exclusive of separately billable procedures and treating other patients. Stability Stability form required: No Heart Score Heart Score: Heart Score Response (Comments) Value History Moderate Suspicious 1 EKG Repolarization Disturb 1 Age >65 2 Risk Factors 1 or 2 risk factors 1 Troponin 1-2 x's Normal limit 1 Total 6 I personally scribed for ESPERANZA LU MD ([email or web address]) on 08/26/25 at 18:44. Electronically submitted by Leah Lubin ([email or web address]). I personally scribed for ESPERANZA LU MD ([email or web address]) on 08/26/25 at 20:01. Electronically submitted by Leah Lubin ([email or web address]). ESPERANZA LU MD Aug 26, 2025 18:44
[2025-08-26] MEDS: PROPOFOL 100 ML IV SCH (18:47)
[2025-08-26] MEDS: PROPOFOL 100 ML IV ONE (18:48)
[2025-08-26 19:25] LABS: Hematocrit 40.0 % (41.0-53.0); Hemoglobin 12.5 g/dL (13.5-17.5); Mean Corpuscular Hemoglobin 27.5 pg (28.0-32.0); Mean Corpuscular Volume 88.2 fL (80.0-100.0); Nucleated Red Blood Cells % 0.0 %
[2025-08-26 19:29] LABS: Alanine Aminotransferase 17 U/L (7-40); Albumin 4.5 g/dL (3.2-4.8); Alkaline Phosphatase 107 U/L (46-116); Anion Gap 14 (5-15); BUN/Creatinine Ratio 15.0 (10.0-20.0); Blood Urea Nitrogen 18 mg/dL (9-23); Calcium 9.8 mg/dL (8.7-10.4); Carbon Dioxide 23 mmol/L (20-31); Chloride 104 mmol/L (98-107); Magnesium 2.4 mg/dL (1.6-2.6); Sodium 141 mmol/L (136-145); Total Protein 6.8 g/dL (5.7-8.2)
[2025-08-26 19:32] LABS: Bilirubin, Total 0.2 mg/dL (0.2-1.0); Glucose 228 mg/dL (74-106); Potassium 5.2 mmol/L (3.5-5.1)
--- NOTE | 2025-08-26 19:34 | DVH ---
CHEST RADIOGRAPH Indication: SOB Technique: Single frontal view of the chest was obtained Comparison: XY CHEST XRAY 1 VIEW on DOS: 05/25/25, XR CHEST 1 VIEW on DOS: 01/30/25, XY CHEST PORTABLE on DOS: 01/10/25 FINDINGS: Lines and Tubes: Endotracheal tube 7.2 cm above the king. Lungs: Bilateral interstitial prominence right worse than left. Pleura: No effusion. No pneumothorax. Cardiomediastinal contours: Unremarkable Bones: No acute osseous abnormality. IMPRESSION: 1. Endotracheal tube 7.2 cm above the king. 2. Prominent interstitial markings bilaterally right worse than left. Unimproved findings when compar ed to 05/25/2025. Most likely secondary to chronic disease.
[2025-08-26 19:41] LABS: INR 1.0 (0.9-1.15); Partial Thromboplastin Time 23.6 SEC (24.5-34.5); Prothrombin Time 10.6 sec (9.3-11.8)
--- NOTE | 2025-08-26 19:46 | DVH ---
EXAM: CT HEAD WITHOUT CONTRAST INDICATION: ALOC TECHNIQUE: CT of the head without intravenous contrast. Radiation Dose Information: CT Dose: CTDI volume is 58.81 mGy. Dose-length product is 1293.83 mGy*cm The dose indicators for CT are the volume Computed Tomography (CT) Dose Index (CTDIvol) and the Dose Length Product (DLP), and are measured in units of mGy and mGy-cm, respectively. These indicators are not patient dose, but values generated from the CT scanner acquisition factors. The report includes radiation exposure data for exposures received during this examination. COMPARISON: CT BRAIN WO CONTRAST on DOS: 10/15/23, CT NECK WO CONTRAST on DOS: 10/15/23 FINDINGS: There is no evidence of acute intracranial hemorrhage, extra-axial collection, mass effect, midline s hift, herniation or hydrocephalus. The ventricles, sulci and cisterns are age appropriate. The ugalde-white differentiation is intact. Patchy periventricular and subcortical white matter hypoattenuation is nonspecific but may be related to small vessel ischemic disease. The visualized paranasal sinuses and mastoid air cells are clear. The surrounding soft tissues and osseous structures are unremarkable. IMPRESSION: No acute intracranial abnormality.
[2025-08-26 19:51] LABS: Lactic Acid w/Reflex 8.0 mmol/L (0.4-2.0)
[2025-08-26 19:54] LABS: Base Excess -3.1 mmol/L (-2.0-3.0)
[2025-08-26] MEDS: hydrALAZINE HCL 20 MG/ML VL IV ONE (20:00)
[2025-08-26] MEDS ORDERED: NITROGLYCERIN 0.4 MG SL TAB SL PRN (21:00)
[2025-08-26] MEDS ORDERED: MORPHINE SULFATE INJ 2 MG/ml SYRG IV PRN (21:00)
[2025-08-26] MEDS ORDERED: DEXTROSE (50%) 50ML SYRG IV PRN (21:00)
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
--- NOTE | 2025-08-26 22:22 | ECG ---
[facility] Test Date: 2025-08-26 Test Time: 18:31:26 Pat Name: LYNNE STERLING Department: [facility] ED Patient ID: [facility]-[id number] Room: [address] [place] [address] Gender: M Chief Unit Forester: MARY JANE : 1955 Requested By: ESPERANZA LU Order Number: [id number] Reading MD: Ross Stephens Measurements Intervals [place] Rate: 123 P: 75 MI: 103 QRS: 41 QRSD: 86 T: 241 QT: 399 QTc: 571 Interpretive Statements Sinus tachycardia Atrial premature complex Probable left atrial enlargement Nonspecific repol abnormality, diffuse leads Prolonged QT interval Electronically Signed On 08-29-2025 18:42:13 PDT by Ross Stephens Please click the below link to view image of tracing.
[2025-08-26] MEDS: SODIUM CHLORIDE 0.9% 1,000 ML IVB ONE (22:25)
[2025-08-26] MEDS: SODIUM CHLORIDE 0.9% 1,000 ML IV ONE (22:26)
[2025-08-26] MEDS: AZITHROMYCIN 500MG/ 250ML 250 ML IV ONE (22:41)
[2025-08-26] MEDS: IOHEXOL 350 MG/ML 100ML IJ ONE (22:43)
[2025-08-26] MEDS: fentaNYL Drip 2500mCg/250mlNS 250 ML IV SCH (23:30)
[2025-08-26] MEDS: MIDAZOLAM DRIP 50 mg/50mL 50 ML IV SCH (23:30)
[2025-08-26] MEDS: SODIUM CHLORIDE 0.9% 2,000 ML IV ONE (23:33)
--- NOTE | 2025-08-26 23:38 | DVH ---
CTA Chest with intravenous contrast INDICATION: SOB r/o PE COMPARISON: CT CT CHEST/AB/PL W CON- IV ONLY on DOS: 05/25/25, CT CHEST WO CONTRAST on DOS: 10/15/23 TECHNIQUE: Multidetector spiral CTA of the chest was performed of the chest with intravenous contrast . PULMONARY ANGIOGRAPHY PROTOCOL was utilized using a bolus-tracking technique centered on the main p ulmonary artery. Axial, coronal and sagittal multiplanar and MIP reformats were performed. Radiation Dose : 1. Chest: CTDI volume is 38.48 mGy. Dose-length product is 969.31 mGy*cm The dose indicators for CT are the volume Computed Tomography (CT) Dose Index (CTDIvol) and the Dose Length Product (DLP), and are measured in units of mGy and mGy-cm, respectively. These indicators are not patient dose, but values generated from the CT scanner acquisition factors. The report includes radiation exposure data for exposures received during this examination. Findings: Pulmonary artery: No pulmonary embolism Lower neck: Normal thyroid. Lungs: ET tube tip in the distal trachea. Some secretions are seen within the trachea. Central airwa y is patent. Severe centrilobular emphysematous changes throughout both lungs. Grossly stable dense scarring at th e lung apices although somewhat masslike within the right upper lobe apex measuring 3.4 cm, previousl y 3 cm. Heart/Vascular Structures: Normal heart size. No pericardial effusion. Lymph Nodes: No adenopathy Pleura: No pleural effusion or significant pneumothorax. Musculoskeletal: No acute osseous abnormality. Soft tissues: Normal. Upper abdomen: Limited portions of the upper abdomen are unremarkable. IMPRESSION: No pulmonary embolism. No other acute abnormality. Slightly larger masslike pleural-parenchymal scarring at the right upper lobe apex. Further assessmen t with PET / CT is recommended if not already performed.
--- NOTE | 2025-08-26 23:45 | DVH ---
EXAM: CT CERVICAL WITHOUT CONTRAST HISTORY: fall injury COMPARISON: CT HEAD WITHOUT CONTRAST on DOS: 08/26/25, CT NECK WO CONTRAST on DOS: 10/15/23 CTDIvol 23.65 mGy, DLP 626.81 mGy*cm. TECHNIQUE: Multiple axial CT images of the spine were obtained using bone algorithm. Axial and coron al reformatting was done. Bone and soft tissue windows were reviewed. FINDINGS: Mild exaggeration of normal cervical lordosis. No CT evidence of definite acute fracture, spinal disl ocation, or significant appearing acute subluxation is seen. The visualized paraspinal soft tissues a re grossly unremarkable. Degenerative change of the cervical spine includes severe multilevel disc height loss with adjacent e ndplate sclerosis and anterior osteophytosis. Multilevel bilateral facet hypertrophy. Atherosclerotic vascular calcifications and right common carotid arterial stent. Endotracheal tube no mady. Spiculated right apical pulmonary mass measures 4.1 x 3.8 cm. Spiculated nodule within the left apex measures 2.2 x 1.6 cm. Diffuse paraseptal emphysematous parenchymal change bilaterally within the api joselito. IMPRESSION: 1. No definite CT evidence of acute fracture or dislocation of the bony cervical spine. 2. Degenerative changes of the cervical spine. 3. Spiculated right apical pulmonary mass measures 4.1 x 3.8 cm. 4. Spiculated nodule within the left apex measures 2.2 x 1.6 cm.
[2025-08-27] VITALS (62 sets, daily range): BP systolic 70–221; BP diastolic 45–110; PULSE 66–109; RESP 12–26; TEMP 97.5–99.7; O2SAT 90–100
[2025-08-27] MEDS: InsuLIN REG 1unit/0.01ml Soln (100units/ml) SC SCH
[2025-08-27] MEDS: ACCU-CHEK COMFORT CURVE STRIP VI SCH (00:24)
[2025-08-27 00:26] LABS: Base Excess -3.1 mmol/L (-2.0-3.0)
[2025-08-27] MEDS: NOREPINEPHRINE 8 MG/250ML KIT 250 ML IV SCH (01:34)
[2025-08-27] MEDS: ALBUTEROL SULF 2.5 MG/0.5ML(0.5%) NEB SOLN NEB PRN (04:03)
--- NOTE | 2025-08-27 04:30 | DVH ---
CHEST RADIOGRAPH Indication: ET TUBE VERIFICATION Technique: Single frontal view of the chest was obtained COMPARISON: CT CT ANGIO CHEST CONTRAST on DOS: 08/26/25, XY CHEST PORTABLE on DOS: 08/26/25, XY CHEST XRAY 1 VIEW on DOS: 05/25/25, XR CHEST 1 VIEW on DOS: 01/30/25, XY CHEST PORTABLE on DOS: 01/10/25 FINDINGS: Lines and Tubes: Unchanged. Lungs: The patient is moderately rotated to the left. No focal consolidation. Stable chronic appearin g right apical pleuroparenchymal scarring. Pleura: No effusion. No pneumothorax. Cardiomediastinal contours: Unremarkable Bones: Unremarkable IMPRESSION: 1. No acute cardiopulmonary disease. 2. Lines and tubes unchanged.
[2025-08-27 05:11] LABS: Hematocrit 34.3 % (41.0-53.0); Hemoglobin 10.8 g/dL (13.5-17.5); Mean Corpuscular Hemoglobin 26.7 pg (28.0-32.0); Mean Corpuscular Volume 85.2 fL (80.0-100.0); Nucleated Red Blood Cells % 0.0 %
[2025-08-27 05:28] LABS: Alanine Aminotransferase 12 U/L (7-40); Alkaline Phosphatase 81 U/L (46-116); Anion Gap 8 (5-15); BUN/Creatinine Ratio 15.2 (10.0-20.0); Blood Urea Nitrogen 15 mg/dL (9-23); Carbon Dioxide 28 mmol/L (20-31); Glucose 88 mg/dL (74-106); Potassium 4.2 mmol/L (3.5-5.1); Sodium 144 mmol/L (136-145); Total Protein 5.9 g/dL (5.7-8.2)
[2025-08-27 05:29] LABS: Albumin 3.7 g/dL (3.2-4.8)
[2025-08-27 05:36] LABS: Bilirubin, Total 0.2 mg/dL (0.2-1.0); Calcium 8.6 mg/dL (8.7-10.4); Chloride 108 mmol/L (98-107)
[2025-08-27 07:42] LABS: Base Excess 2.9 mmol/L (-2.0-3.0)
[2025-08-27] MEDS: ENOXAPARIN SOD 40 MG/0.4 ML SYRINGE SC SCH (10:42)
[2025-08-27 11:36] LABS: Urine Protein, UAD TRACE (Negative)
[2025-08-27 11:40] LABS: Amphetamine Screen, Urine Neg (NEGATIVE); Barbiturate Scree,Urine Neg (NEGATIVE); Benzodiazephine Screen, Urine Pos (NEGATIVE); Cannabinoid Screen, Urine Neg (NEGATIVE); Cocaine Screen, Urine Neg (NEGATIVE); Opiate Scree,Urine Pos (NEGATIVE); Phencyclidine Screen, Urine Neg (NEGATIVE)
[2025-08-27] MEDS: DEXMEDETOMIDINE HCL IN D5W 100 ML IV SCH (13:00)
--- NOTE | 2025-08-27 13:15 | DVHPN2 ---
Progress Note Date Seen: Aug 27, 2025 Has the PT tested + for MRSA If YES, has PT been informed?: No Medical Necessity Reason Pt with a Central, PICC or Fol: No Objective vital signs Vital Sign Date Time Temp Pulse Resp B/P (MAP) Pulse Ox O2 Delivery O2 Flow Rate FiO2 08/27/25 12:50 144/64 08/27/25 12:15 82 22 96 08/27/25 12:00 100.8 100.8 08/27/25 11:03 30 08/27/25 07:25 Mechanical Ventilator+ 08/26/25 18:25 15 Total Intake and Output 08/26/25 08/26/25 08/27/25 15:00 23:00 07:00 Intake Total 148.010 ml 794.06 ml Output Total 600 ml Balance 148.010 ml 194.06 ml medications Current Medications Medications Dose Ordered Sig/Kush Route Start Time Stop Time Status Last Admin Dose Admin Propofol 100 ml @ 2.445 mls/ hr Q24H IV 08/26/25 18:45 08/26/25 18:47 2.445 MLS/HR Enoxaparin Sodium 40 mg DAILY SC 08/27/25 10:00 08/27/25 10:42 40 MG Nitroglycerin 0.4 mg Q5MINP PRN SL 08/26/25 21:00 Morphine Sulfate 2 mg Q30M PRN IV 08/26/25 21:00 Diagnostic Test (Pha) 1 strip Q6HR 08/27/25 00:00 08/27/25 12:26 1 STRIP Insulin Human Regular Q6HR SC 08/27/25 00:00 Dextrose 50 ml UD PRN IV 08/26/25 21:00 Midazolam HCl 50 ml @ 1 mls/hr Q24H IV 08/26/25 23:30 08/26/25 23:30 5 MLS/HR Fentanyl Citrate 250 ml @ 2.5 mls/hr Q24H IV 08/26/25 23:30 08/26/25 23:30 2.5 MLS/HR Norepinephrine Bitartrate 250 ml @ 3.75 mls/hr Q24H IV 08/27/25 01:30 08/27/25 01:34 3.75 MLS/HR Albuterol 2.5 mg Q6HPRN PRN NEB 08/27/25 03:15 08/27/25 04:03 2.5 MG Ceftriaxone Sodium 50 ml @ 100 mls/hr DAILY@09 IV 08/27/25 13:30 UNV laboratory and microbiology Laboratory Tests 08/27/25 04:30 Test 08/27/25 04:30 Range/Units Serum Glucose 88 # 74-106 mg/dL Microbiology Date/Time Source Procedure Growth Status 08/26/25 19:35 Sputum Gram Stain - Final Resulted 08/26/25 19:35 Sputum Respiratory Culture - Preliminary Resulted Labs and/or images reviewed: Labs reviewed by me, Image(s) reviewed by me Problem List/Assessment/Plan Problem List/Assessment/Plan Acute hypoxic respiratory failure On mechanical ventilation acute toxic and metabolic encephalopathy Right apical lung scarring Right apical pleural-parenchymal scarring Shock, septic Elevated D-dimer Lactic acidosis Hyperglycemia sepsis/septic shock with unclear cause at this time chronic anemia time: >45 minutes critical care in the coordination of care Plan discussed with: Patient My Orders My Orders Orders - JIE PEREZ DO Procedure Category Date Status Time Admit ADMIT 08/26/25 Transmitted 20:56 Code Status CODE 08/26/25 Transmitted 20:56 Enoxaparin Sodium PHA 08/27/25 In Process (Lovenox) 10:00 Npo (Nothing By DIET 08/27/25 Transmitted Mouth) Diet Breakfast Condition: Unstable EVETTE 08/26/25 In Process 20:56 Nitroglycerin PHA 08/26/25 In Process Sublingual (Ntrostat 21:00 Morphine Sulfate PHA 08/26/25 In Process Injection 21:00 Stat Ekg For Chest EVETTE 08/26/25 In Process Pain 20:56 Notify Of Changes EVETTE 08/26/25 In Process From Base 20:56 Cloth Grader For EVETTE 08/26/25 In Process 24 Hours 20:56 Emergency Dysrhythmia EVETTE 08/26/25 In Process Protocol 20:56 Rhythm Strips Once EVETTE 08/26/25 In Process Every Shift 20:56 Oxygen By Nasal RT 08/26/25 Transmitted Cannula 20:56 Glucose Blood PHA 08/27/25 In Process (Accu-Chek Comfort 00:00 Insulin R (Human) PHA 08/27/25 In Process (Insulin R) 00:00 Dextrose 50% Syringe PHA 08/26/25 In Process 21:00 Chest Portable XY 08/27/25 Resulted 01:47 *Consult CONS 08/27/25 Transmitted 11:10 Ceftriaxone 1gm/50ml PHA 08/27/25 Logged (Rocephin) 13:30 Urine Bacterial EVANGELINA 08/27/25 Logged Culture 13:09 Dietary Evaluation Review Comments: Nutrition Recommendation 1) EN Jevity 1.2 Perry @ 60ml/hr x 24hr(goal) along with Pro-stat 1pk BID. Water flush 200ml Q6H if allowed, adjust PRN. TF at goal volume provides 1928 kcal (100%), 110gm protein (94%), and 1962 ml free water (including flush). 2) Consider TPN/PN if NPO>7 days 3) Advance diet as medically feasible 4) Monitor NPO status, lab values, weight trend, and I/O Expected Outcomes/Goals: Intake to meet >75% estimated needs Fu 2-3 days JIE PEREZ DO Aug 27, 2025 13:15
--- NOTE | 2025-08-27 13:42 | DVHINCON2 ---
Date of service: Aug 27, [address] Boyd Reason for Consultation Ventilator management History of Present Illness 69-year-old man history of COPD, hypertension who presented due to altered level of consciousness. He was a resident for most assisted living. He was found unresponsive outside facility near a scooter. Down time was unknown. He was emergently intubated and placed on mechanical ventilator. He was found to be hypoxic on room air. He had a pulse oximetry reading of 60%. Pupils were fixed and dilated. He was hypertensive in the emergency department and tachycardic. He was emergently intubated and placed on mechanical ventilation. Pulmonary consultation is called due to acute hypoxic respiratory failure on mechanical ventilator management. Review of systems: Unable to be obtained due to patient's critical condition. Past medical history: COPD, hypertension Past surgical history: Unable to obtain due to patient's critical condition. Medications: Reviewed Allergies: Acetaminophen, aspirin, ibuprofen Family history: Unable to obtain due to patient's critical condition. Social history: Nonsmoker. No alcohol or illicit drug use. Resident of assisted. Family History: [place] disease G8 MOTHER FH: back pain G8 FATHER Allergies: Coded Allergies: Acetaminophen (Verified Allergy, Mild, RASH, 01/10/25) Aspirin (Verified Allergy, Unknown, 05/25/25) Ibuprofen (Verified Allergy, Unknown, 01/25/25) RASH Home Meds Active Scripts Atorvastatin Calcium (ATORVASTATIN CALCIUM) 20 Mg Tab, 40 MG PO HS for 30 Days, #60 TAB Prov:CHAR CARLIN RESIDENT 05/28/25 Prednisone (Prednisone) 20 Mg Tab, 40 MG PO DAILY for 5 Days, #8 MG Prov:CHAR CARLIN RESIDENT 05/28/25 Doxycycline Monohydrate (Doxycycline Monohydrate) 100 Mg Cap, 1 CAP PO BID for 10 Days, #28 CAP Prov:CHAR CARLIN RESIDENT 05/28/25 Amoxicillin & Pot Clavulanate (AUGMENTIN TABLET) 875 Mg Tb, 875 MG PO BID for 10 Days, #20 TAB Prov:CHAR CARLIN RESIDENT 05/28/25 Tamsulosin Hcl (Flomax) 0.4 Mg Cap, 1 CAP PO DAILY for 30 Days, #30 CAP 11 Refills Prov:AUSTIN ESCOBEDO RESIDENT 01/27/25 Cranberry-Vitamin C (Azo Cranberry Urinary Tra 250-60 mg) 1 Cap Cap, 1 CAP PO BID for 5 Days, #10 CAP Prov:AUSTIN ESCOBEDO RESIDENT 01/27/25 Hydrocortisone Base (Hydrocortisone) 10 Mg Tab, 10 MG PO DAILY, #30 TAB Prov:ELENA PALOMARES MD 01/22/25 Mirtazapine (Remeron) 15 Mg Tab, 1 TAB PO QPM, #30 TAB 1 Refill Prov:ELENA PALOMARES MD 01/22/25 Reported Medications Ondansetron HCl (Ondansetron) 4 Mg Tab, 8 MG PO Q8HPRN PRN for NAUSEA / VOMITING, TAB 01/25/25 Ipratropium-Albuterol (Ipratropium [place]/Albut) 1 Chilo Chilo, 1 CHILO IN Q6HPRN PRN for SHORTNESS OF BREATH, ML 01/25/25 Hydromorphone Hcl (Dilaudid) 2 Mg Tab, 2 MG PO Q4HPRN PRN for PAIN SCALE 7 THRU 10, TAB 01/25/25 Gabapentin (Gabapentin) 300 Mg Cap, 1 CAP PO BID for 30 Days, #60 01/10/25 Famotidine (Famotidine) 20 Mg Tab, 1 TAB PO DAILY for 30 Days, #30 01/10/25 Lisinopril (Lisinopril) 5 Mg Tab, 1 TAB PO DAILY for 30 Days, #30 01/10/25 Pantoprazole Sodium Sesquihydr (Pantoprazole Sodium) 40 Mg Tab, 1 TAB PO DAILY for 30 Days, #30 01/10/25 Baclofen (Baclofen) 10 Mg Tab, 1 TAB PO TID for 30 Days, #90 01/10/25 Current Medications Current Medications Medications (Trade) Dose Ordered Sig/Kush Route PRN Reason Start Time Stop Time Status Last Admin Propofol 100 ml @ 2.445 mls/ hr Q24H IV 08/26/25 18:45 08/26/25 18:47 Enoxaparin Sodium (Lovenox) 40 mg DAILY SC 08/27/25 10:00 08/27/25 10:42 Nitroglycerin (Ntrostat Sublingual) 0.4 mg Q5MINP PRN SL FOR CHEST PAIN 08/26/25 21:00 Morphine Sulfate 2 mg Q30M PRN IV FOR CHEST PAIN 08/26/25 21:00 Diagnostic Test (Pha) (Accu-Chek Comfort Curve T) 1 strip Q6HR 08/27/25 00:00 08/27/25 12:26 Insulin Human Regular (InsuLIN R) Q6HR SC 08/27/25 00:00 Dextrose 50 ml UD PRN IV Blood Sugar LESS THAN 60 08/26/25 21:00 Midazolam HCl 50 ml @ 1 mls/hr Q24H IV 08/26/25 23:30 08/26/25 23:30 Fentanyl Citrate 250 ml @ 2.5 mls/hr Q24H IV 08/26/25 23:30 08/26/25 23:30 Norepinephrine Bitartrate 250 ml @ 3.75 mls/hr Q24H IV 08/27/25 01:30 08/27/25 01:34 Albuterol (Ventolin Medneb) 2.5 mg Q6HPRN PRN NEB SHORTNESS OF BREATH 08/27/25 03:15 08/27/25 04:03 Ceftriaxone Sodium 50 ml @ 100 mls/hr DAILY@09 IV 08/27/25 13:30 UNV Vital Signs Vital Signs Date Time Temp Pulse Resp B/P (MAP) Pulse Ox O2 Delivery O2 Flow Rate FiO2 08/27/25 12:50 94 26 144/64 (90) 90 30 08/27/25 12:00 100.8 100.8 08/27/25 07:25 Mechanical Ventilator+ 08/26/25 18:25 15 Physical Exam Gen.: Patient lying in bed in medical ICU. Sedated, intubated on mechanical ventilator. Head: Normocephalic, atraumatic. Eyes: PERRLA. Ears: Normal external anatomy. Throat: Endotracheal tube and orogastric tube in place. Neck: Supple, trachea midline. Chest: Transmitted breath sounds bilaterally. Decreased air entry bilaterally. No wheezing. Bibasilar crackles. Cardio vascular: Positive S1, positive S2. Regular rate and rhythm. Abdomen: Positive bowel sounds in all 4 quadrants. Soft, nontender, nondistende d. : [place] in place. Normal external genitalia. Rectal: Deferred Skin: Warm, dry. Intact. Extremities: 2+ radial pulses bilaterally. No lower extremity edema. Neuro: Sedated. Labs/Diagnostic Data Labs Test 08/27/25 12:26 08/27/25 10:45 08/27/25 07:34 08/27/25 04:30 Range/Units POC Glucose 88 70-106 mg/dl Urine Color Light-yellow Yellow Urine Clarity Clear Clear Urine pH 7.5 5.0-9.0 Urine Specific [place] 1.041 H 1.001-1.035 Urine Protein Trace H Negative Urine Ketones Negative Negative Urine Blood Negative Negative /uL Urine Nitrite 2+ H Negative Urine Bilirubin Negative Negative Urine Urobilinogen Normal Negative mg/dL Urine Leukocyte Esterase 1+ Negative /uL Urine RBC 3 0 - 3 /hpf Urine Microscopic WBC 7 H 0-3 /HPF Urine Squamous Epithelial Cells None seen <5 /hpf Urine Bacteria None seen None Seen /hpf Urine Glucose Normal Normal mg/dL Urine Opiates Screen Pos NEGATIVE Urine Fentanyl Screen Pos NEGATIVE Urine Barbiturates Screen Neg NEGATIVE Urine Phencyclidine Screen Neg NEGATIVE Urine Amphetamines Screen Neg NEGATIVE Urine Benzodiazepines Screen Pos NEGATIVE Urine Cocaine Screen Neg NEGATIVE Urine Cannabinoids Screen Neg NEGATIVE Blood Gas Specimen Type Arterial Blood Gas Sample Site Left radial Blood Gas Patient Temperature 37.0 Arterial Blood Date Drawn [id number] Arterial Blood pH 7.370 7.350-7.450 Arterial Blood Partial Pressure CO2 51.3 H 35.0-48.0 mmHg Arterial Blood Partial Pressure O2 59.3 L 83.0-108.0 mmHg Arterial Blood HCO3 29.0 H 21.0-28.0 mmol/L Arterial Blood Oxygen Saturation 90.2 L 94.0-98.0 % Arterial Blood Base Excess 2.9 -2.0-3.0 mmol/L Arterial Blood Oxyhemoglobin 89.1 L 94.0-98.0 % Arterial Blood Carboxyhemoglobin 0.8 0.5-1.5 % Arterial Blood Methemoglobin 0.4 0.0-1.5 % Williams Test Modified Blood Gas Total Hemoglobin 12.00 L 13.5-17.5 g/dL Blood Gas Set Respiration Rate 22.0 Blood Gas Modality Vent - ac Blood Gas Spontaneous Rate 22 FiO2 % 30.0 Blood Gas Tidal Volume 550.0 Blood Gas PEEP or CPAP 5.0 White Blood Count 12.7 H 4.4-10.8 10^3/uL Red Blood Count 4.02 L 4.5-5.90 10^6/uL Hemoglobin 10.8 L 13.5-17.5 g/dL Hematocrit 34.3 #L 41.0-53.0 % Mean Corpuscular Volume 85.2 80.0-100.0 fL Mean Corpuscular Hemoglobin 26.7 L 28.0-32.0 pg Mean Corpuscular Hemoglobin Concent 31.4 L 32.0-36.0 g/dL Red Cell Distribution Width 14.9 H 11.8-14.3 % Platelet Count 325 140-450 10^3/uL Mean Platelet Volume 6.5 L 6.9-10.8 fL Neutrophils (%) (Auto) 74.7 37.0-80.0 % Lymphocytes (%) (Auto) 14.7 10.0-50.0 % Monocytes (%) (Auto) 9.1 0.0-12.0 % Eosinophils (%) (Auto) 1.0 0.0-7.0 % Basophils (%) (Auto) 0.5 0.0-2.0 % Neutrophils # (Auto) 9.5 H 1.6-8.6 10 ^3/uL Lymphocytes # (Auto) 1.9 0.4-5.4 10 ^3/uL Monocytes # (Auto) 1.1 0-1.3 10 ^3/uL Eosinophils # (Auto) 0.1 0-0.8 10 ^3/uL Basophils # (Auto) 0.1 0-0.2 10 ^3/uL Nucleated Red Blood Cells 0.0 % Sodium Level 144 136-145 mmol/L Potassium Level 4.2 3.5-5.1 mmol/L Chloride Level 108 H 98-107 mmol/L Carbon Dioxide Level 28 20-31 mmol/L Anion Gap 8 5-15 Blood Urea Nitrogen 15 9-23 mg/dL Creatinine 0.99 0.700-1.30 mg/dL Glomerular Filtration Rate Calc 81 >90 mL/min BUN/Creatinine Ratio 15.2 10.0-20.0 Serum Glucose 88 # 74-106 mg/dL Calcium Level 8.6 L 8.7-10.4 mg/dL Total Bilirubin 0.2 0.2-1.0 mg/dL Aspartate Amino Transferase (AST) 19 13-40 U/L Alanine Aminotransferase (ALT) 12 7-40 U/L Alkaline Phosphatase 81 46-116 U/L Total Protein 5.9 5.7-8.2 g/dL Albumin 3.7 3.2-4.8 g/dL Test 08/26/25:10 08/26/25 20:50 08/26/25 19:41 08/26/25 18:51 Range/Units Troponin I High Sensitivity 72 *H </=54 ng/L Lactic Acid Level 4.2 *H 0.4-2.0 mmol/L Blood Gas Critical Value Read Back Yes Blood Gas Notified Whom ashley Phelan md Blood Gas Notified Time [id number] Blood Gas Notified By pippa Cherry rrt Prothrombin Time 10.6 9.3-11.8 sec Prothrombin Time INR 1.00 0.9-1.15 Activated Partial Thromboplast Time 23.6 L 24.5-34.5 SEC D-Dimer, Quantitative 3.83 H 0.0-0.49 mg/L FEU Magnesium Level 2.4 1.6-2.6 mg/dL B-Type Natriuretic Peptide 42.80 0-100 pg/mL Plasma/Serum Blood Alcohol < 3.0 <10 mg/dL Microbiology Date/Time Source Procedure Growth Status 08/26/25 19:35 Sputum Gram Stain - Final Resulted 08/26/25 19:35 Sputum Respiratory Culture - Preliminary Resulted Assessment Impression: Acute hypoxic respiratory failure On mechanical ventilation Metabolic encephalopathy Right apical lung scarring Right apical pleural-parenchymal scarring Shock Elevated D-dimer Lactic acidosis Hyperglycemia Plan: s/p intubation on mechanical ventilator CXR image and report reviewed. No acute pulmonary opacities. Stable chronic appearing right apical pleural-parenchymal scarring. No focal consolidation. N o pleural effusion. Devices in place. ABG reviewed. Compensated On assist control with respiratory rate of 22, tidal volume 550, peep of five, FiO2 of 30%. Titrate FIO2 to keep O2 saturation above 92%. VAP bundle Daily ABG and CXR while intubated. Taper sedation Initiate CPAP trial with pressure support of eight, peep of five. Bronchodilators as needed On pressors for hemodynamic support. Titrate to keep MAP above 65 mmHg/SBP above 90 mmHg. Continue antibiotics. F/u cultures. Monitor renal function due to Acute kidney injury. Monitor electrolytes. Supplement as necessary. Nutritional support. Accucheks, ISS. GI/DVT prophylaxis. On enoxaparin, Condition: Critical Prognosis: Poor given multiple comorbidities. Rest of plan per hospitalist and other consultants. A total of 40 minutes of critical care time was spent reviewing the patient record, examining the patient, making a diagnostic and therapeutic plan, discussing this plan with the medical personnel, following up on diagnostic studies and following the patient for clinical stability excluding any and all procedures. At least 50% of this time was spent in direct, [id number] contact. Thank you Dr. Boyd for allowing me to participate in this patient's care. Further recommendations will depend on patient's clinical course. Please do not hesitate to contact me if you have any questions or concerns. This medical document was created using an electronic medical record system with [employer] dictation system. Although this document has been carefully reviewed, there may still be some phonetic and typographical errors. These areas are purely typographical due to imperfections of the software programs, and do not reflect any compromise in the patient's medical care. Plan discussed with: Other (ROSA Lubin, RT) Visit Coding Pulmonary Billing Provider: SYL JEAN BAPTISTE MD Date of Service if different f: Aug 27, 2025 Common Visit Codes: [id number] CARE 30-74 MIN SYL JEAN BAPTISTE MD Aug 27, 2025 13:42
[2025-08-28] VITALS (117 sets, daily range): BP systolic 86–173; BP diastolic 49–76; PULSE 51–75; RESP 17–32; TEMP 97.3–99.5; O2SAT 93–100
[2025-08-28 03:43] LABS: Hematocrit 32.3 % (41.0-53.0); Hemoglobin 10.6 g/dL (13.5-17.5); Mean Corpuscular Hemoglobin 27.4 pg (28.0-32.0); Mean Corpuscular Volume 83.5 fL (80.0-100.0); Nucleated Red Blood Cells % 0.0 %
[2025-08-28 04:11] LABS: Alanine Aminotransferase 11 U/L (7-40); Albumin 3.6 g/dL (3.2-4.8); Alkaline Phosphatase 78 U/L (46-116); Anion Gap 9 (5-15); BUN/Creatinine Ratio 20.0 (10.0-20.0); Bilirubin, Total 0.5 mg/dL (0.2-1.0); Blood Urea Nitrogen 15 mg/dL (9-23); Calcium 9.1 mg/dL (8.7-10.4); Carbon Dioxide 27 mmol/L (20-31); Glucose 90 mg/dL (74-106); Potassium 4.1 mmol/L (3.5-5.1); Sodium 144 mmol/L (136-145); Total Protein 6.0 g/dL (5.7-8.2)
[2025-08-28 04:18] LABS: Chloride 108 mmol/L (98-107)
--- NOTE | 2025-08-28 05:44 | DVH ---
CHEST RADIOGRAPH Indication: HYPOIXC RESPIRATORY FAILURE Technique: Single frontal view of the chest was obtained COMPARISON: XY CHEST PORTABLE on DOS: 08/27/25, XY CHEST PORTABLE on DOS: 08/26/25, XY CHEST XRAY 1 V IEW on DOS: 05/25/25, XR CHEST 1 VIEW on DOS: 01/30/25, XY CHEST PORTABLE on DOS: 01/10/25 FINDINGS: Lines and Tubes: Endotracheal tube is slightly low at the level of the king. Enteric catheter in sa tisfactory position. Lungs: Unchanged multifocal airspace disease. Pleura: No effusion. No pneumothorax. Cardiomediastinal contours: Unremarkable. Bones: Unremarkable. IMPRESSION: Recommend retraction of endotracheal tube by 2 cm. Unchanged multifocal airspace disease.
[2025-08-28 07:10] LABS: Base Excess 0.7 mmol/L (-2.0-3.0)
--- NOTE | 2025-08-28 07:35 | DVH ---
CLINICAL INFORMATION: 69 years old, Male; ETT reposition. TECHNIQUE: Single AP portable chest radiograph was obtained. COMPARISON: XY CHEST PORTABLE on DOS: 08/28/25, XY CHEST PORTABLE on DOS: 08/27/25, CT CT ANGIO CHEST CONTRAST on DOS: 08/26/25 FINDINGS: Distal tip of the endotracheal tube remains at the level of the king with the tip directed toward t he right mainstem bronchus. Stable satisfactory positioning of the enteric tube. No pneumothorax. Unc hanged airspace opacities and interstitial opacities. IMPRESSION: 1. Endotracheal tube remains at the level of the king, with the tip directed toward the right vicky tem bronchus. Recommend retraction by 2 cm and reimaging. 2. No other significant interval change as described above.
--- NOTE | 2025-08-28 11:52 | DVHPN2 ---
Subjective [facility] DOS: 08/28/2025 Patient seen and examined at bedside. Sedated, intubated on mechanical ventilator. Overnight events reviewed. Changes from previous H/P or p: No Changes Objective Vitals Vital Signs Date Time Temp Pulse Resp B/P (MAP) Pulse Ox O2 Delivery O2 Flow Rate FiO2 08/28/25 10:20 67 22 118/63 (81) 95 30 08/28/25 10:00 Mechanical Ventilator+ 08/28/25 06:48 98.1 208.6 08/26/25 18:25 15 Intake/Output Intake and Output 08/28/25 07:00 Intake Total 812.975 ml Output Total 800 ml Balance 12.975 ml Intake Oral 0 ml IV Total 812.975 ml Output Urine Total 800 ml Exam Gen.: Patient lying in bed in medical ICU. Sedated, intubated on mechanical ventilator. Head: Normocephalic, atraumatic. Eyes: PERRLA. Ears: Normal external anatomy. Throat: Endotracheal tube and orogastric tube in place. Neck: Supple, trachea midline. Chest: Transmitted breath sounds bilaterally. Decreased air entry bilaterally. No wheezing. Bibasilar crackles. Cardiovascular: Positive S1, positive S2. Regular rate and rhythm. Abdomen: Positive bowel sounds in all 4 quadrants. Soft, nontender, nondistended. : [place] in place. Normal external genitalia. Rectal: Deferred. Skin: Warm, dry. Intact. Extremities: 2+ radial pulses bilaterally. No lower extremity edema. Neuro: Sedated. Medications Current Medications Medications Dose Ordered Sig/Kush Route Start Time Stop Time Status Last Admin Dose Admin Propofol 100 ml @ 2.445 mls/ hr Q24H IV 08/26/25 18:45 08/28/25 03:39 12.225 MLS/HR Enoxaparin Sodium 40 mg DAILY SC 08/27/25 10:00 08/28/25 09:14 40 MG Nitroglycerin 0.4 mg Q5MINP PRN SL 08/26/25 21:00 Morphine Sulfate 2 mg Q30M PRN IV 08/26/25 21:00 Diagnostic Test (Pha) 1 strip Q6HR 08/27/25 00:00 08/28/25 05:41 1 STRIP Insulin Human Regular Q6HR SC 08/27/25 00:00 Dextrose 50 ml UD PRN IV 08/26/25 21:00 Midazolam HCl 50 ml @ 1 mls/hr Q24H IV 08/26/25 23:30 08/28/25 09:13 5 MLS/HR Fentanyl Citrate 250 ml @ 2.5 mls/hr Q24H IV 08/26/25 23:30 08/26/25 23:30 2.5 MLS/HR Norepinephrine Bitartrate 250 ml @ 3.75 mls/hr Q24H IV 08/27/25 01:30 08/27/25 01:34 3.75 MLS/HR Albuterol 2.5 mg Q6HPRN PRN NEB 08/27/25 03:15 08/27/25 04:03 2.5 MG Meropenem 50 ml @ 17 mls/hr TID IV 08/28/25 14:00 UNV Laboratory Results Laboratory Tests 08/28/25 03:00 Chemistry Test 08/28/25 03:00 Albumin 3.6 g/dL (3.2-4.8) Calcium Level 9.1 mg/dL (8.7-10.4) Total Protein 6.0 g/dL (5.7-8.2) LFT Test 08/28/25 03:00 Alanine Aminotransferase (ALT) 11 U/L (7-40) Alkaline Phosphatase 78 U/L (46-116) Aspartate Amino Transferase (AST) 20 U/L (13-40) Total Bilirubin 0.5 mg/dL (0.2-1.0) Urinalysis Test 08/27/25 10:45 Urine Color Light-yellow (Yellow) Urine Clarity Clear (Clear) Urine pH 7.5 (5.0-9.0) Urine Specific [place] 1.041 (1.001-1.035) Urine Protein Trace (Negative) H Urine Ketones Negative (Negative) Urine Blood Negative /uL (Negative) Urine Nitrite 2+ (Negative) H Urine Bilirubin Negative (Negative) Urine Urobilinogen Normal mg/dL (Negative) Urine Leukocyte Esterase 1+ /uL (Negative) Urine RBC 3 /hpf (0 - 3) Urine Microscopic WBC 7 /HPF (0-3) H Urine Squamous Epithelial Cells None seen /hpf (<5) Urine Bacteria None seen /hpf (None Seen) Urine Glucose Normal mg/dL (Normal) Blood Gas Results Test 08/28/25 07:05 Arterial Blood pH 7.445 (7.350-7.450) FiO2 % 30.0 Microbiology Microbiology Date/Time Source Procedure Growth Status 08/26/25 19:35 Sputum Gram Stain - Final Complete 08/26/25 19:35 Respiratory Culture - Final Escherichia coli - ESBL Complete 08/26/25 18:51 Blood Blood Culture - Preliminary NO GROWTH AFTER 24 HOURS OF INCUBATION. Resulted Assessment/Plan Assessment/Plan Impression: Acute hypoxic respiratory failure On mechanical ventilation Metabolic encephalopathy Right apical lung scarring Right apical pleural-parenchymal scarring Shock Elevated D-dimer Lactic acidosis Hyperglycemia Events: Remains on vent support On assist control with respiratory rate of 22, tidal volume 550, PEEP of 5, FiO2 of 30%. No CPAP. Remains on Levophed at 8 mcg/min Titrate to keep MAP above 65 mmHg/SBP above 90 mmHg. Continue antibiotics Sputum cultures positive for E.coli/ESBL. Bronchodilators PRN Plan for imaging - follow up results. Enoxaparin for DVT prophylaxis. Monitor hemoglobin - 10.6 g/dL ABG reviewed, compensated. Labs and imaging reviewed. Rest of plan as noted below. Plan: s/p intubation on mechanical ventilator On assist control with respiratory rate of 22, tidal volume 550, PEEP of 5, FiO2 of 30%. Titrate FIO2 to keep O2 saturation above 92%. VAP bundle Daily ABG and CXR while intubated. Bronchodilators as needed On pressors for hemodynamic support. Titrate to keep MAP above 65 mmHg/SBP above 90 mmHg. Continue antibiotics. F/u cultures. Monitor renal function due to acute kidney injury. Monitor electrolytes. Supplement as necessary. Monitor ins and outs. Nutritional support. Accucheks, ISS. GI/DVT prophylaxis. On enoxaparin. Condition: Critical Prognosis: Poor given multiple comorbidities. Rest of plan per hospitalist and other consultants. A total of 35 minutes of critical care time was spent reviewing the patient record, examining the patient, making a diagnostic and therapeutic plan, discussing this plan with the medical personnel, following up on diagnostic studies and following the patient for clinical stability excluding any and all procedures. At least 50% of this time was spent in direct, [id number] contact. Thank you Dr. Boyd for allowing me to participate in this patient's care. Further recommendations will depend on patient's clinical course. Please do not hesitate to contact me if you have any questions or concerns. This medical document was created using an electronic medical record system with [employer] dictation system. Although this document has been carefully reviewed, there may still be some phonetic and typographical errors. These areas are purely typographical due to imperfections of the software programs, and do not reflect any compromise in the patient's medical care Plan discussed with: Other (RN) My Orders Orders - SYL JEAN BAPTISTE MD Procedure Category Date Status Time Cpap Trial For Am ORDERS 08/28/25 Transmitted 07:44 Cpap/Sed Vacation Med ORDERS 08/28/25 Transmitted Weaning 07:44 Visit Coding Pulmonary Billing Provider: SYL JEAN BAPTISTE MD Date of Service if different f: Aug 28, 2025 Common Visit Codes: [id number] INP/OBS CARE(HIGH), [id number] CARE 30-74 MIN SYL JEAN BAPTISTE MD Aug 28, 2025 11:52
--- NOTE | 2025-08-28 13:18 | DVH ---
CHEST RADIOGRAPH Indication: ETT PLACEMENT Technique: Single frontal view of the chest was obtained COMPARISON: XY CHEST PORTABLE on DOS: 08/28/25, XY CHEST PORTABLE on DOS: 08/28/25, XY CHEST PORTABLE on DOS: 08/27/25, CT CT ANGIO CHEST CONTRAST on DOS: 08/26/25, XY CHEST PORTABLE on DOS: 08/26/25 FINDINGS: Lines and Tubes: Endotracheal tube and enteric catheter in satisfactory position. Lungs: Diffuse chronic fibrotic changes. Pleura: No effusion. No pneumothorax. Cardiomediastinal contours: Unremarkable Bones: Unremarkable IMPRESSION: Endotracheal tube in satisfactory position.
[2025-08-28] MEDS: MEROPENEM 1GM IVPB 50 ML IV SCH (14:44)
--- NOTE | 2025-08-28 21:11 | DVHPN2 ---
Progress Note Date Seen: Aug 28, 2025 Medical Necessity Reason Pt with a Central, PICC or Fol: No Objective vital signs Vital Sign Date Time Temp Pulse Resp B/P (MAP) Pulse Ox O2 Delivery O2 Flow Rate FiO2 08/28/25 20:32 62 22 122/56 (78) 95 30 08/28/25 19:33 98.1 208.6 08/28/25 18:00 Mechanical Ventilator+ 08/26/25 18:25 15 Total Intake and Output 08/27/25 08/27/25 08/28/25 15:00 23:00 07:00 Intake Total 615.400 ml 204.910 ml Output Total 500 ml 300 ml Balance 115.400 ml -95.090 ml medications Current Medications Medications Dose Ordered Sig/Kush Route Start Time Stop Time Status Last Admin Dose Admin Propofol 100 ml @ 2.445 mls/ hr Q24H IV 08/26/25 18:45 08/28/25 03:39 12.225 MLS/HR Enoxaparin Sodium 40 mg DAILY SC 08/27/25 10:00 08/28/25 09:14 40 MG Nitroglycerin 0.4 mg Q5MINP PRN SL 08/26/25 21:00 Morphine Sulfate 2 mg Q30M PRN IV 08/26/25 21:00 Diagnostic Test (Pha) 1 strip Q6HR 08/27/25 00:00 08/28/25 18:23 1 STRIP Insulin Human Regular Q6HR SC 08/27/25 00:00 Dextrose 50 ml UD PRN IV 08/26/25 21:00 Midazolam HCl 50 ml @ 1 mls/hr Q24H IV 08/26/25 23:30 08/28/25 09:13 5 MLS/HR Fentanyl Citrate 250 ml @ 2.5 mls/hr Q24H IV 08/26/25 23:30 08/26/25 23:30 2.5 MLS/HR Norepinephrine Bitartrate 250 ml @ 3.75 mls/hr Q24H IV 08/27/25 01:30 08/27/25 01:34 3.75 MLS/HR Albuterol 2.5 mg Q6HPRN PRN NEB 08/27/25 03:15 08/28/25 19:06 2.5 MG Meropenem 50 ml @ 17 mls/hr Q8HR IV 08/28/25 14:00 08/28/25 14:44 17 MLS/HR Examination: GENERAL:Normal, HEENT:Normal, NECK:Normal laboratory and microbiology Laboratory Tests 08/28/25 03:00 Test 08/28/25 03:00 Range/Units Serum Glucose 90 74-106 mg/dL Microbiology Date/Time Source Procedure Growth Status 08/27/25 10:45 Voided Urine Urine Culture - Preliminary Resulted 08/26/25 19:35 Sputum Gram Stain - Final Complete 08/26/25 19:35 Respiratory Culture - Final Escherichia coli - ESBL Complete 08/26/25 18:51 Blood Blood Culture - Preliminary NO GROWTH AFTER 48 HOURS OF INCUBATION. Resulted Labs and/or images reviewed: Labs reviewed by me, Image(s) reviewed by me Problem List/Assessment/Plan Problem List/Assessment/Plan Acute hypoxic respiratory failure On mechanical ventilation acute toxic and metabolic encephalopathy Right apical lung scarring Right apical pleural-parenchymal scarring Shock, septic Elevated D-dimer Lactic acidosis Hyperglycemia sepsis/septic shock with unclear cause at this time chronic anemia daily weaning of vent time: >35 minutes critical care in the coordination of care Plan discussed with: Other (nursing staff) My Orders My Orders Orders - JIE PEREZ DO Procedure Category Date Status Time Chest Portable XY 08/28/25 Resulted 06:17 Meropenem 1gm Ivpb PHA 08/28/25 In Process (Merrem 1gm/50ml) 14:00 Chest Portable XY 08/28/25 Resulted 12:06 Complete Blood Count LAB 08/29/25 Verified 04:00 Basic Metabolic Panel LAB 08/29/25 Verified 04:00 Chest Portable XY 08/29/25 Logged 04:00 Dietary Evaluation Review Comments: Nutrition Recommendation 1) EN Jevity 1.2 Perry @ 60ml/hr x 24hr(goal) along with Pro-stat 1pk BID. Water flush 200ml Q6H if allowed, adjust PRN. TF at goal volume provides 1928 kcal (100%), 110gm protein (94%), and 1962 ml free water (including flush). 2) Consider TPN/PN if NPO>7 days 3) Advance diet as medically feasible 4) Monitor NPO status, lab values, weight trend, and I/O Expected Outcomes/Goals: Intake to meet >75% estimated needs Fu 2-3 days JIE PEREZ DO Aug 28, 2025 21:11
--- NOTE | 2025-08-28 21:38 | DVH ---
CHEST RADIOGRAPH REASON FOR EXAM: ETT adjustment COMPARISON: XY CHEST PORTABLE on DOS: 08/28/25, XY CHEST PORTABLE on DOS: 08/28/25, XY CHEST PORTABLE on DOS: 08/28/25, XY CHEST PORTABLE on DOS: 08/27/25, CT CT ANGIO CHEST CONTRAST on DOS: 08/26/25 TECHNIQUE: One view of the chest is provided FINDINGS: Evaluation is degraded by patient positioning. A large portion of the left chest is exclude d from view. The endotracheal tube terminates approximately 2.0 cm from the king. The tip of the e nteric tube is not definitely seen. There is patchy airspace disease. IMPRESSION: Endotracheal tube terminates approximately 2.0 cm from the king.
[2025-08-29] VITALS (120 sets, daily range): BP systolic 90–193; BP diastolic 48–91; PULSE 47–100; RESP 9–35; TEMP 97.9–98.6; O2SAT 89–100
[2025-08-29 04:29] LABS: Hematocrit 31.3 % (41.0-53.0); Hemoglobin 10.4 g/dL (13.5-17.5); Mean Corpuscular Hemoglobin 27.7 pg (28.0-32.0); Mean Corpuscular Volume 83.0 fL (80.0-100.0); Nucleated Red Blood Cells % 0.0 %
[2025-08-29 04:32] LABS: Anion Gap 7 (5-15); Calcium 9.1 mg/dL (8.7-10.4); Carbon Dioxide 28 mmol/L (20-31); Potassium 4.0 mmol/L (3.5-5.1); Sodium 144 mmol/L (136-145)
[2025-08-29 04:36] LABS: Chloride 109 mmol/L (98-107)
[2025-08-29 04:38] LABS: Glucose 76 mg/dL (74-106)
[2025-08-29 04:39] LABS: BUN/Creatinine Ratio 19.5 (10.0-20.0); Blood Urea Nitrogen 16 mg/dL (9-23)
--- NOTE | 2025-08-29 05:56 | DVH ---
CHEST RADIOGRAPH Indication: Intubated Technique: Single frontal view of the chest was obtained COMPARISON: XY CHEST PORTABLE on DOS: 08/28/25, XY CHEST PORTABLE on DOS: 08/28/25, XY CHEST PORTABLE on DOS: 08/28/25, XY CHEST PORTABLE on DOS: 08/28/25, XY CHEST PORTABLE on DOS: 08/27/25 FINDINGS: Lines and Tubes: No change. Lungs: Moderate left lower lung zone pulmonary airspace disease. Pleura: No effusion. No pneumothorax. Cardiomediastinal contours: Unremarkable Bones: Unremarkable IMPRESSION: 1. Left lower lung zone pulmonary airspace disease. 2. Lines and tubes unchanged.
--- NOTE | 2025-08-29 07:42 | DVH ---
CHEST RADIOGRAPH Indication: ett adjustment Technique: XY CHEST PORTABLE COMPARISON: None FINDINGS: The nasogastric tube projects towards the stomach beyond the field of view of this examina tion. Endotracheal tube tip projects 2 cm above the king. Thoracic neurostimulator leads. The cardiac silhouette is enlarged. The lungs demonstrate bilateral patchy airspace opacities. Bilate ral pulmonary interstitial airspace opacities. The pulmonary vasculature is prominent. There is no pl eural effusion. There is no pneumothorax. IMPRESSION: Cardiomegaly with pulmonary vascular congestion and bilateral patchy airspace opacities. Interstitial airspace opacities which could represent sequela of pulmonary edema, atypical infection, chronic lung changes/disease.
[2025-08-29 07:49] LABS: Base Excess -0.7 mmol/L (-2.0-3.0)
--- NOTE | 2025-08-29 08:44 | DVHPN2 ---
Progress Note Date Seen: Aug 29, 2025 Medical Necessity Reason Pt with a Central, PICC or Fol: No Objective vital signs Vital Sign Date Time Temp Pulse Resp B/P (MAP) Pulse Ox O2 Delivery O2 Flow Rate FiO2 08/29/25 08:05 64 22 96 Mechanical Ventilator+ 30 30 08/29/25 08:04 98.2 136/64 (88) 208.8 Total Intake and Output 08/28/25 08/28/25 08/29/25 15:00 23:00 07:00 Intake Total 70.246 ml 318.140 ml 285.860 ml Output Total 225 ml 200 ml Balance 70.246 ml 93.140 ml 85.860 ml medications Current Medications Medications Dose Ordered Sig/Kush Route Start Time Stop Time Status Last Admin Dose Admin Propofol 100 ml @ 2.445 mls/ hr Q24H IV 08/26/25 18:45 08/29/25 07:26 14.67 MLS/HR Enoxaparin Sodium 40 mg DAILY SC 08/27/25 10:00 08/29/25 07:26 40 MG Nitroglycerin 0.4 mg Q5MINP PRN SL 08/26/25 21:00 Morphine Sulfate 2 mg Q30M PRN IV 08/26/25 21:00 Diagnostic Test (Pha) 1 strip Q6HR 08/27/25 00:00 08/29/25 06:00 1 STRIP Insulin Human Regular Q6HR SC 08/27/25 00:00 Dextrose 50 ml UD PRN IV 08/26/25 21:00 Midazolam HCl 50 ml @ 1 mls/hr Q24H IV 08/26/25 23:30 08/29/25 00:30 6 MLS/HR Fentanyl Citrate 250 ml @ 2.5 mls/hr Q24H IV 08/26/25 23:30 08/26/25 23:30 2.5 MLS/HR Norepinephrine Bitartrate 250 ml @ 3.75 mls/hr Q24H IV 08/27/25 01:30 08/27/25 01:34 3.75 MLS/HR Albuterol 2.5 mg Q6HPRN PRN NEB 08/27/25 03:15 08/28/25 19:06 2.5 MG Meropenem 50 ml @ 17 mls/hr Q8HR IV 08/28/25 14:00 08/29/25 06:39 17 MLS/HR Examination: GENERAL:Normal, HEENT:Normal, NECK:Normal, LUNGS:Normal laboratory and microbiology Laboratory Tests 08/29/25 03:45 Test 08/29/25 03:45 Range/Units Serum Glucose 76 74-106 mg/dL Microbiology Date/Time Source Procedure Growth Status 08/27/25 10:45 Voided Urine Urine Culture - Preliminary Resulted 08/26/25 19:35 Sputum Gram Stain - Final Complete 08/26/25 19:35 Respiratory Culture - Final Escherichia coli - ESBL Complete 08/26/25 18:51 Blood Blood Culture - Preliminary NO GROWTH AFTER 48 HOURS OF INCUBATION. Resulted Labs and/or images reviewed: Labs reviewed by me, Image(s) reviewed by me Problem List/Assessment/Plan Problem List/Assessment/Plan Acute hypoxic respiratory failure On mechanical ventilation acute toxic and metabolic encephalopathy Right apical lung scarring Right apical pleural-parenchymal scarring Shock, septic Elevated D-dimer Lactic acidosis Hyperglycemia sepsis/septic shock with unclear cause at this time chronic anemia daily weaning of vent time: >35 minutes critical care in the coordination of care Plan discussed with: Other My Orders My Orders Orders - JIE PEREZ DO Procedure Category Date Status Time Meropenem 1gm Ivpb PHA 08/28/25 In Process (Merrem 1gm/50ml) 14:00 Chest Portable XY 08/28/25 Resulted 12:06 Chest Portable XY 08/29/25 Resulted 04:00 Dietary Evaluation Review Comments: Nutrition Recommendation 1) EN Jevity 1.2 Perry @ 60ml/hr x 24hr(goal) along with Pro-stat 1pk BID. Water flush 200ml Q6H if allowed, adjust PRN. TF at goal volume provides 1928 kcal (100%), 110gm protein (94%), and 1962 ml free water (including flush). 2) Consider TPN/PN if NPO>7 days 3) Advance diet as medically feasible 4) Monitor NPO status, lab values, weight trend, and I/O Expected Outcomes/Goals: Intake to meet >75% estimated needs Fu 2-3 days JIE PEREZ DO Aug 29, 2025 08:44
--- NOTE | 2025-08-29 15:54 | DVHPN2 ---
Progress Note - Dictate Date Seen: Aug 29, 2025 Medical Necessity Reason Pt with a Central, PICC or Fol: No vital signs Vital Sign Date Time Temp Pulse Resp B/P (MAP) Pulse Ox O2 Delivery O2 Flow Rate FiO2 08/29/25 15:46 58 08/29/25 15:46 22 98 Mechanical Ventilator+ 30 30 08/29/25 15:36 90/50 (63) 08/29/25 13:49 98.6 209.5 Total Intake and Output 08/28/25 08/28/25 08/29/25 15:00 23:00 07:00 Intake Total 70.246 ml 318.140 ml 320.030 ml Output Total 225 ml 200 ml Balance 70.246 ml 93.140 ml 120.030 ml medications Current Medications Medications Dose Ordered Sig/Kush Route Start Time Stop Time Status Last Admin Dose Admin Propofol 100 ml @ 2.445 mls/ hr Q24H IV 08/26/25 18:45 08/29/25 07:26 14.67 MLS/HR Enoxaparin Sodium 40 mg DAILY SC 08/27/25 10:00 08/29/25 07:26 40 MG Nitroglycerin 0.4 mg Q5MINP PRN SL 08/26/25 21:00 Morphine Sulfate 2 mg Q30M PRN IV 08/26/25 21:00 Diagnostic Test (Pha) 1 strip Q6HR 08/27/25 00:00 08/29/25 10:46 1 STRIP Insulin Human Regular Q6HR SC 08/27/25 00:00 Dextrose 50 ml UD PRN IV 08/26/25 21:00 Midazolam HCl 50 ml @ 1 mls/hr Q24H IV 08/26/25 23:30 08/29/25 00:30 6 MLS/HR Fentanyl Citrate 250 ml @ 2.5 mls/hr Q24H IV 08/26/25 23:30 08/26/25 23:30 2.5 MLS/HR Norepinephrine Bitartrate 250 ml @ 3.75 mls/hr Q24H IV 08/27/25 01:30 08/27/25 01:34 3.75 MLS/HR Albuterol 2.5 mg Q6HPRN PRN NEB 08/27/25 03:15 08/28/25 19:06 2.5 MG Meropenem 50 ml @ 17 mls/hr Q8HR IV 08/28/25 14:00 08/29/25 12:23 17 MLS/HR laboratory and microbiology Laboratory Tests 08/29/25 03:45 Test 08/29/25 03:45 Range/Units Serum Glucose 76 74-106 mg/dL Assessment/Plan Impression Acute hypoxemic respiratory failure Altered mental status Parenchymal scarring Pulmonary fibrosis Pneumonia Patient seen and examined in ICU Events On mechanical ventilation S/p intubation PEEP 5, FiO2 30% Labs and imaging reviewed CT of the brain negative for acute abnormalities ABG reviewed pH 7.38, pCO2 41, pO2 67 Management Vent support Titrate to maintain sats 90% or above Sedation holiday daily If patient follows commands, proceed to weaning trial Pressure support 05/16, extubate when ready Continue antibiotics F/u cultures Bronchodilators Monitor renal function Monitor electrolytes Supplement as needed Pressors as needed for hemodynamic support To maintain a mean arterial pressure of 65 mmHg DVT prophylaxis Critical care time 35 minutes Dietary Evaluation Review Comments: Nutrition Recommendation 1) EN Jevity 1.2 Perry @ 60ml/hr x 24hr(goal) along with Pro-stat 1pk BID. Water flush 200ml Q6H if allowed, adjust PRN. TF at goal volume provides 1928 kcal (100%), 110gm protein (94%), and 1962 ml free water (including flush). 2) Consider TPN/PN if NPO>7 days 3) Advance diet as medically feasible 4) Monitor NPO status, lab values, weight trend, and I/O Expected Outcomes/Goals: Intake to meet >75% estimated needs Fu 2-3 days Plan discussed with: Other (Rn) BROOKE DALAL MD Aug 29, 2025 15:54
[2025-08-30] VITALS (118 sets, daily range): BP systolic 81–207; BP diastolic 44–89; PULSE 46–101; RESP 0–35; TEMP 69.1–99; O2SAT 90–100
[2025-08-30 04:36] LABS: Hematocrit 32.2 % (41.0-53.0); Hemoglobin 10.4 g/dL (13.5-17.5); Mean Corpuscular Hemoglobin 27.1 pg (28.0-32.0); Mean Corpuscular Volume 84.1 fL (80.0-100.0); Nucleated Red Blood Cells % 0.1 %
[2025-08-30 05:05] LABS: Alanine Aminotransferase 12 U/L (7-40); Albumin 3.5 g/dL (3.2-4.8); Alkaline Phosphatase 72 U/L (46-116); Anion Gap 10 (5-15); BUN/Creatinine Ratio 28.6 (10.0-20.0); Blood Urea Nitrogen 22 mg/dL (9-23); Calcium 9.5 mg/dL (8.7-10.4); Carbon Dioxide 27 mmol/L (20-31); Glucose 78 mg/dL (74-106); Magnesium 2.2 mg/dL (1.6-2.6); Potassium 4.2 mmol/L (3.5-5.1); Sodium 145 mmol/L (136-145)
[2025-08-30 05:06] LABS: Bilirubin, Total 0.3 mg/dL (0.2-1.0)
[2025-08-30 05:25] LABS: Chloride 108 mmol/L (98-107); Total Protein 5.6 g/dL (5.7-8.2)
--- NOTE | 2025-08-30 05:57 | DVH ---
CHEST RADIOGRAPH Indication: intubated Technique: Single frontal view of the chest was obtained Comparison: XY CHEST PORTABLE on DOS: 08/29/25, XY CHEST PORTABLE on DOS: 08/29/25, XY CHEST PORTABLE on DOS: 08/28/25 IMPRESSION: The heart is prominent size. Biapical pleural thickening. Support lines and tubes appear unchanged i n satisfactory position. No sizable effusion or pneumothorax. Interstitial prominence.
[2025-08-30] MEDS: LORazepam 2MG/ML-1ML VIAL IV PRN (12:46)
--- NOTE | 2025-08-30 14:26 | DVHPN2 ---
Progress Note - Dictate Date Seen: Aug 30, 2025 Medical Necessity Reason Pt with a Central, PICC or Fol: No vital signs Vital Sign Date Time Temp Pulse Resp B/P (MAP) Pulse Ox O2 Delivery O2 Flow Rate FiO2 08/30/25 13:54 54 22 128/62 (84) 100 30 08/30/25 13:38 Mechanical Ventilator+ 08/30/25 13:34 97.9 97.9 Total Intake and Output 08/29/25 08/29/25 08/30/25 14:59 22:59 06:59 Intake Total 169.090 ml 164.294 ml 290.325 ml Output Total 300 ml 300 ml Balance 169.090 ml -135.706 ml -9.675 ml medications Current Medications Medications Dose Ordered Sig/Kush Route Start Time Stop Time Status Last Admin Dose Admin Propofol 100 ml @ 2.445 mls/ hr Q24H IV 08/26/25 18:45 08/30/25 12:47 4.89 MLS/HR Enoxaparin Sodium 40 mg DAILY SC 08/27/25 10:00 08/30/25 08:04 40 MG Nitroglycerin 0.4 mg Q5MINP PRN SL 08/26/25 21:00 Morphine Sulfate 2 mg Q30M PRN IV 08/26/25 21:00 Diagnostic Test (Pha) 1 strip Q6HR 08/27/25 00:00 08/30/25 10:57 1 STRIP Insulin Human Regular Q6HR SC 08/27/25 00:00 Dextrose 50 ml UD PRN IV 08/26/25 21:00 Midazolam HCl 50 ml @ 1 mls/hr Q24H IV 08/26/25 23:30 08/29/25 00:30 6 MLS/HR Fentanyl Citrate 250 ml @ 2.5 mls/hr Q24H IV 08/26/25 23:30 08/29/25 16:29 5 MLS/HR Norepinephrine Bitartrate 250 ml @ 3.75 mls/hr Q24H IV 08/27/25 01:30 08/27/25 01:34 3.75 MLS/HR Albuterol 2.5 mg Q6HPRN PRN NEB 08/27/25 03:15 08/28/25 19:06 2.5 MG Meropenem 50 ml @ 17 mls/hr Q8HR IV 08/28/25 14:00 08/30/25 12:46 17 MLS/HR Quetiapine Fumarate 50 mg BID PO 08/30/25 22:00 Lorazepam 2 mg Q4HPRN PRN IV 08/30/25 12:00 08/30/25 12:46 2 MG laboratory and microbiology Laboratory Tests 08/30/25 04:09 Test 08/30/25 04:09 Range/Units Serum Glucose 78 74-106 mg/dL Assessment/Plan Impression Acute hypoxemic respiratory failure Altered mental status Parenchymal scarring Pulmonary fibrosis Pneumonia Patient seen and examined in ICU Events On mechanical ventilation S/p intubation PEEP 5, FiO2 30% Remains altered, encephalopathic Labs and imaging reviewed Chest x-ray shows biapical pleural thickening ABG reviewed Management Vent support Titrate to maintain sats 90% or above Sedation holiday daily If patient follows commands, proceed to weaning trial Pressure support 05/16, extubate when ready Continue antibiotics F/u cultures Bronchodilators Monitor renal function Monitor electrolytes Supplement as needed Pressors as needed for hemodynamic support To maintain a mean arterial pressure of 65 mmHg Start Seroquel 50mg BID for agitation PRN Ativan for agitation DVT prophylaxis Critical care time 35 minutes Dietary Evaluation Review Comments: Nutrition Recommendation 1) EN Jevity 1.2 Perry @ 60ml/hr x 24hr(goal) along with Pro-stat 1pk BID. Water flush 200ml Q6H if allowed, adjust PRN. TF at goal volume provides 1928 kcal (100%), 110gm protein (94%), and 1962 ml free water (including flush). 2) Consider TPN/PN if NPO>7 days 3) Advance diet as medically feasible 4) Monitor NPO status, lab values, weight trend, and I/O Expected Outcomes/Goals: Intake to meet >75% estimated needs Fu 2-3 days Plan discussed with: Other (Rn) BROOKE DALAL MD Aug 30, 2025 14:26
[2025-08-31] VITALS (144 sets, daily range): BP systolic 89–217; BP diastolic 46–149; PULSE 45–109; RESP 16–33; TEMP 55.8–99.1; O2SAT 87–100
[2025-08-31 04:25] LABS: Hematocrit 28.5 % (41.0-53.0); Hemoglobin 9.3 g/dL (13.5-17.5); Mean Corpuscular Hemoglobin 27.4 pg (28.0-32.0); Mean Corpuscular Volume 83.8 fL (80.0-100.0); Nucleated Red Blood Cells % 0.1 %
--- NOTE | 2025-08-31 04:30 | DVH ---
CHEST RADIOGRAPH Indication: INTUBATED Technique: Single frontal view of the chest was obtained COMPARISON: XY CHEST PORTABLE on DOS: 08/30/25, XY CHEST PORTABLE on DOS: 08/29/25, XY CHEST PORTABLE on DOS: 08/29/25, XY CHEST PORTABLE on DOS: 08/28/25, XY CHEST PORTABLE on DOS: 08/28/25 FINDINGS: Lines and Tubes: Unchanged. Lungs: The patient is slightly rotated to the right. Stable chronic appearing bilateral interstitial pulmonary markings. No evidence of focal consolidation. Pleura: No effusion. No pneumothorax. Cardiomediastinal contours: Unremarkable Bones: Unremarkable IMPRESSION: 1. No acute cardiopulmonary disease. Chronic appearing interstitial pulmonary markings redemonstrated . 2. Lines and tubes unchanged.
[2025-08-31 04:43] LABS: Albumin 3.3 g/dL (3.2-4.8); Alkaline Phosphatase 63 U/L (46-116); Anion Gap 11 (5-15); BUN/Creatinine Ratio 25.7 (10.0-20.0); Blood Urea Nitrogen 18 mg/dL (9-23); Calcium 9.3 mg/dL (8.7-10.4); Carbon Dioxide 25 mmol/L (20-31); Potassium 3.8 mmol/L (3.5-5.1); Sodium 145 mmol/L (136-145)
[2025-08-31 04:44] LABS: Bilirubin, Total 0.3 mg/dL (0.2-1.0)
[2025-08-31 04:49] LABS: Magnesium 2.2 mg/dL (1.6-2.6)
[2025-08-31 05:08] LABS: Alanine Aminotransferase < 9 U/L (7-40); Chloride 109 mmol/L (98-107); Glucose 73 mg/dL (74-106); Total Protein 5.7 g/dL (5.7-8.2)
[2025-08-31 06:52] LABS: Base Excess -1.5 mmol/L (-2.0-3.0)
--- NOTE | 2025-08-31 13:24 | DVHPN2 ---
Progress Note - Dictate Date Seen: Aug 31, 2025 Medical Necessity Reason Pt with a Central, PICC or Fol: No vital signs Vital Sign Date Time Temp Pulse Resp B/P (MAP) Pulse Ox O2 Delivery O2 Flow Rate FiO2 08/31/25 12:45 97.3 46 21 98 207.1 08/31/25 12:00 Mechanical Ventilator+ 30 30 Total Intake and Output 08/30/25 08/30/25 08/31/25 15:00 23:00 07:00 Intake Total 204.458 ml 184.720 ml 252.474 ml Output Total 250 ml 225 ml Balance 204.458 ml -65.280 ml 27.474 ml medications Current Medications Medications Dose Ordered Sig/Kush Route Start Time Stop Time Status Last Admin Dose Admin Propofol 100 ml @ 2.445 mls/ hr Q24H IV 08/26/25 18:45 08/31/25 00:46 4.89 MLS/HR Enoxaparin Sodium 40 mg DAILY SC 08/27/25 10:00 08/31/25 09:56 40 MG Nitroglycerin 0.4 mg Q5MINP PRN SL 08/26/25 21:00 Morphine Sulfate 2 mg Q30M PRN IV 08/26/25 21:00 Diagnostic Test (Pha) 1 strip Q6HR 08/27/25 00:00 08/31/25 12:16 1 STRIP Insulin Human Regular Q6HR SC 08/27/25 00:00 Dextrose 50 ml UD PRN IV 08/26/25 21:00 Midazolam HCl 50 ml @ 1 mls/hr Q24H IV 08/26/25 23:30 08/31/25 04:42 2 MLS/HR Fentanyl Citrate 250 ml @ 2.5 mls/hr Q24H IV 08/26/25 23:30 08/30/25 23:30 10 MLS/HR Norepinephrine Bitartrate 250 ml @ 3.75 mls/hr Q24H IV 08/27/25 01:30 08/27/25 01:34 3.75 MLS/HR Albuterol 2.5 mg Q6HPRN PRN NEB 08/27/25 03:15 08/28/25 19:06 2.5 MG Meropenem 50 ml @ 17 mls/hr Q8HR IV 08/28/25 14:00 08/31/25 05:44 17 MLS/HR Quetiapine Fumarate 50 mg BID PO 08/30/25 22:00 08/31/25 09:56 50 MG Lorazepam 2 mg Q4HPRN PRN IV 08/30/25 12:00 08/31/25 09:56 2 MG Chlordiazepoxide HCl 25 mg BID PO 08/31/25 22:00 laboratory and microbiology Laboratory Tests 08/31/25 04:00 Test 08/31/25 04:00 Range/Units Serum Glucose 73 L 74-106 mg/dL Assessment/Plan Impression Acute hypoxemic respiratory failure Altered mental status Parenchymal scarring Pulmonary fibrosis Pneumonia Patient seen and examined in ICU Events On mechanical ventilation S/p intubation PEEP 5, FiO2 30% Remains altered, encephalopathic Labs and imaging reviewed CT of the chest shows severe COPD, emphysema ABG reviewed Management Vent support Titrate to maintain sats 90% or above Sedation holiday daily If patient follows commands, proceed to weaning trial Pressure support 05/16, extubate when ready Continue antibiotics F/u cultures Bronchodilators Monitor renal function Monitor electrolytes Supplement as needed Pressors as needed for hemodynamic support To maintain a mean arterial pressure of 65 mmHg Continue Seroquel Add Librium May require bronchoscopy DVT prophylaxis Critical care time 35 minutes Dietary Evaluation Review Comments: Nutrition Recommendation 1) EN Jevity 1.2 Perry @ 60ml/hr x 24hr(goal) along with Pro-stat 1pk BID. Water flush 200ml Q6H if allowed, adjust PRN. TF at goal volume provides 1928 kcal (100%), 110gm protein (94%), and 1962 ml free water (including flush). 2) Consider TPN/PN if NPO>7 days 3) Advance diet as medically feasible 4) Monitor NPO status, lab values, weight trend, and I/O Expected Outcomes/Goals: Intake to meet >75% estimated needs Fu 2-3 days Plan discussed with: Other (Rn) BROOKE DALAL MD Aug 31, 2025 13:24
--- NOTE | 2025-08-31 13:59 | DVHPN2 ---
Progress Note Date Seen: Aug 30, 2025 Medical Necessity Reason Pt with a Central, PICC or Fol: No Objective vital signs Vital Sign Date Time Temp Pulse Resp B/P (MAP) Pulse Ox O2 Delivery O2 Flow Rate FiO2 08/31/25 12:45 97.3 46 21 98 207.1 08/31/25 12:00 Mechanical Ventilator+ 30 30 Total Intake and Output 08/30/25 08/30/25 08/31/25 15:00 23:00 07:00 Intake Total 204.458 ml 184.720 ml 252.474 ml Output Total 250 ml 225 ml Balance 204.458 ml -65.280 ml 27.474 ml medications Current Medications Medications Dose Ordered Sig/Kush Route Start Time Stop Time Status Last Admin Dose Admin Propofol 100 ml @ 2.445 mls/ hr Q24H IV 08/26/25 18:45 08/31/25 00:46 4.89 MLS/HR Enoxaparin Sodium 40 mg DAILY SC 08/27/25 10:00 08/31/25 09:56 40 MG Nitroglycerin 0.4 mg Q5MINP PRN SL 08/26/25 21:00 Morphine Sulfate 2 mg Q30M PRN IV 08/26/25 21:00 Diagnostic Test (Pha) 1 strip Q6HR 08/27/25 00:00 08/31/25 12:16 1 STRIP Insulin Human Regular Q6HR SC 08/27/25 00:00 Dextrose 50 ml UD PRN IV 08/26/25 21:00 Midazolam HCl 50 ml @ 1 mls/hr Q24H IV 08/26/25 23:30 08/31/25 04:42 2 MLS/HR Fentanyl Citrate 250 ml @ 2.5 mls/hr Q24H IV 08/26/25 23:30 08/30/25 23:30 10 MLS/HR Norepinephrine Bitartrate 250 ml @ 3.75 mls/hr Q24H IV 08/27/25 01:30 08/27/25 01:34 3.75 MLS/HR Albuterol 2.5 mg Q6HPRN PRN NEB 08/27/25 03:15 08/28/25 19:06 2.5 MG Meropenem 50 ml @ 17 mls/hr Q8HR IV 08/28/25 14:00 08/31/25 05:44 17 MLS/HR Quetiapine Fumarate 50 mg BID PO 08/30/25 22:00 08/31/25 09:56 50 MG Lorazepam 2 mg Q4HPRN PRN IV 08/30/25 12:00 08/31/25 09:56 2 MG Chlordiazepoxide HCl 25 mg BID PO 08/31/25 22:00 laboratory and microbiology Laboratory Tests 08/31/25 04:00 Test 08/31/25 04:00 Range/Units Serum Glucose 73 L 74-106 mg/dL Microbiology Date/Time Source Procedure Growth Status 08/27/25 10:45 Voided Urine Urine Culture - Final Complete 08/26/25 19:35 Sputum Gram Stain - Final Complete 08/26/25 19:35 Respiratory Culture - Final Escherichia coli - ESBL Complete 08/26/25 18:51 Blood Blood Culture - Preliminary NO GROWTH AFTER 72 HOURS OF INCUBATION. Resulted Problem List/Assessment/Plan Problem List/Assessment/Plan Acute hypoxic respiratory failure On mechanical ventilation acute toxic and metabolic encephalopathy Right apical lung scarring Right apical pleural-parenchymal scarring Shock, septic Elevated D-dimer Lactic acidosis Hyperglycemia sepsis/septic shock with unclear cause at this time chronic anemia daily weaning of vent time: >35 minutes critical care in the coordination of care Plan discussed with: Other (nursing staff) Dietary Evaluation Review Comments: Nutrition Recommendation 1) EN Jevity 1.2 Perry @ 60ml/hr x 24hr(goal) along with Pro-stat 1pk BID. Water flush 200ml Q6H if allowed, adjust PRN. TF at goal volume provides 1928 kcal (100%), 110gm protein (94%), and 1962 ml free water (including flush). 2) Consider TPN/PN if NPO>7 days 3) Advance diet as medically feasible 4) Monitor NPO status, lab values, weight trend, and I/O Expected Outcomes/Goals: Intake to meet >75% estimated needs Fu 2-3 days JIE PEREZ DO Aug 31, 2025 13:59
[2025-08-31] MEDS ORDERED: TPN PER PHARMACY 0 ML IV SCH (18:15)
[2025-08-31] MEDS: AMINO ACID INFUSION IN D10W 1,000 ML IV ONE (19:36)
[2025-09-01] VITALS (111 sets, daily range): BP systolic 96–169; BP diastolic 23–74; PULSE 68–129; RESP 15–98; TEMP 98.2–99.1; O2SAT 91–100
[2025-09-01 03:57] LABS: Hematocrit 28.9 % (41.0-53.0); Hemoglobin 9.6 g/dL (13.5-17.5); Mean Corpuscular Hemoglobin 27.7 pg (28.0-32.0); Mean Corpuscular Volume 83.5 fL (80.0-100.0); Nucleated Red Blood Cells % 0.0 %
--- NOTE | 2025-09-01 04:18 | DVH ---
CHEST RADIOGRAPH Indication: INTUBATED Technique: Single frontal view of the chest was obtained Comparison: XY CHEST PORTABLE on DOS: 08/31/25 FINDINGS: Lines and Tubes: The endotracheal tube terminates 2.2 cm above the king. The enteric tube passes be low the left hemidiaphragm and the tip extends outside the field of view. Lungs: Bilateral interstitial opacities are unchanged. Pleura: No effusion. No pneumothorax. Cardiomediastinal contours: Unremarkable Bones: No acute osseous abnormality. Thoracic spine stimulator noted. Old left rib fractures. IMPRESSION: 1. Support tubes in appropriate position. 2. Unchanged bilateral interstitial opacities.
[2025-09-01 04:21] LABS: Alkaline Phosphatase 63 U/L (46-116); Anion Gap 11 (5-15); BUN/Creatinine Ratio 30.3 (10.0-20.0); Blood Urea Nitrogen 20 mg/dL (9-23); Calcium 9.7 mg/dL (8.7-10.4); Carbon Dioxide 26 mmol/L (20-31); Glucose 104 mg/dL (74-106); Magnesium 2.0 mg/dL (1.6-2.6); Potassium 3.6 mmol/L (3.5-5.1); Total Protein 5.7 g/dL (5.7-8.2)
[2025-09-01 04:22] LABS: Albumin 3.4 g/dL (3.2-4.8)
[2025-09-01 04:31] LABS: Alanine Aminotransferase < 9 U/L (7-40); Bilirubin, Total 0.2 mg/dL (0.2-1.0); Chloride 109 mmol/L (98-107); Sodium 146 mmol/L (136-145)
[2025-09-01 05:12] LABS: Triglycerides 182 mg/dL (< 150)
[2025-09-01 07:38] LABS: Base Excess 0.6 mmol/L (-2.0-3.0)
[2025-09-01] MEDS: POTASSIUM PHOSPHATE 26.4 MEQ in SODIUM CHL 0.9% 100 ML IV ONE (12:38)
--- NOTE | 2025-09-01 13:35 | DVHINCON2 ---
Date of service: Sep 01, 2025 Referring Physician Hospitalist Reason for Consultation Suprapubic catheter exchange History of Present Illness 69-year-old male with known history of bladder outlet obstruction secondary to BPH requiring a suprapubic catheter placement over two years ago and has been followed at [facility] urology for monthly suprapubic catheter exchanges. During his admission in January, patient underwent a cystoscopy with suprapubic catheter exchange and subsequent UroLift procedure on 01/15/2025. Thereafter, the suprapubic catheter was to be plugged and see if he could urinate spontaneously through his urethra. Patient did not follow up in Urology postoperatively and currently still has a suprapubic catheter in place that is changed monthly. He is admitted to [facility] for altered level of consciousness and pulmonary deficiency requiring intubation and management. Urology is asked to exchange suprapubic catheter. Per protocol this can be changed by the nursing staff. However my interest of concern is the status of his BPH subsequent to the UroLift placement on 01/15/25, as he has not followed up with me postoperatively. 69 year old male with PMHx COPD, HTN presents to the ED via EMS with a chief compliant of ALOC onset 08/26/25. Per EMS, patient is from [facility], was found unresponsive outside of facility near a scooter. Downtime is unknown, unknown if patient hit his head on the ground. Upon EMS arrival patient was tachycardiac, BP was 148/70, O2 sat was 60% RA, cyanotic, pupils were fixed and dilated. Upon ED arrival, patient was unresponsive, tachycardiac, BP was 210/75. Patient was intubated with 8.0 ett tube. Chief Complaint: Shortness of Breath Reviewed Notes: Medications, Allergies Allergies: Coded Allergies: Acetaminophen (Verified Allergy, Mild, RASH, 01/10/25) Aspirin (Verified Allergy, Unknown, 05/25/25) Ibuprofen (Verified Allergy, Unknown, 01/25/25) RASH Home Meds Active Scripts Atorvastatin Calcium (ATORVASTATIN CALCIUM) 20 Mg Tab, 40 MG PO HS for 30 Days, #60 TAB Prov:CHAR CARLIN RESIDENT 05/28/25 Prednisone (Prednisone) 20 Mg Tab, 40 MG PO DAILY for 5 Days, #8 MG Prov:CHAR CARLIN RESIDENT 05/28/25 Doxycycline Monohydrate (Doxycycline Monohydrate) 100 Mg Cap, 1 CAP PO BID for 10 Days, #28 CAP Prov:CHAR CARLIN RESIDENT 05/28/25 Amoxicillin & Pot Clavulanate (AUGMENTIN TABLET) 875 Mg Tb, 875 MG PO BID for 10 Days, #20 TAB Prov:CHAR CARLIN RESIDENT 05/28/25 Tamsulosin Hcl (Flomax) 0.4 Mg Cap, 1 CAP PO DAILY for 30 Days, #30 CAP 11 Refills Prov:AUSTIN ESCOBEDO RESIDENT 01/27/25 Cranberry-Vitamin C (Azo Cranberry Urinary Tra 250-60 mg) 1 Cap Cap, 1 CAP PO BID for 5 Days, #10 CAP Prov:AUSTIN ESCOBEDO RESIDENT 01/27/25 Hydrocortisone Base (Hydrocortisone) 10 Mg Tab, 10 MG PO DAILY, #30 TAB Prov:ELENA PALOMARES MD 01/22/25 Mirtazapine (Remeron) 15 Mg Tab, 1 TAB PO QPM, #30 TAB 1 Refill Prov:ELENA PALOMARES MD 01/22/25 Reported Medications Ondansetron HCl (Ondansetron) 4 Mg Tab, 8 MG PO Q8HPRN PRN for NAUSEA / VOMITING, TAB 01/25/25 Ipratropium-Albuterol (Ipratropium [place]/Albut) 1 [place]ilo [place]ilo, 1 CHILO IN Q6HPRN PRN for SHORTNESS OF BREATH, ML 01/25/25 Hydromorphone Hcl (Dilaudid) 2 Mg Tab, 2 MG PO Q4HPRN PRN for PAIN SCALE 7 THRU 10, TAB 01/25/25 Gabapentin (Gabapentin) 300 Mg Cap, 1 CAP PO BID for 30 Days, #60 01/10/25 Famotidine (Famotidine) 20 Mg Tab, 1 TAB PO DAILY for 30 Days, #30 01/10/25 Lisinopril (Lisinopril) 5 Mg Tab, 1 TAB PO DAILY for 30 Days, #30 01/10/25 Pantoprazole Sodium Sesquihydr (Pantoprazole Sodium) 40 Mg Tab, 1 TAB PO DAILY for 30 Days, #30 01/10/25 Baclofen (Baclofen) 10 Mg Tab, 1 TAB PO TID for 30 Days, #90 01/10/25 Information Source: Emergency Med Personnel Mode of Arrival: EMS Severity: Moderate Timing: Other Duration: Since onset Prehospital treatment: Oxygen Quality: Other Past Medical History COPD, HTN, UTI'S Past Surgical History Status post UroLift prostate implants on 01/15/2025 Family History: Vitor disease G8 MOTHER FH: back pain G8 FATHER Allergies: Coded Allergies: Acetaminophen (Verified Allergy, Mild, RASH, 01/10/25) Aspirin (Verified Allergy, Unknown, 05/25/25) Ibuprofen (Verified Allergy, Unknown, 01/25/25) RASH Home Meds Active Scripts Atorvastatin Calcium (ATORVASTATIN CALCIUM) 20 Mg Tab, 40 MG PO HS for 30 Days, #60 TAB Prov:CHAR CARLIN RESIDENT 05/28/25 Prednisone (Prednisone) 20 Mg Tab, 40 MG PO DAILY for 5 Days, #8 MG Prov:CHAR CARLIN RESIDENT 05/28/25 Doxycycline Monohydrate (Doxycycline Monohydrate) 100 Mg Cap, 1 CAP PO BID for 10 Days, #28 CAP Prov:CHAR CARLIN [facility] 05/28/25 Amoxicillin & Pot Clavulanate (AUGMENTIN TABLET) 875 Mg Tb, 875 MG PO BID for 10 Days, #20 TAB Prov:CHAR CARLIN [facility] 05/28/25 Tamsulosin Hcl (Flomax) 0.4 Mg Cap, 1 CAP PO DAILY for 30 Days, #30 CAP 11 Refills Prov:AUSTIN ESCOBEDO RESIDENT 01/27/25 Cranberry-Vitamin C (Azo Cranberry Urinary Tra 250-60 mg) 1 Cap Cap, 1 CAP PO BID for 5 Days, #10 CAP Prov:AUSTIN ESCOBEDO RESIDENT 01/27/25 Hydrocortisone Base (Hydrocortisone) 10 Mg Tab, 10 MG PO DAILY, #30 TAB Prov:ELENA PALOMARES MD 01/22/25 Mirtazapine (Remeron) 15 Mg Tab, 1 TAB PO QPM, #30 TAB 1 Refill Prov:ELENA PALOMARES MD 01/22/25 Reported Medications Ondansetron HCl (Ondansetron) 4 Mg Tab, 8 MG PO Q8HPRN PRN for NAUSEA / VOMITING, TAB 01/25/25 Ipratropium-Albuterol (Ipratropium [place]/Albut) 1 [place], 1 CHILO IN Q6HPRN PRN for SHORTNESS OF BREATH, ML 3/16/25 Hydromorphone Hcl (Dilaudid) 2 Mg Tab, 2 MG PO Q4HPRN PRN for PAIN SCALE 7 THRU 10, TAB 01/25/25 Gabapentin (Gabapentin) 300 Mg Cap, 1 CAP PO BID for 30 Days, #60 01/10/25 Famotidine (Famotidine) 20 Mg Tab, 1 TAB PO DAILY for 30 Days, #30 01/10/25 Lisinopril (Lisinopril) 5 Mg Tab, 1 TAB PO DAILY for 30 Days, #30 01/10/25 Pantoprazole Sodium Sesquihydr (Pantoprazole Sodium) 40 Mg Tab, 1 TAB PO DAILY for 30 Days, #30 01/10/25 Baclofen (Baclofen) 10 Mg Tab, 1 TAB PO TID for 30 Days, #90 01/10/25 Current Medications Current Medications Medications (Trade) Dose Ordered Sig/Kush Route PRN Reason Start Time Stop Time Status Last Admin Chlordiazepoxide HCl (Librium Capsule) 25 mg BID PO 08/31/25 22:00 09/01/25 10:12 Amino Acids 0 ml @ 0 mls/hr PER PHARMACY IV 08/31/25 18:15 Potassium Acetate 10 meq/Potassium Phosphate 11 meq/ Magnesium Sulfate 4 meq/ Multivitamins 10 ml/Chromium/ Copper/Manganese/ Zinc 1 ml/Amino Acids/Dextrose/ Purified Water 919.5 ml @ 38 mls/hr [id number] IV 09/01/25 22:00 09/02/25 21:59 Review of Systems Patient is currently intubated Vital Signs Vital Signs Date Time Temp Pulse Resp B/P (MAP) Pulse Ox O2 Delivery O2 Flow Rate FiO2 09/01/25 11:26 87 22 110/63 (79) 94 30 09/01/25 10:15 98.6 209.5 09/01/25 10:00 Mechanical Ventilator+ Physical Exam Patient is intubated HEENT: Normal ENT Inspection, Pharynx Normal, TMs Normal Neck: Full Range of Motion, Non-Tender, Normal, Normal Inspection Respiratory: Accessory Muscle Use, Decreased Breath Sounds, Respiratory Distress Cardiovascular: No Edema, No JVD, No Murmur, No Gallop, Normal Peripheral Pulses, Regular Rate/Rhythm Breast Exam: Deferred Gastrointestinal: No Organomegaly, Non Tender, No Pulsatile Mass, Normal Bowel Sounds, Soft Genitalia: SPT in place Extremities: No calf tenderness, Normal capillary refill, Normal inspection, Normal range of motion, Non-tender, No pedal edema Musculoskeletal : Apperance: Normal Neurologic: Disoriented, Other (Nonverbal) Cerebellar Function: Normal Reflexes: Normal Skin: Dry, Normal Color, Warm Lymphatic: No Adenopathy Labs/Diagnostic Data Labs Test 09/01/25 12:42 09/01/25 07:30 09/01/25 03:05 08/31/25 06:44 Range/Units POC Glucose 124 H 70-106 mg/dl Blood Gas Specimen Type Arterial Blood Gas Sample Site Left radial Blood Gas Patient Temperature 37.0 Arterial Blood Date Drawn [id number] Arterial Blood pH 7.437 7.350-7.450 Arterial Blood Partial Pressure CO2 37.4 35.0-48.0 mmHg Arterial Blood Partial Pressure O2 67.5 L 83.0-108.0 mmHg Arterial Blood HCO3 24.7 21.0-28.0 mmol/L Arterial Blood Oxygen Saturation 92.6 L 94.0-98.0 % Arterial Blood Base Excess 0.6 -2.0-3.0 mmol/L Arterial Blood Oxyhemoglobin 92.3 L 94.0-98.0 % Arterial Blood Carboxyhemoglobin 0.1 L 0.5-1.5 % Arterial Blood Methemoglobin 0.2 0.0-1.5 % Williams Test Modified Blood Gas Total Hemoglobin 11.00 L 13.5-17.5 g/dL Blood Gas Set Respiration Rate 22.0 Blood Gas Modality Vent - ac FiO2 % 30.0 Blood Gas Tidal Volume 550.0 Blood Gas PEEP or CPAP 5.0 White Blood Count 7.7 4.4-10.8 10^3/uL Red Blood Count 3.47 L 4.5-5.90 10^6/uL Hemoglobin 9.6 L 13.5-17.5 g/dL Hematocrit 28.9 L 41.0-53.0 % Mean Corpuscular Volume 83.5 80.0-100.0 fL Mean Corpuscular Hemoglobin 27.7 L 28.0-32.0 pg Mean Corpuscular Hemoglobin Concent 33.1 32.0-36.0 g/dL Red Cell Distribution Width 14.9 H 11.8-14.3 % Platelet Count 227 140-450 10^3/uL Mean Platelet Volume 7.3 6.9-10.8 fL Neutrophils (%) (Auto) 66.3 37.0-80.0 % Lymphocytes (%) (Auto) 19.6 10.0-50.0 % Monocytes (%) (Auto) 8.8 0.0-12.0 % Eosinophils (%) (Auto) 4.6 0.0-7.0 % Basophils (%) (Auto) 0.7 0.0-2.0 % Neutrophils # (Auto) 5.1 1.6-8.6 10 ^3/uL Lymphocytes # (Auto) 1.5 0.4-5.4 10 ^3/uL Monocytes # (Auto) 0.7 0-1.3 10 ^3/uL Eosinophils # (Auto) 0.4 0-0.8 10 ^3/uL Basophils # (Auto) 0.1 0-0.2 10 ^3/uL Nucleated Red Blood Cells 0.0 % Sodium Level 146 H 136-145 mmol/L Potassium Level 3.6 3.5-5.1 mmol/L Chloride Level 109 H 98-107 mmol/L Carbon Dioxide Level 26 20-31 mmol/L Anion Gap 11 5-15 Blood Urea Nitrogen 20 9-23 mg/dL Creatinine 0.66 L 0.700-1.30 mg/dL Glomerular Filtration Rate Calc 100 >90 mL/min BUN/Creatinine Ratio 30.3 H 10.0-20.0 Serum Glucose 104 74-106 mg/dL Calcium Level 9.7 8.7-10.4 mg/dL Phosphorus Level 2.4 2.4-5.1 mg/dL Magnesium Level 2.0 1.6-2.6 mg/dL Total Bilirubin 0.2 0.2-1.0 mg/dL Aspartate Amino Transferase (AST) 12 L 13-40 U/L Alanine Aminotransferase (ALT) < 9 7-40 U/L Alkaline Phosphatase 63 46-116 U/L Total Protein 5.7 5.7-8.2 g/dL Albumin 3.4 3.2-4.8 g/dL Triglycerides Level 182 H < 150 mg/dL Blood Gas Critical Value Read Back Yes Blood Gas Notified Whom Fredo isabel Blood Gas Notified Time [id number] Blood Gas Notified By Prasanna isaacs manager functional Test 08/27/25 10:45 08/27/25 07:34 08/26/25 22:10 08/26/25 20:50 Range/Units Urine Color Light-yellow Yellow Urine Clarity Clear Clear Urine pH 7.5 5.0-9.0 Urine Specific [place] 1.041 H 1.001-1.035 Urine Protein Trace H Negative Urine Ketones Negative Negative Urine Blood Negative Negative /uL Urine Nitrite 2+ H Negative Urine Bilirubin Negative Negative Urine Urobilinogen Normal Negative mg/dL Urine Leukocyte Esterase 1+ Negative /uL Urine RBC 3 0 - 3 /hpf Urine Microscopic WBC 7 H 0-3 /HPF Urine Squamous Epithelial Cells None seen <5 /hpf Urine Bacteria None seen None Seen /hpf Urine Glucose Normal Normal mg/dL Urine Opiates Screen Pos NEGATIVE Urine Fentanyl Screen Pos NEGATIVE Urine Barbiturates Screen Neg NEGATIVE Urine Phencyclidine Screen Neg NEGATIVE Urine Amphetamines Screen Neg NEGATIVE Urine Benzodiazepines Screen Pos NEGATIVE Urine Cocaine Screen Neg NEGATIVE Urine Cannabinoids Screen Neg NEGATIVE Blood Gas Spontaneous Rate 22 Troponin I High Sensitivity 72 *H </=54 ng/L Lactic Acid Level 4.2 *H 0.4-2.0 mmol/L Test 08/26/25 18:51 Range/Units Prothrombin Time 10.6 9.3-11.8 sec Prothrombin Time INR 1.00 0.9-1.15 Activated Partial Thromboplast Time 23.6 L 24.5-34.5 SEC D-Dimer, Quantitative 3.83 H 0.0-0.49 mg/L FEU B-Type Natriuretic Peptide 42.80 0-100 pg/mL Plasma/Serum Blood Alcohol < 3.0 <10 mg/dL Microbiology Date/Time Source Procedure Growth Status 08/27/25 10:45 Voided Urine Urine Culture - Final Complete 08/26/25 19:35 Sputum Gram Stain - Final Complete 08/26/25 19:35 Respiratory Culture - Final Escherichia coli - ESBL Complete 08/26/25 18:51 Blood Blood Culture - Final NO GROWTH AFTER 5 DAYS OF INCUBATION. Complete Assessment BPH, s/p Urolift STRONG Chronic SPT in situ Plan/Recommendation The SP tube exchanges can be performed by nursing staff Once patient recovers and discharged, will consider clamping SPT and monitor patient voiding pattern. Plan discussed with: Other FRAN BILLINGS MD Sep 01, 2025 13:35
--- NOTE | 2025-09-01 15:15 | DVHPN2 ---
Progress Note - Dictate Date Seen: Sep 01, 2025 Medical Necessity Reason Pt with a Central, PICC or Fol: Yes The following are medically ne: Central Line vital signs Vital Sign Date Time Temp Pulse Resp B/P (MAP) Pulse Ox O2 Delivery O2 Flow Rate FiO2 09/01/25 14:10 111 22 124/55 (78) 95 30 09/01/25 14:00 Mechanical Ventilator+ 09/01/25 10:15 98.6 209.5 Total Intake and Output 08/31/25 08/31/25 09/01/25 15:00 23:00 07:00 Intake Total 181.670 ml 871.070 ml 338.020 ml Output Total 200 ml 325 ml Balance 181.670 ml 671.070 ml 13.020 ml medications Current Medications Medications Dose Ordered Sig/Kush Route Start Time Stop Time Status Last Admin Dose Admin Propofol 100 ml @ 2.445 mls/ hr Q24H IV 08/26/25 18:45 09/01/25 12:43 7.335 MLS/HR Enoxaparin Sodium 40 mg DAILY SC 08/27/25 10:00 09/01/25 10:13 40 MG Nitroglycerin 0.4 mg Q5MINP PRN SL 08/26/25 21:00 Morphine Sulfate 2 mg Q30M PRN IV 08/26/25 21:00 Diagnostic Test (Pha) 1 strip Q6HR 08/27/25 00:00 09/01/25 12:40 1 STRIP Insulin Human Regular Q6HR SC 08/27/25 00:00 Dextrose 50 ml UD PRN IV 08/26/25 21:00 Midazolam HCl 50 ml @ 1 mls/hr Q24H IV 08/26/25 23:30 09/01/25 08:03 7 MLS/HR Fentanyl Citrate 250 ml @ 2.5 mls/hr Q24H IV 08/26/25 23:30 09/01/25 08:00 20 MLS/HR Norepinephrine Bitartrate 250 ml @ 3.75 mls/hr Q24H IV 08/27/25 01:30 08/27/25 01:34 3.75 MLS/HR Albuterol 2.5 mg Q6HPRN PRN NEB 08/27/25 03:15 09/01/25 11:26 2.5 MG Meropenem 50 ml @ 17 mls/hr Q8HR IV 08/28/25 14:00 09/01/25 05:04 17 MLS/HR Quetiapine Fumarate 50 mg BID PO 08/30/25 22:00 09/01/25 10:12 50 MG Lorazepam 2 mg Q4HPRN PRN IV 08/30/25 12:00 08/31/25 09:56 2 MG Chlordiazepoxide HCl 25 mg BID PO 08/31/25 22:00 09/01/25 10:12 25 MG Amino Acids 0 ml @ 0 mls/hr PER PHARMACY IV 08/31/25 18:15 Potassium Acetate 10 meq/Potassium Phosphate 11 meq/ Magnesium Sulfate 4 meq/ Multivitamins 10 ml/Chromium/ Copper/Manganese/ Zinc 1 ml/Amino Acids/Dextrose/ Purified Water 919.5 ml @ 38 mls/hr [id number] IV 09/01/25 22:00 09/02/25 21:59 laboratory and microbiology Laboratory Tests 09/01/25 03:05 Test 09/01/25 03:05 Range/Units Serum Glucose 104 74-106 mg/dL Assessment/Plan Impression Acute hypoxemic respiratory failure Altered mental status Parenchymal scarring Pulmonary fibrosis Pneumonia Patient seen and examined in ICU Events On mechanical ventilation S/p intubation PEEP 5, FiO2 30% Bronchoscopy was performed at the bedside See separate note for procedure in detail Labs and imaging reviewed ABG reviewed Management Vent support Titrate to maintain sats 90% or above Sedation holiday daily If patient follows commands, proceed to weaning trial Pressure support 7/5, extubate when ready Continue antibiotics F/u cultures Bronchodilators Monitor renal function Monitor electrolytes Supplement as needed Pressors as needed for hemodynamic support To maintain a mean arterial pressure of 65 mmHg Continue Seroquel and Librium DVT prophylaxis Critical care time 35 minutes Dietary Evaluation Review Comments: Nutrition Recommendation 1) EN Jevity 1.2 [place] @ 60ml/hr x 24hr(goal) along with Pro-stat 1pk BID. Water flush 200ml Q6H if allowed, adjust PRN. TF at goal volume provides 1928 kcal (100%), 110gm protein (94%), and 1962 ml free water (including flush). 2) Consider TPN/PN if NPO>7 days 3) Advance diet as medically feasible 4) Monitor NPO status, lab values, weight trend, and I/O Expected Outcomes/Goals: Intake to meet >75% estimated needs Fu 2-3 days Plan discussed with: Other (Rn) BROOKE DALAL MD Sep 01, 2025 15:15
--- NOTE | 2025-09-01 15:43 | DVHNC2 ---
Procedure - Procedure- Bronchoscopy and bronchial washings Indication- Secretions Procedure in detail Consent was obtained and timeout performed per protocol. The patient was placed on 100% FiO2. Olympus bronchoscope was used and passed through the endotracheal tube, tracheobronchial tree was examined. There were copious purulent secretions in the airways bilaterally that were loosened up with approximately 50 cc of normal saline and thoroughly suctioned into a separate specimen container. There were no endobronchial lesions however there were severe signs of inflammation consistent with pneumonia. After the procedure, the scope was removed. Patient tolerated the procedure well. BROOKE DALAL MD Sep 01, 2025 15:42
[2025-09-01 19:02] LABS: INR 1.03 (0.9-1.15); Partial Thromboplastin Time 29.3 SEC (24.5-34.5); Prothrombin Time 10.9 sec (9.3-11.8)
[2025-09-01] MEDS: [UNRECOGNIZED DRUG - OTHER] IV NR (21:49)
[2025-09-01] MEDS: MAGNESIUM SULF IV NR (21:49)
[2025-09-01] MEDS: POTASSIUM PHOSPHATE IV NR (21:49)
[2025-09-01] MEDS: POTASSIUM ACETATE IV NR (21:49)
[2025-09-02] VITALS (107 sets, daily range): BP systolic 78–154; BP diastolic 43–74; PULSE 68–161; RESP 15–26; TEMP 78.6–98.8; O2SAT 92–100
[2025-09-02 03:42] LABS: Hematocrit 30.7 % (41.0-53.0); Hemoglobin 10.0 g/dL (13.5-17.5); Mean Corpuscular Hemoglobin 27.2 pg (28.0-32.0); Mean Corpuscular Volume 83.2 fL (80.0-100.0); Nucleated Red Blood Cells % 0.1 %
[2025-09-02 04:06] LABS: Albumin 3.4 g/dL (3.2-4.8); Alkaline Phosphatase 67 U/L (46-116); Anion Gap 8 (5-15); BUN/Creatinine Ratio 33.9 (10.0-20.0); Blood Urea Nitrogen 20 mg/dL (9-23); Calcium 9.5 mg/dL (8.7-10.4); Carbon Dioxide 28 mmol/L (20-31); Magnesium 1.9 mg/dL (1.6-2.6); Potassium 3.8 mmol/L (3.5-5.1); Sodium 144 mmol/L (136-145); Total Protein 5.8 g/dL (5.7-8.2)
[2025-09-02 04:08] LABS: Alanine Aminotransferase < 9 U/L (7-40); Chloride 108 mmol/L (98-107); Glucose 135 mg/dL (74-106)
[2025-09-02 04:09] LABS: Bilirubin, Total 0.2 mg/dL (0.2-1.0)
[2025-09-02] MEDS: AMIODARONE BOLUS KIT 100 ML IV ONE ×2 (04:51→04:54)
[2025-09-02] MEDS: AMIODARONE 360mg/200mL PREMIX 200 ML IV ONE (04:51)
--- NOTE | 2025-09-02 04:51 | DVH ---
CHEST RADIOGRAPH Indication: INTUBATED Technique: Single frontal view of the chest was obtained Comparison: XY CHEST PORTABLE on DOS: 09/01/25 FINDINGS: Lines and Tubes: The endotracheal tube terminates 3.9 cm above the king. The enteric tube courses b elow the left hemidiaphragm and the tip extends outside the field of view. Lungs: Patchy diffuse bilateral opacities. Pleura: No effusion. No pneumothorax. Cardiomediastinal contours: Unremarkable Bones: No acute osseous abnormality. IMPRESSION: 1. Appropriate position of the support lines and tubes. 2. Patchy diffuse bilateral airspace disease.
[2025-09-02] MEDS: NOREPINEPHRINE 8 MG/250ML KIT 250 ML IV ONE (04:54)
[2025-09-02 06:30] LABS: Base Excess 2.8 mmol/L (-2.0-3.0)
--- NOTE | 2025-09-02 10:57 | DVHCONRES ---
Date Seen: Sep 02, 2025 Resident Creating Document: VAL KEARNS RESIDENT Referring Physician Dr Boyd History of Present Illness This is a 69-year-old patient who was BIBA for the evaluation of altered level of consciousness on 08/26. Patient lives in [facility] facility and was found unresponsive, unknown downtime, per EMS, patient was tachycardic, blood pressure 148/70, pupil fixed and dilated, O2 saturation 60%, patient was brought to the ER, and was intubated on arrival. He was started on ceftriaxone and azithromycin, a CT angio was done which ruled out pulmonary embolism, respiratory culture showed ESBL and patient's antibiotics were switched to meropenem on 08/28. Throughout his course he has been bradycardic, sinus, ranging 40s to 50s beats per minute. He required Levophed supplementation, w hich was turned off 6 days back. Patient has been on TPN for for reasons unknown. WBC on arrival was 12, currently 7. Cardiology consulted for new onset AFib with a RVR. Patient underwent a bronch on 09/01 and became tachycardic and later AFib in the morning of 09/02. IV amiodarone protocol was initiated overnight. 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 Intact gag reflex. Bilateral decreased breath sounds, normoactive bowel, generalized anasarca and pitting edema in the lower extremities. Ordered IV Lasix 40 mg once Family History: Yorklyn disease G8 MOTHER FH: back pain G8 FATHER Allergies: Coded Allergies: Acetaminophen (Verified Allergy, Mild, RASH, 01/10/25) Aspirin (Verified Allergy, Unknown, 05/25/25) Ibuprofen (Verified Allergy, Unknown, 01/25/25) RASH Home Meds Active Scripts Atorvastatin Calcium (ATORVASTATIN CALCIUM) 20 Mg Tab, 40 MG PO HS for 30 Days, #60 TAB Prov:CHAR CARLIN RESIDENT 05/28/25 Prednisone (Prednisone) 20 Mg Tab, 40 MG PO DAILY for 5 Days, #8 MG Prov:CHAR CARLIN [facility] 05/28/25 Doxycycline Monohydrate (Doxycycline Monohydrate) 100 Mg Cap, 1 CAP PO BID for 10 Days, #28 CAP Prov:CHAR CARLIN [facility] 05/28/25 Amoxicillin & Pot Clavulanate (AUGMENTIN TABLET) 875 Mg Tb, 875 MG PO BID for 10 Days, #20 TAB Prov:CHAR CARLIN [facility] 05/28/25 Tamsulosin Hcl (Flomax) 0.4 Mg Cap, 1 CAP PO DAILY for 30 Days, #30 CAP 11 Refills Prov:AUSTIN ESCOBEDO [facility] 01/27/25 Cranberry-Vitamin C (Azo Cranberry Urinary Tra 250-60 mg) 1 Cap Cap, 1 CAP PO BID for 5 Days, #10 CAP Prov:AUSTIN ESCOBEDO RESIDENT 01/27/25 Hydrocortisone Base (Hydrocortisone) 10 Mg Tab, 10 MG PO DAILY, #30 TAB Prov:ELENA PALOMARES MD 01/22/25 Mirtazapine (Remeron) 15 Mg Tab, 1 TAB PO QPM, #30 TAB 1 Refill Prov:ELENA PALOMARES MD 01/22/25 Reported Medications Ondansetron HCl (Ondansetron) 4 Mg Tab, 8 MG PO Q8HPRN PRN for NAUSEA / VOMITING, TAB 01/25/25 Ipratropium-Albuterol (Ipratropium [place]/Albut) 1 Chilo Chilo, 1 CHILO IN Q6HPRN PRN for SHORTNESS OF BREATH, ML 01/25/25 Hydromorphone Hcl (Dilaudid) 2 Mg Tab, 2 MG PO Q4HPRN PRN for PAIN SCALE 7 THRU 10, TAB 01/25/25 Gabapentin (Gabapentin) 300 Mg Cap, 1 CAP PO BID for 30 Days, #60 01/10/25 Famotidine (Famotidine) 20 Mg Tab, 1 TAB PO DAILY for 30 Days, #30 01/10/25 Lisinopril (Lisinopril) 5 Mg Tab, 1 TAB PO DAILY for 30 Days, #30 01/10/25 Pantoprazole Sodium Sesquihydr (Pantoprazole Sodium) 40 Mg Tab, 1 TAB PO DAILY f or 30 Days, #30 01/10/25 Baclofen (Baclofen) 10 Mg Tab, 1 TAB PO TID for 30 Days, #90 01/10/25 Current Medications Current Medications Medications (Trade) Dose Ordered Sig/Kush Route PRN Reason Start Time Stop Time Status Last Admin Potassium Acetate 10 meq/Potassium Phosphate 11 meq/ Magnesium Sulfate 4 meq/ Multivitamins 10 ml/Chromium/ Copper/Manganese/ Zinc 1 ml/Amino Acids/Dextrose/ Purified Water 919.5 ml @ 38 mls/hr [id number] IV 09/01/25 22:00 09/02/25 21:59 09/01/25 21:49 Amiodarone HCl 250 ml @ 16.667 mls/ hr Q12H IV 09/02/25 07:45 Review of Systems Could not be achieved as patient is intubated Vital Signs Vital Signs Date Time Temp Pulse Resp B/P (MAP) Pulse Ox O2 Delivery O2 Flow Rate FiO2 09/02/25 09:24 95 22 94/58 (70) 97 40 09/02/25 06:00 Mechanical Ventilator+ 09/02/25 04:00 97.9 208.2 Physical Exam Elderly male lying in the bed, intubated and mechanically ventilated, RASS -3, intact gag, pupils sluggish General: Well-built, afebrile, palor, mucosae are moist Cardiovascular: Irregular and tachycardic , No murmurs, gallops or rubs. No JVD elevation. Generalized anasarca with pedal edema pitting Respiratory: Decreased bilateral breath sounds Abdomen: Soft, nondistended, normoactive bowel sounds, no rebound tenderness, no organomegaly, no masses Genitourinary: [place] MSK/skin: Skin is dry and warm Labs/Diagnostic Data Labs Test 09/02/25 06:24 09/02/25 06:11 09/02/25 03:10 09/01/25 18:01 Range/Units Blood Gas Specimen Type Arterial Blood Gas Sample Site Right radial Blood Gas Patient Temperature 37.0 Arterial Blood Date Drawn [id number] Arterial Blood pH 7.387 7.350-7.450 Arterial Blood Partial Pressure CO2 48.3 H 35.0-48.0 mmHg Arterial Blood Partial Pressure O2 65.4 L 83.0-108.0 mmHg Arterial Blood HCO3 28.4 H 21.0-28.0 mmol/L Arterial Blood Oxygen Saturation 90.9 L 94.0-98.0 % Arterial Blood Base Excess 2.8 -2.0-3.0 mmol/L Arterial Blood Oxyhemoglobin 90.3 L 94.0-98.0 % Arterial Blood Carboxyhemoglobin 0.3 L 0.5-1.5 % Arterial Blood Methemoglobin 0.4 0.0-1.5 % Williams Test Modified Blood Gas Total Hemoglobin 10.90 L 13.5-17.5 g/dL Blood Gas Set Respiration Rate 22.0 Blood Gas Modality Vent - ac FiO2 % 30.0 Blood Gas Tidal Volume 550.0 Blood Gas PEEP or CPAP 5.0 POC Glucose 151 H 70-106 mg/dl White Blood Count 7.6 4.4-10.8 10^3/uL Red Blood Count 3.69 L 4.5-5.90 10^6/uL Hemoglobin 10.0 L 13.5-17.5 g/dL Hematocrit 30.7 L 41.0-53.0 % Mean Corpuscular Volume 83.2 80.0-100.0 fL Mean Corpuscular Hemoglobin 27.2 L 28.0-32.0 pg Mean Corpuscular Hemoglobin Concent 32.7 32.0-36.0 g/dL Red Cell Distribution Width 15.3 H 11.8-14.3 % Platelet Count 257 140-450 10^3/uL Mean Platelet Volume 7.4 6.9-10.8 fL Neutrophils (%) (Auto) 62.6 37.0-80.0 % Lymphocytes (%) (Auto) 20.5 10.0-50.0 % Monocytes (%) (Auto) 10.5 0.0-12.0 % Eosinophils (%) (Auto) 5.5 0.0-7.0 % Basophils (%) (Auto) 0.9 0.0-2.0 % Neutrophils # (Auto) 4.7 1.6-8.6 10 ^3/uL Lymphocytes # (Auto) 1.6 0.4-5.4 10 ^3/uL Monocytes # (Auto) 0.8 0-1.3 10 ^3/uL Eosinophils # (Auto) 0.4 0-0.8 10 ^3/uL Basophils # (Auto) 0.1 0-0.2 10 ^3/uL Nucleated Red Blood Cells 0.1 % Sodium Level 144 136-145 mmol/L Potassium Level 3.8 3.5-5.1 mmol/L Chloride Level 108 H 98-107 mmol/L Carbon Dioxide Level 28 20-31 mmol/L Anion Gap 8 5-15 Blood Urea Nitrogen 20 9-23 mg/dL Creatinine 0.59 L 0.700-1.30 mg/dL Glomerular Filtration Rate Calc 104 >90 mL/min BUN/Creatinine Ratio 33.9 H 10.0-20.0 Serum Glucose 135 H 74-106 mg/dL Calcium Level 9.5 8.7-10.4 mg/dL Phosphorus Level 2.9 2.4-5.1 mg/dL Magnesium Level 1.9 1.6-2.6 mg/dL Total Bilirubin 0.2 0.2-1.0 mg/dL Aspartate Amino Transferase (AST) 11 L 13-40 U/L Alanine Aminotransferase (ALT) < 9 7-40 U/L Alkaline Phosphatase 67 46-116 U/L Total Protein 5.8 5.7-8.2 g/dL Albumin 3.4 3.2-4.8 g/dL Prothrombin Time 10.9 9.3-11.8 sec Prothrombin Time INR 1.03 0.9-1.15 Activated Partial Thromboplast Time 29.3 24.5-34.5 SEC Test 09/01/25 03:05 08/31/25 06:44 08/27/25 10:45 08/27/25 07:34 Range/Units Triglycerides Level 182 H < 150 mg/dL Blood Gas Critical Value Read Back Yes Blood Gas Notified Whom Fredo isabel Blood Gas Notified Time [id number] Blood Gas Notified By Prasanna isaacs rrt Urine Color Light-yellow Yellow Urine Clarity Clear Clear Urine pH 7.5 5.0-9.0 Urine Specific [place] 1.041 H 1.001-1.035 Urine Protein Trace H Negative Urine Ketones Negative Negative Urine Blood Negative Negative /uL Urine Nitrite 2+ H Negative Urine Bilirubin Negative Negative Urine Urobilinogen Normal Negative mg/dL Urine Leukocyte Esterase 1+ Negative /uL Urine RBC 3 0 - 3 /hpf Urine Microscopic WBC 7 H 0-3 /HPF Urine Squamous Epithelial Cells None seen <5 /hpf Urine Bacteria None seen None Seen /hpf Urine Glucose Normal Normal mg/dL Urine Opiates Screen Pos NEGATIVE Urine Fentanyl Screen Pos NEGATIVE Urine Barbiturates Screen Neg NEGATIVE Urine Phencyclidine Screen Neg NEGATIVE Urine Amphetamines Screen Neg NEGATIVE Urine Benzodiazepines Screen Pos NEGATIVE Urine Cocaine Screen Neg NEGATIVE Urine Cannabinoids Screen Neg NEGATIVE Blood Gas Spontaneous Rate 22 Test 08/26/25 22:10 08/26/25 20:50 08/26/25 18:51 Range/Units Troponin I High Sensitivity 72 *H </=54 ng/L Lactic Acid Level 4.2 *H 0.4-2.0 mmol/L D-Dimer, Quantitative 3.83 H 0.0-0.49 mg/L FEU B-Type Natriuretic Peptide 42.80 0-100 pg/mL Plasma/Serum Blood Alcohol < 3.0 <10 mg/dL Microbiology Date/Time Source Procedure Growth Status 08/27/25 10:45 Voided Urine Urine Culture - Final Complete 08/26/25 19:35 Sputum Gram Stain - Final Complete 08/26/25 19:35 Respiratory Culture - Final Escherichia coli - ESBL Complete 08/26/25 18:51 Blood Blood Culture - Final NO GROWTH AFTER 5 DAYS OF INCUBATION. Complete Assessment New onset AFib with [id number] score 2 Sinus bradycardia NSTEMI likely type 2 History of hypertension Sepsis secondary to pneumonia, Gram-positive and negative Lactic acidosis Likely aspiration pneumonia ? COPD exacerbation Chronic oxygen dependence Yorklyn's disease on chronic hydrocortisone therapy BPH status post UroLift Chronic suprapubic catheter Echocardiogram 05/27/2025 shows LVEF 60%, RVSP 56 Respiratory culture shows ESBL with E coli sensitive to meropenem/ertapenem/Zosyn Blood culture negative Lactic acid: 8-4-? BNP: 42 Troponin 17-32-72 Chest x-ray worsening opacities right greater than left Bronchoscopy 09/01 Plan/Recommendation Given the new onset atrial fibrillation with a RVR, continue IV amiodarone protocol AFib is likely secondary to underlying infectious etiology Follow up with TSH, lactic acid, BNP One dose of Lasix 40 mg IV administered given generalized anasarca, pitting edema and low urine output Keep Mag greater than 2 and potassium greater than 4 Last echocardiogram showed LVEF 60%, RVSP 56 Continue antibiotics per primary team Recommend starting steroid therapy, patient is on long-term hydrocortisone at home Recommend changing TLC, inserting a PICC line Suprapubic catheter changed 09/01, follow up with repeat UA Drips: TPN, fentanyl, Versed, propofol, amiodarone Overall poor prognosis Thank you for consulting Cardiology Plan discussed with the nurse Anna in which all questions have been answered No family at bedside Case discussed with Dr. Angelo Canales Plan discussed with: Other (Nurse Castillo, raghu) Date of Service: Sep 02, 2025 Billing Provider: DANILO CURTIS Sr., MD Cardiology Common Codes: 11662-[id number] CARE 30-74 MIN VAL KEARNS RESIDENT Sep 02, 2025 10:57 ESTHER ZULETA SENIOR ACCOUNT REPRESENTATIVE Sep 02, 2025 16:50
[2025-09-02] MEDS: MAGNESIUM SULFATE 1GM/100ML 100 ML IV ONE (12:01)
[2025-09-02] MEDS: POTASSIUM CHL 20MEQ/100ML 100 ML IV ONE (12:02)
[2025-09-02] MEDS: FUROSEMIDE 40 MG/4 ML VIAL IV ONE (12:03)
[2025-09-02] MEDS: LIDOCAINE 1% (LOCAL ANESTH.) PF 5ml SDV ID ONE (14:00)
--- NOTE | 2025-09-02 14:04 | DVHPN2 ---
Progress Note Date Seen: Sep 01, 2025 Medical Necessity Reason Pt with a Central, PICC or Fol: No The following are medically ne: Central Line Objective vital signs Vital Sign Date Time Temp Pulse Resp B/P (MAP) Pulse Ox O2 Delivery O2 Flow Rate FiO2 09/02/25 13:15 98.1 117 22 87/58 (68) 96 208.6 09/02/25 11:35 40 09/02/25 10:00 Mechanical Ventilator Total Intake and Output 09/01/25 09/01/25 09/02/25 15:00 23:00 07:00 Intake Total 606.680 ml 531.680 ml 874.230 ml Output Total 325 ml 300 ml Balance 606.680 ml 206.680 ml 574.230 ml medications Current Medications Medications Dose Ordered Sig/Kush Route Start Time Stop Time Status Last Admin Dose Admin Propofol 100 ml @ 2.445 mls/ hr Q24H IV 08/26/25 18:45 09/02/25 11:25 12.225 MLS/HR Enoxaparin Sodium 40 mg DAILY SC 08/27/25 10:00 09/02/25 09:24 40 MG Nitroglycerin 0.4 mg Q5MINP PRN SL 08/26/25 21:00 Morphine Sulfate 2 mg Q30M PRN IV 08/26/25 21:00 Midazolam HCl 50 ml @ 1 mls/hr Q24H IV 08/26/25 23:30 09/02/25 09:17 7 MLS/HR Fentanyl Citrate 250 ml @ 2.5 mls/hr Q24H IV 08/26/25 23:30 09/02/25 09:24 17.5 MLS/HR Norepinephrine Bitartrate 250 ml @ 3.75 mls/hr Q24H IV 08/27/25 01:30 08/27/25 01:34 3.75 MLS/HR Albuterol 2.5 mg Q6HPRN PRN NEB 08/27/25 03:15 09/01/25 11:26 2.5 MG Meropenem 50 ml @ 17 mls/hr Q8HR IV 08/28/25 14:00 09/02/25 06:06 17 MLS/HR Quetiapine Fumarate 50 mg BID PO 08/30/25 22:00 09/02/25 09:14 50 MG Lorazepam 2 mg Q4HPRN PRN IV 08/30/25 12:00 08/31/25 09:56 2 MG Chlordiazepoxide HCl 25 mg BID PO 08/31/25 22:00 09/02/25 09:15 25 MG Amino Acids 0 ml @ 0 mls/hr PER PHARMACY IV 08/31/25 18:15 Potassium Acetate 10 meq/Potassium Phosphate 11 meq/ Magnesium Sulfate 4 meq/ Multivitamins 10 ml/Chromium/ Copper/Manganese/ Zinc 1 ml/Amino Acids/Dextrose/ Purified Water 919.5 ml @ 38 mls/hr [id number] IV 09/01/25 22:00 09/02/25 21:59 09/01/25 21:49 38 MLS/HR Amiodarone HCl 250 ml @ 16.667 mls/ hr Q12H IV 09/02/25 07:45 09/02/25 11:24 16.667 MLS/HR Diagnostic Test (Pha) 1 strip Q6HR 09/03/25 00:00 Insulin Human Regular FOLLOW SLIDING SCALE Q6HR SC 09/03/25 00:00 Dextrose 50 ml UD IV 09/02/25 22:00 Magnesium Sulfate 6 meq/ Multivitamins 10 ml/Chromium/ Copper/Manganese/ Zinc 1 ml/Amino Acids/Dextrose 1,112.5 ml @ 48 mls/hr [id number] IV 09/02/25 22:00 09/03/25 21:59 laboratory and microbiology Laboratory Tests 09/02/25 03:10 Test 09/02/25 03:10 Range/Units Serum Glucose 135 H 74-106 mg/dL Microbiology Date/Time Source Procedure Growth Status 09/01/25 20:15 Urine - Suprapubic Aspirate Urine Culture - Preliminary Resulted 09/01/25 13:16 Bronchial Washings Gram Stain - Final Resulted 09/01/25 13:16 Bronchial Washings Respiratory Culture - Preliminary Resulted 08/26/25 18:51 Blood Blood Culture - Final NO GROWTH AFTER 5 DAYS OF INCUBATION. Complete Problem List/Assessment/Plan Problem List/Assessment/Plan Acute hypoxic respiratory failure On mechanical ventilation acute toxic and metabolic encephalopathy Right apical lung scarring Right apical pleural-parenchymal scarring Shock, septic Elevated D-dimer Lactic acidosis Hyperglycemia sepsis/septic shock with unclear cause at this time chronic anemia 09/01/2025 daily weaning of vent started on TPN difficult extubation due to hypotension time: >35 minutes critical care in the coordination of care Plan discussed with: Other (nursing staff) My Orders My Orders Orders - JIE PEREZ DO Procedure Category Date Status Time * Picc Line Consult CONS 09/01/25 Transmitted 14:57 Urine Bacterial EVANGELINA 09/01/25 In Process Culture 20:20 * Cardiology Consult CONS 09/02/25 Transmitted 07:40 Glucose Blood PHA 09/03/25 In Process (Accu-Chek Comfort 00:00 Insulin R (Human) PHA 09/03/25 In Process (Insulin R) 00:00 Dextrose 50% Syringe PHA 09/02/25 In Process 22:00 Amino Acid PHA 09/02/25 In Process Infusion... 22:00 Comprehensive LAB 09/03/25 Verified Metabolic Panel 04:00 Magnesium LAB 09/03/25 Verified 04:00 Phosphorus LAB 09/03/25 Verified 04:00 Tpn Per Pharmacy [facility] 09/02/25 In Process 22:00 Us Guided Vascular US 09/02/25 Logged Access 13:49 Dietary Evaluation Review Comments: Nutrition Recommendation 1) EN Jevity 1.2 Perry @ 60ml/hr x 24hr(goal) along with Pro-stat 1pk BID. Water flush 200ml Q6H if allowed, adjust PRN. TF at goal volume provides 1928 kcal (100%), 110gm protein (94%), and 1962 ml free water (including flush). 2) Consider TPN/PN if NPO>7 days 3) Advance diet as medically feasible 4) Monitor NPO status, lab values, weight trend, and I/O Expected Outcomes/Goals: Intake to meet >75% estimated needs Fu 2-3 days JIE PEREZ DO Sep 02, 2025 14:04
--- NOTE | 2025-09-02 14:12 | DVHPN2 ---
Progress Note Date Seen: Sep 02, 2025 Medical Necessity Reason Pt with a Central, PICC or Fol: No The following are medically ne: Central Line Objective vital signs Vital Sign Date Time Temp Pulse Resp B/P (MAP) Pulse Ox O2 Delivery O2 Flow Rate FiO2 09/02/25 13:15 98.1 117 22 87/58 (68) 96 208.6 09/02/25 11:35 40 09/02/25 10:00 Mechanical Ventilator Total Intake and Output 09/01/25 09/01/25 09/02/25 15:00 23:00 07:00 Intake Total 606.680 ml 531.680 ml 874.230 ml Output Total 325 ml 300 ml Balance 606.680 ml 206.680 ml 574.230 ml medications Current Medications Medications Dose Ordered Sig/Kush Route Start Time Stop Time Status Last Admin Dose Admin Propofol 100 ml @ 2.445 mls/ hr Q24H IV 08/26/25 18:45 09/02/25 11:25 12.225 MLS/HR Enoxaparin Sodium 40 mg DAILY SC 08/27/25 10:00 09/02/25 09:24 40 MG Nitroglycerin 0.4 mg Q5MINP PRN SL 08/26/25 21:00 Morphine Sulfate 2 mg Q30M PRN IV 08/26/25 21:00 Midazolam HCl 50 ml @ 1 mls/hr Q24H IV 08/26/25 23:30 09/02/25 09:17 7 MLS/HR Fentanyl Citrate 250 ml @ 2.5 mls/hr Q24H IV 08/26/25 23:30 09/02/25 09:24 17.5 MLS/HR Norepinephrine Bitartrate 250 ml @ 3.75 mls/hr Q24H IV 08/27/25 01:30 08/27/25 01:34 3.75 MLS/HR Albuterol 2.5 mg Q6HPRN PRN NEB 08/27/25 03:15 09/01/25 11:26 2.5 MG Meropenem 50 ml @ 17 mls/hr Q8HR IV 08/28/25 14:00 09/02/25 06:06 17 MLS/HR Quetiapine Fumarate 50 mg BID PO 08/30/25 22:00 09/02/25 09:14 50 MG Lorazepam 2 mg Q4HPRN PRN IV 08/30/25 12:00 08/31/25 09:56 2 MG Chlordiazepoxide HCl 25 mg BID PO 08/31/25 22:00 09/02/25 09:15 25 MG Amino Acids 0 ml @ 0 mls/hr PER PHARMACY IV 08/31/25 18:15 Potassium Acetate 10 meq/Potassium Phosphate 11 meq/ Magnesium Sulfate 4 meq/ Multivitamins 10 ml/Chromium/ Copper/Manganese/ Zinc 1 ml/Amino Acids/Dextrose/ Purified Water 919.5 ml @ 38 mls/hr [id number] IV 09/01/25 22:00 09/02/25 21:59 09/01/25 21:49 38 MLS/HR Amiodarone HCl 250 ml @ 16.667 mls/ hr Q12H IV 09/02/25 07:45 09/02/25 11:24 16.667 MLS/HR Diagnostic Test (Pha) 1 strip Q6HR 09/03/25 00:00 Insulin Human Regular FOLLOW SLIDING SCALE Q6HR SC 09/03/25 00:00 Dextrose 50 ml UD IV 09/02/25 22:00 Magnesium Sulfate 6 meq/ Multivitamins 10 ml/Chromium/ Copper/Manganese/ Zinc 1 ml/Amino Acids/Dextrose 1,112.5 ml @ 48 mls/hr [id number] IV 09/02/25 22:00 09/03/25 21:59 Examination: GENERAL:Normal, HEENT:Normal, NECK:Normal, LUNGS:Normal, CVS:Normal, ABDOMEN:Normal, MSK:Normal, SKIN:Normal, NEURO:Normal laboratory and microbiology Laboratory Tests 09/02/25 03:10 Test 09/02/25 03:10 Range/Units Serum Glucose 135 H 74-106 mg/dL Microbiology Date/Time Source Procedure Growth Status 09/01/25 20:15 Urine - Suprapubic Aspirate Urine Culture - Preliminary Resulted 09/01/25 13:16 Bronchial Washings Gram Stain - Final Resulted 09/01/25 13:16 Bronchial Washings Respiratory Culture - Preliminary Resulted 08/26/25 18:51 Blood Blood Culture - Final NO GROWTH AFTER 5 DAYS OF INCUBATION. Complete Labs and/or images reviewed: Labs reviewed by me Problem List/Assessment/Plan Problem List/Assessment/Plan Acute hypoxic respiratory failure On mechanical ventilation acute toxic and metabolic encephalopathy Right apical lung scarring Right apical pleural-parenchymal scarring Shock, septic Elevated D-dimer Lactic acidosis Hyperglycemia sepsis/septic shock with unclear cause at this time chronic anemia 09/01/2025 daily weaning of vent started on TPN difficult extubation due to hypotension 09/02/2025 will call brother for goal of care continue to be on vent on Levophed at 2 PICC line for difficult access time: >35 minutes critical care in the coordination of care Plan discussed with: Other My Orders My Orders Orders - JIE PEREZ DO Procedure Category Date Status Time * Picc Line Consult CONS 09/01/25 Transmitted 14:57 Urine Bacterial EVANGELINA 09/01/25 In Process Culture 20:20 * Cardiology Consult CONS 09/02/25 Transmitted 07:40 Glucose Blood PHA 09/03/25 In Process (Accu-Chek Comfort 00:00 Insulin R (Human) PHA 09/03/25 In Process (Insulin R) 00:00 Dextrose 50% Syringe PHA 09/02/25 In Process 22:00 Amino Acid PHA 09/02/25 In Process Infusion... 22:00 Comprehensive LAB 09/03/25 Verified Metabolic Panel 04:00 Magnesium LAB 09/03/25 Verified 04:00 Phosphorus LAB 09/03/25 Verified 04:00 Tpn Per Pharmacy [facility] 09/02/25 In Process 22:00 Us Guided Vascular US 09/02/25 Logged Access 13:49 Dietary Evaluation Review Comments: Nutrition Recommendation 1) EN Jevity 1.2 Perry @ 60ml/hr x 24hr(goal) along with Pro-stat 1pk BID. Water flush 200ml Q6H if allowed, adjust PRN. TF at goal volume provides 1928 kcal (100%), 110gm protein (94%), and 1962 ml free water (including flush). 2) Consider TPN/PN if NPO>7 days 3) Advance diet as medically feasible 4) Monitor NPO status, lab values, weight trend, and I/O Expected Outcomes/Goals: Intake to meet >75% estimated needs Fu 2-3 days JIE PEREZ DO Sep 02, 2025 14:12
--- NOTE | 2025-09-02 14:46 | DVH ---
EXAM: XY CHEST PORTABLE Indication: S/P PICC LINE PLACEMENT. Technique: Single frontal view of the chest was obtained Comparison: XY CHEST XRAY 1 VIEW on DOS: 09/02/25, XY CHEST PORTABLE on DOS: 09/01/25, XY CHEST MAGALY BLE on DOS: 08/31/25, XY CHEST PORTABLE on DOS: 08/30/25, XY CHEST PORTABLE on DOS: 08/29/25 FINDINGS: Lines and Tubes: Endotracheal tube projects 5 cm above the king. Right PICC tip projects over super ior vena cava. Lungs: Multifocal right lung consolidative opacities. Pleura: No effusion. No pneumothorax. Cardiomediastinal contours: Unremarkable Bones: No acute osseous abnormality. IMPRESSION: No significant change compared to prior exam.
[2025-09-02] MEDS: PROPOFOL 100 ML IV SCH (18:45)
--- NOTE | 2025-09-02 19:34 | DVHPN2 ---
Progress Note - Dictate Date Seen: Sep 02, 2025 Medical Necessity Reason Pt with a Central, PICC or Fol: No The following are medically ne: Central Line vital signs Vital Sign Date Time Temp Pulse Resp B/P (MAP) Pulse Ox O2 Delivery O2 Flow Rate FiO2 09/02/25 18:45 98 21 94/58 (70) 98 09/02/25 18:30 30 09/02/25 18:30 Mechanical Ventilator+ 09/02/25 16:00 97.6 97.6 Total Intake and Output 09/01/25 09/01/25 09/02/25 15:00 23:00 07:00 Intake Total 606.680 ml 531.680 ml 874.230 ml Output Total 325 ml 300 ml Balance 606.680 ml 206.680 ml 574.230 ml medications Current Medications Medications Dose Ordered Sig/Kush Route Start Time Stop Time Status Last Admin Dose Admin Enoxaparin Sodium 40 mg DAILY SC 08/27/25 10:00 09/02/25 09:24 40 MG Nitroglycerin 0.4 mg Q5MINP PRN SL 08/26/25 21:00 Morphine Sulfate 2 mg Q30M PRN IV 08/26/25 21:00 Midazolam HCl 50 ml @ 1 mls/hr Q24H IV 08/26/25 23:30 09/02/25 16:18 7 MLS/HR Fentanyl Citrate 250 ml @ 2.5 mls/hr Q24H IV 08/26/25 23:30 09/02/25 09:24 17.5 MLS/HR Norepinephrine Bitartrate 250 ml @ 3.75 mls/hr Q24H IV 08/27/25 01:30 08/27/25 01:34 3.75 MLS/HR Albuterol 2.5 mg Q6HPRN PRN NEB 08/27/25 03:15 09/01/25 11:26 2.5 MG Meropenem 50 ml @ 17 mls/hr Q8HR IV 08/28/25 14:00 09/02/25 14:52 17 MLS/HR Quetiapine Fumarate 50 mg BID PO 08/30/25 22:00 09/02/25 09:14 50 MG Lorazepam 2 mg Q4HPRN PRN IV 08/30/25 12:00 08/31/25 09:56 2 MG Chlordiazepoxide HCl 25 mg BID PO 08/31/25 22:00 09/02/25 09:15 25 MG Amino Acids 0 ml @ 0 mls/hr PER PHARMACY IV 08/31/25 18:15 Potassium Acetate 10 meq/Potassium Phosphate 11 meq/ Magnesium Sulfate 4 meq/ Multivitamins 10 ml/Chromium/ Copper/Manganese/ Zinc 1 ml/Amino Acids/Dextrose/ Purified Water 919.5 ml @ 38 mls/hr [id number] IV 09/01/25 22:00 09/02/25 21:59 09/01/25 21:49 38 MLS/HR Amiodarone HCl 250 ml @ 16.667 mls/ hr Q12H IV 09/02/25 07:45 09/02/25 11:24 16.667 MLS/HR Diagnostic Test (Pha) 1 strip Q6HR 09/03/25 00:00 Insulin Human Regular FOLLOW SLIDING SCALE Q6HR SC 09/03/25 00:00 Dextrose 50 ml UD IV 09/02/25 22:00 Magnesium Sulfate 6 meq/ Multivitamins 10 ml/Chromium/ Copper/Manganese/ Zinc 1 ml/Amino Acids/Dextrose 1,112.5 ml @ 48 mls/hr [id number] IV 09/02/25 22:00 09/03/25 21:59 Sodium Chloride 10 ml QSHIFT@,22 IV 09/02/25 22:00 Propofol 100 ml @ 2.58 mls/hr Q24H IV 09/02/25 18:45 laboratory and microbiology Laboratory Tests 09/02/25 03:10 Test 09/02/25 03:10 Range/Units Serum Glucose 135 H 74-106 mg/dL Assessment/Plan Impression Acute hypoxemic respiratory failure Altered mental status Parenchymal scarring Pulmonary fibrosis Pneumonia Patient seen and examined in ICU Events On mechanical ventilation S/p intubation PEEP 5, FiO2 30% s/p Bronchoscopy Labs and imaging reviewed ABG reviewed Management Vent support Titrate to maintain sats 90% or above Sedation holiday daily If patient follows commands, proceed to weaning trial Pressure support 05/16, extubate when ready Continue antibiotics F/u cultures Bronchodilators Monitor renal function Monitor electrolytes Supplement as needed Pressors as needed for hemodynamic support To maintain a mean arterial pressure of 65 mmHg Continue Seroquel and Librium for withdrawal DVT prophylaxis Critical care time 35 minutes Dietary Evaluation Review Comments: Nutrition Recommendation 1) EN Jevity 1.2 Perry @ 60ml/hr x 24hr(goal) along with Pro-stat 1pk BID. Water flush 200ml Q6H if allowed, adjust PRN. TF at goal volume provides 1928 kcal (100%), 110gm protein (94%), and 1962 ml free water (including flush). 2) Consider TPN/PN if NPO>7 days 3) Advance diet as medically feasible 4) Monitor NPO status, lab values, weight trend, and I/O Expected Outcomes/Goals: Intake to meet >75% estimated needs Fu 2-3 days Plan discussed with: Other (rn) BROOKE DALAL MD Sep 02, 2025 19:34
[2025-09-02] MEDS: SODIUM CHLOR 0.9% PF (SALINE LOCK) 10ML VIAL/SYR IV SCH (21:25)
[2025-09-02] MEDS: TPN PER PHARMACY IV NR (21:35)
[2025-09-02] MEDS ORDERED: DEXTROSE (50%) 50ML SYRG IV SCH (22:00)
[2025-09-02] MEDS: InsuLIN REG 1unit/0.01ml Soln (100units/ml) SC SCH (22:59)
[2025-09-02] MEDS: ACCU-CHEK COMFORT CURVE STRIP VI SCH (22:59)
[2025-09-03] VITALS (110 sets, daily range): BP systolic 88–160; BP diastolic 44–79; PULSE 71–109; RESP 10–23; TEMP 97–99.1; O2SAT 92–100
[2025-09-03 03:57] LABS: Hematocrit 30.1 % (41.0-53.0); Hemoglobin 9.9 g/dL (13.5-17.5); Mean Corpuscular Hemoglobin 27.4 pg (28.0-32.0); Mean Corpuscular Volume 83.4 fL (80.0-100.0); Nucleated Red Blood Cells % 0.0 %
[2025-09-03 04:10] LABS: Albumin 3.2 g/dL (3.2-4.8); Alkaline Phosphatase 67 U/L (46-116); Anion Gap 7 (5-15); BUN/Creatinine Ratio 39.3 (10.0-20.0); Calcium 9.4 mg/dL (8.7-10.4); Carbon Dioxide 30 mmol/L (20-31); Chloride 104 mmol/L (98-107); Magnesium 2.0 mg/dL (1.6-2.6); Potassium 3.7 mmol/L (3.5-5.1); Sodium 141 mmol/L (136-145)
[2025-09-03 04:15] LABS: Alanine Aminotransferase < 9 U/L (7-40); Bilirubin, Total 0.2 mg/dL (0.2-1.0); Blood Urea Nitrogen 24 mg/dL (9-23); Glucose 113 mg/dL (74-106); Total Protein 5.5 g/dL (5.7-8.2)
--- NOTE | 2025-09-03 05:51 | DVH ---
CHEST RADIOGRAPH Indication: INTUBATED Technique: Single frontal view of the chest was obtained COMPARISON: XY CHEST PORTABLE on DOS: 09/02/25, XY CHEST XRAY 1 VIEW on DOS: 09/02/25, XY CHEST MAGALY BLE on DOS: 09/01/25, XY CHEST PORTABLE on DOS: 08/31/25, XY CHEST PORTABLE on DOS: 08/30/25 FINDINGS: Lines and Tubes: Slight interval advancement of the endotracheal tube such that the tip now projects approximately 3.0 cm above the level of the king. Remaining lines and tubes unchanged. Lungs: Chronic appearing bilateral interstitial pulmonary markings and mild bibasilar atelectasis. Pleura: No effusion. No pneumothorax. Cardiomediastinal contours: Unremarkable Bones: Unremarkable IMPRESSION: 1. Slight interval advancement of the endotracheal tube such that the tip now projects approximately 3.0 cm above the level of the king. Remaining lines and tubes unchanged. 2. Bibasilar atelectasis and chronic appearing bilateral interstitial pulmonary markings.
[2025-09-03 08:07] LABS: Base Excess 1.3 mmol/L (-2.0-3.0)
[2025-09-03] MEDS: POTASSIUM CHL 20MEQ/100ML 100 ML IV ONE (10:13)
[2025-09-03] MEDS: FUROSEMIDE 20 MG/2 ML VIAL IV ONE (10:15)
--- NOTE | 2025-09-03 10:26 | DVHPN2 ---
Progress Note Date Seen: Sep 03, 2025 Resident Creating Document: VAL KEARNS RESIDENT Medical Necessity Reason Pt with a Central, PICC or Fol: No The following are medically ne: PICC Line, [place] Catheter Subjective Review of Systems This is a 69-year-old patient who was BIBA for the evaluation of altered level of consciousness on 08/26. [facility] and was found unresponsive, unknown downtime, per EMS, patient was tachycardic, blood pressure 148/70, pupil fixed and dilated, O2 saturation 60%, patient was brought to the ER, and was intubated on arrival. He was started on ceftriaxone and azithromycin, a CT angio was done which ruled out pulmonary embolism, respiratory culture showed ESBL and patient's antibiotics were switched to meropenem on 08/28. Throughout his course he has been bradycardic, sinus, ranging 40s to 50s beats per minute. He required Levophed supplementation, which was turned off 6 days back. Patient has been on TPN for for reasons unknown. WBC on arrival was 12, currently 7. Cardiology consulted for new onset AFib with a RVR. Patient underwent a bronch on 09/01 and became tachycardic and later AFib in the morning of 09/02. IV amiodarone protocol was initiated overnight. Past medical history: Pneumonia May/2025, COPD on 2 L home oxygen, hypertension, [place]'s disease on hydrocortisone 10 mg daily, BPH status post UroLift, chronic suprapubic catheter for the past 2 years Past surgical history: Multiple back surgeries Home medications: Lisinopril, hydrocortisone, tamsulosin, Lasix, gabapentin 09/02-Patient seen and examined in ICU 106, pupils sluggish to react to light, mid dilated. Intact gag reflex. Bilateral decreased breath sounds, normoactive bowel, generalized anasarca and pitting edema in the lower extremities. Ordered IV Lasix 40 mg once 09/03-patient seen and examined, overnight converted to sinus rhythm, amiodarone down titrated 2.5, PICC line placed, TLC removed, urine output increased to 1800 per day from 600. Ordered IV Lasix 20 mg. Objective vital signs Vital Sign Date Time Temp Pulse Resp B/P (MAP) Pulse Ox O2 Delivery O2 Flow Rate FiO2 09/03/25 10:15 113/48 09/03/25 08:17 82 22 96 30 09/03/25 08:00 Mechanical Ventilator+ 09/03/25 07:15 99.0 99.0 Total Intake and Output 09/02/25 09/02/25 09/03/25 15:00 23:00 07:00 Intake Total 1002.245 ml 756.850 ml 885.256 ml Output Total 1400 ml 400 ml Balance 1002.245 ml -643.150 ml 485.256 ml medications Current Medications Medications Dose Ordered Sig/Kush Route Start Time Stop Time Status Last Admin Dose Admin Enoxaparin Sodium 40 mg DAILY SC 08/27/25 10:00 09/03/25 10:06 40 MG Nitroglycerin 0.4 mg Q5MINP PRN SL 08/26/25 21:00 Morphine Sulfate 2 mg Q30M PRN IV 08/26/25 21:00 Midazolam HCl 50 ml @ 1 mls/hr Q24H IV 08/26/25 23:30 09/03/25 10:13 7 MLS/HR Fentanyl Citrate 250 ml @ 2.5 mls/hr Q24H IV 08/26/25 23:30 09/02/25 23:03 17.5 MLS/HR Norepinephrine Bitartrate 250 ml @ 3.75 mls/hr Q24H IV 08/27/25 01:30 08/27/25 01:34 3.75 MLS/HR Albuterol 2.5 mg Q6HPRN PRN NEB 08/27/25 03:15 09/03/25 07:10 2.5 MG Meropenem 50 ml @ 17 mls/hr Q8HR IV 08/28/25 14:00 09/03/25 05:35 17 MLS/HR Quetiapine Fumarate 50 mg BID PO 08/30/25 22:00 09/03/25 10:06 50 MG Lorazepam 2 mg Q4HPRN PRN IV 08/30/25 12:00 08/31/25 09:56 2 MG Chlordiazepoxide HCl 25 mg BID PO 08/31/25 22:00 09/03/25 10:06 25 MG Amino Acids 0 ml @ 0 mls/hr PER PHARMACY IV 08/31/25 18:15 Amiodarone HCl 250 ml @ 16.667 mls/ hr Q12H IV 09/02/25 07:45 09/03/25 02:20 16.667 MLS/HR Diagnostic Test (Pha) 1 strip Q6HR 09/03/25 00:00 09/03/25 05:39 1 STRIP Insulin Human Regular FOLLOW SLIDING SCALE Q6HR SC 09/03/25 00:00 Dextrose 50 ml UD IV 09/02/25 22:00 Magnesium Sulfate 6 meq/ Multivitamins 10 ml/Chromium/ Copper/Manganese/ Zinc 1 ml/Amino Acids/Dextrose 1,112.5 ml @ 48 mls/hr [id number] IV 09/02/25 22:00 09/03/25 21:59 09/02/25 21:35 48 MLS/HR Sodium Chloride 10 ml QSHIFT@, IV 09/02/25 22:00 09/03/25 10:07 10 ML Propofol 100 ml @ 2.58 mls/hr Q24H IV 09/02/25 18:45 09/03/25 07:58 7.74 MLS/HR Magnesium Sulfate 6 meq/ Multivitamins 10 ml/Chromium/ Copper/Manganese/ Zinc 1 ml/Amino Acids/Dextrose 1,312.5 ml @ 55 mls/hr [id number] IV 09/03/25 22:00 09/04/25 21:59 Examination Elderly male lying in the bed, intubated and mechanically ventilated, RASS -3, intact gag, pupils sluggish General: Well-built, afebrile, palor, mucosae are moist Cardiovascular: Irregular and tachycardic , No murmurs, gallops or rubs. No JVD elevation. Generalized anasarca with pedal edema pitting Respiratory: Decreased bilateral breath sounds Abdomen: Soft, nondistended, normoactive bowel sounds, no rebound tenderness, no organomegaly, no masses Genitourinary: Suprapubic catheter MSK/skin: Skin is dry and warm laboratory and microbiology Laboratory Tests 09/03/25 03:08 Test 09/03/25 03:08 Range/Units Serum Glucose 113 H 74-106 mg/dL Microbiology Date/Time Source Procedure Growth Status 09/01/25 20:15 Urine - Suprapubic Aspirate Urine Culture - Preliminary Resulted 09/01/25 13:16 Bronchial Washings Gram Stain - Final Resulted 09/01/25 13:16 Bronchial Washings Respiratory Culture - Preliminary Resulted 08/26/25 18:51 Blood Blood Culture - Final NO GROWTH AFTER 5 DAYS OF INCUBATION. Complete Labs and/or images reviewed: Labs reviewed by me, Image(s) reviewed by me Problem List/Assessment/Plan Problem List/Assessment/Plan New onset AFib with [id number] score 2 Sinus bradycardia NSTEMI likely type 2 History of hypertension Sepsis secondary to pneumonia, Gram-positive and negative Lactic acidosis Likely aspiration pneumonia ? 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 BNP: 42 Troponin 17-72 Urine output 600->1800 per 24 hour Bronchoscopy 09/01 Plan/Recommendation Given the new onset atrial fibrillation with a RVR, continue IV amiodarone protocol 1mg/min for 6hrs -> 0.5mg/min for 18 hrs -> transition to 200mg bid daily AFib is likely secondary to underlying infectious etiology One dose of Lasix 20 mg IV today, 40 mg IV administered yesterday, urine output improved Keep Mag greater than 2 and potassium greater than 4 Last echocardiogram showed LVEF 60%, RVSP 56 Continue antibiotics per primary team Recommend starting steroid therapy, patient is on long-term hydrocortisone at home Suprapubic catheter changed 09/01 Drips: TPN, fentanyl, Versed, propofol, amiodarone Overall poor prognosis Thank you for consulting Cardiology Plan discussed with the nurse Anna in which all questions have been answered No family at bedside Case discussed with Dr. Curtis Plan discussed with: Other (Nurse Fenton) My Orders My Orders Orders - VAL KEARNS RESIDENT Procedure Category Date Status Time Covid19 Antigen An LAB 09/02/25 Logged Rapid Influenza A&B LAB 09/02/25 Logged 09:28 Potassium Chl PHA 09/03/25 In Process 20meq/100ml 09:15 Triglycerides LAB 09/03/25 Logged 09:03 Dietary Evaluation Review Comments: Nutrition Recommendation 1) EN Jevity 1.2 Perry @ 60ml/hr x 24hr(goal) along with Pro-stat 1pk BID. Water flush 200ml Q6H if allowed, adjust PRN. TF at goal volume provides 1928 kcal (100%), 110gm protein (94%), and 1962 ml free water (including flush). 2) Consider TPN/PN if NPO>7 days 3) Advance diet as medically feasible 4) Monitor NPO status, lab values, weight trend, and I/O Expected Outcomes/Goals: Intake to meet >75% estimated needs Fu 2-3 days Visit Coding Cardiology RES Date of Service: Sep 03, 2025 Billing Provider: DANILO CURTIS Sr., MD Cardiology Common Codes: [id number] HOSP CARE(VAL Dey RESIDENT Sep 03, 2025 10:25
[2025-09-03] MEDS: MIDAZOLAM DRIP 100 mg/100mL NS 100 ML IV SCH (17:36)
--- NOTE | 2025-09-03 19:47 | DVHPN2 ---
Progress Note - Dictate Date Seen: Sep 03, 2025 Medical Necessity Reason Pt with a Central, PICC or Fol: Yes The following are medically ne: PICC Line, Palafox Catheter Reason for palafox catheter: Strict I&O Subjective [facility] DOS: 09/03/2025 Patient seen and examined at bedside. Sedated, intubated on mechanical ventilator. Overnight events reviewed. vital signs Vital Sign Date Time Temp Pulse Resp B/P (MAP) Pulse Ox O2 Delivery O2 Flow Rate FiO2 09/03/25 19:15 98.1 76 22 112/58 (76) 98 208.6 09/03/25 18:08 Mechanical Ventilator+ 30 30 Total Intake and Output 09/02/25 09/02/25 09/03/25 15:00 23:00 07:00 Intake Total 1002.245 ml 756.850 ml 885.256 ml Output Total 1400 ml 400 ml Balance 1002.245 ml -643.150 ml 485.256 ml medications Current Medications Medications Dose Ordered Sig/Kush Route Start Time Stop Time Status Last Admin Dose Admin Enoxaparin Sodium 40 mg DAILY SC 08/27/25 10:00 09/03/25 10:06 40 MG Nitroglycerin 0.4 mg Q5MINP PRN SL 08/26/25 21:00 Morphine Sulfate 2 mg Q30M PRN IV 08/26/25 21:00 Fentanyl Citrate 250 ml @ 2.5 mls/hr Q24H IV 08/26/25 23:30 09/03/25 12:20 17.5 MLS/HR Norepinephrine Bitartrate 250 ml @ 3.75 mls/hr Q24H IV 08/27/25 01:30 08/27/25 01:34 3.75 MLS/HR Albuterol 2.5 mg Q6HPRN PRN NEB 08/27/25 03:15 09/03/25 18:49 2.5 MG Meropenem 50 ml @ 17 mls/hr Q8HR IV 08/28/25 14:00 09/03/25 13:57 17 MLS/HR Quetiapine Fumarate 50 mg BID PO 08/30/25 22:00 09/03/25 10:06 50 MG Lorazepam 2 mg Q4HPRN PRN IV 08/30/25 12:00 08/31/25 09:56 2 MG Chlordiazepoxide HCl 25 mg BID PO 08/31/25 22:00 09/03/25 10:06 25 MG Amino Acids 0 ml @ 0 mls/hr PER PHARMACY IV 08/31/25 18:15 Amiodarone HCl 250 ml @ 16.667 mls/ hr Q12H IV 09/02/25 07:45 09/03/25 17:18 16.667 MLS/HR Diagnostic Test (Pha) 1 strip Q6HR 09/03/25 00:00 09/03/25 17:58 1 STRIP Insulin Human Regular FOLLOW SLIDING SCALE Q6HR SC 09/03/25 00:00 09/03/25 17:55 2 UNITS Dextrose 50 ml UD IV 09/02/25 22:00 Magnesium Sulfate 6 meq/ Multivitamins 10 ml/Chromium/ Copper/Manganese/ Zinc 1 ml/Amino Acids/Dextrose 1,112.5 ml @ 48 mls/hr [id number] IV 09/02/25 22:00 09/03/25 21:59 09/02/25 21:35 48 MLS/HR Sodium Chloride 10 ml QSHIFT@10,22 IV 09/02/25 22:00 09/03/25 10:07 10 ML Propofol 100 ml @ 2.58 mls/hr Q24H IV 09/02/25 18:45 09/03/25 18:00 5.16 MLS/HR Magnesium Sulfate 6 meq/ Multivitamins 10 ml/Chromium/ Copper/Manganese/ Zinc 1 ml/Amino Acids/Dextrose 1,312.5 ml @ 55 mls/hr [id number] IV 09/03/25 22:00 09/04/25 21:59 Amiodarone HCl 200 mg Q12HR PO 09/03/25 22:00 Midazolam HCl 100 ml @ 1 mls/hr Q24H IV 09/03/25 17:30 09/03/25 17:36 7 MLS/HR objective Gen.: Patient lying in bed in medical ICU. Sedated, intubated on mechanical ventilator. Head: Normocephalic, atraumatic. Eyes: PERRLA. Ears: Normal external anatomy. Throat: Endotracheal tube and orogastric tube in place. Neck: Supple, trachea midline. Chest: Transmitted breath sounds bilaterally. Decreased air entry bilaterally. No wheezing. Bibasilar crackles. Cardiovascular: Positive S1, positive S2. Regular rate and rhythm. Abdomen: Positive bowel sounds in all 4 quadrants. Soft, nontender, nondistended. : Palafox in place. Normal external genitalia. Rectal: Deferred. Skin: Warm, dry. Intact. Extremities: 2+ radial pulses bilaterally. No lower extremity edema. Neuro: Sedated. laboratory and microbiology Laboratory Tests 09/03/25 03:08 Test 09/03/25 03:08 Range/Units Serum Glucose 113 H 74-106 mg/dL Assessment/Plan Impression: Acute hypoxic respiratory failure On mechanical ventilation Metabolic encephalopathy Right apical lung scarring Right apical pleural-parenchymal scarring Shock Elevated D-dimer Lactic acidosis Hyperglycemia Events: Remains on vent support On assist control with respiratory rate of 22, tidal volume 550, PEEP of 5, FiO2 of 30%. Taper FiO2 as tolerated Sedated on Propofol, Versed Fentanyl for analgesia Taper sedation as tolerated CPAP in AM CPAP with PS 8, PEEP of 5. Off pressors, hemodynamically stable. Continue antibiotics - meropenem On amiodarone drip S/p bronchoscopy on 09/01/25 Bronchial washings sent for cultures, show no growth. Monitor renal function Monitor electrolytes. Supplement as necessary. Potassium supplementation TPN for nutritional support Labs and imaging reviewed. Rest of plan as noted below. Plan: s/p intubation on mechanical ventilator On assist control with respiratory rate of 22, tidal volume 550, PEEP of 5, FiO2 of 30%. Titrate FIO2 to keep O2 saturation above 92%. VAP bundle Daily ABG and CXR while intubated. Continue antibiotics Prior sputum cultures positive for E.coli/ESBL. Bronchodilators as needed Pressors as necessary for hemodynamic support. Titrate to keep MAP above 65 mmHg/SBP above 90 mmHg. Continue antibiotics. F/u cultures. Monitor hemoglobin Transfuse if less than 7.0 g/dL. Monitor renal function due to acute kidney injury. Monitor electrolytes. Supplement as necessary. Monitor ins and outs. Nutritional support. Accucheks, ISS. GI/DVT prophylaxis. On enoxaparin. Condition: Critical Prognosis: Poor given multiple comorbidities. Rest of plan per hospitalist and other consultants. A total of 35 minutes of critical care time was spent reviewing the patient record, examining the patient, making a diagnostic and therapeutic plan, discussing this plan with the medical personnel, following up on diagnostic studies and following the patient for clinical stability excluding any and all procedures. At least 50% of this time was spent in direct, [id number] contact. Thank you Dr. Boyd for allowing me to participate in this patient's care. Further recommendations will depend on patient's clinical course. Please do not hesitate to contact me if you have any questions or concerns. This medical document was created using an electronic medical record system with [employer] dictation system. Although this document has been carefully reviewed, there may still be some phonetic and typographical errors. These areas are purely typographical due to imperfections of the software programs, and do not reflect any compromise in the patient's medical care Dietary Evaluation Review Comments: Nutrition Recommendation 1) EN Jevity 1.2 Perry @ 60ml/hr x 24hr(goal) along with Pro-stat 1pk BID. Water flush 200ml Q6H if allowed, adjust PRN. TF at goal volume provides 1928 kcal (100%), 110gm protein (94%), and 1962 ml free water (including flush). 2) Consider TPN/PN if NPO>7 days 3) Advance diet as medically feasible 4) Monitor NPO status, lab values, weight trend, and I/O Expected Outcomes/Goals: Intake to meet >75% estimated needs Fu 2-3 days Plan discussed with: Other (ROSA Arias) Critical Care Time(min): 35 [facility]INA WYATT [facility]Alisha Sep 03, 2025 19:47
[2025-09-03] MEDS: AMIODARONE HCL 200 MG TAB PO SCH (21:01)
[2025-09-03] MEDS: TPN PER PHARMACY IV NR (21:13)
[2025-09-04] VITALS (118 sets, daily range): BP systolic 100–171; BP diastolic 45–70; PULSE 71–102; RESP 16–27; TEMP 93.2–99.3; O2SAT 92–100
[2025-09-04 04:00] LABS: Hematocrit 29.8 % (41.0-53.0); Hemoglobin 9.7 g/dL (13.5-17.5); Mean Corpuscular Hemoglobin 27.1 pg (28.0-32.0); Mean Corpuscular Volume 83.0 fL (80.0-100.0); Nucleated Red Blood Cells % 0.0 %
[2025-09-04 04:23] LABS: Alkaline Phosphatase 73 U/L (46-116); Anion Gap 8 (5-15); BUN/Creatinine Ratio 37.7 (10.0-20.0); Blood Urea Nitrogen 23 mg/dL (9-23); Calcium 9.2 mg/dL (8.7-10.4); Carbon Dioxide 29 mmol/L (20-31); Chloride 102 mmol/L (98-107); Magnesium 1.9 mg/dL (1.6-2.6); Potassium 3.8 mmol/L (3.5-5.1); Sodium 139 mmol/L (136-145)
[2025-09-04 04:37] LABS: Alanine Aminotransferase < 9 U/L (7-40); Albumin 3.1 g/dL (3.2-4.8); Bilirubin, Total 0.2 mg/dL (0.2-1.0); Glucose 117 mg/dL (74-106); Total Protein 5.4 g/dL (5.7-8.2)
--- NOTE | 2025-09-04 06:00 | DVH ---
CHEST RADIOGRAPH Indication: ET tube verification Technique: Single frontal view of the chest was obtained COMPARISON: XY CHEST XRAY 1 VIEW on DOS: 09/03/25, XY CHEST PORTABLE on DOS: 09/02/25, XY CHEST XRAY 1 VIEW on DOS: 09/02/25, XY CHEST PORTABLE on DOS: 09/01/25, XY CHEST PORTABLE on DOS: 08/31/25 FINDINGS: Lines and Tubes: Endotracheal tube and right PICC in satisfactory position. Lungs: Unchanged multifocal airspace disease. Pleura: No effusion.No pneumothorax. Cardiomediastinal contours: Unremarkable Bones: Unremarkable IMPRESSION: Endotracheal tube and right PICC in satisfactory position.
[2025-09-04 07:11] LABS: Base Excess 2.9 mmol/L (-2.0-3.0)
[2025-09-04] MEDS: POTASSIUM PHOSPHATE 22 MEQ in SODIUM CHL 0.9% 100 ML IV ONE (10:15)
--- NOTE | 2025-09-04 12:10 | DVHPN2 ---
Progress Note Date Seen: Sep 04, 2025 Resident Creating Document: VAL KEARNS RESIDENT Medical Necessity Reason Pt with a Central, PICC or Fol: Yes The following are medically ne: PICC Line, Palafox Catheter Reason for palafox catheter: Strict I&O Subjective Review of Systems This is a 69-year-old patient who was BIBA for the evaluation of altered level of consciousness on 08/26. [facility] and was found unresponsive, unknown downtime, per EMS, patient was tachycardic, blood pressure 148/70, pupil fixed and dilated, O2 saturation 60%, patient was brought to the ER, and was intubated on arrival. He was started on ceftriaxone and azithromycin, a CT angio was done which ruled out pulmonary embolism, respiratory culture showed ESBL and patient's antibiotics were switched to meropenem on 08/28. Throughout his course he has been bradycardic, sinus, ranging 40s to 50s beats per minute. He required Levophed supplementation, which was turned off 6 days back. Patient has been on TPN for for reasons unknown. WBC on arrival was 12, currently 7. Cardiology consulted for new onset AFib with a RVR. Patient underwent a bronch on 09/01 and became tachycardic and later AFib in the morning of 09/02. IV amiodarone protocol was initiated overnight. 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 Intact gag reflex. Bilateral decreased breath sounds, normoactive bowel, generalized anasarca and pitting edema in the lower extremities. Ordered IV Lasix 40 mg once 09/03-patient seen and examined, overnight converted to sinus rhythm, amiodarone down titrated 2.5, PICC line placed, TLC removed, urine output increased to 1800 per day from 600. Ordered IV Lasix 20 mg. 09/03-patient seen and examined, overnight sedation was turned off for CPAP in a.m., patient became tachypneic, hypoxic, saturation 84, sedation was turned on. IV Lasix 20 mg once. Objective vital signs Vital Sign Date Time Temp Pulse Resp B/P (MAP) Pulse Ox O2 Delivery O2 Flow Rate FiO2 09/04/25 10:27 77 22 135/56 (82) 94 30 09/04/25 08:00 Mechanical Ventilator+ 09/04/25 06:46 99.0 210.2 Total Intake and Output 09/03/25 09/03/25 09/04/25 15:00 23:00 07:00 Intake Total 852.256 ml 792.283 ml 739.454 ml Output Total 1350 ml 600 ml Balance 852.256 ml -557.717 ml 139.454 ml medications Current Medications Medications Dose Ordered Sig/Kush Route Start Time Stop Time Status Last Admin Dose Admin Enoxaparin Sodium 40 mg DAILY SC 08/27/25 10:00 09/04/25 10:16 40 MG Nitroglycerin 0.4 mg Q5MINP PRN SL 08/26/25 21:00 Morphine Sulfate 2 mg Q30M PRN IV 08/26/25 21:00 Fentanyl Citrate 250 ml @ 2.5 mls/hr Q24H IV 08/26/25 23:30 09/03/25 12:20 17.5 MLS/HR Norepinephrine Bitartrate 250 ml @ 3.75 mls/hr Q24H IV 08/27/25 01:30 08/27/25 01:34 3.75 MLS/HR Albuterol 2.5 mg Q6HPRN PRN NEB 08/27/25 03:15 09/04/25 06:39 2.5 MG Meropenem 50 ml @ 17 mls/hr Q8HR IV 08/28/25 14:00 09/04/25 05:35 17 MLS/HR Quetiapine Fumarate 50 mg BID PO 08/30/25 22:00 09/04/25 10:16 50 MG Lorazepam 2 mg Q4HPRN PRN IV 08/30/25 12:00 08/31/25 09:56 2 MG Chlordiazepoxide HCl 25 mg BID PO 08/31/25 22:00 09/04/25 10:16 25 MG Amino Acids 0 ml @ 0 mls/hr PER PHARMACY IV 08/31/25 18:15 Amiodarone HCl 250 ml @ 16.667 mls/ hr Q12H IV 09/02/25 07:45 09/03/25 17:18 16.667 MLS/HR Diagnostic Test (Pha) 1 strip Q6HR 09/03/25 00:00 09/04/25 05:10 1 STRIP Insulin Human Regular FOLLOW SLIDING SCALE Q6HR SC 09/03/25 00:00 09/04/25 00:50 2 UNITS Dextrose 50 ml UD IV 09/02/25 22:00 Sodium Chloride 10 ml QSHIFT@10,22 IV 09/02/25 22:00 09/04/25 08:58 10 ML Propofol 100 ml @ 2.58 mls/hr Q24H IV 09/02/25 18:45 09/03/25 18:00 5.16 MLS/HR Magnesium Sulfate 6 meq/ Multivitamins 10 ml/Chromium/ Copper/Manganese/ Zinc 1 ml/Amino Acids/Dextrose 1,312.5 ml @ 55 mls/hr [id number] IV 09/03/25 22:00 09/04/25 21:59 09/03/25 21:13 55 MLS/HR Amiodarone HCl 200 mg Q12HR PO 09/03/25 22:00 09/04/25 10:16 200 MG Midazolam HCl 100 ml @ 1 mls/hr Q24H IV 09/03/25 17:30 09/04/25 08:59 7 MLS/HR Examination Elderly male lying in the bed, intubated and mechanically ventilated, RASS -3, intact gag, pupils sluggish General: Well-built, afebrile, palor, mucosae are moist Cardiovascular: Irregular and tachycardic , No murmurs, gallops or rubs. No JVD elevation. Generalized anasarca with pedal edema pitting Respiratory: Decreased bilateral breath sounds Abdomen: Soft, nondistended, normoactive bowel sounds, no rebound tenderness, no organomegaly, no masses Genitourinary: Suprapubic catheter MSK/skin: Skin is dry and warm laboratory and microbiology Laboratory Tests 09/04/25 03:00 Test 09/04/25 03:00 Range/Units Serum Glucose 117 H 74-106 mg/dL Microbiology Date/Time Source Procedure Growth Status 09/01/25 20:15 Urine - Suprapubic Aspirate Urine Culture - Final Complete 09/01/25 13:16 Bronchial Washings Gram Stain - Final Complete 09/01/25 13:16 Bronchial Washings Respiratory Culture - Final Complete 08/26/25 18:51 Blood Blood Culture - Final NO GROWTH AFTER 5 DAYS OF INCUBATION. Complete Labs and/or images reviewed: Labs reviewed by me, Image(s) reviewed by me Problem List/Assessment/Plan Problem List/Assessment/Plan New onset AFib with TKV-[id number]-DHTy score 2 Sinus bradycardia NSTEMI likely type 2 History of hypertension Sepsis secondary to pneumonia, Gram-positive and negative Lactic acidosis Likely aspiration pneumonia ? 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 BNP: 42 Troponin 17-32-72 Urine output 600->1800 per 24 hour Bronchoscopy 09/01 Plan/Recommendation Currently sinus rhythm, continue amiodarone 200 mg b.i.d.. Cardiology will sign off at this time, please reconsult us if deemed necessary. Given the new onset atrial fibrillation with a RVR, we administered IV amiodarone protocol 1mg/min for 6hrs -> 0.5mg/min for 18 hrs -> transition to 200mg bid daily AFib is likely secondary to underlying infectious etiology One dose of Lasix 20 mg IV today, 20 mg 09/03, 40 mg 09/02, improved urine output Keep Mag greater than 2 and potassium greater than 4 Last echocardiogram showed LVEF 60%, RVSP 56 Continue antibiotics per primary team Recommend starting steroid therapy, patient is on long-term hydrocortisone at home Suprapubic catheter changed 09/01 Recommend goals of care discussion Drips: TPN, fentanyl, Versed, propofol Overall poor prognosis Thank you for consulting Cardiology Plan discussed with the nurse Jossy in which all questions have been answered No family at bedside Case discussed with Dr. Curtis Plan discussed with: Other (Nurse Fenton) My Orders My Orders Orders - VAL KEARNS RESIDENT Procedure Category Date Status Time Potassium Phosphate PHA 09/04/25 In Process 09:45 Dietary Evaluation Review Comments: Nutrition Recommendation 1) EN Jevity 1.2 Perry @ 60ml/hr x 24hr(goal) along with Pro-stat 1pk BID. Water flush 200ml Q6H if allowed, adjust PRN. TF at goal volume provides 1928 kcal (100%), 110gm protein (94%), and 1962 ml free water (including flush). 2) Consider TPN/PN if NPO>7 days 3) Advance diet as medically feasible 4) Monitor NPO status, lab values, weight trend, and I/O Expected Outcomes/Goals: Intake to meet >75% estimated needs Fu 2-3 days Visit Coding Cardiology RES Date of Service: Sep 04, 2025 Billing Provider: DANILO CURTIS Sr., MD Cardiology Common Codes: [id number](VAL Dey RESIDENT Sep 04, 2025 12:10
--- NOTE | 2025-09-04 21:27 | DVHPN2 ---
Progress Note Date Seen: Sep 03, 2025 Medical Necessity Reason Pt with a Central, PICC or Fol: Yes The following are medically ne: PICC Line, Palafox Catheter Reason for palafox catheter: Strict I&O Objective vital signs Vital Sign Date Time Temp Pulse Resp B/P (MAP) Pulse Ox O2 Delivery O2 Flow Rate FiO2 09/04/25 19:04 78 22 125/59 95 30 09/04/25 18:38 98.6 209.5 09/04/25 18:16 Mechanical Ventilator+ Total Intake and Output 09/03/25 09/03/25 09/04/25 15:00 23:00 07:00 Intake Total 852.256 ml 792.283 ml 739.454 ml Output Total 1350 ml 600 ml Balance 852.256 ml -557.717 ml 139.454 ml medications Current Medications Medications Dose Ordered Sig/Kush Route Start Time Stop Time Status Last Admin Dose Admin Enoxaparin Sodium 40 mg DAILY SC 08/27/25 10:00 09/04/25 10:16 40 MG Nitroglycerin 0.4 mg Q5MINP PRN SL 08/26/25 21:00 Morphine Sulfate 2 mg Q30M PRN IV 08/26/25 21:00 Fentanyl Citrate 250 ml @ 2.5 mls/hr Q24H IV 08/26/25 23:30 09/03/25 12:20 17.5 MLS/HR Norepinephrine Bitartrate 250 ml @ 3.75 mls/hr Q24H IV 08/27/25 01:30 08/27/25 01:34 3.75 MLS/HR Albuterol 2.5 mg Q6HPRN PRN NEB 08/27/25 03:15 09/04/25 12:17 2.5 MG Meropenem 50 ml @ 17 mls/hr Q8HR IV 08/28/25 14:00 09/04/25 14:00 17 MLS/HR Quetiapine Fumarate 50 mg BID PO 08/30/25 22:00 09/04/25 10:16 50 MG Lorazepam 2 mg Q4HPRN PRN IV 08/30/25 12:00 08/31/25 09:56 2 MG Chlordiazepoxide HCl 25 mg BID PO 08/31/25 22:00 09/04/25 10:16 25 MG Amino Acids 0 ml @ 0 mls/hr PER PHARMACY IV 08/31/25 18:15 Amiodarone HCl 250 ml @ 16.667 mls/ hr Q12H IV 09/02/25 07:45 09/03/25 17:18 16.667 MLS/HR Diagnostic Test (Pha) 1 strip Q6HR 09/03/25 00:00 09/04/25 18:22 1 STRIP Insulin Human Regular FOLLOW SLIDING SCALE Q6HR SC 09/03/25 00:00 09/04/25 18:25 2 UNITS Dextrose 50 ml UD IV 09/02/25 22:00 Sodium Chloride 10 ml QSHIFT@10,22 IV 09/02/25 22:00 09/04/25 08:58 10 ML Propofol 100 ml @ 2.58 mls/hr Q24H IV 09/02/25 18:45 09/04/25 13:59 7.74 MLS/HR Magnesium Sulfate 6 meq/ Multivitamins 10 ml/Chromium/ Copper/Manganese/ Zinc 1 ml/Amino Acids/Dextrose 1,312.5 ml @ 55 mls/hr [id number] IV 09/03/25 22:00 09/04/25 21:59 09/03/25 21:13 55 MLS/HR Amiodarone HCl 200 mg Q12HR PO 09/03/25 22:00 09/04/25 10:16 200 MG Midazolam HCl 100 ml @ 1 mls/hr Q24H IV 09/03/25 17:30 09/04/25 08:59 7 MLS/HR Sodium Chloride 10 meq/Potassium Phosphate 11 meq/ Magnesium Sulfate 8 meq/ Multivitamins 10 ml/Chromium/ Copper/Manganese/ Zinc 1 ml/Amino Acids/Dextrose 1,268 ml @ 53 mls/hr [id number] IV 09/04/25 22:00 09/05/25 21:59 laboratory and microbiology Laboratory Tests 09/04/25 03:00 Test 09/04/25 03:00 Range/Units Serum Glucose 117 H 74-106 mg/dL Microbiology Date/Time Source Procedure Growth Status 09/01/25 20:15 Urine - Suprapubic Aspirate Urine Culture - Final Complete 09/01/25 13:16 Bronchial Washings Gram Stain - Final Complete 09/01/25 13:16 Bronchial Washings Respiratory Culture - Final Complete 08/26/25 18:51 Blood Blood Culture - Final NO GROWTH AFTER 5 DAYS OF INCUBATION. Complete Labs and/or images reviewed: Labs reviewed by me Problem List/Assessment/Plan Problem List/Assessment/Plan Acute hypoxic respiratory failure On mechanical ventilation acute toxic and metabolic encephalopathy Right apical lung scarring Right apical pleural-parenchymal scarring Shock, septic Elevated D-dimer Lactic acidosis Hyperglycemia sepsis/septic shock with unclear cause at this time chronic anemia time: >35 minutes critical care in the coordination of care daily weaning off of vent Plan discussed with: Other (nursing) My Orders My Orders Orders - JIE PEREZ DO Procedure Category Date Status Time Amino Acid PHA 09/04/25 In Process Infusion... W/Sodium 22:00 Comprehensive LAB 09/05/25 Verified Metabolic Panel 04:00 Magnesium LAB 09/05/25 Verified 04:00 Phosphorus LAB 09/05/25 Verified 04:00 Tpn Per Pharmacy [facility] 09/04/25 In Process 22:00 Complete Blood Count LAB 09/05/25 Verified 04:00 Chest Portable XY 09/05/25 Logged 04:00 Dietary Evaluation Review Comments: Nutrition Recommendation 1) EN Jevity 1.2 Perry @ 60ml/hr x 24hr(goal) along with Pro-stat 1pk BID. Water flush 200ml Q6H if allowed, adjust PRN. TF at goal volume provides 1928 kcal (100%), 110gm protein (94%), and 1962 ml free water (including flush). 2) Consider TPN/PN if NPO>7 days 3) Advance diet as medically feasible 4) Monitor NPO status, lab values, weight trend, and I/O Expected Outcomes/Goals: Intake to meet >75% estimated needs Fu 2-3 days JIE PEREZ DO Sep 04, 2025 21:27
--- NOTE | 2025-09-04 21:27 | DVHPN2 ---
Progress Note Date Seen: Sep 04, 2025 Medical Necessity Reason Pt with a Central, PICC or Fol: Yes The following are medically ne: PICC Line, Palafox Catheter Reason for palafox catheter: Strict I&O Objective vital signs Vital Sign Date Time Temp Pulse Resp B/P (MAP) Pulse Ox O2 Delivery O2 Flow Rate FiO2 09/04/25 19:04 78 22 125/59 95 30 09/04/25 18:38 98.6 209.5 09/04/25 18:16 Mechanical Ventilator+ Total Intake and Output 09/03/25 09/03/25 09/04/25 15:00 23:00 07:00 Intake Total 852.256 ml 792.283 ml 739.454 ml Output Total 1350 ml 600 ml Balance 852.256 ml -557.717 ml 139.454 ml medications Current Medications Medications Dose Ordered Sig/Kush Route Start Time Stop Time Status Last Admin Dose Admin Enoxaparin Sodium 40 mg DAILY SC 08/27/25 10:00 09/04/25 10:16 40 MG Nitroglycerin 0.4 mg Q5MINP PRN SL 08/26/25 21:00 Morphine Sulfate 2 mg Q30M PRN IV 08/26/25 21:00 Fentanyl Citrate 250 ml @ 2.5 mls/hr Q24H IV 08/26/25 23:30 09/03/25 12:20 17.5 MLS/HR Norepinephrine Bitartrate 250 ml @ 3.75 mls/hr Q24H IV 08/27/25 01:30 08/27/25 01:34 3.75 MLS/HR Albuterol 2.5 mg Q6HPRN PRN NEB 08/27/25 03:15 09/04/25 12:17 2.5 MG Meropenem 50 ml @ 17 mls/hr Q8HR IV 08/28/25 14:00 09/04/25 14:00 17 MLS/HR Quetiapine Fumarate 50 mg BID PO 08/30/25 22:00 09/04/25 10:16 50 MG Lorazepam 2 mg Q4HPRN PRN IV 08/30/25 12:00 08/31/25 09:56 2 MG Chlordiazepoxide HCl 25 mg BID PO 08/31/25 22:00 09/04/25 10:16 25 MG Amino Acids 0 ml @ 0 mls/hr PER PHARMACY IV 08/31/25 18:15 Amiodarone HCl 250 ml @ 16.667 mls/ hr Q12H IV 09/02/25 07:45 09/03/25 17:18 16.667 MLS/HR Diagnostic Test (Pha) 1 strip Q6HR 09/03/25 00:00 09/04/25 18:22 1 STRIP Insulin Human Regular FOLLOW SLIDING SCALE Q6HR SC 09/03/25 00:00 09/04/25 18:25 2 UNITS Dextrose 50 ml UD IV 09/02/25 22:00 Sodium Chloride 10 ml QSHIFT@10,22 IV 09/02/25 22:00 09/04/25 08:58 10 ML Propofol 100 ml @ 2.58 mls/hr Q24H IV 09/02/25 18:45 09/04/25 13:59 7.74 MLS/HR Magnesium Sulfate 6 meq/ Multivitamins 10 ml/Chromium/ Copper/Manganese/ Zinc 1 ml/Amino Acids/Dextrose 1,312.5 ml @ 55 mls/hr [id number] IV 09/03/25 22:00 09/04/25 21:59 09/03/25 21:13 55 MLS/HR Amiodarone HCl 200 mg Q12HR PO 09/03/25 22:00 09/04/25 10:16 200 MG Midazolam HCl 100 ml @ 1 mls/hr Q24H IV 09/03/25 17:30 09/04/25 08:59 7 MLS/HR Sodium Chloride 10 meq/Potassium Phosphate 11 meq/ Magnesium Sulfate 8 meq/ Multivitamins 10 ml/Chromium/ Copper/Manganese/ Zinc 1 ml/Amino Acids/Dextrose 1,268 ml @ 53 mls/hr [id number] IV 09/04/25 22:00 09/05/25 21:59 laboratory and microbiology Laboratory Tests 09/04/25 03:00 Test 09/04/25 03:00 Range/Units Serum Glucose 117 H 74-106 mg/dL Microbiology Date/Time Source Procedure Growth Status 09/01/25 20:15 Urine - Suprapubic Aspirate Urine Culture - Final Complete 09/01/25 13:16 Bronchial Washings Gram Stain - Final Complete 09/01/25 13:16 Bronchial Washings Respiratory Culture - Final Complete 08/26/25 18:51 Blood Blood Culture - Final NO GROWTH AFTER 5 DAYS OF INCUBATION. Complete Labs and/or images reviewed: Labs reviewed by me, Image(s) reviewed by me Problem List/Assessment/Plan Problem List/Assessment/Plan Acute hypoxic respiratory failure On mechanical ventilation acute toxic and metabolic encephalopathy Right apical lung scarring Right apical pleural-parenchymal scarring Shock, septic Elevated D-dimer Lactic acidosis Hyperglycemia sepsis/septic shock with unclear cause at this time chronic anemia time: >35 minutes critical care in the coordination of care daily weaning off of vent Plan discussed with: Other My Orders My Orders Orders - JIE PEREZ DO Procedure Category Date Status Time Amino Acid PHA 09/04/25 In Process Infusion... W/Sodium 22:00 Comprehensive LAB 09/05/25 Verified Metabolic Panel 04:00 Magnesium LAB 09/05/25 Verified 04:00 Phosphorus LAB 09/05/25 Verified 04:00 Tpn Per Pharmacy [facility] 09/04/25 In Process 22:00 Complete Blood Count LAB 09/05/25 Verified 04:00 Chest Portable XY 09/05/25 Logged 04:00 Dietary Evaluation Review Comments: Nutrition Recommendation 1) EN Jevity 1.2 Perry @ 60ml/hr x 24hr(goal) along with Pro-stat 1pk BID. Water flush 200ml Q6H if allowed, adjust PRN. TF at goal volume provides 1928 kcal (100%), 110gm protein (94%), and 1962 ml free water (including flush). 2) Consider TPN/PN if NPO>7 days 3) Advance diet as medically feasible 4) Monitor NPO status, lab values, weight trend, and I/O Expected Outcomes/Goals: Intake to meet >75% estimated needs Fu 2-3 days JIE PEREZ DO Sep 04, 2025 21:27
[2025-09-04] MEDS: MAGNESIUM SULF IV NR (21:54)
[2025-09-04] MEDS: SODIUM CHLORIDE IV NR (21:54)
[2025-09-04] MEDS: [UNRECOGNIZED DRUG - OTHER] IV NR (21:54)
[2025-09-04] MEDS: POTASSIUM PHOSPHATE IV NR (21:54)
--- NOTE | 2025-09-04 22:48 | DVHPN2 ---
Progress Note - Dictate Date Seen: Sep 04, 2025 Medical Necessity Reason Pt with a Central, PICC or Fol: Yes The following are medically ne: PICC Line, Palafox Catheter Reason for palafox catheter: Strict I&O Subjective [facility] DOS: 09/04/2025 Patient seen and examined at bedside. Sedated, intubated on mechanical ventilator. Overnight events reviewed. vital signs Vital Sign Date Time Temp Pulse Resp B/P (MAP) Pulse Ox O2 Delivery O2 Flow Rate FiO2 09/04/25 22:44 79 22 124/57 (79) 95 30 09/04/25 18:38 98.6 209.5 09/04/25 18:16 Mechanical Ventilator+ Total Intake and Output 09/03/25 09/03/25 09/04/25 14:59 22:59 06:59 Intake Total 835.256 ml 790.363 ml 800.281 ml Output Total 1350 ml 600 ml Balance 835.256 ml -559.637 ml 200.281 ml medications Current Medications Medications Dose Ordered Sig/Kush Route Start Time Stop Time Status Last Admin Dose Admin Enoxaparin Sodium 40 mg DAILY SC 08/27/25 10:00 09/04/25 10:16 40 MG Nitroglycerin 0.4 mg Q5MINP PRN SL 08/26/25 21:00 Morphine Sulfate 2 mg Q30M PRN IV 08/26/25 21:00 Fentanyl Citrate 250 ml @ 2.5 mls/hr Q24H IV 08/26/25 23:30 09/04/25 21:52 15 MLS/HR Norepinephrine Bitartrate 250 ml @ 3.75 mls/hr Q24H IV 08/27/25 01:30 08/27/25 01:34 3.75 MLS/HR Albuterol 2.5 mg Q6HPRN PRN NEB 08/27/25 03:15 09/04/25 12:17 2.5 MG Meropenem 50 ml @ 17 mls/hr Q8HR IV 08/28/25 14:00 09/04/25 21:39 17 MLS/HR Quetiapine Fumarate 50 mg BID PO 08/30/25 22:00 09/04/25 21:45 50 MG Lorazepam 2 mg Q4HPRN PRN IV 08/30/25 12:00 08/31/25 09:56 2 MG Chlordiazepoxide HCl 25 mg BID PO 08/31/25 22:00 09/04/25 21:45 25 MG Amino Acids 0 ml @ 0 mls/hr PER PHARMACY IV 08/31/25 18:15 Amiodarone HCl 250 ml @ 16.667 mls/ hr Q12H IV 09/02/25 07:45 09/03/25 17:18 16.667 MLS/HR Diagnostic Test (Pha) 1 strip Q6HR 09/03/25 00:00 09/04/25 18:22 1 STRIP Insulin Human Regular FOLLOW SLIDING SCALE Q6HR SC 09/03/25 00:00 09/04/25 18:25 2 UNITS Dextrose 50 ml UD IV 09/02/25 22:00 Sodium Chloride 10 ml QSHIFT@10,22 IV 09/02/25 22:00 09/04/25 21:59 10 ML Propofol 100 ml @ 2.58 mls/hr Q24H IV 09/02/25 18:45 09/04/25 13:59 7.74 MLS/HR Amiodarone HCl 200 mg Q12HR PO 09/03/25 22:00 09/04/25 21:44 200 MG Midazolam HCl 100 ml @ 1 mls/hr Q24H IV 09/03/25 17:30 09/04/25 21:30 7 MLS/HR Sodium Chloride 10 meq/Potassium Phosphate 11 meq/ Magnesium Sulfate 8 meq/ Multivitamins 10 ml/Chromium/ Copper/Manganese/ Zinc 1 ml/Amino Acids/Dextrose 1,268 ml @ 53 mls/hr [id number] IV 09/04/25 22:00 09/05/25 21:59 09/04/25 21:54 53 MLS/HR objective Gen.: Patient lying in bed in medical ICU. Sedated, intubated on mechanical ventilator. Head: Normocephalic, atraumatic. Eyes: PERRLA. Ears: Normal external anatomy. Throat: Endotracheal tube and orogastric tube in place. Neck: Supple, trachea midline. Chest: Transmitted breath sounds bilaterally. Decreased air entry bilaterally. No wheezing. Bibasilar crackles. Cardiovascular: Positive S1, positive S2. Regular rate and rhythm. Abdomen: Positive bowel sounds in all 4 quadrants. Soft, nontender, nondistended. : Palafox in place. Normal external genitalia. Rectal: Deferred. Skin: Warm, dry. Intact. Extremities: 2+ radial pulses bilaterally. No lower extremity edema. Neuro: Sedated. laboratory and microbiology Laboratory Tests 09/04/25 03:00 Test 09/04/25 03:00 Range/Units Serum Glucose 117 H 74-106 mg/dL Assessment/Plan Impression: Acute hypoxic respiratory failure On mechanical ventilation Metabolic encephalopathy Right apical lung scarring Right apical pleural-parenchymal scarring Shock Elevated D-dimer Lactic acidosis Hyperglycemia Events: Remains on vent support On assist control with respiratory rate of 22, tidal volume 550, PEEP of 5, FiO2 of 30%. Taper FiO2 as tolerated Sedated on Propofol, Versed Fentanyl for analgesia Off pressors, hemodynamically stable. Continue antibiotics - meropenem Continue amiodarone Note, POLST signed by patient. He would not want life prolongation with mechanical ventilator + feeding tube. Per brother, his brother would not want life prolongation with trach/PEG. Given this information, patient will be made comfort measures as the likelihood of liberation from mechanical ventilation is unlikely. Patient has failed multiple CPAP trials. Accu-Cheks, ISS. Monitor renal function Monitor electrolytes. Supplement as necessary. Potassium supplementation TPN for nutritional support S/p bronchoscopy on 09/01/25 Bronchial washings sent for cultures, show no growth. Labs and imaging reviewed. Rest of plan as noted below. Plan: s/p intubation on mechanical ventilator On assist control with respiratory rate of 22, tidal volume 550, PEEP of 5, FiO2 of 30%. Titrate FIO2 to keep O2 saturation above 92%. VAP bundle Daily ABG and CXR while intubated. Continue antibiotics Prior sputum cultures positive for E.coli/ESBL. Bronchodilators as needed Pressors as necessary for hemodynamic support. Titrate to keep MAP above 65 mmHg/SBP above 90 mmHg. Continue antibiotics. F/u cultures. Monitor hemoglobin Transfuse if less than 7.0 g/dL. Monitor renal function due to acute kidney injury. Monitor electrolytes. Supplement as necessary. Monitor ins and outs. Nutritional support. Accucheks, ISS. GI/DVT prophylaxis. On enoxaparin. Condition: Critical Prognosis: Poor given multiple comorbidities. Rest of plan per hospitalist and other consultants. A total of 35 minutes of critical care time was spent reviewing the patient record, examining the patient, making a diagnostic and therapeutic plan, discussing this plan with the medical personnel, following up on diagnostic studies and following the patient for clinical stability excluding any and all procedures. At least 50% of this time was spent in direct, [id number] contact. Thank you Dr. Boyd for allowing me to participate in this patient's care. Further recommendations will depend on patient's clinical course. Please do not hesitate to contact me if you have any questions or concerns. This medical document was created using an electronic medical record system with [employer] dictation system. Although this document has been carefully reviewed, there may still be some phonetic and typographical errors. These areas are purely typographical due to imperfections of the software programs, and do not reflect any compromise in the patient's medical care Dietary Evaluation Review Comments: Nutrition Recommendation 1) EN Jevity 1.2 Perry @ 60ml/hr x 24hr(goal) along with Pro-stat 1pk BID. Water flush 200ml Q6H if allowed, adjust PRN. TF at goal volume provides 1928 kcal (100%), 110gm protein (94%), and 1962 ml free water (including flush). 2) Consider TPN/PN if NPO>7 days 3) Advance diet as medically feasible 4) Monitor NPO status, lab values, weight trend, and I/O Expected Outcomes/Goals: Intake to meet >75% estimated needs Fu 2-3 days Plan discussed with: Other (ROSA Arias) Critical Care Time(min): 35 [facility]INA WYATT [facility] Sep 04, 2025 22:48
[2025-09-05] VITALS (102 sets, daily range): BP systolic 97–190; BP diastolic 41–67; PULSE 75–107; RESP 10–28; TEMP 96.6–99; O2SAT 90–100
[2025-09-05 02:55] LABS: Hematocrit 30.7 % (41.0-53.0); Hemoglobin 10.2 g/dL (13.5-17.5); Mean Corpuscular Hemoglobin 27.5 pg (28.0-32.0); Mean Corpuscular Volume 82.8 fL (80.0-100.0); Nucleated Red Blood Cells % 0.1 %
[2025-09-05] MEDS: fentaNYL Drip 2500mCg/250mlNS 250 ML IV SCH (03:00)
[2025-09-05 03:08] LABS: Alkaline Phosphatase 85 U/L (46-116); Anion Gap 5 (5-15); BUN/Creatinine Ratio 42.4 (10.0-20.0); Calcium 9.4 mg/dL (8.7-10.4); Carbon Dioxide 31 mmol/L (20-31); Chloride 104 mmol/L (98-107); Magnesium 2.1 mg/dL (1.6-2.6); Potassium 4.1 mmol/L (3.5-5.1); Sodium 140 mmol/L (136-145)
[2025-09-05 03:11] LABS: Alanine Aminotransferase < 9 U/L (7-40); Albumin 3.2 g/dL (3.2-4.8); Bilirubin, Total 0.2 mg/dL (0.2-1.0); Blood Urea Nitrogen 25 mg/dL (9-23); Glucose 113 mg/dL (74-106); Total Protein 5.6 g/dL (5.7-8.2)
--- NOTE | 2025-09-05 06:07 | DVH ---
CHEST RADIOGRAPH Indication: intubated Technique: Single frontal view of the chest was obtained COMPARISON: XY CHEST PORTABLE on DOS: 09/04/25, XY CHEST XRAY 1 VIEW on DOS: 09/03/25, XY CHEST MAGALY BLE on DOS: 09/02/25, XY CHEST XRAY 1 VIEW on DOS: 09/02/25, XY CHEST PORTABLE on DOS: 09/01/25 FINDINGS: Lines and Tubes: Unchanged. Lungs: Stable chronic appearing bilateral interstitial pulmonary markings. No evidence of focal cons olidation. Pleura: No effusion. No pneumothorax. Cardiomediastinal contours: Unremarkable Bones: Unremarkable IMPRESSION: 1. No acute cardiopulmonary disease. 2. Lines and tubes unchanged.
[2025-09-05 09:22] LABS: Base Excess 2.0 mmol/L (-2.0-3.0)
[2025-09-05] MEDS: SODIUM PHOSPHATES 20 MEQ in SODIUM CHL 0.9% 100 ML IV ONE (14:08)
[2025-09-05] MEDS: TPN PER PHARMACY IV NR (20:39)
--- NOTE | 2025-09-05 21:44 | DVHPN2 ---
Progress Note - Dictate Date Seen: Sep 05, 2025 Medical Necessity Reason Pt with a Central, PICC or Fol: Yes The following are medically ne: PICC Line, Palafox Catheter Reason for palafox catheter: Strict I&O Subjective [facility] Patient seen and examined at bedside. Sedated, intubated on mechanical ventilator. Overnight events reviewed. vital signs Vital Sign Date Time Temp Pulse Resp B/P (MAP) Pulse Ox O2 Delivery O2 Flow Rate FiO2 09/05/25 20:29 94 26 170/66 (100) 94 30 09/05/25 18:16 Mechanical Ventilator+ 09/05/25 14:30 98.8 209.8 Total Intake and Output 09/04/25 09/04/25 09/05/25 15:00 23:00 07:00 Intake Total 619.22 ml 1368.28 ml 589.36 ml Output Total 650 ml Balance 619.22 ml 1368.28 ml -60.64 ml medications Current Medications Medications Dose Ordered Sig/Kush Route Start Time Stop Time Status Last Admin Dose Admin Enoxaparin Sodium 40 mg DAILY SC 08/27/25 10:00 09/05/25 09:03 40 MG Nitroglycerin 0.4 mg Q5MINP PRN SL 08/26/25 21:00 Norepinephrine Bitartrate 250 ml @ 3.75 mls/hr Q24H IV 08/27/25 01:30 08/27/25 01:34 3.75 MLS/HR Albuterol 2.5 mg Q6HPRN PRN NEB 08/27/25 03:15 09/05/25 18:50 2.5 MG Meropenem 50 ml @ 17 mls/hr Q8HR IV 08/28/25 14:00 09/05/25 13:19 17 MLS/HR Quetiapine Fumarate 50 mg BID PO 08/30/25 22:00 09/05/25 09:02 50 MG Lorazepam 2 mg Q4HPRN PRN IV 08/30/25 12:00 08/31/25 09:56 2 MG Chlordiazepoxide HCl 25 mg BID PO 08/31/25 22:00 09/05/25 09:02 25 MG Amino Acids 0 ml @ 0 mls/hr PER PHARMACY IV 08/31/25 18:15 Amiodarone HCl 250 ml @ 16.667 mls/ hr Q12H IV 09/02/25 07:45 09/03/25 17:18 16.667 MLS/HR Diagnostic Test (Pha) 1 strip Q6HR 09/03/25 00:00 09/05/25 17:19 1 STRIP Insulin Human Regular FOLLOW SLIDING SCALE Q6HR SC 09/03/25 00:00 09/05/25 17:29 2 UNITS Dextrose 50 ml UD IV 09/02/25 22:00 Sodium Chloride 10 ml QSHIFT@10,22 IV 09/02/25 22:00 09/05/25 09:02 10 ML Propofol 100 ml @ 2.58 mls/hr Q24H IV 09/02/25 18:45 09/05/25 15:15 2.58 MLS/HR Amiodarone HCl 200 mg Q12HR PO 09/03/25 22:00 09/05/25 09:02 200 MG Midazolam HCl 100 ml @ 1 mls/hr Q24H IV 09/03/25 17:30 09/05/25 15:16 3 MLS/HR Sodium Chloride 10 meq/Potassium Phosphate 11 meq/ Magnesium Sulfate 8 meq/ Multivitamins 10 ml/Chromium/ Copper/Manganese/ Zinc 1 ml/Amino Acids/Dextrose 1,268 ml @ 53 mls/hr [id number] IV 09/04/25 22:00 09/05/25 21:59 09/04/25 21:54 53 MLS/HR Fentanyl Citrate 250 ml @ 2.5 mls/hr Q24H IV 09/05/25 03:00 09/05/25 15:17 7.5 MLS/HR Sodium Phosphate 20 meq/Magnesium Sulfate 6 meq/ Multivitamins 10 ml/Chromium/ Copper/Manganese/ Zinc 1 ml/Amino Acids/Dextrose 1,367.5 ml @ 57 mls/hr Q24H IV 09/05/25 22:00 09/06/25 21:59 09/05/25 20:39 57 MLS/HR objective Gen.: Patient lying in bed in medical ICU. Sedated, intubated on mechanical ventilator. Head: Normocephalic, atraumatic. Eyes: PERRLA. Ears: Normal external anatomy. Throat: Endotracheal tube and orogastric tube in place. Neck: Supple, trachea midline. Chest: Transmitted breath sounds bilaterally. Decreased air entry bilaterally. No wheezing. Bibasilar crackles. Cardiovascular: Positive S1, positive S2. Regular rate and rhythm. Abdomen: Positive bowel sounds in all 4 quadrants. Soft, nontender, nondistended. : Palafox in place. Normal external genitalia. Rectal: Deferred. Skin: Warm, dry. Intact. Extremities: 2+ radial pulses bilaterally. No lower extremity edema. Neuro: Sedated. laboratory and microbiology Laboratory Tests 09/05/25 02:30 Test 09/05/25 02:30 Range/Units Serum Glucose 113 H 74-106 mg/dL Assessment/Plan Impression: Acute hypoxic respiratory failure On mechanical ventilation Metabolic encephalopathy Right apical lung scarring Right apical pleural-parenchymal scarring Shock Elevated D-dimer Lactic acidosis Hyperglycemia Events: CPAP with sedation CPAP with PS 12, PEEP of 5. RR of 28 Sedated on Versed Fentanyl for analgesia Continue antibiotics - meropenem Continue amiodarone Continue TPN for nutritional support Poor prognosis. Likelihood for being liberated from vent is low. POLST signed by patient. He would not want life prolongation with mechanical ventilator + feeding tube. Per brother, his brother would not want life prolongation with trach/PEG. Given this information, patient will be made comfort measures as the likelihood of liberation from mechanical ventilation is unlikely. Patient has failed multiple CPAP trials. Labs and imaging reviewed. Rest of plan as noted below. Plan: s/p intubation on mechanical ventilator On assist control with respiratory rate of 22, tidal volume 550, PEEP of 5, FiO2 of 30%. Titrate FIO2 to keep O2 saturation above 92%. VAP bundle Daily ABG and CXR while intubated. S/p bronchoscopy on 09/01/25 Bronchial washings sent for cultures, show no growth. Continue antibiotics Prior sputum cultures positive for E.coli/ESBL. Bronchodilators as needed Pressors as necessary for hemodynamic support. Titrate to keep MAP above 65 mmHg/SBP above 90 mmHg. Continue antibiotics. F/u cultures. Monitor hemoglobin Transfuse if less than 7.0 g/dL. Monitor renal function due to acute kidney injury. Monitor electrolytes. Supplement as necessary. Monitor ins and outs. Nutritional support. Accucheks, ISS. GI/DVT prophylaxis. On enoxaparin. Condition: Critical Prognosis: Poor given multiple comorbidities. Rest of plan per hospitalist and other consultants. A total of 35 minutes of critical care time was spent reviewing the patient record, examining the patient, making a diagnostic and therapeutic plan, discussing this plan with the medical personnel, following up on diagnostic studies and following the patient for clinical stability excluding any and all procedures. At least 50% of this time was spent in direct, [id number] contact. Thank you Dr. Boyd for allowing me to participate in this patient's care. Further recommendations will depend on patient's clinical course. Please do not hesitate to contact me if you have any questions or concerns. This medical document was created using an electronic medical record system with [employer] system. Although this document has been carefully reviewed, there may still be some phonetic and typographical errors. These areas are purely typographical due to imperfections of the software programs, and do not reflect any compromise in the patient's medical care Dietary Evaluation Review Comments: Nutrition Recommendation 1) EN Jevity 1.2 Perry @ 60ml/hr x 24hr(goal) along with Pro-stat 1pk BID. Water flush 200ml Q6H if allowed, adjust PRN. TF at goal volume provides 1928 kcal (100%), 110gm protein (94%), and 1962 ml free water (including flush). 2) Consider TPN/PN if NPO>7 days 3) Advance diet as medically feasible 4) Monitor NPO status, lab values, weight trend, and I/O Expected Outcomes/Goals: Intake to meet >75% estimated needs Fu 2-3 days Plan discussed with: Other (RN) Critical Care Time(min): 35 EWELINA WYATT [facility] Sep 05, 2025 21:44
[2025-09-06] VITALS (113 sets, daily range): BP systolic 107–184; BP diastolic 42–78; PULSE 62–87; RESP 4–31; TEMP 97.7–98.8; O2SAT 90–100
[2025-09-06 03:39] LABS: Hematocrit 27.3 % (41.0-53.0); Hemoglobin 9.2 g/dL (13.5-17.5); Mean Corpuscular Hemoglobin 27.7 pg (28.0-32.0); Mean Corpuscular Volume 82.5 fL (80.0-100.0); Nucleated Red Blood Cells % 0.0 %
[2025-09-06 03:55] LABS: Alkaline Phosphatase 86 U/L (46-116); Anion Gap 7 (5-15); BUN/Creatinine Ratio 44.8 (10.0-20.0); Calcium 9.3 mg/dL (8.7-10.4); Chloride 103 mmol/L (98-107); Magnesium 2.0 mg/dL (1.6-2.6); Potassium 3.9 mmol/L (3.5-5.1); Sodium 141 mmol/L (136-145)
[2025-09-06 03:57] LABS: Alanine Aminotransferase < 9 U/L (7-40); Albumin 3.1 g/dL (3.2-4.8); Bilirubin, Total 0.2 mg/dL (0.2-1.0); Blood Urea Nitrogen 26 mg/dL (9-23); Carbon Dioxide 31 mmol/L (20-31); Glucose 119 mg/dL (74-106); Total Protein 5.3 g/dL (5.7-8.2)
--- NOTE | 2025-09-06 07:21 | DVH ---
CHEST RADIOGRAPH Indication: PATIENT INTUBATED Technique: Single frontal view of the chest was obtained Comparison: XY CHEST PORTABLE on DOS: 09/05/25 FINDINGS: Lines and Tubes: The endotracheal tube terminates 2.9 cm above the king. The enteric tube courses b elow the left hemidiaphragm and the tip extends outside the field of view. There is a right upper ext remity PICC with its tip terminating in the superior vena cava. Neurostimulator projects over the tho racic spine. Lungs: Bilateral interstitial prominence similar to prior study. No focal consolidation. Pleura: No effusion. No pneumothorax. Cardiomediastinal contours: Unchanged. Bones: No acute osseous abnormality. IMPRESSION: 1. Support tubes in appropriate position. 2. No significant change in bilateral interstitial prominence.
--- NOTE | 2025-09-06 08:29 | DVHPN2 ---
Progress Note Date Seen: Sep 05, 2025 Medical Necessity Reason Pt with a Central, PICC or Fol: Yes The following are medically ne: PICC Line, Palafox Catheter Reason for palafox catheter: Strict I&O Objective vital signs Vital Sign Date Time Temp Pulse Resp B/P (MAP) Pulse Ox O2 Delivery O2 Flow Rate FiO2 09/06/25 06:50 78 24 150/56 (87) 96 30 09/06/25 06:47 98.4 98.4 09/06/25 06:00 Mechanical Ventilator+ Total Intake and Output 09/05/25 09/05/25 09/06/25 15:00 23:00 07:00 Intake Total 564.04 ml 658.76 ml 568.04 ml Output Total 650 ml 750 ml Balance 564.04 ml 8.76 ml -181.96 ml medications Current Medications Medications Dose Ordered Sig/Kush Route Start Time Stop Time Status Last Admin Dose Admin Enoxaparin Sodium 40 mg DAILY SC 08/27/25 10:00 09/05/25 09:03 40 MG Nitroglycerin 0.4 mg Q5MINP PRN SL 08/26/25 21:00 Norepinephrine Bitartrate 250 ml @ 3.75 mls/hr Q24H IV 08/27/25 01:30 08/27/25 01:34 3.75 MLS/HR Albuterol 2.5 mg Q6HPRN PRN NEB 08/27/25 03:15 09/06/25 06:50 2.5 MG Meropenem 50 ml @ 17 mls/hr Q8HR IV 08/28/25 14:00 09/06/25 05:25 17 MLS/HR Quetiapine Fumarate 50 mg BID PO 08/30/25 22:00 09/05/25 21:48 50 MG Lorazepam 2 mg Q4HPRN PRN IV 08/30/25 12:00 08/31/25 09:56 2 MG Chlordiazepoxide HCl 25 mg BID PO 08/31/25 22:00 09/05/25 21:47 25 MG Amino Acids 0 ml @ 0 mls/hr PER PHARMACY IV 08/31/25 18:15 Amiodarone HCl 250 ml @ 16.667 mls/ hr Q12H IV 09/02/25 07:45 09/03/25 17:18 16.667 MLS/HR Diagnostic Test (Pha) 1 strip Q6HR 09/03/25 00:00 09/06/25 06:07 1 STRIP Insulin Human Regular FOLLOW SLIDING SCALE Q6HR SC 09/03/25 00:00 09/05/25 23:22 2 UNITS Dextrose 50 ml UD IV 09/02/25 22:00 Sodium Chloride 10 ml QSHIFT@10,22 IV 09/02/25 22:00 09/05/25 21:48 10 ML Propofol 100 ml @ 2.58 mls/hr Q24H IV 09/02/25 18:45 09/06/25 04:55 12.9 MLS/HR Amiodarone HCl 200 mg Q12HR PO 09/03/25 22:00 09/05/25 21:48 200 MG Midazolam HCl 100 ml @ 1 mls/hr Q24H IV 09/03/25 17:30 09/06/25 04:55 3 MLS/HR Fentanyl Citrate 250 ml @ 2.5 mls/hr Q24H IV 09/05/25 03:00 09/05/25 15:17 7.5 MLS/HR Sodium Phosphate 20 meq/Magnesium Sulfate 6 meq/ Multivitamins 10 ml/Chromium/ Copper/Manganese/ Zinc 1 ml/Amino Acids/Dextrose 1,367.5 ml @ 57 mls/hr Q24H IV 09/05/25 22:00 09/06/25 21:59 09/05/25 20:39 57 MLS/HR laboratory and microbiology Laboratory Tests 09/06/25 02:51 Test 09/06/25 02:51 Range/Units Serum Glucose 119 H 74-106 mg/dL Microbiology Date/Time Source Procedure Growth Status 09/01/25 20:15 Urine - Suprapubic Aspirate Urine Culture - Final Complete 09/01/25 13:16 Bronchial Washings Gram Stain - Final Complete 09/01/25 13:16 Bronchial Washings Respiratory Culture - Final Complete 08/26/25 18:51 Blood Blood Culture - Final NO GROWTH AFTER 5 DAYS OF INCUBATION. Complete Labs and/or images reviewed: Labs reviewed by me, Image(s) reviewed by me Problem List/Assessment/Plan Problem List/Assessment/Plan Acute hypoxic respiratory failure On mechanical ventilation acute toxic and metabolic encephalopathy Right apical lung scarring Right apical pleural-parenchymal scarring Shock, septic Elevated D-dimer Lactic acidosis Hyperglycemia sepsis/septic shock with unclear cause at this time chronic anemia time: >35 minutes critical care in the coordination of care daily weaning off of vent Plan discussed with: Other (nursing) My Orders My Orders Orders - JIE PEREZ DO Procedure Category Date Status Time Amino Acid PHA 09/05/25 In Process Infusion... W/Sodium 22:00 Tpn Per Pharmacy [facility] 09/05/25 In Process 22:00 Code Status CODE 09/05/25 Transmitted 11:52 Chest Portable XY 09/06/25 Resulted 04:00 Dietary Evaluation Review Comments: Nutrition Recommendation 1) EN Jevity 1.2 Perry @ 60ml/hr x 24hr(goal) along with Pro-stat 1pk BID. Water flush 200ml Q6H if allowed, adjust PRN. TF at goal volume provides 1928 kcal (100%), 110gm protein (94%), and 1962 ml free water (including flush). 2) Consider TPN/PN if NPO>7 days 3) Advance diet as medically feasible 4) Monitor NPO status, lab values, weight trend, and I/O Expected Outcomes/Goals: Intake to meet >75% estimated needs Fu 2-3 days JIE PEREZ DO Sep 06, 2025 08:29
[2025-09-06 08:56] LABS: Base Excess 0.5 mmol/L (-2.0-3.0)
[2025-09-06] MEDS: FUROSEMIDE 100 MG/10ML VIAL IV ONE (13:30)
[2025-09-06] MEDS ORDERED: BUDESONIDE (INHALATION) 0.5 MG/2 ML NEB NEB SCH (15:00)
[2025-09-06] MEDS: methylPREDNISolone SOD SUCC 40 MG/ML VL IV SCH (17:55)
[2025-09-06] MEDS: IPRATROPIUM BROM 0.5 MG/2.5ML INH SOL NEB SCH (18:24)
[2025-09-06] MEDS: BUDESONIDE (INHALATION) 0.5 MG/2 ML NEB NEB SCH (18:25)
[2025-09-06] MEDS: TPN PER PHARMACY IV NR (21:46)
--- NOTE | 2025-09-06 23:04 | DVHPN2 ---
Progress Note - Dictate Date Seen: Sep 06, 2025 Medical Necessity Reason Pt with a Central, PICC or Fol: Yes The following are medically ne: PICC Line, Palafox Catheter Reason for palafox catheter: Strict I&O Subjective [facility] Patient seen and examined at bedside. Sedated, intubated on mechanical ventilator. Overnight events reviewed. vital signs Vital Sign Date Time Temp Pulse Resp B/P (MAP) Pulse Ox O2 Delivery O2 Flow Rate FiO2 09/06/25 22:46 70 23 110/58 (75) 91 30 09/06/25 20:00 Mechanical Ventilator+ 09/06/25 18:03 98.1 208.6 Total Intake and Output 09/05/25 09/05/25 09/06/25 15:00 23:00 07:00 Intake Total 564.04 ml 658.76 ml 632.78 ml Output Total 650 ml 750 ml Balance 564.04 ml 8.76 ml -117.22 ml medications Current Medications Medications Dose Ordered Sig/Kush Route Start Time Stop Time Status Last Admin Dose Admin Enoxaparin Sodium 40 mg DAILY SC 08/27/25 10:00 09/06/25 10:26 40 MG Nitroglycerin 0.4 mg Q5MINP PRN SL 08/26/25 21:00 Norepinephrine Bitartrate 250 ml @ 3.75 mls/hr Q24H IV 08/27/25 01:30 08/27/25 01:34 3.75 MLS/HR Albuterol 2.5 mg Q6HPRN PRN NEB 08/27/25 03:15 09/06/25 22:46 2.5 MG Meropenem 50 ml @ 17 mls/hr Q8HR IV 08/28/25 14:00 09/06/25 21:29 17 MLS/HR Quetiapine Fumarate 50 mg BID PO 08/30/25 22:00 09/06/25 21:30 50 MG Lorazepam 2 mg Q4HPRN PRN IV 08/30/25 12:00 08/31/25 09:56 2 MG Chlordiazepoxide HCl 25 mg BID PO 08/31/25 22:00 09/06/25 21:30 25 MG Amino Acids 0 ml @ 0 mls/hr PER PHARMACY IV 08/31/25 18:15 Amiodarone HCl 250 ml @ 16.667 mls/ hr Q12H IV 09/02/25 07:45 09/03/25 17:18 16.667 MLS/HR Diagnostic Test (Pha) 1 strip Q6HR 09/03/25 00:00 09/06/25 17:55 1 STRIP Insulin Human Regular FOLLOW SLIDING SCALE Q6HR SC 09/03/25 00:00 09/06/25 17:56 2 UNITS Dextrose 50 ml UD IV 09/02/25 22:00 Sodium Chloride 10 ml QSHIFT@10,22 IV 09/02/25 22:00 09/06/25 21:30 10 ML Propofol 100 ml @ 2.58 mls/hr Q24H IV 09/02/25 18:45 09/06/25 12:39 12.9 MLS/HR Amiodarone HCl 200 mg Q12HR PO 09/03/25 22:00 09/06/25 21:30 200 MG Midazolam HCl 100 ml @ 1 mls/hr Q24H IV 09/03/25 17:30 09/06/25 13:38 4 MLS/HR Fentanyl Citrate 250 ml @ 2.5 mls/hr Q24H IV 09/05/25 03:00 09/06/25 21:55 7.5 MLS/HR Potassium Chloride 20 meq/ Potassium Phosphate 22 meq/ Magnesium Sulfate 8 meq/ Multivitamins 10 ml/Chromium/ Copper/Manganese/ Zinc 1 ml/Amino Acids/Dextrose 1,378 ml @ 57 mls/hr [id number] IV 09/06/25 22:00 09/07/25 21:59 09/06/25 21:46 57 MLS/HR Methylprednisolone Sodium Succinate 40 mg Q12HR IV 09/06/25 15:00 09/06/25 21:30 40 MG Ipratropium [place] 0.5 mg Q4HR NEB 09/06/25 18:00 09/06/25 22:46 0.5 MG Budesonide 0.5 mg BID NEB 09/06/25 18:00 09/06/25 22:46 0.5 MG objective Gen.: Patient lying in bed in medical ICU. Sedated, intubated on mechanical ventilator. Head: Normocephalic, atraumatic. Eyes: PERRLA. Ears: Normal external anatomy. Throat: Endotracheal tube and orogastric tube in place. Neck: Supple, trachea midline. Chest: Transmitted breath sounds bilaterally. Decreased air entry bilaterally. Wheezing. Bibasilar crackles. Cardiovascular: Positive S1, positive S2. Regular rate and rhythm. Abdomen: Positive bowel sounds in all 4 quadrants. Soft, nontender, nondistended. : Palafox in place. Normal external genitalia. Rectal: Deferred. Skin: Warm, dry. Intact. Extremities: 2+ radial pulses bilaterally. No lower extremity edema. Neuro: Sedated. laboratory and microbiology Laboratory Tests 09/06/25 02:51 Test 09/06/25 02:51 Range/Units Serum Glucose 119 H 74-106 mg/dL Assessment/Plan Impression: Acute hypoxic respiratory failure On mechanical ventilation Metabolic encephalopathy Right apical lung scarring Right apical pleural-parenchymal scarring Shock Elevated D-dimer Lactic acidosis Hyperglycemia Events: Remains on vent support On assist control with respiratory rate of 22, tidal volume 550, PEEP of 5, FiO2 of 30%. Sedated on Versed, Propofol Fentanyl for analgesia Continue antibiotics - meropenem Pt noted to have wheezing Start DuoNeb q.4 hours, Pulmicort q.12 hours and Solu-Medrol 40 mg IVP q. 12 hours Continue amiodarone Continue TPN for nutritional support Diurese with Lasix as tolerated Monitor renal function Monitor electrolytes. Supplement as necessary. Daily CPAP trials OK to increase PS to max 20 cmH2O to achieve tidal volume 500-600 mL. Poor prognosis. Likelihood for being liberated from vent is low. POLST signed by patient. He would not want life prolongation with mechanical ventilator + feeding tube. Per brother, his brother would not want life prolongation with trach/PEG. Given this information, patient will be made comfort measures as the likelihood of liberation from mechanical ventilation is unlikely. Patient has failed multiple CPAP trials. Labs and imaging reviewed. Rest of plan as noted below. Plan: s/p intubation on mechanical ventilator On assist control with respiratory rate of 22, tidal volume 550, PEEP of 5, FiO2 of 30%. Titrate FIO2 to keep O2 saturation above 92%. VAP bundle Daily ABG and CXR while intubated. S/p bronchoscopy on 09/01/25 Bronchial washings sent for cultures, show no growth. Continue antibiotics F/u cultures. Prior sputum cultures positive for E.coli/ESBL. Continue bronchodilators Continue steroids Pressors as necessary for hemodynamic support. Titrate to keep MAP above 65 mmHg/SBP above 90 mmHg. Monitor hemoglobin Transfuse if less than 7.0 g/dL. Diurese with Lasix as tolerated Monitor renal function due to acute kidney injury. Monitor electrolytes. Supplement as necessary. Monitor ins and outs. Nutritional support. Accucheks, ISS. GI/DVT prophylaxis. On enoxaparin. Condition: Critical Prognosis: Poor given multiple comorbidities. Rest of plan per hospitalist and other consultants. A total of 35 minutes of critical care time was spent reviewing the patient record, examining the patient, making a diagnostic and therapeutic plan, discussing this plan with the medical personnel, following up on diagnostic studies and following the patient for clinical stability excluding any and all procedures. At least 50% of this time was spent in direct, [id number] contact. Thank you Dr. Boyd for allowing me to participate in this patient's care. Further recommendations will depend on patient's clinical course. Please do not hesitate to contact me if you have any questions or concerns. This medical document was created using an electronic medical record system with [employer] dictation system. Although this document has been carefully reviewed, there may still be some phonetic and typographical errors. These areas are purely typographical due to imperfections of the software programs, and do not reflect any compromise in the patient's medical care Dietary Evaluation Review Comments: Nutrition Recommendation 1) EN Jevity 1.2 Perry @ 60ml/hr x 24hr(goal) along with Pro-stat 1pk BID. Water flush 200ml Q6H if allowed, adjust PRN. TF at goal volume provides 1928 kcal (100%), 110gm protein (94%), and 1962 ml free water (including flush). 2) Consider TPN/PN if NPO>7 days 3) Advance diet as medically feasible 4) Monitor NPO status, lab values, weight trend, and I/O Expected Outcomes/Goals: Intake to meet >75% estimated needs Fu 2-3 days Plan discussed with: Other (ROSA Pagan) Critical Care Time(min): 35 EWELINA WYATT Sep 06, 2025 23:03
[2025-09-07] VITALS (111 sets, daily range): BP systolic 107–199; BP diastolic 44–82; PULSE 60–97; RESP 17–40; TEMP 96.1–98.6; O2SAT 89–100
--- NOTE | 2025-09-07 03:44 | DVH ---
CHEST RADIOGRAPH Indication: CONGESTION Technique: 1 view Comparison: XY CHEST PORTABLE on DOS: 09/06/25, XY CHEST PORTABLE on DOS: 09/05/25, XY CHEST PORTABLE on DOS: 09/04/25, XY CHEST XRAY 1 VIEW on DOS: 09/03/25, XY CHEST PORTABLE on DOS: 09/02/25 FINDINGS: Lines and Tubes: Unchanged endotracheal and enteric tubes, and right midline catheter. Lungs/Pleura: Improved lung volumes. Persistent dense bilateral interstitial opacities, mild basilar atelectasis, and small pleural effusions. The right costophrenic angles excluded. Cardiomediastinum: Unchanged. Other: Unchanged osseous structures. IMPRESSION: 1. Improved right lung volumes. 2. No other significant interval change from the previous study. Stable support devices.
[2025-09-07 03:49] LABS: Alanine Aminotransferase 10 U/L (7-40); Albumin 3.4 g/dL (3.2-4.8); Alkaline Phosphatase 101 U/L (46-116); Anion Gap 9 (5-15); BUN/Creatinine Ratio 43.8 (10.0-20.0); Calcium 9.8 mg/dL (8.7-10.4); Chloride 99 mmol/L (98-107); Magnesium 2.1 mg/dL (1.6-2.6); Potassium 4.0 mmol/L (3.5-5.1); Sodium 140 mmol/L (136-145); Total Protein 5.9 g/dL (5.7-8.2)
[2025-09-07 03:52] LABS: Hematocrit 29.1 % (41.0-53.0); Hemoglobin 9.6 g/dL (13.5-17.5); Mean Corpuscular Hemoglobin 27.2 pg (28.0-32.0); Mean Corpuscular Volume 82.3 fL (80.0-100.0); Nucleated Red Blood Cells % 0.0 %
[2025-09-07 03:57] LABS: Bilirubin, Total 0.2 mg/dL (0.2-1.0); Blood Urea Nitrogen 28 mg/dL (9-23); Carbon Dioxide 32 mmol/L (20-31); Glucose 204 mg/dL (74-106)
[2025-09-07 07:32] LABS: Base Excess 6.7 mmol/L (-2.0-3.0)
[2025-09-07] MEDS: FUROSEMIDE 40 MG/4 ML VIAL ONE (13:12)
[2025-09-07] MEDS: FUROSEMIDE 40 MG/4 ML VIAL IV ONE ×2 (13:25→18:36)
--- NOTE | 2025-09-07 15:42 | DVHPN2 ---
Progress Note Date Seen: Sep 07, 2025 Medical Necessity Reason Pt with a Central, PICC or Fol: Yes The following are medically ne: PICC Line, Palafox Catheter Reason for palafox catheter: Strict I&O Objective vital signs Vital Sign Date Time Temp Pulse Resp B/P (MAP) Pulse Ox O2 Delivery O2 Flow Rate FiO2 09/07/25 14:07 67 21 114/53 (73) 93 30 09/07/25 12:00 Mechanical Ventilator+ 09/07/25 06:45 98.2 98.2 Total Intake and Output 09/06/25 09/06/25 09/07/25 15:00 23:00 07:00 Intake Total 593.821 ml 797.84 ml 785.34 ml Output Total 2750 ml 1600 ml Balance 593.821 ml -1952.16 ml -814.66 ml medications Current Medications Medications Dose Ordered Sig/Kush Route Start Time Stop Time Status Last Admin Dose Admin Nitroglycerin 0.4 mg Q5MINP PRN SL 08/26/25 21:00 Norepinephrine Bitartrate 250 ml @ 3.75 mls/hr Q24H IV 08/27/25 01:30 08/27/25 01:34 3.75 MLS/HR Albuterol 2.5 mg Q6HPRN PRN NEB 08/27/25 03:15 09/07/25 15:12 2.5 MG Meropenem 50 ml @ 17 mls/hr Q8HR IV 08/28/25 14:00 09/07/25 13:30 17 MLS/HR Quetiapine Fumarate 50 mg BID PO 08/30/25 22:00 09/07/25 09:51 50 MG Lorazepam 2 mg Q4HPRN PRN IV 08/30/25 12:00 08/31/25 09:56 2 MG Chlordiazepoxide HCl 25 mg BID PO 08/31/25 22:00 09/07/25 09:51 25 MG Amino Acids 0 ml @ 0 mls/hr PER PHARMACY IV 08/31/25 18:15 Amiodarone HCl 250 ml @ 16.667 mls/ hr Q12H IV 09/02/25 07:45 09/03/25 17:18 16.667 MLS/HR Diagnostic Test (Pha) 1 strip Q6HR 09/03/25 00:00 09/07/25 11:31 1 STRIP Insulin Human Regular FOLLOW SLIDING SCALE Q6HR SC 09/03/25 00:00 09/07/25 11:34 4 UNITS Dextrose 50 ml UD IV 09/02/25 22:00 Sodium Chloride 10 ml QSHIFT@10,22 IV 09/02/25 22:00 09/07/25 13:36 10 ML Propofol 100 ml @ 2.58 mls/hr Q24H IV 09/02/25 18:45 09/07/25 06:24 15.48 MLS/HR Amiodarone HCl 200 mg Q12HR PO 09/03/25 22:00 09/07/25 09:51 200 MG Midazolam HCl 100 ml @ 1 mls/hr Q24H IV 09/03/25 17:30 09/06/25 13:38 4 MLS/HR Fentanyl Citrate 250 ml @ 2.5 mls/hr Q24H IV 09/05/25 03:00 09/06/25 21:55 7.5 MLS/HR Potassium Chloride 20 meq/ Potassium Phosphate 22 meq/ Magnesium Sulfate 8 meq/ Multivitamins 10 ml/Chromium/ Copper/Manganese/ Zinc 1 ml/Amino Acids/Dextrose 1,378 ml @ 57 mls/hr [id number] IV 09/06/25 22:00 09/07/25 21:59 09/06/25 21:46 57 MLS/HR Methylprednisolone Sodium Succinate 40 mg Q12HR IV 09/06/25 15:00 09/07/25 09:51 40 MG Ipratropium [place] 0.5 mg Q4HR NEB 09/06/25 18:00 09/07/25 15:12 0.5 MG Budesonide 0.5 mg BID NEB 09/06/25 18:00 09/07/25 07:08 0.5 MG Sodium Chloride 20 meq/Potassium Chloride 20 meq/ Potassium Phosphate 22 meq/ Magnesium Sulfate 8 meq/ Multivitamins 10 ml/Chromium/ Copper/Manganese/ Zinc 1 ml/Amino Acids/Dextrose 1,383 ml @ 58 mls/hr [id number] IV 09/07/25 22:00 09/08/25 21:59 laboratory and microbiology Laboratory Tests 09/07/25 02:57 Test 09/07/25 02:57 Range/Units Serum Glucose 204 H 74-106 mg/dL Microbiology Date/Time Source Procedure Growth Status 09/01/25 20:15 Urine - Suprapubic Aspirate Urine Culture - Final Complete 09/01/25 13:16 Bronchial Washings Gram Stain - Final Complete 09/01/25 13:16 Bronchial Washings Respiratory Culture - Final Complete 08/26/25 18:51 Blood Blood Culture - Final NO GROWTH AFTER 5 DAYS OF INCUBATION. Complete Labs and/or images reviewed: Labs reviewed by me, Image(s) reviewed by me Problem List/Assessment/Plan Problem List/Assessment/Plan Acute hypoxic respiratory failure On mechanical ventilation acute toxic and metabolic encephalopathy Right apical lung scarring Right apical pleural-parenchymal scarring Shock, septic Elevated D-dimer Lactic acidosis Hyperglycemia sepsis/septic shock with unclear cause at this time chronic anemia time: >35 minutes critical care in the coordination of care Plan discussed with: Other My Orders My Orders Orders - JIE PEREZ DO Procedure Category Date Status Time Abg W/ Co-Ox RT 09/07/25 Logged 05:37 Amino Acid PHA 09/07/25 In Process Infusion... W/Sodium 22:00 Comprehensive LAB 09/08/25 Verified Metabolic Panel 04:00 Magnesium LAB 09/08/25 Verified 04:00 Phosphorus LAB 09/08/25 Verified 04:00 Tpn Per Pharmacy [facility] 09/07/25 In Process 09:12 Cpap Trial For Am ORDERS 09/07/25 Transmitted 10:16 Dietary Evaluation Review Comments: Nutrition Recommendation 1) EN Jevity 1.2 Perry @ 60ml/hr x 24hr(goal) along with Pro-stat 1pk BID. Water flush 200ml Q6H if allowed, adjust PRN. TF at goal volume provides 1928 kcal (100%), 110gm protein (94%), and 1962 ml free water (including flush). 2) Consider TPN/PN if NPO>7 days 3) Advance diet as medically feasible 4) Monitor NPO status, lab values, weight trend, and I/O Expected Outcomes/Goals: Intake to meet >75% estimated needs Fu 2-3 days JIE PEREZ DO Sep 07, 2025 15:41
[2025-09-07 18:39] LABS: Potassium 3.8 mmol/L (3.5-5.1)
[2025-09-07 18:46] LABS: Magnesium 2.0 mg/dL (1.6-2.6)
--- NOTE | 2025-09-07 19:36 | DVHPN2 ---
Progress Note - Dictate Date Seen: Sep 07, 2025 Medical Necessity Reason Pt with a Central, PICC or Fol: Yes The following are medically ne: PICC Line, Palafox Catheter Reason for palafox catheter: Strict I&O Subjective [facility] Patient seen and examined at bedside. Sedated, intubated on mechanical ventilator. Overnight events reviewed. vital signs Vital Sign Date Time Temp Pulse Resp B/P (MAP) Pulse Ox O2 Delivery O2 Flow Rate FiO2 09/07/25 19:04 79 23 129/56 95 30 09/07/25 19:01 97.9 208.2 09/07/25 18:45 Mechanical Ventilator Total Intake and Output 09/06/25 09/06/25 09/07/25 15:00 23:00 07:00 Intake Total 593.821 ml 797.84 ml 785.34 ml Output Total 2750 ml 1600 ml Balance 593.821 ml -1952.16 ml -814.66 ml medications Current Medications Medications Dose Ordered Sig/Kush Route Start Time Stop Time Status Last Admin Dose Admin Nitroglycerin 0.4 mg Q5MINP PRN SL 08/26/25 21:00 Norepinephrine Bitartrate 250 ml @ 3.75 mls/hr Q24H IV 08/27/25 01:30 08/27/25 01:34 3.75 MLS/HR Albuterol 2.5 mg Q6HPRN PRN NEB 08/27/25 03:15 09/07/25 18:52 2.5 MG Meropenem 50 ml @ 17 mls/hr Q8HR IV 08/28/25 14:00 09/07/25 13:30 17 MLS/HR Quetiapine Fumarate 50 mg BID PO 08/30/25 22:00 09/07/25 09:51 50 MG Lorazepam 2 mg Q4HPRN PRN IV 08/30/25 12:00 08/31/25 09:56 2 MG Chlordiazepoxide HCl 25 mg BID PO 08/31/25 22:00 09/07/25 09:51 25 MG Amino Acids 0 ml @ 0 mls/hr PER PHARMACY IV 08/31/25 18:15 Amiodarone HCl 250 ml @ 16.667 mls/ hr Q12H IV 09/02/25 07:45 09/03/25 17:18 16.667 MLS/HR Diagnostic Test (Pha) 1 strip Q6HR 09/03/25 00:00 09/07/25 17:24 1 STRIP Insulin Human Regular FOLLOW SLIDING SCALE Q6HR SC 09/03/25 00:00 09/07/25 17:26 4 UNITS Dextrose 50 ml UD IV 09/02/25 22:00 Sodium Chloride 10 ml QSHIFT@10,22 IV 09/02/25 22:00 09/07/25 13:36 10 ML Propofol 100 ml @ 2.58 mls/hr Q24H IV 09/02/25 18:45 09/07/25 15:46 12.9 MLS/HR Amiodarone HCl 200 mg Q12HR PO 09/03/25 22:00 09/07/25 09:51 200 MG Midazolam HCl 100 ml @ 1 mls/hr Q24H IV 09/03/25 17:30 09/06/25 13:38 4 MLS/HR Fentanyl Citrate 250 ml @ 2.5 mls/hr Q24H IV 09/05/25 03:00 09/06/25 21:55 7.5 MLS/HR Potassium Chloride 20 meq/ Potassium Phosphate 22 meq/ Magnesium Sulfate 8 meq/ Multivitamins 10 ml/Chromium/ Copper/Manganese/ Zinc 1 ml/Amino Acids/Dextrose 1,378 ml @ 57 mls/hr [id number] IV 09/06/25 22:00 09/07/25 21:59 09/06/25 21:46 57 MLS/HR Methylprednisolone Sodium Succinate 40 mg Q12HR IV 09/06/25 15:00 09/07/25 09:51 40 MG Ipratropium [place] 0.5 mg Q4HR NEB 09/06/25 18:00 09/07/25 18:52 0.5 MG Sodium Chloride 20 meq/Potassium Chloride 20 meq/ Potassium Phosphate 22 meq/ Magnesium Sulfate 8 meq/ Multivitamins 10 ml/Chromium/ Copper/Manganese/ Zinc 1 ml/Amino Acids/Dextrose 1,383 ml @ 58 mls/hr [id number] IV 09/07/25 22:00 09/08/25 21:59 Budesonide 0.5 mg BID NEB 09/07/25 22:00 objective Gen.: Patient lying in bed in medical ICU. Sedated, intubated on mechanical ventilator. Head: Normocephalic, atraumatic. Eyes: PERRLA. Ears: Normal external anatomy. Throat: Endotracheal tube and orogastric tube in place. Neck: Supple, trachea midline. Chest: Transmitted breath sounds bilaterally. Decreased air entry bilaterally. Wheezing. Bibasilar crackles. Cardiovascular: Positive S1, positive S2. Regular rate and rhythm. Abdomen: Positive bowel sounds in all 4 quadrants. Soft, nontender, nondistended. : Palafox in place. Normal external genitalia. Rectal: Deferred. Skin: Warm, dry. Intact. Extremities: 2+ radial pulses bilaterally. No lower extremity edema. Neuro: Sedated. laboratory and microbiology Laboratory Tests 09/07/25 18:15 09/07/25 02:57 Test 09/07/25 02:57 Range/Units Serum Glucose 204 H 74-106 mg/dL Assessment/Plan Impression: Acute hypoxic respiratory failure On mechanical ventilation Metabolic encephalopathy Right apical lung scarring Right apical pleural-parenchymal scarring Shock Elevated D-dimer Lactic acidosis Hyperglycemia Events: Remains on vent support On assist control with respiratory rate of 22, tidal volume 550, PEEP of 5, FiO2 of 30%. Sedated on Propofol Chest x-ray reviewed, notable for pulmonary vascular congestion. Improving with diuresis Lasix 40 mg IVP x1 given. Continue antibiotics - meropenem Pt with wheezing. Continue bronchodilators/ICS. DuoNeb q.4 hours, Pulmicort q.12 hours and Solu-Medrol 40 mg IVP q. 12 hours Continue amiodarone Continue TPN for nutritional support Continue diuresis with Lasix as tolerated Monitor renal function Monitor electrolytes. Supplement as necessary. Patient failed CPAP. Continue daily CPAP trials OK to increase PS to max 20 cmH2O to achieve tidal volume 500-600 mL. Poor prognosis. Likelihood for being liberated from vent is low. POLST signed by patient. He would not want life prolongation with mechanical ventilator + feeding tube. Per brother, his brother would not want life prolongation with trach/PEG. Given this information, patient will be made comfort measures as the likelihood of liberation from mechanical ventilation is unlikely. Patient has failed multiple CPAP trials. Labs and imaging reviewed. Rest of plan as noted below. Plan: s/p intubation on mechanical ventilator On assist control with respiratory rate of 22, tidal volume 550, PEEP of 5, FiO2 of 30%. Titrate FIO2 to keep O2 saturation above 92%. VAP bundle Daily ABG and CXR while intubated. S/p bronchoscopy on 09/01/25 Bronchial washings sent for cultures, show no growth. Continue antibiotics F/u cultures. Prior sputum cultures positive for E.coli/ESBL. Continue bronchodilators Continue steroids Pressors as necessary for hemodynamic support. Titrate to keep MAP above 65 mmHg/SBP above 90 mmHg. Monitor hemoglobin Transfuse if less than 7.0 g/dL. Diurese with Lasix as tolerated Monitor renal function due to acute kidney injury. Monitor electrolytes. Supplement as necessary. Monitor ins and outs. Nutritional support. Accucheks, ISS. GI/DVT prophylaxis. On enoxaparin. Condition: Critical Prognosis: Poor given multiple comorbidities. Rest of plan per hospitalist and other consultants. A total of 35 minutes of critical care time was spent reviewing the patient record, examining the patient, making a diagnostic and therapeutic plan, discussing this plan with the medical personnel, following up on diagnostic studies and following the patient for clinical stability excluding any and all procedures. At least 50% of this time was spent in direct, [id number] contact. Thank you Dr. Boyd for allowing me to participate in this patient's care. Further recommendations will depend on patient's clinical course. Please do not hesitate to contact me if you have any questions or concerns. This medical document was created using an electronic medical record system with [employer] dictation system. Although this document has been carefully reviewed, there may still be some phonetic and typographical errors. These areas are purely typographical due to imperfections of the software programs, and do not reflect any compromise in the patient's medical care Dietary Evaluation Review Comments: Nutrition Recommendation 1) EN Jevity 1.2 Perry @ 60ml/hr x 24hr(goal) along with Pro-stat 1pk BID. Water flush 200ml Q6H if allowed, adjust PRN. TF at goal volume provides 1928 kcal (100%), 110gm protein (94%), and 1962 ml free water (including flush). 2) Consider TPN/PN if NPO>7 days 3) Advance diet as medically feasible 4) Monitor NPO status, lab values, weight trend, and I/O Expected Outcomes/Goals: Intake to meet >75% estimated needs Fu 2-3 days Plan discussed with: Other (RN) Critical Care Time(min): 35 EWELINA [facility]ATT [facility] Sep 07, 2025 19:36
[2025-09-07] MEDS: TPN PER PHARMACY IV NR (21:08)
[2025-09-07] MEDS ORDERED: BUDESONIDE (INHALATION) 0.5 MG/2 ML NEB NEB SCH (22:00)
[2025-09-07] MEDS: BUDESONIDE (INHALATION) 0.5 MG/2 ML NEB NEB SCH (22:01)
[2025-09-08] VITALS (112 sets, daily range): BP systolic 100–205; BP diastolic 43–88; PULSE 61–113; RESP 11–48; TEMP 77.5–99.5; O2SAT 88–100
--- NOTE | 2025-09-08 03:27 | DVH ---
CHEST RADIOGRAPH Indication: CONGESTION Technique: Single frontal view of the chest was obtained COMPARISON: XY CHEST PORTABLE on DOS: 09/07/25, XY CHEST PORTABLE on DOS: 09/06/25, XY CHEST PORTABLE on DOS: 09/05/25, XY CHEST PORTABLE on DOS: 09/04/25, XY CHEST XRAY 1 VIEW on DOS: 09/03/25 FINDINGS: Lines and Tubes: Slight interval advancement of endotracheal tube such that the tip now projects appr oximately 3.6 cm above the level of the king. Remaining lines and tubes unchanged. Lungs: Stable appearing small bilateral pleural effusions and multifocal predominantly right hemithor acic pulmonary airspace disease. No pneumothorax. Cardiomediastinal contours: Unremarkable Bones: Unremarkable IMPRESSION: 1. Slight interval advancement of endotracheal tube such that the tip now projects approximately 3.6 cm above the level of the king. Remaining lines and tubes unchanged. 2. Stable bilateral pleural effusions and predominantly right hemithoracic multifocal pulmonary airsp erma disease.
[2025-09-08 04:06] LABS: Hematocrit 28.6 % (41.0-53.0); Hemoglobin 9.5 g/dL (13.5-17.5); Mean Corpuscular Hemoglobin 27.3 pg (28.0-32.0); Mean Corpuscular Volume 82.5 fL (80.0-100.0); Nucleated Red Blood Cells % 0.0 %
[2025-09-08 04:19] LABS: Alanine Aminotransferase 23 U/L (7-40); Alkaline Phosphatase 102 U/L (46-116); Anion Gap 9 (5-15); BUN/Creatinine Ratio 59.4 (10.0-20.0); Calcium 9.7 mg/dL (8.7-10.4); Chloride 99 mmol/L (98-107); Magnesium 2.1 mg/dL (1.6-2.6); Potassium 4.1 mmol/L (3.5-5.1); Sodium 144 mmol/L (136-145)
[2025-09-08 04:23] LABS: Albumin 3.1 g/dL (3.2-4.8); Bilirubin, Total < 0.2 mg/dL (0.2-1.0); Blood Urea Nitrogen 41 mg/dL (9-23); Carbon Dioxide 36 mmol/L (20-31); Glucose 191 mg/dL (74-106); Total Protein 5.2 g/dL (5.7-8.2)
[2025-09-08 07:14] LABS: Base Excess 9.6 mmol/L (-2.0-3.0)
[2025-09-08] MEDS: ROCURONIUM 10MG/ML 10ML VIAL IV ONE ×2 (18:48→19:03)
[2025-09-08] MEDS: TPN PER PHARMACY IV NR (21:45)
--- NOTE | 2025-09-08 23:04 | DVHPN2 ---
Progress Note - Dictate Date Seen: Sep 08, 2025 Medical Necessity Reason Pt with a Central, PICC or Fol: Yes The following are medically ne: PICC Line, Palafox Catheter Reason for palafox catheter: Strict I&O Subjective [facility] Patient seen and examined at bedside. Sedated, intubated on mechanical ventilator. Overnight events reviewed. vital signs Vital Sign Date Time Temp Pulse Resp B/P (MAP) Pulse Ox O2 Delivery O2 Flow Rate FiO2 09/08/25 22:07 70 22 137/61 (86) 94 30 09/08/25 20:30 Mechanical Ventilator+ 09/08/25 19:00 99.1 210.4 Total Intake and Output 09/07/25 09/07/25 09/08/25 15:00 23:00 07:00 Intake Total 530.10 ml 702.28 ml 910.98 ml Output Total 1800 ml 1600 ml Balance 530.10 ml -1097.72 ml -689.02 ml medications Current Medications Medications Dose Ordered Sig/Kush Route Start Time Stop Time Status Last Admin Dose Admin Nitroglycerin 0.4 mg Q5MINP PRN SL 08/26/25 21:00 Norepinephrine Bitartrate 250 ml @ 3.75 mls/hr Q24H IV 08/27/25 01:30 08/27/25 01:34 3.75 MLS/HR Albuterol 2.5 mg Q6HPRN PRN NEB 08/27/25 03:15 09/08/25 22:07 2.5 MG Quetiapine Fumarate 50 mg BID PO 08/30/25 22:00 09/08/25 09:44 50 MG Lorazepam 2 mg Q4HPRN PRN IV 08/30/25 12:00 08/31/25 09:56 2 MG Chlordiazepoxide HCl 25 mg BID PO 08/31/25 22:00 09/08/25 09:44 25 MG Amino Acids 0 ml @ 0 mls/hr PER PHARMACY IV 08/31/25 18:15 Amiodarone HCl 250 ml @ 16.667 mls/ hr Q12H IV 09/02/25 07:45 09/03/25 17:18 16.667 MLS/HR Diagnostic Test (Pha) 1 strip Q6HR 09/03/25 00:00 09/08/25 17:59 1 STRIP Insulin Human Regular FOLLOW SLIDING SCALE Q6HR SC 09/03/25 00:00 09/08/25 18:03 2 UNITS Dextrose 50 ml UD IV 09/02/25 22:00 Sodium Chloride 10 ml QSHIFT@10,22 IV 09/02/25 22:00 09/08/25 21:45 10 ML Propofol 100 ml @ 2.58 mls/hr Q24H IV 09/02/25 18:45 09/08/25 17:41 15.48 MLS/HR Amiodarone HCl 200 mg Q12HR PO 09/03/25 22:00 09/08/25 21:45 200 MG Midazolam HCl 100 ml @ 1 mls/hr Q24H IV 09/03/25 17:30 09/06/25 13:38 4 MLS/HR Fentanyl Citrate 250 ml @ 2.5 mls/hr Q24H IV 09/05/25 03:00 09/06/25 21:55 7.5 MLS/HR Methylprednisolone Sodium Succinate 40 mg Q12HR IV 09/06/25 15:00 09/08/25 21:45 40 MG Ipratropium [place] 0.5 mg Q4HR NEB 09/06/25 18:00 09/08/25 22:07 0.5 MG Budesonide 0.5 mg BID NEB 09/07/25 22:00 09/08/25 22:07 0.5 MG Potassium Chloride 20 meq/ Potassium Phosphate 22 meq/ Magnesium Sulfate 8 meq/ Multivitamins 10 ml/Chromium/ Copper/Manganese/ Zinc 1 ml/Amino Acids/Dextrose 1,378 ml @ 57 mls/hr [id number] IV 09/08/25 22:00 09/09/25 21:59 09/08/25 21:45 57 MLS/HR objective Gen.: Patient lying in bed in medical ICU. Sedated, intubated on mechanical ventilator. Head: Normocephalic, atraumatic. Eyes: PERRLA. Ears: Normal external anatomy. Throat: Endotracheal tube and orogastric tube in place. Neck: Supple, trachea midline. Chest: Transmitted breath sounds bilaterally. Decreased air entry bilaterally. Wheezing. Bibasilar crackles. Cardiovascular: Positive S1, positive S2. Regular rate and rhythm. Abdomen: Positive bowel sounds in all 4 quadrants. Soft, nontender, nondistended. : Palafox in place. Normal external genitalia. Rectal: Deferred. Skin: Warm, dry. Intact. Extremities: 2+ radial pulses bilaterally. No lower extremity edema. Neuro: Sedated. laboratory and microbiology Laboratory Tests 09/08/25 03:30 Test 09/08/25 03:30 Range/Units Serum Glucose 191 H 74-106 mg/dL Assessment/Plan Impression: Acute hypoxic respiratory failure On mechanical ventilation Metabolic encephalopathy Right apical lung scarring Right apical pleural-parenchymal scarring Shock Elevated D-dimer Lactic acidosis Hyperglycemia Events: Remains on vent support On assist control with respiratory rate of 10, tidal volume 550, PEEP of 5, FiO2 of 30%. Sedated on Propofol, Fentanyl. Chest x-ray reviewed, notable for stable bilateral pleural effusions and predominantly right hemithoracic multifocal pulmonary airspace disease.. Continue antibiotics - meropenem Pt with wheezing. Continue bronchodilators/ICS. DuoNeb q.4 hours, Pulmicort q.12 hours and Solu-Medrol 40 mg IVP q. 12 hours Continue amiodarone Continue TPN for nutritional support Maintain euvolemia Monitor renal function Monitor electrolytes. Supplement as necessary. Patient has not been tolerating CPAP, failed multiple CPAP trials. Poor prognosis. Likelihood for being liberated from vent is low. POLST signed by patient. He would not want life prolongation with mechanical ventilator + feeding tube. Per brother, his brother would not want life prolongation with trach/PEG. Given this information, patient will be made comfort measures as the likelihood of liberation from mechanical ventilation is unlikely. Patient has failed multiple CPAP trials. Labs and imaging reviewed. Rest of plan as noted below. Plan: s/p intubation on mechanical ventilator On assist control with respiratory rate of 10, tidal volume 550, PEEP of 5, FiO2 of 30%. Titrate FIO2 to keep O2 saturation above 92%. VAP bundle Daily ABG and CXR while intubated. S/p bronchoscopy on 09/01/25 Bronchial washings sent for cultures, show no growth. Continue antibiotics F/u cultures. Prior sputum cultures positive for E.coli/ESBL. Continue bronchodilators Continue steroids Pressors as necessary for hemodynamic support. Titrate to keep MAP above 65 mmHg/SBP above 90 mmHg. Monitor hemoglobin Transfuse if less than 7.0 g/dL. Diurese to euvolemia Monitor renal function due to acute kidney injury. Monitor electrolytes. Supplement as necessary. Monitor ins and outs. Nutritional support. Accucheks, ISS. GI/DVT prophylaxis. On enoxaparin. Condition: Critical Prognosis: Poor given multiple comorbidities. Rest of plan per hospitalist and other consultants. A total of 35 minutes of critical care time was spent reviewing the patient record, examining the patient, making a diagnostic and therapeutic plan, discussing this plan with the medical personnel, following up on diagnostic studies and following the patient for clinical stability excluding any and all procedures. At least 50% of this time was spent in direct, [id number] contact. Thank you Dr. Boyd for allowing me to participate in this patient's care. Further recommendations will depend on patient's clinical course. Please do not hesitate to contact me if you have any questions or concerns. This medical document was created using an electronic medical record system with [employer] system. Although this document has been carefully reviewed, there may still be some phonetic and typographical errors. These areas are purely typographical due to imperfections of the software programs, and do not reflect any compromise in the patient's medical care Dietary Evaluation Review Comments: Nutrition Recommendation 1) EN Jevity 1.2 Perry @ 60ml/hr x 24hr(goal) along with Pro-stat 1pk BID. Water flush 200ml Q6H if allowed, adjust PRN. TF at goal volume provides 1928 kcal (100%), 110gm protein (94%), and 1962 ml free water (including flush). 2) Consider TPN/PN if NPO>7 days 3) Advance diet as medically feasible 4) Monitor NPO status, lab values, weight trend, and I/O Expected Outcomes/Goals: Intake to meet >75% estimated needs Fu 2-3 days Plan discussed with: Other (ROSA Rey) Critical Care Time(min): 35 EWELINA WYATT [employer] [facility] Sep 08, 2025 23:04
[2025-09-09] VITALS (106 sets, daily range): BP systolic 102–169; BP diastolic 42–86; PULSE 55–101; RESP 11–28; TEMP 97.3–99.5; O2SAT 90–100
[2025-09-09 06:04] LABS: Albumin 3.5 g/dL (3.2-4.8); Alkaline Phosphatase 103 U/L (46-116); Anion Gap 6 (5-15); BUN/Creatinine Ratio 57.8 (10.0-20.0); Calcium 9.7 mg/dL (8.7-10.4); Chloride 102 mmol/L (98-107); Magnesium 2.4 mg/dL (1.6-2.6); Potassium 4.2 mmol/L (3.5-5.1); Sodium 143 mmol/L (136-145); Total Protein 5.9 g/dL (5.7-8.2)
[2025-09-09 06:06] LABS: Alanine Aminotransferase 65 U/L (7-40); Bilirubin, Total < 0.2 mg/dL (0.2-1.0); Blood Urea Nitrogen 37 mg/dL (9-23); Carbon Dioxide 35 mmol/L (20-31); Glucose 162 mg/dL (74-106)
--- NOTE | 2025-09-09 15:17 | DVH ---
CHEST RADIOGRAPH REASON FOR EXAM: PT INTUBATED. Respiratory failure. COMPARISON: XY CHEST PORTABLE on DOS: 09/08/25, XY CHEST PORTABLE on DOS: 09/07/25, XY CHEST PORTABLE on DOS: 09/06/25, XY CHEST PORTABLE on DOS: 09/05/25, XY CHEST PORTABLE on DOS: 09/04/25 TECHNIQUE: One view of the chest is provided FINDINGS: The cardiomediastinal silhouette is stable. The endotracheal tube terminates approximately 3.8 cm from the king. There is bilateral interstitial and airspace opacity, slightly improved darnell red with the prior study. There is no pneumothorax. There is no significant pleural effusion. There is no pneumothorax. There are old healed right rib fractures. IMPRESSION: Endotracheal tube terminates approximately 3.8 cm from the king.
[2025-09-09] MEDS: TPN PER PHARMACY IV NR (21:34)
--- NOTE | 2025-09-09 22:53 | DVHPN2 ---
Progress Note - Dictate Date Seen: Sep 09, 2025 Medical Necessity Reason Pt with a Central, PICC or Fol: Yes The following are medically ne: PICC Line, Palafox Catheter Reason for palafox catheter: Strict I&O Subjective [facility] Patient seen and examined at bedside. Intubated on mechanical ventilator. Overnight events reviewed. vital signs Vital Sign Date Time Temp Pulse Resp B/P (MAP) Pulse Ox O2 Delivery O2 Flow Rate FiO2 09/09/25 22:17 58 22 117/47 (70) 93 30 09/09/25 20:00 Mechanical Ventilator+ 09/09/25 17:45 98.8 209.8 Total Intake and Output 09/08/25 09/08/25 09/09/25 15:00 23:00 07:00 Intake Total 545.84 ml 389.11 ml 667.84 ml Output Total 1150 ml 850 ml Balance 545.84 ml -760.89 ml -182.16 ml medications Current Medications Medications Dose Ordered Sig/Kush Route Start Time Stop Time Status Last Admin Dose Admin Nitroglycerin 0.4 mg Q5MINP PRN SL 08/26/25 21:00 Norepinephrine Bitartrate 250 ml @ 3.75 mls/hr Q24H IV 08/27/25 01:30 08/27/25 01:34 3.75 MLS/HR Albuterol 2.5 mg Q6HPRN PRN NEB 08/27/25 03:15 09/09/25 22:16 2.5 MG Quetiapine Fumarate 50 mg BID PO 08/30/25 22:00 09/09/25 21:49 50 MG Lorazepam 2 mg Q4HPRN PRN IV 08/30/25 12:00 08/31/25 09:56 2 MG Chlordiazepoxide HCl 25 mg BID PO 08/31/25 22:00 09/09/25 21:49 25 MG Amino Acids 0 ml @ 0 mls/hr PER PHARMACY IV 08/31/25 18:15 Amiodarone HCl 250 ml @ 16.667 mls/ hr Q12H IV 09/02/25 07:45 09/03/25 17:18 16.667 MLS/HR Diagnostic Test (Pha) 1 strip Q6HR 09/03/25 00:00 09/09/25 18:01 1 STRIP Insulin Human Regular FOLLOW SLIDING SCALE Q6HR SC 09/03/25 00:00 09/09/25 18:27 4 UNITS Dextrose 50 ml UD IV 09/02/25 22:00 Sodium Chloride 10 ml QSHIFT@10,22 IV 09/02/25 22:00 09/09/25 21:50 10 ML Amiodarone HCl 200 mg Q12HR PO 09/03/25 22:00 09/09/25 08:30 200 MG Midazolam HCl 100 ml @ 1 mls/hr Q24H IV 09/03/25 17:30 09/06/25 13:38 4 MLS/HR Fentanyl Citrate 250 ml @ 2.5 mls/hr Q24H IV 09/05/25 03:00 09/09/25 03:00 10 MLS/HR Methylprednisolone Sodium Succinate 40 mg Q12HR IV 09/06/25 15:00 09/09/25 21:50 40 MG Ipratropium [place] 0.5 mg Q4HR NEB 09/06/25 18:00 09/09/25 22:17 0.5 MG Budesonide 0.5 mg BID NEB 09/07/25 22:00 09/09/25 18:28 0.5 MG Potassium Phosphate 44 meq/ Magnesium Sulfate 4 meq/ Multivitamins 10 ml/Chromium/ Copper/Manganese/ Zinc 1 ml/Amino Acids/Dextrose 1,372 ml @ 57 mls/hr Q24H5M IV 09/09/25 22:00 09/10/25 21:59 09/09/25 21:34 57 MLS/HR Propofol 100 ml @ 2.655 mls/ hr Q24H IV 09/09/25 20:00 objective Gen.: Patient lying in bed in medical ICU. Intubated on mechanical ventilator. Head: Normocephalic, atraumatic. Eyes: PERRLA. Ears: Normal external anatomy. Throat: Endotracheal tube and orogastric tube in place. Neck: Supple, trachea midline. Chest: Transmitted breath sounds bilaterally. Decreased air entry bilaterally. Wheezing. Bibasilar crackles. Cardiovascular: Positive S1, positive S2. Regular rate and rhythm. Abdomen: Positive bowel sounds in all 4 quadrants. Soft, nontender, nondistended. : Palafox in place. Normal external genitalia. Rectal: Deferred. Skin: Warm, dry. Intact. Extremities: 2+ radial pulses bilaterally. No lower extremity edema. Neuro: Off sedation. laboratory and microbiology Laboratory Tests 09/09/25 05:26 09/08/25 03:30 Test 09/09/25 05:26 Range/Units Serum Glucose 162 H 74-106 mg/dL Assessment/Plan Impression: Acute hypoxic respiratory failure On mechanical ventilation Metabolic encephalopathy Right apical lung scarring Right apical pleural-parenchymal scarring Shock Elevated D-dimer Lactic acidosis Hyperglycemia Events: Remains on vent support On assist control with respiratory rate of 22, tidal volume 550, PEEP of 5, FiO2 of 30%. Off Propofol and Fentanyl. On Precedex drip. Follow up Surgery recommendations. Chest x-ray reviewed, notable for bilateral interstitial and airspace opacity, slightly improved compared with prior.. No pleural effusion or pneumothorax. Continue antibiotics - meropenem Pt with wheezing. Continue bronchodilators/ICS. DuoNeb q.4 hours, Pulmicort q.12 hours and Solu-Medrol 40 mg IVP q. 12 hours Continue amiodarone PO Continue TPN for nutritional support Seroquel dose increased to 100 mg q.12 hours Maintain euvolemia Monitor renal function Monitor electrolytes. Supplement as necessary. Patient has not been tolerating CPAP, failed multiple CPAP trials. Poor prognosis. Likelihood for being liberated from vent is low. Plan for compassionate extubation on Sunday signed by patient. He would not want life prolongation with mechanical ventilator + feeding tube. Per brother, his brother would not want life prolongation with trach/PEG. Given this information, patient will be made comfort measures as the likelihood of liberation from mechanical ventilation is unlikely. Patient has failed multiple CPAP trials. Labs and imaging reviewed. Rest of plan as noted below. Plan: s/p intubation on mechanical ventilator On assist control with respiratory rate of 22, tidal volume 550, PEEP of 5, FiO2 of 30%. Titrate FIO2 to keep O2 saturation above 92%. VAP bundle Daily ABG and CXR while intubated. S/p bronchoscopy on 09/01/25 Bronchial washings sent for cultures, show no growth. Continue antibiotics F/u cultures. Prior sputum cultures positive for E.coli/ESBL. Continue bronchodilators Continue steroids Pressors as necessary for hemodynamic support. Titrate to keep MAP above 65 mmHg/SBP above 90 mmHg. Monitor hemoglobin Transfuse if less than 7.0 g/dL. Diurese to euvolemia Monitor renal function due to acute kidney injury. Monitor electrolytes. Supplement as necessary. Monitor ins and outs. Nutritional support. Accucheks, ISS. GI/DVT prophylaxis. On enoxaparin. Condition: Critical Prognosis: Poor given multiple comorbidities. Rest of plan per hospitalist and other consultants. A total of 35 minutes of critical care time was spent reviewing the patient record, examining the patient, making a diagnostic and therapeutic plan, discussing this plan with the medical personnel, following up on diagnostic studies and following the patient for clinical stability excluding any and all procedures. At least 50% of this time was spent in direct, [id number] contact. Thank you Dr. Boyd for allowing me to participate in this patient's care. Further recommendations will depend on patient's clinical course. Please do not hesitate to contact me if you have any questions or concerns. This medical document was created using an electronic medical record system with [employer] dictation system. Although this document has been carefully reviewed, there may still be some phonetic and typographical errors. These areas are purely typographical due to imperfections of the software programs, and do not reflect any compromise in the patient's medical care Dietary Evaluation Review Comments: Nutrition Recommendation 1) EN Jevity 1.2 Perry @ 60ml/hr x 24hr(goal) along with Pro-stat 1pk BID. Water flush 200ml Q6H if allowed, adjust PRN. TF at goal volume provides 1928 kcal (100%), 110gm protein (94%), and 1962 ml free water (including flush). 2) Consider TPN/PN if NPO>7 days 3) Advance diet as medically feasible 4) Monitor NPO status, lab values, weight trend, and I/O Expected Outcomes/Goals: Intake to meet >75% estimated needs Fu 2-3 days Plan discussed with: Other (ROSA Bright) Critical Care Time(min): 35 EWELINA [facility]YATT [facility] Sep 09, 2025 22:53
[2025-09-10] VITALS (109 sets, daily range): BP systolic 105–255; BP diastolic 51–128; PULSE 53–90; RESP 16–33; TEMP 97–99.1; O2SAT 90–100
[2025-09-10] MEDS: PROPOFOL 100 ML IV SCH (00:51)
[2025-09-10 05:04] LABS: Albumin 3.5 g/dL (3.2-4.8); Alkaline Phosphatase 113 U/L (46-116); Anion Gap 6 (5-15); Calcium 9.7 mg/dL (8.7-10.4); Chloride 104 mmol/L (98-107); Magnesium 2.5 mg/dL (1.6-2.6); Potassium 5.0 mmol/L (3.5-5.1); Sodium 143 mmol/L (136-145)
[2025-09-10 05:18] LABS: Alanine Aminotransferase 197 U/L (7-40); BUN/Creatinine Ratio 75.0 (10.0-20.0); Bilirubin, Total 0.2 mg/dL (0.2-1.0); Blood Urea Nitrogen 48 mg/dL (9-23); Carbon Dioxide 33 mmol/L (20-31); Glucose 136 mg/dL (74-106); Total Protein 5.7 g/dL (5.7-8.2)
[2025-09-10 07:59] LABS: Base Excess 6.5 mmol/L (-2.0-3.0)
--- NOTE | 2025-09-10 08:37 | DVH ---
CHEST RADIOGRAPH Indication: pt intubated Technique: Single frontal view of the chest was obtained COMPARISON: XY CHEST PORTABLE on DOS: 09/09/25, XY CHEST PORTABLE on DOS: 09/08/25, XY CHEST PORTABLE on DOS: 09/07/25, XY CHEST PORTABLE on DOS: 09/06/25, XY CHEST PORTABLE on DOS: 09/05/25 FINDINGS: Lines and Tubes: Endotracheal tube and enteric catheter in satisfactory position. Right PICC in [employer] position. Lungs: Biapical scarring. Pleura: Small left pleural effusion. No pneumothorax. Cardiomediastinal contours: Unremarkable Bones: Unremarkable IMPRESSION: Small left pleural effusion.
[2025-09-10] MEDS: DEXMEDETOMIDINE HCL IN D5W 100 ML IV SCH (14:30)
[2025-09-10] MEDS: TRACE MINERALS IV NR (21:48)
[2025-09-10] MEDS: [UNRECOGNIZED DRUG - OTHER] IV NR (21:48)
[2025-09-10] MEDS: VIT K IV NR (21:48)
[2025-09-10] MEDS: MULTIPLE VIT IV NR (21:48)
[2025-09-11] VITALS (105 sets, daily range): BP systolic 103–184; BP diastolic 50–79; PULSE 18–95; RESP 11–29; TEMP 96.8–99.7; O2SAT 85–100
[2025-09-11] MEDS ORDERED: KETOROLAC TROMETH 60MG/2ML VIAL IM ONE
[2025-09-11 04:39] LABS: Albumin 3.5 g/dL (3.2-4.8); Alkaline Phosphatase 110 U/L (46-116); Anion Gap 8 (5-15); BUN/Creatinine Ratio 60.0 (10.0-20.0); Calcium 9.7 mg/dL (8.7-10.4); Carbon Dioxide 30 mmol/L (20-31); Chloride 103 mmol/L (98-107); Magnesium 2.5 mg/dL (1.6-2.6); Potassium 4.8 mmol/L (3.5-5.1); Sodium 141 mmol/L (136-145); Total Protein 5.9 g/dL (5.7-8.2)
[2025-09-11 04:42] LABS: Alanine Aminotransferase 278 U/L (7-40); Bilirubin, Total 0.2 mg/dL (0.2-1.0); Blood Urea Nitrogen 39 mg/dL (9-23); Glucose 165 mg/dL (74-106)
--- NOTE | 2025-09-11 05:08 | DVH ---
CHEST RADIOGRAPH Indication: pt intubated Technique: 1 view Comparison: XY CHEST PORTABLE on DOS: 09/10/25, XY CHEST PORTABLE on DOS: 09/09/25, XY CHEST PORTABLE on DOS: 09/08/25, XY CHEST PORTABLE on DOS: 09/07/25, XY CHEST PORTABLE on DOS: 09/06/25 FINDINGS: Lines and Tubes: Unchanged. Lungs/Pleura: Unchanged, with the left costophrenic angle excluded. Cardiomediastinum: Unchanged. Other: Unchanged osseous structures. IMPRESSION: No significant change from the previous day.
[2025-09-11] MEDS: hydrALAZINE HCL 20 MG/ML VL IV ONE (07:15)
[2025-09-11 07:59] LABS: Base Excess 5.3 mmol/L (-2.0-3.0)
--- NOTE | 2025-09-11 11:27 | DVHPN2 ---
Progress Note - Dictate Date Seen: Sep 10, 2025 Medical Necessity Reason Pt with a Central, PICC or Fol: Yes The following are medically ne: PICC Line, Palafox Catheter Reason for palafox catheter: Strict I&O Subjective [facility] Patient seen and examined at bedside. Intubated on mechanical ventilator. Overnight events reviewed. vital signs Vital Sign Date Time Temp Pulse Resp B/P (MAP) Pulse Ox O2 Delivery O2 Flow Rate FiO2 09/10/25 22:00 83 22 120/64 (82) 93 30 09/10/25 21:53 Mechanical Ventilator+ 09/10/25 21:45 99.0 210.2 Total Intake and Output 09/09/25 09/09/25 09/10/25 15:00 23:00 07:00 Intake Total 82.911 ml 323.84 ml 295.605 ml Output Total 650 ml 850 ml Balance 82.911 ml -326.16 ml -554.395 ml medications Current Medications Medications Dose Ordered Sig/Kush Route Start Time Stop Time Status Last Admin Dose Admin Nitroglycerin 0.4 mg Q5MINP PRN SL 08/26/25 21:00 Norepinephrine Bitartrate 250 ml @ 3.75 mls/hr Q24H IV 08/27/25 01:30 08/27/25 01:34 3.75 MLS/HR Albuterol 2.5 mg Q6HPRN PRN NEB 08/27/25 03:15 09/10/25 22:00 2.5 MG Lorazepam 2 mg Q4HPRN PRN IV 08/30/25 12:00 08/31/25 09:56 2 MG Chlordiazepoxide HCl 25 mg BID PO 08/31/25 22:00 09/10/25 21:43 25 MG Amino Acids 0 ml @ 0 mls/hr PER PHARMACY IV 08/31/25 18:15 Diagnostic Test (Pha) 1 strip Q6HR 09/03/25 00:00 09/10/25 18:02 1 STRIP Insulin Human Regular FOLLOW SLIDING SCALE Q6HR SC 09/03/25 00:00 09/10/25 18:18 4 UNITS Dextrose 50 ml UD IV 09/02/25 22:00 Sodium Chloride 10 ml QSHIFT@10,22 IV 09/02/25 22:00 09/10/25 21:42 10 ML Amiodarone HCl 200 mg Q12HR PO 09/03/25 22:00 09/10/25 21:43 200 MG Midazolam HCl 100 ml @ 1 mls/hr Q24H IV 09/03/25 17:30 09/06/25 13:38 4 MLS/HR Fentanyl Citrate 250 ml @ 2.5 mls/hr Q24H IV 09/05/25 03:00 09/10/25 05:37 5 MLS/HR Methylprednisolone Sodium Succinate 40 mg Q12HR IV 09/06/25 15:00 09/10/25 21:43 40 MG Ipratropium [place] 0.5 mg Q4HR NEB 09/06/25 18:00 09/10/25 22:00 0.5 MG Budesonide 0.5 mg BID NEB 09/07/25 22:00 09/10/25 22:00 0.5 MG Propofol 100 ml @ 2.655 mls/ hr Q24H IV 09/09/25 20:00 09/10/25 21:41 26.55 MLS/HR Multivitamins 10 ml/Chromium/ Copper/Manganese/ Zinc 1 ml/Amino Acids/Dextrose 1,361 ml @ 57 mls/hr [id number] IV 09/10/25 22:00 09/11/25 21:59 09/10/25 21:48 57 MLS/HR Quetiapine Fumarate 100 mg BID PO 09/10/25 10:00 09/10/25 21:42 100 MG objective Gen.: Patient lying in bed in medical ICU. Intubated on mechanical ventilator. Head: Normocephalic, atraumatic. Eyes: PERRLA. Ears: Normal external anatomy. Throat: Endotracheal tube and orogastric tube in place. Neck: Supple, trachea midline. Chest: Transmitted breath sounds bilaterally. Decreased air entry bilaterally. Wheezing. Bibasilar crackles. Cardiovascular: Positive S1, positive S2. Regular rate and rhythm. Abdomen: Positive bowel sounds in all 4 quadrants. Soft, nontender, nondistended. : Palafox in place. Normal external genitalia. Rectal: Deferred. Skin: Warm, dry. Intact. Extremities: 2+ radial pulses bilaterally. No lower extremity edema. Neuro: Off sedation. laboratory and microbiology Laboratory Tests 09/10/25 04:05 09/08/25 03:30 Test 09/10/25 04:05 Range/Units Serum Glucose 136 H 74-106 mg/dL Assessment/Plan Impression: Acute hypoxic respiratory failure On mechanical ventilation Metabolic encephalopathy Right apical lung scarring Right apical pleural-parenchymal scarring Shock Elevated D-dimer Lactic acidosis Hyperglycemia Events: Remains on vent support On assist control with respiratory rate of 22, tidal volume 550, PEEP of 5, FiO2 of 30%. Off sedation. Precedex OK to max 1.7 mcg. ABG reviewed, compensated. Chest x-ray reviewed, notable for small left pleural effusion and biapical scarring. Surgery recommendations appreciated. Continue antibiotics - meropenem Pt with wheezing. Continue bronchodilators/ICS. DuoNeb q.4 hours, Pulmicort q.12 hours and Solu-Medrol 40 mg IVP q. 12 hours Continue amiodarone PO Continue TPN for nutritional support Seroquel dose increased to 100 mg q.12 hours Maintain euvolemia Monitor renal function Monitor electrolytes. Supplement as necessary. CPAP with PS 20, PEEP of 5 Continue CPAP for exercise. Patient has not been tolerating CPAP, failed multiple CPAP trials. Poor prognosis. Likelihood for being liberated from vent is low. Plan for compassionate extubation on Sunday POL signed by patient. He would not want life prolongation with mechanical ventilator + feeding tube. Per brother, his brother would not want life prolongation with trach/PEG. Given this information, patient will be made comfort measures as the likelihood of liberation from mechanical ventilation is unlikely. Patient has failed multiple CPAP trials. Labs and imaging reviewed. Rest of plan as noted below. Plan: s/p intubation on mechanical ventilator On assist control with respiratory rate of 22, tidal volume 550, PEEP of 5, FiO2 of 30%. Titrate FIO2 to keep O2 saturation above 92%. VAP bundle Daily ABG and CXR while intubated. S/p bronchoscopy on 09/01/25 Bronchial washings sent for cultures, show no growth. Continue antibiotics F/u cultures. Prior sputum cultures positive for E.coli/ESBL. Continue bronchodilators Continue steroids Pressors as necessary for hemodynamic support. Titrate to keep MAP above 65 mmHg/SBP above 90 mmHg. Monitor hemoglobin Transfuse if less than 7.0 g/dL. Diurese to euvolemia Monitor renal function due to acute kidney injury. Monitor electrolytes. Supplement as necessary. Monitor ins and outs. Nutritional support. Accucheks, ISS. GI/DVT prophylaxis. On enoxaparin. Condition: Critical Prognosis: Poor given multiple comorbidities. Rest of plan per hospitalist and other consultants. A total of 35 minutes of critical care time was spent reviewing the patient record, examining the patient, making a diagnostic and therapeutic plan, discussing this plan with the medical personnel, following up on diagnostic studies and following the patient for clinical stability excluding any and all procedures. At least 50% of this time was spent in direct, [id number] contact. Thank you Dr. Boyd for allowing me to participate in this patient's care. Further recommendations will depend on patient's clinical course. Please do not hesitate to contact me if you have any questions or concerns. This medical document was created using an electronic medical record system with [employer] system. Although this document has been carefully reviewed, there may still be some phonetic and typographical errors. These areas are purely typographical due to imperfections of the software programs, and do not reflect any compromise in the patient's medical care Dietary Evaluation Review Comments: Nutrition Recommendation 1) EN Jevity 1.2 Perry @ 60ml/hr x 24hr(goal) along with Pro-stat 1pk BID. Water flush 200ml Q6H if allowed, adjust PRN. TF at goal volume provides 1928 kcal (100%), 110gm protein (94%), and 1962 ml free water (including flush). 2) Consider TPN/PN if NPO>7 days 3) Advance diet as medically feasible 4) Monitor NPO status, lab values, weight trend, and I/O Expected Outcomes/Goals: Intake to meet >75% estimated needs Fu 2-3 days Plan discussed with: Other (ROSA Bright) Critical Care Time(min): 35 EWELINA WYATT Sep 10, 2025 22:14
[2025-09-11 12:40] LABS: Base Excess 6.2 mmol/L (-2.0-3.0)
[2025-09-11] MEDS: TPN PER PHARMACY IV NR (20:55)
--- NOTE | 2025-09-11 23:17 | DVHPN2 ---
Progress Note - Dictate Date Seen: Sep 11, 2025 Medical Necessity Reason Pt with a Central, PICC or Fol: Yes The following are medically ne: PICC Line, Palafox Catheter Reason for palafox catheter: Strict I&O Subjective [facility] Patient seen and examined at bedside. Intubated on mechanical ventilator. Overnight events reviewed. vital signs Vital Sign Date Time Temp Pulse Resp B/P (MAP) Pulse Ox O2 Delivery O2 Flow Rate FiO2 09/11/25 22:20 91 24 131/58 (82) 95 30 09/11/25 22:00 Mechanical Ventilator+ 09/11/25 20:30 97.7 207.9 Total Intake and Output 09/10/25 09/10/25 09/11/25 15:00 23:00 07:00 Intake Total 553.685 ml 942.879 ml 898.518 ml Output Total 650 ml 1000 ml Balance 553.685 ml 292.879 ml -101.482 ml medications Current Medications Medications Dose Ordered Sig/Kush Route Start Time Stop Time Status Last Admin Dose Admin Nitroglycerin 0.4 mg Q5MINP PRN SL 08/26/25 21:00 Norepinephrine Bitartrate 250 ml @ 3.75 mls/hr Q24H IV 08/27/25 01:30 08/27/25 01:34 3.75 MLS/HR Albuterol 2.5 mg Q6HPRN PRN NEB 08/27/25 03:15 09/11/25 18:42 2.5 MG Lorazepam 2 mg Q4HPRN PRN IV 08/30/25 12:00 08/31/25 09:56 2 MG Chlordiazepoxide HCl 25 mg BID PO 08/31/25 22:00 09/11/25 20:55 25 MG Amino Acids 0 ml @ 0 mls/hr PER PHARMACY IV 08/31/25 18:15 Diagnostic Test (Pha) 1 strip Q6HR 09/03/25 00:00 09/11/25 17:51 1 STRIP Insulin Human Regular FOLLOW SLIDING SCALE Q6HR SC 09/03/25 00:00 09/11/25 17:51 2 UNITS Dextrose 50 ml UD IV 09/02/25 22:00 Sodium Chloride 10 ml QSHIFT@, IV 09/02/25 22:00 09/11/25 20:56 10 ML Amiodarone HCl 200 mg Q12HR PO 09/03/25 22:00 09/11/25 20:55 200 MG Midazolam HCl 100 ml @ 1 mls/hr Q24H IV 09/03/25 17:30 09/06/25 13:38 4 MLS/HR Fentanyl Citrate 250 ml @ 2.5 mls/hr Q24H IV 09/05/25 03:00 09/10/25 05:37 5 MLS/HR Methylprednisolone Sodium Succinate 40 mg Q12HR IV 09/06/25 15:00 09/11/25 20:55 40 MG Ipratropium [place] 0.5 mg Q4HR NEB 09/06/25 18:00 09/11/25 22:19 0.5 MG Budesonide 0.5 mg BID NEB 09/07/25 22:00 09/11/25 22:19 0.5 MG Propofol 100 ml @ 2.655 mls/ hr Q24H IV 09/09/25 20:00 09/11/25 22:40 13.275 MLS/HR Quetiapine Fumarate 100 mg BID PO 09/10/25 10:00 09/11/25 20:55 100 MG Multivitamins 10 ml/Chromium/ Copper/Manganese/ Zinc 1 ml/Amino Acids/Dextrose 1,361 ml @ 57 mls/hr [id number] IV 09/11/25 22:00 09/12/25 21:59 09/11/25 20:55 57 MLS/HR objective Gen.: Patient lying in bed in medical ICU. Intubated on mechanical ventilator. Head: Normocephalic, atraumatic. Eyes: PERRLA. Ears: Normal external anatomy. Throat: Endotracheal tube and orogastric tube in place. Neck: Supple, trachea midline. Chest: Transmitted breath sounds bilaterally. Decreased air entry bilaterally. Wheezing. Bibasilar crackles. Cardiovascular: Positive S1, positive S2. Regular rate and rhythm. Abdomen: Positive bowel sounds in all 4 quadrants. Soft, nontender, nondistended. : Palafox in place. Normal external genitalia. Rectal: Deferred. Skin: Warm, dry. Intact. Extremities: 2+ radial pulses bilaterally. No lower extremity edema. Neuro: Off sedation. laboratory and microbiology Laboratory Tests 09/11/25 03:52 09/08/25 03:30 Test 10/31/25 03:52 Range/Units Serum Glucose 165 H 74-106 mg/dL Assessment/Plan Impression: Acute hypoxic respiratory failure On mechanical ventilation Metabolic encephalopathy Right apical lung scarring Right apical pleural-parenchymal scarring Shock Elevated D-dimer Lactic acidosis Hyperglycemia Events: Remains on vent support On assist control with respiratory rate of 22, tidal volume 550, PEEP of 5, FiO2 of 30%. Off sedation. Precedex OK to max 1.7 mcg. ABG reviewed, compensated. Chest x-ray - no significant change. Surgery recommendations appreciated. Continue antibiotics - meropenem Pt with wheezing. Continue bronchodilators/ICS. DuoNeb q.4 hours, Pulmicort q.12 hours and Solu-Medrol 40 mg IVP q. 12 hours Continue amiodarone PO Continue TPN for nutritional support Seroquel at 100 mg q.12 hours Maintain euvolemia Monitor renal function Monitor electrolytes. Supplement as necessary. Continue CPAP with PS 20, PEEP of 5 OK to increase PS to max 20 cmH2O to achieve tidal volume of 400-500 ml. Continue CPAP for exercise. Will attempt CPAP in AM + possible extubation. Patient has not been tolerating CPAP, failed multiple CPAP trials. Poor prognosis. Likelihood for being liberated from vent is low. Plan for compassionate extubation POLST signed by patient. He would not want life prolongation with mechanical ventilator + feeding tube. Per brother, his brother would not want life prolongation with trach/PEG. Given this information, patient will be made comfort measures as the likelihood of liberation from mechanical ventilation is unlikely. Patient has failed multiple CPAP trials. Labs and imaging reviewed. Rest of plan as noted below. Plan: s/p intubation on mechanical ventilator On assist control with respiratory rate of 22, tidal volume 550, PEEP of 5, FiO2 of 30%. Titrate FIO2 to keep O2 saturation above 92%. VAP bundle Daily ABG and CXR while intubated. S/p bronchoscopy on 09/01/25 Bronchial washings sent for cultures, show no growth. Continue antibiotics F/u cultures. Prior sputum cultures positive for E.coli/ESBL. Continue bronchodilators Continue steroids Pressors as necessary for hemodynamic support. Titrate to keep MAP above 65 mmHg/SBP above 90 mmHg. Monitor hemoglobin Transfuse if less than 7.0 g/dL. Diurese to euvolemia Monitor renal function due to acute kidney injury. Monitor electrolytes. Supplement as necessary. Monitor ins and outs. Nutritional support. Accucheks, ISS. GI/DVT prophylaxis. On enoxaparin. Condition: Critical Prognosis: Poor given multiple comorbidities. Rest of plan per hospitalist and other consultants. A total of 35 minutes of critical care time was spent reviewing the patient record, examining the patient, making a diagnostic and therapeutic plan, discussing this plan with the medical personnel, following up on diagnostic studies and following the patient for clinical stability excluding any and all procedures. At least 50% of this time was spent in direct, [id number] contact. Thank you Dr. Boyd for allowing me to participate in this patient's care. Further recommendations will depend on patient's clinical course. Please do not hesitate to contact me if you have any questions or concerns. This medical document was created using an electronic medical record system with [employer] system. Although this document has been carefully reviewed, there may still be some phonetic and typographical errors. These areas are purely typographical due to imperfections of the software programs, and do not reflect any compromise in the patient's medical care Dietary Evaluation Review Comments: Nutrition Recommendation 1) EN Jevity 1.2 Perry @ 60ml/hr x 24hr(goal) along with Pro-stat 1pk BID. Water flush 200ml Q6H if allowed, adjust PRN. TF at goal volume provides 1928 kcal (100%), 110gm protein (94%), and 1962 ml free water (including flush). 2) Consider TPN/PN if NPO>7 days 3) Advance diet as medically feasible 4) Monitor NPO status, lab values, weight trend, and I/O Expected Outcomes/Goals: Intake to meet >75% estimated needs Fu 2-3 days Plan discussed with: Other (RN) Critical Care Time(min): 35 EWELINA WYATT Sep 11, 2025 23:17
[2025-09-12] VITALS (89 sets, daily range): BP systolic 118–202; BP diastolic 61–103; PULSE 81–161; RESP 0–42; TEMP 97.7–99.7; O2SAT 90–100
[2025-09-12 04:05] LABS: Hemoglobin 11.2 g/dL (13.5-17.5)
[2025-09-12 04:08] LABS: Hematocrit 31.5 % (41.0-53.0); Mean Corpuscular Hemoglobin 29.4 pg (28.0-32.0); Mean Corpuscular Volume 82.5 fL (80.0-100.0); Nucleated Red Blood Cells % 0.1 %
[2025-09-12 04:17] LABS: Albumin 3.5 g/dL (3.2-4.8); Anion Gap 9 (5-15); BUN/Creatinine Ratio 100.0 (10.0-20.0); Calcium 9.2 mg/dL (8.7-10.4); Chloride 100 mmol/L (98-107); Magnesium 2.2 mg/dL (1.6-2.6); Potassium 4.7 mmol/L (3.5-5.1); Sodium 140 mmol/L (136-145)
[2025-09-12 04:38] LABS: Alanine Aminotransferase 248 U/L (7-40); Alkaline Phosphatase 116 U/L (46-116); Bilirubin, Total 0.2 mg/dL (0.2-1.0); Blood Urea Nitrogen 43 mg/dL (9-23); Carbon Dioxide 31 mmol/L (20-31); Glucose 123 mg/dL (74-106); Total Protein 5.4 g/dL (5.7-8.2)
--- NOTE | 2025-09-12 05:52 | DVH ---
CHEST RADIOGRAPH Indication: PT INTUBATED Technique: Single frontal view of the chest was obtained COMPARISON: XY CHEST PORTABLE on DOS: 09/11/25, XY CHEST PORTABLE on DOS: 09/10/25, XY CHEST PORTABLE on DOS: 09/09/25, XY CHEST PORTABLE on DOS: 09/08/25, XY CHEST PORTABLE on DOS: 09/07/25 FINDINGS: Lines and Tubes: Unchanged. Lungs: Clear. Left costophrenic angle excluded. Pleura: No effusion. No pneumothorax. Cardiomediastinal contours: Unremarkable Bones: Unremarkable IMPRESSION: 1. No acute cardiopulmonary disease. 2. Lines and tubes unchanged.
[2025-09-12 06:53] LABS: Base Excess 5.9 mmol/L (-2.0-3.0)
--- NOTE | 2025-09-12 20:16 | DVHPN2 ---
Progress Note - Dictate Date Seen: Sep 12, 2025 Medical Necessity Reason Pt with a Central, PICC or Fol: Yes The following are medically ne: PICC Line, Palafox Catheter Reason for palafox catheter: Strict I&O Subjective [facility] Patient seen and examined at bedside. Intubated on mechanical ventilator. Overnight events reviewed. vital signs Vital Sign Date Time Temp Pulse Resp B/P (MAP) Pulse Ox O2 Delivery O2 Flow Rate FiO2 09/12/25 18:55 87 22 146/65 (92) 99 40 09/12/25 18:30 99.1 210.4 09/12/25 18:00 Mechanical Ventilator+ Total Intake and Output 09/11/25 09/11/25 09/12/25 14:59 22:59 06:59 Intake Total 582.142 ml 653.588 ml 597.375 ml Output Total 1025 ml 1201 ml Balance 582.142 ml -371.412 ml -603.625 ml medications Current Medications Medications Dose Ordered Sig/Kush Route Start Time Stop Time Status Last Admin Dose Admin Nitroglycerin 0.4 mg Q5MINP PRN SL 08/26/25 21:00 Norepinephrine Bitartrate 250 ml @ 3.75 mls/hr Q24H IV 08/27/25 01:30 08/27/25 01:34 3.75 MLS/HR Albuterol 2.5 mg Q6HPRN PRN NEB 08/27/25 03:15 09/12/25 13:33 2.5 MG Lorazepam 2 mg Q4HPRN PRN IV 08/30/25 12:00 08/31/25 09:56 2 MG Chlordiazepoxide HCl 25 mg BID PO 08/31/25 22:00 09/12/25 09:32 25 MG Amino Acids 0 ml @ 0 mls/hr PER PHARMACY IV 08/31/25 18:15 Diagnostic Test (Pha) 1 strip Q6HR 09/03/25 00:00 09/12/25 17:57 1 STRIP Insulin Human Regular FOLLOW SLIDING SCALE Q6HR SC 09/03/25 00:00 09/12/25 17:53 2 UNITS Dextrose 50 ml UD IV 09/02/25 22:00 Sodium Chloride 10 ml QSHIFT@10,22 IV 09/02/25 22:00 09/12/25 09:32 10 ML Amiodarone HCl 200 mg Q12HR PO 09/03/25 22:00 09/12/25 09:32 200 MG Midazolam HCl 100 ml @ 1 mls/hr Q24H IV 09/03/25 17:30 09/06/25 13:38 4 MLS/HR Fentanyl Citrate 250 ml @ 2.5 mls/hr Q24H IV 09/05/25 03:00 09/10/25 05:37 5 MLS/HR Methylprednisolone Sodium Succinate 40 mg Q12HR IV 09/06/25 15:00 09/12/25 09:32 40 MG Ipratropium [place] 0.5 mg Q4HR NEB 09/06/25 18:00 09/12/25 18:55 0.5 MG Budesonide 0.5 mg BID NEB 09/07/25 22:00 09/12/25 18:55 0.5 MG Propofol 100 ml @ 2.655 mls/ hr Q24H IV 09/09/25 20:00 09/12/25 04:52 5.31 MLS/HR Quetiapine Fumarate 100 mg BID PO 09/10/25 10:00 09/12/25 09:32 100 MG Multivitamins 10 ml/Chromium/ Copper/Manganese/ Zinc 1 ml/Amino Acids/Dextrose 1,361 ml @ 57 mls/hr [id number] IV 09/11/25 22:00 09/12/25 21:59 09/11/25 20:55 57 MLS/HR Fat Emulsion Intravenous 50 ml/ Sodium Phosphate 10 meq/Potassium Phosphate 11 meq/ Magnesium Sulfate 4 meq/ Multivitamins 10 ml/Amino Acids/ Dextrose 1,416 ml @ 59 mls/hr Q24H IV 09/12/25 22:00 09/13/25 21:59 objective Gen.: Patient lying in bed in medical ICU. Intubated on mechanical ventilator. Head: Normocephalic, atraumatic. Eyes: PERRLA. Ears: Normal external anatomy. Throat: Endotracheal tube and orogastric tube in place. Neck: Supple, trachea midline. Chest: Transmitted breath sounds bilaterally. Decreased air entry bilaterally. Wheezing. Bibasilar crackles. Cardiovascular: Positive S1, positive S2. Regular rate and rhythm. Abdomen: Positive bowel sounds in all 4 quadrants. Soft, nontender, nondistended. : Palafox in place. Normal external genitalia. Rectal: Deferred. Skin: Warm, dry. Intact. Extremities: 2+ radial pulses bilaterally. No lower extremity edema. Neuro: Off sedation. laboratory and microbiology Laboratory Tests 09/12/25 03:25 Test 09/12/25 03:25 Range/Units Serum Glucose 123 H 74-106 mg/dL Assessment/Plan Impression: Acute hypoxic respiratory failure On mechanical ventilation Metabolic encephalopathy Right apical lung scarring Right apical pleural-parenchymal scarring Shock Elevated D-dimer Lactic acidosis Hyperglycemia Events: Remains on vent support On assist control with respiratory rate of 22, tidal volume 550, PEEP of 5, FiO2 of 40%. Taper FiO2 as tolerated On Fentanyl drip. ABG reviewed, compensated. Chest x-ray - no acute disease CPAP with PS 20, PEEP of 5 OK to increase PS to max 20 cmH2O to achieve tidal volume of 400-500 ml. Note, patient failed CPAP. He has not been tolerating CPAP, failed multiple CPAP trials. Poor prognosis. Likelihood for being liberated from vent is low. Plan for compassionate extubation Continue Fentanyl drip TPN for nutritional support Comfort care, supportive care. POLST signed by patient. He would not want life prolongation with mechanical ventilator + feeding tube. Per brother, his brother would not want life prolongation with trach/PEG. Given this information, patient will be made comfort measures as the likelihood of liberation from mechanical ventilation is unlikely. Patient has failed multiple CPAP trials. Labs and imaging reviewed. Plan: Note, plan for compassionate extubation today. s/p intubation on mechanical ventilator On assist control with respiratory rate of 22, tidal volume 550, PEEP of 5, FiO2 of 40%. Titrate FIO2 to keep O2 saturation above 92%. VAP bundle Daily ABG and CXR while intubated. S/p bronchoscopy on 09/01/25 Bronchial washings sent for cultures, show no growth. Antibiotics F/u cultures. Prior sputum cultures positive for E.coli/ESBL. Bronchodilators Steroids Pt with wheezing.- bronchodilators/ICS. DuoNeb q.4 hours, Pulmicort q.12 hours and Solu-Medrol 40 mg IVP q. 12 hours Amiodarone PO TPN for nutritional support Seroquel at 100 mg q.12 hours Pressors as necessary for hemodynamic support. Titrate to keep MAP above 65 mmHg/SBP above 90 mmHg. Surgery recommendations appreciated. Monitor hemoglobin Transfuse if less than 7.0 g/dL. Diurese to euvolemia Monitor renal function due to acute kidney injury. Monitor electrolytes. Supplement as necessary. Monitor ins and outs. Nutritional support. Accucheks, ISS. GI/DVT prophylaxis. On enoxaparin. Condition: Critical Prognosis: Poor given multiple comorbidities. Rest of plan per hospitalist and other consultants. A total of 35 minutes of critical care time was spent reviewing the patient record, examining the patient, making a diagnostic and therapeutic plan, discussing this plan with the medical personnel, following up on diagnostic studies and following the patient for clinical stability excluding any and all procedures. At least 50% of this time was spent in direct, [id number] contact. Thank you Dr. Boyd for allowing me to participate in this patient's care. Further recommendations will depend on patient's clinical course. Please do not hesitate to contact me if you have any questions or concerns. This medical document was created using an electronic medical record system with [employer] dictation system. Although this document has been carefully reviewed, there may still be some phonetic and typographical errors. These areas are purely typographical due to imperfections of the software programs, and do not reflect any compromise in the patient's medical care Dietary Evaluation Review Comments: Nutrition Recommendation 1) EN Jevity 1.2 Perry @ 60ml/hr x 24hr(goal) along with Pro-stat 1pk BID. Water flush 200ml Q6H if allowed, adjust PRN. TF at goal volume provides 1928 kcal (100%), 110gm protein (94%), and 1962 ml free water (including flush). 2) Consider TPN/PN if NPO>7 days 3) Advance diet as medically feasible 4) Monitor NPO status, lab values, weight trend, and I/O Expected Outcomes/Goals: Intake to meet >75% estimated needs Fu 2-3 days Plan discussed with: Other (ROSA Gomez) Critical Care Time(min): 35 EWELINA WYATT Sep 12, 2025 20:16
[2025-09-12] MEDS ORDERED: LORazepam 2MG/ML-1ML VIAL IV PRN (21:15)
[2025-09-12] MEDS ORDERED: SODIUM PHOSPHATES IV NR (22:00)
[2025-09-12] MEDS ORDERED: POTASSIUM PHOSPHATE IV NR (22:00)
[2025-09-12] MEDS ORDERED: [UNRECOGNIZED DRUG - OTHER] IV NR (22:00)
[2025-09-12] MEDS ORDERED: FAT EMULSION IV NR (22:00)
[2025-09-12] MEDS: MORPHINE SULFATE 4 MG/ML SYR/VIAL IV PRN (22:43)
[2025-09-12] MEDS: LORazepam 2MG/ML-1ML VIAL IV PRN (22:44)
[2025-09-12] MEDS: GLYCOPYRROLATE 0.2 MG/ML 1ML VIAL IV PRN (23:52)
[2025-09-13] VITALS (11 sets, daily range): BP systolic 116–143; BP diastolic 57–85; PULSE 69–101; RESP 12–26; TEMP 36.6; O2SAT 80–97
--- NOTE | 2025-09-13 21:32 | DVHPN2 ---
Progress Note Date Seen: Sep 09, 2025 Medical Necessity Reason Pt with a Central, PICC or Fol: Yes The following are medically ne: PICC Line, Palafox Catheter Reason for palafox catheter: Strict I&O Objective vital signs Vital Sign Date Time Temp Pulse Resp B/P (MAP) Pulse Ox O2 Delivery O2 Flow Rate FiO2 09/13/25 21:00 97.3 91 18 139/76 (97) 96 97.3 09/13/25 10:00 Nasal Cannula* 4 36 Total Intake and Output 09/12/25 09/12/25 09/13/25 15:00 23:00 07:00 Intake Total 496.47 ml 494 ml Output Total 900 ml Balance 496.47 ml -406 ml medications Current Medications Medications Dose Ordered Sig/Kush Route Start Time Stop Time Status Last Admin Dose Admin Morphine Sulfate 4 mg Q1HP PRN IV 09/12/25 21:15 09/13/25 17:25 4 MG Lorazepam 2 mg Q1HP PRN IV 09/12/25 21:30 09/13/25 18:19 2 MG Glycopyrrolate 0.2 mg Q6HP PRN IV 09/12/25 23:15 09/12/25 23:52 0.2 MG laboratory and microbiology Laboratory Tests 09/12/25 03:25 Test 09/12/25 03:25 Range/Units Serum Glucose 123 H 74-106 mg/dL Microbiology Date/Time Source Procedure Growth Status 09/01/25 20:15 Urine - Suprapubic Aspirate Urine Culture - Final Complete 09/01/25 13:16 Bronchial Washings Gram Stain - Final Complete 09/01/25 13:16 Bronchial Washings Respiratory Culture - Final Complete 08/26/25 18:51 Blood Blood Culture - Final NO GROWTH AFTER 5 DAYS OF INCUBATION. Complete Labs and/or images reviewed: Labs reviewed by me, Image(s) reviewed by me Problem List/Assessment/Plan Problem List/Assessment/Plan Acute hypoxic respiratory failure On mechanical ventilation acute toxic and metabolic encephalopathy Right apical lung scarring Right apical pleural-parenchymal scarring Shock, septic Elevated D-dimer Lactic acidosis Hyperglycemia sepsis/septic shock with unclear cause at this time chronic anemia time: >35 minutes critical care in the coordination of care Plan discussed with: Other (brother of pt) My Orders My Orders Orders - JIE PEREZ DO Procedure Category Date Status Time Rt To Terminal Wean Pt ORDERS 09/12/25 Transmitted 22:28 * 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 Water flush 200ml Q6H if allowed, adjust PRN. TF at goal volume provides 1928 kcal (100%), 110gm protein (94%), and 1962 ml free water (including flush). 2) Consider TPN/PN if NPO>7 days 3) Advance diet as medically feasible 4) Monitor NPO status, lab values, weight trend, and I/O Expected Outcomes/Goals: Intake to meet >75% estimated needs Fu 2-3 days JIE PEREZ DO Sep 13, 2025 21:32
--- NOTE | 2025-09-13 21:33 | DVHPN2 ---
Progress Note Date Seen: Sep 12, 2025 Medical Necessity Reason Pt with a Central, PICC or Fol: Yes The following are medically ne: PICC Line, Palafox Catheter Reason for palafox catheter: Strict I&O Objective vital signs Vital Sign Date Time Temp Pulse Resp B/P (MAP) Pulse Ox O2 Delivery O2 Flow Rate FiO2 09/13/25 21:00 97.3 91 18 139/76 (97) 96 97.3 09/13/25 10:00 Nasal Cannula* 4 36 Total Intake and Output 09/12/25 09/12/25 09/13/25 15:00 23:00 07:00 Intake Total 496.47 ml 494 ml Output Total 900 ml Balance 496.47 ml -406 ml medications Current Medications Medications Dose Ordered Sig/Kush Route Start Time Stop Time Status Last Admin Dose Admin Morphine Sulfate 4 mg Q1HP PRN IV 09/12/25 21:15 09/13/25 17:25 4 MG Lorazepam 2 mg Q1HP PRN IV 09/12/25 21:30 09/13/25 18:19 2 MG Glycopyrrolate 0.2 mg Q6HP PRN IV 09/12/25 23:15 09/12/25 23:52 0.2 MG laboratory and microbiology Laboratory Tests 09/12/25 03:25 Test 09/12/25 03:25 Range/Units Serum Glucose 123 H 74-106 mg/dL Microbiology Date/Time Source Procedure Growth Status 09/01/25 20:15 Urine - Suprapubic Aspirate Urine Culture - Final Complete 09/01/25 13:16 Bronchial Washings Gram Stain - Final Complete 09/01/25 13:16 Bronchial Washings Respiratory Culture - Final Complete 08/26/25 18:51 Blood Blood Culture - Final NO GROWTH AFTER 5 DAYS OF INCUBATION. Complete Labs and/or images reviewed: Labs reviewed by me, Image(s) reviewed by me Problem List/Assessment/Plan Problem List/Assessment/Plan Acute hypoxic respiratory failure On mechanical ventilation acute toxic and metabolic encephalopathy Right apical lung scarring Right apical pleural-parenchymal scarring Shock, septic Elevated D-dimer Lactic acidosis Hyperglycemia sepsis/septic shock with unclear cause at this time chronic anemia time: >35 minutes critical care in the coordination of care Plan discussed with: Other (nursing) My Orders My Orders Orders - JIE PEREZ DO Procedure Category Date Status Time Rt To Terminal Wean Pt ORDERS 09/12/25 Transmitted 22:28 * 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 Water flush 200ml Q6H if allowed, adjust PRN. TF at goal volume provides 1928 kcal (100%), 110gm protein (94%), and 1962 ml free water (including flush). 2) Consider TPN/PN if NPO>7 days 3) Advance diet as medically feasible 4) Monitor NPO status, lab values, weight trend, and I/O Expected Outcomes/Goals: Intake to meet >75% estimated needs Fu 2-3 days JIE PEREZ DO Sep 13, 2025 21:33
--- NOTE | 2025-09-13 21:33 | DVHDS2 ---
Discharge Summary Date of Admission Aug 26, 2025 at 20:56 Date of Discharge: Sep 13, 2025 Labs/Diagnostic Data: Laboratory Results Test 09/12/25 17:47 09/12/25 06:45 09/12/25 03:25 09/11/25 12:30 POC Glucose 143 mg/dl (70-106) Blood Gas Specimen Type Arterial Blood Gas Sample Site Right brachial Blood Gas Patient Temperature 37.0 Arterial Blood Date Drawn [id number] Arterial Blood pH 7.409 (7.350-7.450) Arterial Blood Partial Pressure CO2 51.3 mmHg (35.0-48.0) Arterial Blood Partial Pressure O2 71.5 mmHg (83.0-108.0) Arterial Blood HCO3 31.7 mmol/L (21.0-28.0) Arterial Blood Oxygen Saturation 92.9 % (94.0-98.0) Arterial Blood Base Excess 5.9 mmol/L (-2.0-3.0) Arterial Blood Oxyhemoglobin 92.3 % (94.0-98.0) Arterial Blood Carboxyhemoglobin 0.1 % (0.5-1.5) Arterial Blood Methemoglobin 0.5 % (0.0-1.5) Williams Test N/a Blood Gas Total Hemoglobin 12.60 g/dL (13.5-17.5) Blood Gas Set Respiration Rate 22.0 Blood Gas Modality Vent - ac FiO2 % 30.0 Blood Gas Tidal Volume 550.0 Blood Gas PEEP or CPAP 5.0 White Blood Count 16.0 10^3/uL (4.4-10.8) Red Blood Count 3.82 10^6/uL (4.5-5.90) Hemoglobin 11.2 g/dL (13.5-17.5) Hematocrit 31.5 % (41.0-53.0) Mean Corpuscular Volume 82.5 fL (80.0-100.0) Mean Corpuscular Hemoglobin 29.4 pg (28.0-32.0) Mean Corpuscular Hemoglobin Concent 35.7 g/dL (32.0-36.0) Red Cell Distribution Width 15.1 % (11.8-14.3) Platelet Count 500 10^3/uL (140-450) Mean Platelet Volume 7.2 fL (6.9-10.8) Neutrophils (%) (Auto) 91.2 % (37.0-80.0) Lymphocytes (%) (Auto) 4.9 % (10.0-50.0) Monocytes (%) (Auto) 3.7 % (0.0-12.0) Eosinophils (%) (Auto) 0.0 % (0.0-7.0) Basophils (%) (Auto) 0.2 % (0.0-2.0) Neutrophils # (Auto) 14.6 10 ^3/uL (1.6-8.6) Lymphocytes # (Auto) 0.8 10 ^3/uL (0.4-5.4) Monocytes # (Auto) 0.6 10 ^3/uL (0-1.3) Eosinophils # (Auto) 0 10 ^3/uL (0-0.8) Basophils # (Auto) 0 10 ^3/uL (0-0.2) Nucleated Red Blood Cells 0.1 % Sodium Level 140 mmol/L (136-145) Potassium Level 4.7 mmol/L (3.5-5.1) Chloride Level 100 mmol/L (98-107) Carbon Dioxide Level 31 mmol/L (20-31) Anion Gap 9 (5-15) Blood Urea Nitrogen 43 mg/dL (9-23) Creatinine 0.43 mg/dL (0.700-1.30) Glomerular Filtration Rate Calc 114 mL/min (>90) BUN/Creatinine Ratio 100.0 (10.0-20.0) Serum Glucose 123 mg/dL (74-106) Calcium Level 9.2 mg/dL (8.7-10.4) Phosphorus Level 2.8 mg/dL (2.4-5.1) Magnesium Level 2.2 mg/dL (1.6-2.6) Total Bilirubin 0.2 mg/dL (0.2-1.0) Aspartate Amino Transferase (AST) 85 U/L (13-40) Alanine Aminotransferase (ALT) 248 U/L (7-40) Alkaline Phosphatase 116 U/L (46-116) Total Protein 5.4 g/dL (5.7-8.2) Albumin 3.5 g/dL (3.2-4.8) Blood Gas Spontaneous Rate 28 Blood Gas Spontaneous Tidal Volume 475 Blood Gas Pressure Support 8 Test 09/10/25 04:05 09/02/25 11:06 09/02/25 03:10 09/01/25 18:01 Triglycerides Level 102 mg/dL (< 150) Lactic Acid Level 1.2 mmol/L (0.4-2.0) Hemoglobin A1c 5.0 % A1C (<5.7) Troponin I High Sensitivity 10 ng/L (</=54) B-Type Natriuretic Peptide 33.81 pg/mL (0-100) Thyroid Stimulating Hormone (TSH) 1.80 uIU/mL (0.55-4.78) Prothrombin Time 10.9 sec (9.3-11.8) Prothrombin Time INR 1.03 (0.9-1.15) Activated Partial Thromboplast Time 29.3 SEC (24.5-34.5) Test 08/31/25 06:44 08/27/25 10:45 08/26/25 18:51 Blood Gas Critical Value Read Back Yes Blood Gas Notified Whom Fredo isabel Blood Gas Notified Time [id number] Blood Gas Notified By Prasanna isaacs rrt Urine Color Light-yellow (Yellow) Urine Clarity Clear (Clear) Urine pH 7.5 (5.0-9.0) Urine Specific [place] 1.041 (1.001-1.035) Urine Protein Trace (Negative) Urine Ketones Negative (Negative) Urine Blood Negative /uL (Negative) Urine Nitrite 2+ (Negative) Urine Bilirubin Negative (Negative) Urine Urobilinogen Normal mg/dL (Negative) Urine Leukocyte Esterase 1+ /uL (Negative) Urine RBC 3 /hpf (0 - 3) Urine Microscopic WBC 7 /HPF (0-3) Urine Squamous Epithelial Cells None seen /hpf (<5) Urine Bacteria None seen /hpf (None Seen) Urine Glucose Normal mg/dL (Normal) Urine Opiates Screen Pos (NEGATIVE) Urine Fentanyl Screen Pos (NEGATIVE) Urine Barbiturates Screen Neg (NEGATIVE) Urine Phencyclidine Screen Neg (NEGATIVE) Urine Amphetamines Screen Neg (NEGATIVE) Urine Benzodiazepines Screen Pos (NEGATIVE) Urine Cocaine Screen Neg (NEGATIVE) Urine Cannabinoids Screen Neg (NEGATIVE) D-Dimer, Quantitative 3.83 mg/L FEU (0.0-0.49) Plasma/Serum Blood Alcohol < 3.0 mg/dL (<10) Other Laboratory Tests 09/12/25 03:25 Brief Hx & Hospital Course: Acute hypoxic respiratory failure On mechanical ventilation acute toxic and metabolic encephalopathy Right apical lung scarring Right apical pleural-parenchymal scarring Shock, septic Elevated D-dimer Lactic acidosis Hyperglycemia sepsis/septic shock with unclear cause at this time chronic anemia discharged to hospice at home Condition at Discharge: Poor Final Diagnosis/Problems List HYPOXIA, ENCEPHLOPATHY ALOC Discharge Disposition: Hospice - Home Discharge Instruct/Medications Diet: See Comment Activity: Bed rest Scheduled Amoxicillin & Pot Clavulanate (Augmentin Tablet), 875 MG PO BID Atorvastatin Calcium (Atorvastatin Calcium), 40 MG PO HS Baclofen (Baclofen), 1 TAB PO TID, (Reported) Cranberry-Vitamin C (Azo Cranberry Urinary Tra 250-60 mg), 1 CAP PO BID Doxycycline Monohydrate (Doxycycline Monohydrate), 1 CAP PO BID Famotidine (Famotidine), 1 TAB PO DAILY, (Reported) Gabapentin (Gabapentin), 1 CAP PO BID, (Reported) Hydrocortisone Base (Hydrocortisone), 10 MG PO DAILY Lisinopril (Lisinopril), 1 TAB PO DAILY, (Reported) Mirtazapine (Remeron), 1 TAB PO QPM Pantoprazole Sodium Sesquihydr (Pantoprazole Sodium), 1 TAB PO DAILY, (Reported) Prednisone (Prednisone), 40 MG PO DAILY Tamsulosin Hcl (Flomax), 1 CAP PO DAILY Scheduled PRN Hydromorphone Hcl (Dilaudid), 2 MG PO Q4HPRN PRN for PAIN SCALE 7 THRU 10, (Reported) Ipratropium-Albuterol (Ipratropium Outlook/Albut), 1 CHILO IN Q6HPRN PRN for SHORTNESS OF BREATH, (Reported) Ondansetron HCl (Ondansetron), 8 MG PO Q8HPRN PRN for NAUSEA / VOMITING, (Reported) Discharge Statement: "Patient was advised to return to the ER or call 911 if any headaches, dizziness, shortness of breath, chest pain, abdominal pain, bleeding, fevers, or worsening of medical condition. Patient was counseled about treatment plan, medications, possible side effects, patientverbalized understanding. All questions were answered to the best of my ability. This discharge took greater then 30 minutes in planning, reviewing documentation, counseling the patient, and discussing with other team members." ASSESSMENT ASSESSMENT Assessment HYPOXIA, ENCEPHLOPATHY ALOC JIE PEREZ DO Sep 13, 2025 21:33
== END 2025-09-13 21:05 | disposition hospice, home (50) | DRG 870 ==
LOC: EDBD 18:25 → ER 18:25 → OVERFLOW 20:56 → ICU WEST 08-28 00:41 → TELE-WESTW 09-13 03:06
PROVIDERS: ADMIT Internal Medicine; ATTEND Internal Medicine
PROC: 5A1955Z Respiratory Ventilation, Greater than 96 Consecutive Hours (ICD-10-PCS; principal; 2025-08-26)
PROC: 0BH17EZ Insertion of Endotracheal Airway into Trachea, Via Natural or Artificial Opening (ICD-10-PCS; 2025-08-26)
PROC: 06HY33Z Insertion of Infusion Device into Lower Vein, Percutaneous Approach (ICD-10-PCS; 2025-08-26)
PROC: B54BZZA Ultrasonography of Right Lower Extremity Veins, Guidance (ICD-10-PCS; 2025-08-26)
PROC: 0B9M8ZZ Drainage of Bilateral Lungs, Via Natural or Artificial Opening Endoscopic (ICD-10-PCS; 2025-09-01)
PROC: 02HV33Z Insertion of Infusion Device into Superior Vena Cava, Percutaneous Approach (ICD-10-PCS; 2025-09-02)
PROC: B548ZZA Ultrasonography of Superior Vena Cava, Guidance (ICD-10-PCS; 2025-09-02)
DX: A41.59 Other Gram-negative sepsis (principal); G92.8 Other toxic encephalopathy; J96.01 Acute respiratory failure with hypoxia; R65.21 Severe sepsis with septic shock; J15.69 Pneumonia due to other Gram-negative bacteria; J15.9 Unspecified bacterial pneumonia; J69.0 Pneumonitis due to inhalation of food and vomit; E87.20 Acidosis, unspecified; R57.9 Shock, unspecified; J44.0 Chronic obstructive pulmonary disease with (acute) lower respiratory infection; J90 Pleural effusion, not elsewhere classified; E27.1 Primary adrenocortical insufficiency; Z51.5 Encounter for palliative care; I10 Essential (primary) hypertension; B96.20 Unspecified Escherichia coli [E. coli] as the cause of diseases classified elsewhere; J84.10 Pulmonary fibrosis, unspecified; J43.9 Emphysema, unspecified; D64.9 Anemia, unspecified; R73.9 Hyperglycemia, unspecified; N40.1 Benign prostatic hyperplasia with lower urinary tract symptoms; N32.0 Bladder-neck obstruction; I48.91 Unspecified atrial fibrillation; Z88.6 Allergy status to analgesic agent; Z79.2 Long term (current) use of antibiotics; Z99.81 Dependence on supplemental oxygen; Z93.59 Other cystostomy status; Z79.899 Other long term (current) drug therapy
CPT/HCPCS: 31500; 36415; 36556; 36569; 36600; 70450; 71045; 71275; 72125; 76937; 80048; 80053; 80307; 80320; 81001; 82805; 82962; 83036; 83605; 83735; 83880; 84100; 84132; 84443; 84478; 84484; 85025; 85379; 85610; 85730; 87040; 87070; 87077; 87086; 87186; 87205; 93005; 94002; 94003; 94640; 96365; 96375; 99152; 99291; G0378; J1815; J2185; J2704; J3480; J7131